=== PATIENT | female | born 1935 | race Caucasian/White ===

== ENCOUNTER → 2016-07-01 | Outpatient (CLI) | payer OTHER ==
[~2016-07-01] MED LIST: ACET325T96 PO; ACT300 PO; ASPI81TA28 PO; BTP80 PO; CARV3.122 PO; CARV6.252 PO; CLC100 PO; CRD200 PO; CRG3125 PO; DLCS PR; Enteral Nutrition Formula PO; FRRS300 PO; FRS/40 PO; HYDR-5688 PO; KFZAV1 IV; LCTX PO; LEVO112T4 PO; LSX80 PO; MAGNTAB4 PO; META1TAB22 PO; MRLP17X PO; MULT60CA PO; OXYC-57 PO; PRAV20TA PO; PRVC20 PO; SLWMEC PO; SOTA80TA55 PO; SYN100 PO; TRAM-10 PO; TYL325X PO; URSO300C4 PO
--- NOTE | 2016-07-02 10:56 | MAMMOGRAPHY REPORT ---
BILATERAL DIGITAL SCREENING MAMMOGRAM WITH CAD: 07/01/2016 CLINICAL HISTORY: Routine screening. Patient has no complaints. TECHNIQUE: Bilateral CC and MLO views were obtained. Current study was also evaluated with a Comput er Aided Detection (CAD) system. COMPARISON: Comparison is made to exams dated: 06/28/2015 mammogram, 01/27/2014 mammogram, 01/10/2012 m ammogram, 01/12/2013 mammogram, 01/08/2011 mammogram, and 01/05/2010 mammogram - [facility]. BREAST COMPOSITION: The tissue of both breasts is heterogeneously dense, which may obscure small ma sses. FINDINGS: There is an asymmetry in the superior posterior right breast on the MLO view. Although t his could represent normal overlapping tissue, additional spot compression tomosynthesis views and p ossibly ultrasound are recommended. There is an increasingly prominent 10 mm mass in the upper oute r anterior left breast, for which additional targeted ultrasound and possible additional mammographi c views is recommended. There are benign coarse calcifications and moderate vascular calcifications in the breasts. No other suspicious mass, architectural distortion or cluster of microcalcifications is seen. IMPRESSION: ACR BI-RADS CATEGORY 0: INCOMPLETE EVALUATION: NEED ADDITIONAL IMAGING EVALUATION The increasingly prominent 10 mm mass in the anterior left breast, and right breast asymmetry need a dditional imaging evaluation. The patient will be called to schedule an appointment. Approximately 10% of breast cancers are not detected with mammography. A negative mammographic repor t should not delay biopsy if a clinically suggestive mass is present. Macie Valencia M.D. ay/:07/01/2016 17:12:11 Driver Wheelchair: Dae HEIN(R)(M), [facility] letter sent: [facility] Imaging 0 BI-RADS Code: ACR BI-RADS Category 0: Incomplete Evaluation: Need Additional Imaging Evaluation
== END | disposition home or self-care (01) ==
LOC: C.MAMM 13:59
PROVIDERS: ATTEND Psychiatry & Neurology Geriatric Psychiatry
DX: Z12.31 Encounter for screening mammogram for malignant neoplasm of breast (principal); N63 Unspecified lump in breast; N64.89 Other specified disorders of breast

== ENCOUNTER 2016-07-04 18:19 | Observation (INO) | payer OTHER ==
[~2016-07-04] VITALS: Ht 167.6 cm; Wt 67.1 kg
[~2016-07-04 18:19] MED LIST changes: -ACET325T96 PO; -BTP80 PO; -CARV3.122 PO; -CARV6.252 PO; -FRS/40 PO; -LEVO112T4 PO; -MAGNTAB4 PO; -META1TAB22 PO; -MULT60CA PO; -OXYC-57 PO; -PRAV20TA PO; -SLWMEC PO; -SOTA80TA55 PO; -TRAM-10 PO
[2016-07-04] MEDS ORDERED: DILTIAZEM BOLUS / DRIP IV STA (18:42)
[2016-07-04 18:52] LABS: BASO % 0.3 %; BASO ABS # 0.03 K/uL (0-0.2); COMPLETE YES; EOS % 1.5 %; HEMATOCRIT 32.3 % (37-47); IG% 0.2 %; LYMPH % 12.8 %; LYMPH ABS # 1.16 K/uL (1.2-3.4); MEAN CELL VOLUME 94.4 fL (80-100); MEAN CORPUSCULAR HEMOGLOBIN 32.5 pg (25-34); MEAN CORPUSCULAR HGB CONC 34.4 g/dl (32-36); MEAN PLATELET VOLUME 9.6 fL (7.4-10.4); MONO % 9.1 %; NEUT % 76.1 %; PLATELET COUNT 370 K/uL (130-400); RED BLOOD COUNT 3.42 M/uL (4.2-5.4); WHITE BLOOD COUNT 9.04 K/uL (4.8-10.8)
[2016-07-04] MEDS ORDERED: DILTIAZEM HCL INJ 125 MG in DEXTROSE 5% 100ML IV PRN (19:00)
[2016-07-04 19:08] LABS: BUN/CREATININE RATIO 22.5 (10-20); CALCIUM 9.6 mg/dl (8.5-10.1); CREATININE 1.5 mg/dl (0.60-1.20); INR 1.1 (0.9-1.1); MAGNESIUM 2.2 mg/dl (1.8-2.4); PARTIAL THROMBOPLASTIN RATIO 1.9; POTASSIUM 3.9 mmol/L (3.5-5.1); PROTHROMBIN TIME (PATIENT) 11.7 SECONDS (9.0-12.0)
--- NOTE | 2016-07-04 19:31 | DIAGNOSTIC IMAGING REPORT ---
CHEST ONE VIEW PORTABLE HISTORY: Atypical chest pain. COMPARISON: Chest 02/13/2015. FINDINGS: No focal lung consolidations to suggest pneumonia. No evidence for pulmonary edema. No pleural effusions. No pneumothorax. The heart is top normal in size. A few linear densities the left lung base favor subsegmental atelectasis. IMPRESSION: No acute process. Electronically signed by: Rosendo Don M.D. 07/04/2016 7:30 PM Dictated Date/Time: 07/04/2016 7:29 PM
[2016-07-04] MEDS ORDERED: FRS/40 PO (20:06)
[2016-07-04] MEDS ORDERED: LEVO112T4 PO (20:06)
[2016-07-04] MEDS ORDERED: MULT60CA PO (20:06)
[2016-07-04] MEDS ORDERED: CARV6.252 PO (20:06)
[2016-07-04] MEDS ORDERED: MAGNTAB4 PO (20:06)
[2016-07-04] MEDS ORDERED: URSODIOL 300 MG CAP PO SCH (21:00)
[2016-07-04] MEDS ORDERED: SODIUM CHLORIDE 0.9% 1000ML 1,000 ML IV SCH (21:01)
[2016-07-04] MEDS ORDERED: IV FLUIDS COMPLETED PRN (21:15)
[2016-07-04] MEDS ORDERED: ONDANSETRON INJ 2 MG/ML 2 ML VIAL IV PRN (21:15)
[2016-07-04] MEDS ORDERED: LORAZEPAM 2 MG/ML 1 ML VIAL IV PRN (21:15)
[2016-07-04] MEDS ORDERED: NITROGLYCERIN 0.4 MG SL PER TAB CHARGE SL PRN (21:15)
[2016-07-04] MEDS ORDERED: HYDROmorphone INJ 0.5 MG/0.5 ML SYR IV PRN (21:15)
[2016-07-04] MEDS ORDERED: TRAMADOL HCL 50 MG TAB PO PRN (21:15)
[2016-07-04 21:32] VITALS: BP 156/82; PULSE 85; TEMP 36.5; O2SAT 99; Ht 167.6 cm; Wt 67.1 kg
[2016-07-04] MEDS ORDERED: HEPARIN SOD 5000 UNIT/0.5 ML CARP SQ SCH (22:00)
[2016-07-04] MEDS ORDERED: HEPARIN IV LOW DOSE NO BOLUS SCH (22:02)
[2016-07-04] MEDS ORDERED: HEPARIN 25,000 UNIT/500ML D5W 500 ML IV PRN (22:30)
[2016-07-04] MEDS ORDERED: POTASSIUM CHLORIDE 10 MEQ TABCR PO ONE (22:30)
[2016-07-04] MEDS: CARVEDILOL 6.25 MG TAB PO SCH (22:35)
[2016-07-04] MEDS: ACETAMINOPHEN 325 MG TAB PO PRN (22:38)
--- NOTE | 2016-07-04 23:07 | HISTORY & PHYSICAL EXAMINATION ---
DATE OF ADMISSION: 07/04/2016 PRIMARY CARE DOCTOR: Dr. Lucas. Hx obtained from px and records. CHIEF COMPLAINT: bilateral shoudler, back pain, shortness of breath on exertion. HISTORY OF PRESENT ILLNESS: Medical history significant for CAD status post stenting, HTN, hx PAF, past tobacco abuse, chronic renal insufficiency (baseline creatinine 1.5), HTN, hx NHL sp Rituxan, autoimmune hepatitis as per records, history of MRSA. chronic anemia (baseline hemoglobin of 11) Recent confinement last 02/2015 for sepsis secondary to MSSA bacteremia. Possible psoas abscess that was too small to drain, This morning the patient woke up with shortness of breath on exertion. No fluid retention. No actual chest pain. Bilateral shoulder/back pain going to both arms, spontaneous resolution. No previous episodes in the past. In the Emergency Room, the patient was initially noted to be in rapid Afib, 120. Spontaneous conversion to NSR CR currently 80s MEDICAL HISTORY: As above. SURGERIES: Lymph node biopsy, vaginal sling procedure, tonsillectomy, adenoidectomy, cholecystectomy, urologic procedures. HOME MEDICATIONS: Include Actigall, ursodiol, aspirin, Coreg, Lasix, levothyroxine, multivitamins, Slow-Mag. ALLERGIES: TO DIPHENHYDRAMINE, METOPROLOL, GARLIC. FAMILY HISTORY: Heart disease, pancreatic cancer, breast cancer, skin cancer. PERSONAL AND SOCIAL HISTORY: Past tobacco abuse. No chronic ETOH intake. 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 REVIEW OF SYSTEMS: As per HPI, all other ROS negative. PHYSICAL EXAMINATION: VITAL SIGNS: Blood pressure was noted to be 109/60, pulse 80, RR 26, temp 36.6, sats 98 on room air. GENERAL: Noted to be slightly anxious, mild hearing impairment. No respiratory distress. SKIN: Pallor. HEENT: Pale palpebral conjunctivae. Dry mucosa. NECK: No JVD. Supple. CHEST: Clear to auscultation. HEART: Regular rate and rhythm. ABDOMEN: Some distention, nontender. EXTREMITIES: No edema, no tenderness. Bilateral post shoulder tenderness, (chronic as per px) NEUROLOGIC: No gross focality except for hearing impairment. LABORATORY DATA: Hemoglobin was noted to be 11.1, white cells 9, platelets 317. Sodium was noted to be 137, potassium 3.9, chloride 102, CO2 of 22, creatinine 1.5. Troponin 0.10. D-dimer abnormal. Chest x-ray, no acute process. EKG rate 115, atrial fibrillation, T-wave inversion in inferolateral leads ASSESSMENT: 1. Recurrent atrial fibrillation, shortness of breath, bilat shoulder discomfort px currently asymptomatic spontaneous conversion to NSR possible precipitants : pulmonary embolism, ACS (?anginal equivalent) 2. hx Coronary artery disease sp stenting. 3. Hypertension, stable. 4. Chronic renal insufficiency, creatinine at baseline. 5. History of methicillin-resistant Staphylococcus aureus. 6. Chronic anemia secondary to chronic kidney disease. Hg at baseline 7. Past tobacco abuse. 8, hx autoimmune hepatitis as per record, stable 9. NHL sp chemotx PLAN: OBS PCU. Continue home beta keira for rate control. Cardiology consult RE recurrent Afib (px known to Dr. Miranda) 2D echo. V/Q scan. RE sob Low-dose IV heparin for now for thromboembolic prevention. Full code. MTDD
[2016-07-04 23:11] LABS: ALKALINE PHOSPHATASE 63 U/L (45-117); ALT/SGPT 10 U/L (12-78); AST/SGOT 8 U/L (15-37); THYROID STIMULATING HORMONE 0.245 uIu/ml (0.300-4.500)
[2016-07-04 23:53] VITALS: BP 101/44; PULSE 78; TEMP 36.6; O2SAT 97
--- NOTE | 2016-07-05 00:53 | EMERGENCY ROOM VISIT NOTE ---
History Report prepared by Alexandra: Germaine Brush Under the Supervision of: Dr. Brandan Bowles M.D. First contact with patient: 18:35 Chief Complaint: SHORTNESS OF BREATH Stated Complaint: WEEKNESS, SOB, ACHY Nursing Triage Summary: Pt presents with c/o sob with exertion, b/l arm and shoulder ache that began this morning. Denies cp. OH x 5 yrs ago. History of Present Illness The patient is a 80 year old female who presents to the Emergency Room with complaints of constant shortness of breath since this morning. Her shortness of breath is worse with exertion and she was having trouble just walking across the room. She reports some aching across her shoulders and down into her arms bilaterally. She denies any pain across her chest. She denies any feelings of heaviness or tightness in her chest. She does not feel like her heart is going faster than normal or skipping any beats. The patient rates her current pain as a 7/10 in severity. Sitting still helps to alleviate her symptoms. She had bronchitis in April, but denies any other recent illness. She denies pain or swelling in her legs. The patient takes aspirin but denies any other blood thinners. She had atrial fibrillation in 2014. Source of History: patient Onset: this morning Position: other (respiratory) Symptom Intensity: 7/10 Quality: other (shortness of breath) Timing: constant Modifying Factors (Worsening): exertion Modifying Factors (Relieving): rest Associated Symptoms: No chest pain Review of Systems See HPI for pertinent positives & negatives. A total of 10 systems reviewed and were otherwise negative. Past Medical & Surgical Medical Problems: (1) Autoimmune hepatitis (2) Cholelithiasis (3) Dyslipidemia (4) GI bleed (5) HTN (hypertension) (6) Hypothyroidism (7) Lymphoma (8) OH (myocardial infarction) (9) Osteoarthritis (10) Osteoporosis (11) SOB (shortness of breath) Surgical Problems: (1) S/P cholecystectomy Family History FH: cancer FH: heart disease Social History Smoking Status: Former Smoker Drug Use: none Marital Status: Housing Status: lives with family Occupation Status: retired Current/Historical Medications Scheduled Aspirin (Aspirin Ec), 81 MG PO DAILY Carvedilol (Coreg), 6.25 MG PO BID Furosemide (Lasix), 40 MG PO DAILY Levothyroxine Sodium (Levothyroxine Sodium), 1 TAB PO DAILYBB Magnesium Chloride (Slow-Mag Tab), 64 MG PO DAILY Multiple Vitamins W/ Minerals (Preservision Areds 2), 1 CAP PO DAILY Ursodiol (Actigall), 600 MG PO QAM Ursodiol (Ursodiol), 300 MG PO QPM Scheduled PRN Acetaminophen (Tylenol), 650 MG PO Q4H PRN for Pain or Fever Allergies Coded Allergies: Diphenhydramine (Verified Allergy, Intermediate, rash, 07/04/16) Metoprolol (Verified Allergy, Intermediate, RASH, 07/04/16) Aspirin (Verified Allergy, Mild, unknown, 07/04/16) Garlic (Verified Allergy, Unknown, unknown, 07/04/16) Pseudoephedrine (Verified Allergy, Unknown, rash, 07/04/16) Physical Exam Vital Signs Date Time Temp Pulse Resp B/P Pulse Ox O2 Delivery O2 Flow Rate FiO2 07/04/16 20:29 79 17 95 07/04/16 20:24 84 22 96 07/04/16 20:19 79 16 95 07/04/16 20:14 80 17 95 07/04/16 20:09 81 13 96 07/04/16 20:04 81 14 96 07/04/16 20:01 115/60 07/04/16 19:59 80 17 95 07/04/16 19:54 79 18 96 07/04/16 19:49 79 19 96 07/04/16 19:44 82 14 97 07/04/16 19:39 82 16 95 07/04/16 19:34 84 15 98 07/04/16 19:31 105/58 07/04/16 19:29 80 17 97 07/04/16 19:24 92 19 98 07/04/16 19:23 97 Room Air 07/04/16 19:19 79 16 96 07/04/16 19:14 78 19 97 07/04/16 19:09 79 16 97 07/04/16 19:04 81 17 97 07/04/16 19:01 120/61 07/04/16 18:59 79 16 98 07/04/16 18:54 77 12 99 07/04/16 18:49 98 25 99 07/04/16 18:48 91 07/04/16 18:44 90 14 99 07/04/16 18:37 99 Room Air 07/04/16 18:37 125/80 07/04/16 18:37 120 18 125/80 98 Room Air 07/04/16 18:24 36.6 112 18 98 Room Air Physical Exam Constitutional: Vital signs reviewed. Eyes: Pupils are equal round reactive to light. Conjunctiva are noninjected. ENT: Pharynx is clear without erythema or exudate. Mucous membranes are moist. Neck supple without meningeal signs. Respiratory: Clear to auscultation bilaterally. Breath sounds are equal bilaterally. Cardiovascular: Tachycardic rate at 115-140 and irregularly irregular rhythm. No rubs or gallops. GI: Soft, nondistended and nontender. Bowel sounds are present. Musculoskeletal: No peripheral edema. No lower extremity tenderness. Integumentary: No cyanosis. Neurological: The patient is awake and alert. No focal deficits. Psychiatric: Normal affect. Medical Decision & Procedures ER Provider Diagnostic Interpretation: A repeat ECG reveals a NSR at 78, deep T-wave inversions in V4-V6, no ectopy. Radiology results as stated below per my review and the radiologist's interpretation: CHEST ONE VIEW PORTABLE HISTORY: Atypical chest pain. COMPARISON: Chest 02/13/2015. FINDINGS: No focal lung consolidations to suggest pneumonia. No evidence for pulmonary edema. No pleural effusions. No pneumothorax. The heart is top normal in size. A few linear densities the left lung base favor subsegmental atelectasis. IMPRESSION: No acute process. Electronically signed by: Rosendo Don M.D. 07/04/2016 7:30 PM Dictated Date/Time: 07/04/2016 7:29 PM Laboratory Results 07/04/16 18:35 Red Blood Count 3.42, Mean Corpuscular Volume 94.4, Mean Corpuscular Hemoglobin 32.5, Mean Corpuscular Hemoglobin Concent 34.4, Mean Platelet Volume 9.6, Neutrophils (%) (Auto) 76.1, Lymphocytes (%) (Auto) 12.8, Monocytes (%) (Auto) 9.1, Eosinophils (%) (Auto) 1.5, Basophils (%) (Auto) 0.3, Neutrophils # (Auto) 6.87, Lymphocytes # (Auto) 1.16, Monocytes # (Auto) 0.82, Eosinophils # (Auto) 0.14, Basophils # (Auto) 0.03 07/04/16 18:35 Test 07/04/16 18:35 07/04/16 18:37 07/04/16 18:47 White Blood Count 9.04 K/uL (4.8-10.8) Red Blood Count 3.42 M/uL (4.2-5.4) Hemoglobin 11.1 g/dL (12.0-16.0) Hematocrit 32.3 % (37-47) Mean Corpuscular Volume 94.4 fL (80-100) Mean Corpuscular Hemoglobin 32.5 pg (25-34) Mean Corpuscular Hemoglobin Concent 34.4 g/dl (32-36) Platelet Count 370 K/uL (130-400) Mean Platelet Volume 9.6 fL (7.4-10.4) Neutrophils (%) (Auto) 76.1 % Lymphocytes (%) (Auto) 12.8 % Monocytes (%) (Auto) 9.1 % Eosinophils (%) (Auto) 1.5 % Basophils (%) (Auto) 0.3 % Neutrophils # (Auto) 6.87 K/uL (1.4-6.5) Lymphocytes # (Auto) 1.16 K/uL (1.2-3.4) Monocytes # (Auto) 0.82 K/uL (0.11-0.59) Eosinophils # (Auto) 0.14 K/uL (0-0.5) Basophils # (Auto) 0.03 K/uL (0-0.2) RDW Standard Deviation 44.9 fL (36.4-46.3) RDW Coefficient of Variation 13.0 % (11.5-14.5) Immature Granulocyte % (Auto) 0.2 % Immature Granulocyte # (Auto) 0.02 K/uL (0.00-0.02) Prothrombin Time 11.7 SECONDS (9.0-12.0) Prothromb Time International Ratio 1.1 (0.9-1.1) Activated Partial Thromboplast Time 50.5 SECONDS (21.0-31.0) Partial Thromboplastin Ratio 1.9 D-Dimer 870 ug/L FEU (0-500) Anion Gap 13.0 mmol/L (3-11) Est Creatinine Clear Calc Drug Dose 28.5 ml/min Estimated GFR () 38.0 Estimated GFR (Non- 32.8 BUN/Creatinine Ratio 22.5 (10-20) Calcium Level 9.6 mg/dl (8.5-10.1) Magnesium Level 2.2 mg/dl (1.8-2.4) Total Triiodothyronine 0.67 ng/ml (0.60-1.81) Bedside Troponin I 0.010 ng/ml (0-0.045) Laboratory results as reviewed by me. ECG Indication: SOB/dyspnea Rate (beats per minute): 115 Rhythm: atrial fibrillation (with RVR) Findings: T-wave inversion (V4-V6), other (no widening of QRS) Comparison ECG Date: February 08, 2015 Change: T-wave inversions are not present and a-fib is not present; although, she did have a-fib on February 07, 2015. ED Course 1834: The patient was evaluated in room B7. A complete history and physical exam was performed. 1933: I reassessed the patient at this time. She is feeling better and resting comfortably. She is not currently experiencing any symptoms. I discussed the results and treatment plan with the patient. I answered all pertaining questions that she had. She expressed understanding and verbalized agreement. 1936: I spoke with Dr. Tabor. We discussed the patient's results and treatment plan. [facility] Medical Decision This is a 80-year-old female who presents with dyspnea on exertion. Differential diagnosis includes acute coronary syndrome, anemia, metabolic derangement, pneumonia, dysrhythmia. I did perform a limited focused review of portions of the patient's old chart on the electronic medical record. The patient has had no recent pertinent visits to this hospital. She does have a prior history of paroxysmal A. fib and was noted to have shoulder pain as a possible anginal equivalent. I did evaluate the patient as noted above. IV access was established. The patient was placed on a continuous awake overnight monitor. I did order and personally review the patient's 12-lead EKG and chest x-ray as described above. The patient has atrial fibrillation with RVR. I did order a Cardizem drip but the patient converted to normal sinus rhythm. The drip was canceled. A repeat twelve-lead EKG was obtained as described above. She does have deep T-wave inversions as noted. I did order and review the patient's blood work as noted in the electronic medical record. Troponin is negative. I did reassess the patient. She is not having any symptoms at this time. I did recommend hospitalization for further evaluation. I did discuss the case with the hospitalist and case operator. Consults Time Called: 1935 Consulting Physician: Dr. Tabor Returned Call: [address] Tabor. We discussed the patient's results and treatment plan. The patient will be evaluated by the [facility] for further management. Impression Primary Impression: Dyspnea on exertion Additional Impressions: Paroxysmal atrial fibrillation Shoulder pain, bilateral Atrial fibrillation with RVR Scribe Attestation The scribe's documentation has been prepared under my direct and personally reviewed by me in its entirety. I confirm that the note above accurately reflects all work, treatment, procedures, and medical decision making performed by me. Departure Information Dispostion Being Evaluated By Hospitalist Referrals Kelsi Lucas DO (PCP) Patient Instructions My [facility] Problem Qualifiers Additional Impressions: Shoulder pain, bilateral Chronicity: acute Qualified Codes: M25.511 - Pain in right shoulder; M25.512 - Pain in left shoulder
[2016-07-05 03:38] VITALS: BP_SYST 113; BP_SYST 129; BP_DIAS 65; BP_DIAS 72; PULSE 73; PULSE 79; TEMP 36.7; TEMP 36.8; O2SAT 94; O2SAT 99
[2016-07-05] MEDS ORDERED: LEVOTHYROXINE 100 MCG TAB PO SCH (06:00)
[2016-07-05] MEDS ORDERED: LEVOTHYROXINE 112 MCG TAB PO SCH (06:00)
[2016-07-05] MEDS: ACETAMINOPHEN 325 MG TAB PO PRN (06:08)
[2016-07-05 06:22] LABS: BASO % 0.6 %; BASO ABS # 0.04 K/uL (0-0.2); EOS % 4.5 %; IG% 0.2 %; LYMPH % 25.3 %; LYMPH ABS # 1.64 K/uL (1.2-3.4); MEAN CELL VOLUME 92.2 fL (80-100); MEAN CORPUSCULAR HEMOGLOBIN 31.6 pg (25-34); MEAN CORPUSCULAR HGB CONC 34.2 g/dl (32-36); MEAN PLATELET VOLUME 9.3 fL (7.4-10.4); NEUT % 55.4 %; PLATELET COUNT 303 K/uL (130-400); RED BLOOD COUNT 2.82 M/uL (4.2-5.4); WHITE BLOOD COUNT 6.48 K/uL (4.8-10.8)
[2016-07-05 06:42] LABS: PARTIAL THROMBOPLASTIN RATIO 3.2
[2016-07-05 06:50] LABS: BUN/CREATININE RATIO 24.9 (10-20); CALCIUM 8.5 mg/dl (8.5-10.1); CREATININE 1.5 mg/dl (0.60-1.20)
--- NOTE | 2016-07-05 07:04 | DIAGNOSTIC IMAGING REPORT ---
ULTRASOUND BILATERAL LOWER EXTREMITY VENOUS CLINICAL HISTORY: Dyspnea. Clinical concern for deep venous thrombosis. COMPARISON STUDY: Bilateral lower extremity venous ultrasound dated 05/31/2013. TECHNIQUE: Real-time, grayscale, and color Doppler sonography of the deep veins of the right and left lower extremity was performed from the inguinal crease to the calf. Compression and augmentation were utilized. FINDINGS: There is no sonographic evidence of deep venous thrombosis identified in the right or left lower extremity. The common femoral, superficial femoral, and popliteal veins are patent and normally compressible bilaterally. The greater saphenous vein and the profunda femoris vein at the junction with the common femoral vein are clear in both legs. The visualized calf veins are patent bilaterally. There are bilateral popliteal cysts. This measures 6.5 x 1.9 x 3.2 cm on the right and 3.5 x 0.9 x 2.0 cm on the left. IMPRESSION: 1. There is no sonographic evidence of deep venous thrombosis identified in the right or left lower extremity. 2. Bilateral popliteal cysts. Electronically signed by: Salty Moise M.D. 07/05/2016 7:03 AM Dictated Date/Time: 07/05/2016 7:02 AM
[2016-07-05 07:21] VITALS: BP 129/69; PULSE 70; TEMP 36.7; O2SAT 98
[2016-07-05 07:22] LABS: COMPLETE YES
--- NOTE | 2016-07-05 08:20 | Progress Note ---
Internal Med Progress Note Date of Service: Jul 05, 2016. Provider Documentation: SUBJECTIVE: Patient is seen and examined at bedside. Currently denies any chest pain, SOB, dizziness, palpitations. States shoulder pain has resolved. Offers no other complaints. OBJECTIVE: Vital Signs-as noted below Physical Exam: General Appearance:Moderately built and nourished, no apparent distress Head: normocephalic, Atraumatic Eyes: normal inspection, EOMI, PERRLA Neck: supple, no JVD, Trachea midline Respiratory/Chest: Normal breath sounds, CTA, No accessory muscle use Cardiovascular: S1, S2, No murmur Abdomen/GI:Soft, Non tender, Bowel sounds present Extremities/Musculoskelatal:normal inspection, Trace b/l edema Neurologic/Psych:AAOX3, grossly no focal neurological deficits Skin: normal color, warm Lab data as noted below. ASSESSMENT & PLAN: Paroxysmal afib with RVR: Presented with SOB and bilateral shoulder and back pain Converted to sinus spontaneously while in ED Not a candidate for shelter anticoagulation Continue BB: increased carvedilol to 12.5 mg BID IV heparin discontinued ECHO: As below Troponin X 2: Negative Appreciate Cardiology input Needs outpatient 1-2 week Zio monitor but to await for repeat imaging for an abnormal mammogram first Elevated D-dimer: Venous doppler: Negative for DVT V/Q scan:Low probability for pulmonary embolus. CXR: No acute process H/O CAD S/p Stents Continue aspirin, statins, BB H/O Non-Hodgkin Lymphoma: Pelvic Followed by Dr. 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 * Ejection Fraction = 60-65%. * The right ventricular systolic function is normal. * The left atrium is moderately dilated. * Aortic valve sclerosis moderate, without significant aortic valvular stenosis. * There is moderate mitral regurgitation. V/Q Scan: Low probability for pulmonary embolus. Vital Signs: Date Time Temp Pulse Resp B/P Pulse Ox O2 Delivery O2 Flow Rate FiO2 07/05/16 11:28 36.7 89 16 142/85 96 Room Air 07/05/16 08:00 Room Air 07/05/16 07:21 36.7 70 18 129/69 98 Room Air 07/05/16 04:10 Room Air 07/05/16 03:38 36.7 73 18 129/65 99 Room Air 07/05/16 00:10 Room Air 07/04/16 23:53 36.6 78 18 101/44 97 Room Air 07/04/16 21:32 36.5 85 20 156/82 99 Room Air 07/04/16 21:19 36.6 81 20 109/60 97 07/04/16 20:34 81 20 97 07/04/16 20:31 109/60 07/04/16 20:29 79 17 95 07/04/16 20:24 84 22 96 07/04/16 20:19 79 16 95 07/04/16 20:14 80 17 95 07/04/16 20:09 81 13 96 07/04/16 20:04 81 14 96 07/04/16 20:01 115/60 07/04/16 19:59 80 17 95 07/04/16 19:54 79 18 96 07/04/16 19:49 79 19 96 07/04/16 19:44 82 14 97 07/04/16 19:39 82 16 95 07/04/16 19:34 84 15 98 07/04/16 19:31 105/58 07/04/16 19:29 80 17 97 07/04/16 19:24 92 19 98 07/04/16 19:23 97 Room Air 07/04/16 19:19 79 16 96 07/04/16 19:14 78 19 97 07/04/16 19:09 79 16 97 07/04/16 19:04 81 17 97 07/04/16 19:01 120/61 07/04/16 18:59 79 16 98 07/04/16 18:54 77 12 99 07/04/16 18:49 98 25 99 07/04/16 18:48 91 07/04/16 18:44 90 14 99 07/04/16 18:37 99 Room Air 07/04/16 18:37 125/80 07/04/16 18:37 120 18 125/80 98 Room Air 07/04/16 18:24 36.6 112 18 98 Room Air Lab Results: Results Past 24 Hours Test 07/04/16 18:35 07/04/16 18:37 07/04/16 18:47 07/04/16 22:05 Range/Units White Blood Count 9.04 4.8-10.8 K/uL Red Blood Count 3.42 4.2-5.4 M/uL Hemoglobin 11.1 12.0-16.0 g/dL Hematocrit 32.3 37-47 % Mean Corpuscular Volume 94.4 80-100 fL Mean Corpuscular Hemoglobin 32.5 25-34 pg Mean Corpuscular Hemoglobin Concent 34.4 32-36 g/dl Platelet Count 370 130-400 K/uL Mean Platelet Volume 9.6 7.4-10.4 fL Neutrophils (%) (Auto) 76.1 % Lymphocytes (%) (Auto) 12.8 % Monocytes (%) (Auto) 9.1 % Eosinophils (%) (Auto) 1.5 % Basophils (%) (Auto) 0.3 % Neutrophils # (Auto) 6.87 1.4-6.5 K/uL Lymphocytes # (Auto) 1.16 1.2-3.4 K/uL Monocytes # (Auto) 0.82 0.11-0.59 K/uL Eosinophils # (Auto) 0.14 0-0.5 K/uL Basophils # (Auto) 0.03 0-0.2 K/uL RDW Standard Deviation 44.9 36.4-46.3 fL RDW Coefficient of Variation 13.0 11.5-14.5 % Immature Granulocyte % (Auto) 0.2 % Immature Granulocyte # (Auto) 0.02 0.00-0.02 K/uL Prothrombin Time 11.7 9.0-12.0 SECONDS Prothromb Time International Ratio 1.1 0.9-1.1 Activated Partial Thromboplast Time 50.5 21.0-31.0 SECONDS Partial Thromboplastin Ratio 1.9 D-Dimer 870 0-500 ug/L FEU Sodium Level 137 136-145 mmol/L Potassium Level 3.9 3.5-5.1 mmol/L Chloride Level 102 98-107 mmol/L Carbon Dioxide Level 22 21-32 mmol/L Anion Gap 13.0 3-11 mmol/L Blood Urea Nitrogen 34 7-18 mg/dl Creatinine 1.50 0.60-1.20 mg/dl Est Creatinine Clear Calc Drug Dose 28.5 ml/min Estimated GFR () 38.0 Estimated GFR (Non- 32.8 BUN/Creatinine Ratio 22.5 10-20 Random Glucose 97 70-99 mg/dl Calcium Level 9.6 8.5-10.1 mg/dl Magnesium Level 2.2 1.8-2.4 mg/dl Total Triiodothyronine 0.67 0.60-1.81 ng/ml Bedside Troponin I 0.010 0-0.045 ng/ml Total Bilirubin 0.4 0.2-1 mg/dl Direct Bilirubin < 0.1 0-0.2 mg/dl Aspartate Amino Transf (AST/SGOT) 8 15-37 U/L Alanine Aminotransferase (ALT/SGPT) 10 12-78 U/L Alkaline Phosphatase 63 45-117 U/L Troponin I 0.028 0-0.045 ng/ml Total Protein 7.2 6.4-8.2 gm/dl Albumin 3.1 3.4-5.0 gm/dl Lipase 155 73-393 U/L Thyroid Stimulating Hormone (TSH) 0.245 0.300-4.500 uIu/ml Free Thyroxine 1.58 0.80-1.60 ng/dl Test 07/05/16 05:55 07/05/16 13:11 Range/Units White Blood Count 6.48 4.8-10.8 K/uL Red Blood Count 2.82 4.2-5.4 M/uL Hemoglobin 8.9 12.0-16.0 g/dL Hematocrit 26.0 37-47 % Mean Corpuscular Volume 92.2 80-100 fL Mean Corpuscular Hemoglobin 31.6 25-34 pg Mean Corpuscular Hemoglobin Concent 34.2 32-36 g/dl Platelet Count 303 130-400 K/uL Mean Platelet Volume 9.3 7.4-10.4 fL Neutrophils (%) (Auto) 55.4 % Lymphocytes (%) (Auto) 25.3 % Monocytes (%) (Auto) 14.0 % Eosinophils (%) (Auto) 4.5 % Basophils (%) (Auto) 0.6 % Neutrophils # (Auto) 3.59 1.4-6.5 K/uL Lymphocytes # (Auto) 1.64 1.2-3.4 K/uL Monocytes # (Auto) 0.91 0.11-0.59 K/uL Eosinophils # (Auto) 0.29 0-0.5 K/uL Basophils # (Auto) 0.04 0-0.2 K/uL RDW Standard Deviation 44.3 36.4-46.3 fL RDW Coefficient of Variation 12.9 11.5-14.5 % Immature Granulocyte % (Auto) 0.2 % Immature Granulocyte # (Auto) 0.01 0.00-0.02 K/uL Red Blood Cell Morphology Unremarkable Activated Partial Thromboplast Time 82.5 44.1 21.0-31.0 SECONDS Partial Thromboplastin Ratio 3.2 1.7 Sodium Level 140 136-145 mmol/L Potassium Level 4.0 3.5-5.1 mmol/L Chloride Level 106 98-107 mmol/L Carbon Dioxide Level 26 21-32 mmol/L Anion Gap 8.0 3-11 mmol/L Blood Urea Nitrogen 37 7-18 mg/dl Creatinine 1.50 0.60-1.20 mg/dl Est Creatinine Clear Calc Drug Dose 28.5 ml/min Estimated GFR () 38.0 Estimated GFR (Non- 32.8 BUN/Creatinine Ratio 24.9 10-20 Random Glucose 88 70-99 mg/dl Calcium Level 8.5 8.5-10.1 mg/dl Troponin I 0.020 0-0.045 ng/ml Microbiology Results 07/05/16 MRSA DNA Surveillance Screen - Final, Complete Specimen Negative for MRSA by DNA Probe
[2016-07-05] MEDS ORDERED: PRAV20TA PO (08:31)
[2016-07-05] MEDS ORDERED: ASPIRIN 81 MG ECTAB PO SCH (09:00)
[2016-07-05] MEDS: URSODIOL 300 MG CAP PO SCH ×2 (09:37→11:43)
[2016-07-05] MEDS: CEROVITE ADV FORMULA TAB PO SCH ×2 (09:38→11:43)
[2016-07-05] MEDS: CARVEDILOL 6.25 MG TAB PO SCH (09:38)
[2016-07-05] MEDS ORDERED: CARVEDILOL 6.25 MG TAB PO ONE (10:19)
[2016-07-05 11:28] VITALS: BP 142/85; PULSE 89; TEMP 36.7; O2SAT 96
--- NOTE | 2016-07-05 11:46 | Cardiology Consultation ---
Cardiology Consultation Date of Service Jul 05, 2016. (Delicia Thurman PA-C) Cardiology Consultation SUBJECTIVE: Elidia Baig is a 80 year old year female with history of coronary artery disease s/p inferior wall DC in 2011 receiving a BMS to the RCA for which she follows with Dr. Miranda. She carries a history of Paroxysmal atrial fibrillation in the setting of acute illness/sepsis in 01/2015. At that time, she was placed on short term amiodarone with successful conversion to NSR. She was discharged on low dose amiodarone and this was discontinued at f/u approx 1 month later. Given history of autoimmune hepatitis and hypothyroidism, amiodarone was considered not a good skilled nursing medication to manage afib. She has a history of allergy to metoprolol therapy, causing a diffuse rash. She was deemed not a good director long term care anticoagulation candidate at that time due to chronic anemia, and requiring multiple transfusions during that admission. she also developed significant anemia with IV heparin. Yesterday she awoke with complaints of dyspnea with minimal exertion, such as walking across the room. She noted b/l arm/shoulder and neck pain (chronic issue ). No chest pain. Due to SOB she came to ER for evaluation. She denied recent weight gain, LE edema, orthopnea. She denied symptoms of dizziness and palpitations at the time. In ER she was found to have recurrent atrial fibrillation with RVR. This was first known episode since 2014 during acute illness. She was started on IV Cardizem and she quickly converted to NSR. She was also started on IV heparin. Cardiac enzymes unremarkable. EKG with T wave abnormality, chronic. D-Dimer elevated with negative venous duplex. VQ scan pending. Symptoms greatly improved with conversion to NSR. She was admitted for further observation/ treatment. At time of consult, patient feeling well. She denies symptoms of exertional dyspnea, chest pain or palpitations. No orthopnea, PND or edema. No recent illnesses. No dizziness, syncope or near syncope. She mentions she has been anxious regarding a possible abnormal mammogram. She has f/u imaging appointment this week to discuss findings. Extensive ROS: A Complete Review of 10 Systems is as stated above or negative. 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 Retired. and lives with . Review of patient's allergies indicates Benadryl [Diphenhydramine Hcl] Neuro complications (Please comment -Pt reports having spasms - severe to B/ L LEs Levofloxacin - Tendon pains Metoprolol -Rash Pseudoephedrine - Makes patient's legs feel "jumpy". Current Outpatient Prescriptions Reported Home Medications Medications Dose Route/Sig Max Daily Dose Days Date Category Dose Instructions Pravachol (Pravastatin Sodium) 20 Mg Tab 20 Mg PO DAILY 07/05/16 Reported Slow-Mag Tab (Magnesium Chloride) 64 Mg Tabcr 64 Mg PO DAILY 07/04/16 Reported Preservision Areds 2 (Multiple Vitamins W/ Minerals) 1 Cap Cap 1 Cap PO DAILY 07/04/16 Reported Levothyroxine Sodium 112 Mcg Tab 1 Tab PO DAILYBB 07/04/16 Reported Lasix (Furosemide) 40 Mg Tab 40 Mg PO DAILY 07/04/16 Reported Coreg (Carvedilol) 6.25 Mg Tab 6.25 Mg PO BID 07/04/16 Reported Tylenol (Acetaminophen) 325 Mg Tab 650 Mg PO Q4H PRN 02/16/15 Rx Ursodiol 300 Mg Cap 300 Mg PO QPM 01/20/15 Reported Aspirin Ec (Aspirin) 81 Mg Tab 81 Mg PO DAILY 05/18/13 Reported Actigall (Ursodiol) 300 Mg Cap 600 Mg PO QAM 07/11/11 Reported 2 capsule dose OBJECTIVE/PHYSICAL EXAMINATION: Last 8 Hrs Date Time Temp Pulse Resp B/P Pulse Ox O2 Delivery O2 Flow Rate FiO2 07/05/16 07:21 36.7 70 18 129/69 98 Room Air 07/05/16 04:10 Room Air 07/05/16 03:38 36.7 73 18 129/65 99 Room Air General: no acute distress and stated age Eyes: conjunctiva are pink and non-injected, sclera clear Neck: normal jugular venous pulse, no hepatojugular reflux Chest: normal shape and normal respiratory effort Lungs: clear to auscultation and percussion Cardiac Exam: - regular heart sounds, no murmurs, rubs, or gallops Abdomen: abdomen soft, non-tender, no abnormal masses and no hepatosplenomegaly Musculoskeletal: no gait disturbance, no weakness Extremities: no edema and no cyanosis Neuro: grossly normal exam Psych: appropriate affect and insight. Data: EKG on admission 07/04/16: Atrial fibrillation with rapid ventricular response ST & T wave abnormality, consider lateral ischemia Abnormal ECG When compared with ECG of 08-FEB-2015 06:41, Atrial fibrillation has replaced Sinus rhythm Vent. rate has increased BY 42 BPM T wave inversion less evident in Anterior leads Inverted T waves have replaced nonspecific T wave abnormality in Lateral leads Repeat EKG AM on 07/05/16: Normal sinus rhythm Left ventricular hypertrophy with repolarization abnormality Abnormal ECG When compared with ECG of 04-JUL-2016 19:16, (unconfirmed) No significant change was found Telemetry reviewed - NSR with rates 80, no recurrent atrial fibrillation. Rare PVC, PAC. Chest xray: No acute process Venous duplex: negative for b/l DVT VQ scan - pending Prior Echo in 2014 reviewed: A complete two-dimensional transthoracic echocardiogram was performed (2D, M- mode, Doppler and color flow Doppler). Ejection Fraction = 65-70%. There is moderate concentric left ventricular hypertrophy. There is a small posterior and inferior wall motion abnormality with hypokinesis of the segments. There is severe mitral annular calcification. There is mild to moderate mitral regurgitation. There is mild tricuspid regurgitation. Estimated systolic PAP is 51mmHg. Diastolic dysfunction, Grade II (pseudonormalization pattern). Last 24 Hours Test 07/04/16 18:35 07/04/16 18:37 07/04/16 18:47 07/04/16 22:05 White Blood Count 9.04 K/uL Red Blood Count 3.42 M/uL Hemoglobin 11.1 g/dL Hematocrit 32.3 % Mean Corpuscular Volume 94.4 fL Mean Corpuscular Hemoglobin 32.5 pg Mean Corpuscular Hemoglobin Concent 34.4 g/dl Platelet Count 370 K/uL Mean Platelet Volume 9.6 fL Neutrophils (%) (Auto) 76.1 % Lymphocytes (%) (Auto) 12.8 % Monocytes (%) (Auto) 9.1 % Eosinophils (%) (Auto) 1.5 % Basophils (%) (Auto) 0.3 % Neutrophils # (Auto) 6.87 K/uL Lymphocytes # (Auto) 1.16 K/uL Monocytes # (Auto) 0.82 K/uL Eosinophils # (Auto) 0.14 K/uL Basophils # (Auto) 0.03 K/uL RDW Standard Deviation 44.9 fL RDW Coefficient of Variation 13.0 % Immature Granulocyte % (Auto) 0.2 % Immature Granulocyte # (Auto) 0.02 K/uL Prothrombin Time 11.7 SECONDS Prothromb Time International Ratio 1.1 Activated Partial Thromboplast Time 50.5 SECONDS Partial Thromboplastin Ratio 1.9 D-Dimer 870 ug/L FEU Sodium Level 137 mmol/L Potassium Level 3.9 mmol/L Chloride Level 102 mmol/L Carbon Dioxide Level 22 mmol/L Anion Gap 13.0 mmol/L Blood Urea Nitrogen 34 mg/dl Creatinine 1.50 mg/dl Est Creatinine Clear Calc Drug Dose 28.5 ml/min Estimated GFR () 38.0 Estimated GFR (Non- 32.8 BUN/Creatinine Ratio 22.5 Random Glucose 97 mg/dl Calcium Level 9.6 mg/dl Magnesium Level 2.2 mg/dl Total Triiodothyronine 0.67 ng/ml Bedside Troponin I 0.010 ng/ml Total Bilirubin 0.4 mg/dl Direct Bilirubin < 0.1 mg/dl Aspartate Amino Transf (AST/SGOT) 8 U/L Alanine Aminotransferase (ALT/SGPT) 10 U/L Alkaline Phosphatase 63 U/L Troponin I 0.028 ng/ml Total Protein 7.2 gm/dl Albumin 3.1 gm/dl Lipase 155 U/L Thyroid Stimulating Hormone (TSH) 0.245 uIu/ml Free Thyroxine 1.58 ng/dl Test 07/05/16 05:55 White Blood Count 6.48 K/uL Red Blood Count 2.82 M/uL Hemoglobin 8.9 g/dL Hematocrit 26.0 % Mean Corpuscular Volume 92.2 fL Mean Corpuscular Hemoglobin 31.6 pg Mean Corpuscular Hemoglobin Concent 34.2 g/dl Platelet Count 303 K/uL Mean Platelet Volume 9.3 fL Neutrophils (%) (Auto) 55.4 % Lymphocytes (%) (Auto) 25.3 % Monocytes (%) (Auto) 14.0 % Eosinophils (%) (Auto) 4.5 % Basophils (%) (Auto) 0.6 % Neutrophils # (Auto) 3.59 K/uL Lymphocytes # (Auto) 1.64 K/uL Monocytes # (Auto) 0.91 K/uL Eosinophils # (Auto) 0.29 K/uL Basophils # (Auto) 0.04 K/uL RDW Standard Deviation 44.3 fL RDW Coefficient of Variation 12.9 % Immature Granulocyte % (Auto) 0.2 % Immature Granulocyte # (Auto) 0.01 K/uL Red Blood Cell Morphology Unremarkable Activated Partial Thromboplast Time 82.5 SECONDS Partial Thromboplastin Ratio 3.2 Sodium Level 140 mmol/L Potassium Level 4.0 mmol/L Chloride Level 106 mmol/L Carbon Dioxide Level 26 mmol/L Anion Gap 8.0 mmol/L Blood Urea Nitrogen 37 mg/dl Creatinine 1.50 mg/dl Est Creatinine Clear Calc Drug Dose 28.5 ml/min Estimated GFR () 38.0 Estimated GFR (Non- 32.8 BUN/Creatinine Ratio 24.9 Random Glucose 88 mg/dl Calcium Level 8.5 mg/dl Troponin I 0.020 ng/ml ASSESSMENT and PLAN: 80 year old female 1. Paroxysmal atrial fibrillation -successfully converted to NSR on IV Cardizem. -Has been on IV heparin overnight with drop in hbg to 8.9. Per review of records, she has possibly heparin induced anemia previous admission. Will stop heparin. -Continue ASA. Not an ideal candidate for skilled nursing anticoagulation given chronic anemia and previously requiring blood transfusions. CHADS2 score of 2 ( hypertension, age). -If she has recurrent afib noted, may need to consider anticoagulation therapy at that time. - She has allergy to metoprolol. Will increase carvedilol to 12.5 mg BID for now. -Recommend outpatient 1-2 week Zio monitor. However, will need to wait until after upcoming appoint as she had abnormal mammogram and anticipaties additional imaiging next week. 2. CAD s/p acute inferior wall ST segment elevation myocardial infarction , treated with bare metal stent to the RCA -preserved LV function per echo in 2014 with small posterior/inferior wall hypokinesis -ASA, beta keira, statin -Negative cardiac enzymes -abnormal EKG with T wave inversions, chronic/unchanged. 3. Hypertension - controlled 4. CKD, previously requiring dialysis after apeisode of sepsis, ARF secondary to ATN. -follows with nephrology -at baseline Case discussed with Dr. Enriquez. Await echo and VQ scan results. If unremarkable, likely to be discharged this afternoon on increase dose of carvedilol. Await repeat imaging studies for abnormal mammogram and schedule patient for 1- 2 week Zio monitor. (Delicia Thurman PA-C) CARDIOLOGY ATTENDING ADDENDUM: The patient was seen and personally examined. Agree with Delicia Thurman PA-C's findings and plans as documented above. Choice of treatment are limited and would recommend conservative approach. Agree with discharge and outpatient follow-up. (Canelo Enriquez, DO)
--- NOTE | 2016-07-05 11:47 | DIAGNOSTIC IMAGING REPORT ---
NUCLEAR MEDICINE VENTILATION/PERFUSION SCAN CLINICAL HISTORY: Shortness of breath. COMPARISON: Chest radiograph July 04, 2016. TECHNIQUE: For the ventilation portion of this exam, 31 mCi of DTPA was inhaled at 10:45 AM on July 05, 2016. Immediately following inhalation, imaging of the chest was carried out in the anterior, posterior, left lateral, right lateral, LPO, RPO, BRAZILIAN and BRITO projections. For the perfusion portion of exam, 5.6 mCi of low particle technetium 99m MAA was injected IV at 11:10 AM on July 05, 2016. Immediately following injection, imaging of the chest was carried out in the same projections. FINDINGS: No mismatched defects are identified. Expected radiotracer deposition is noted. This study is considered low probability for pulmonary embolus. IMPRESSION: Low probability for pulmonary embolus. Electronically signed by: Arthur Buchanan M.D. 07/05/2016 11:46 AM Dictated Date/Time: 07/05/2016 11:44 AM
--- NOTE | 2016-07-05 13:10 | ECHOCARDIOGRAM REPORT ---
*NOTICE TO RECEIVING DEMOCRAT AGENCY This information is strictly Confidential and protected under [place] law. [place] law prohibits you from making any further disclosure of this information unless further disclosure is expressly permitted by the written consent of the person to whom it pertains or is authorized by law. A general authorization for the release of medical or other information is not sufficient for this purpose. Hospital accepts no responsibility if the information is made available to any other person, INCLUDING THE PATIENT. Interpretation Summary * Name: BETZAIDA CUI Study Date: 07/05/2016 06:46 AM BP: 129/65 mmHg * Patient Location: [facility] ([place]) HR: 75 * : 1935 (M/d/yyyy) Gender: Female Height: 66 in * Age: 80 yrs Ethnicity: [place] Weight: 151 lb * Ordering Physician: Uche Tabor * Referring Physician: Self, Referred * Performed By: José Miguel Jewell RCS * * Reason For Study: SOB * BSA: 1.8 m2 * -- Conclusions -- * There is moderate concentric left ventricular hypertrophy. * Ejection Fraction = 60-65%. * The right ventricular systolic function is normal. * The left atrium is moderately dilated. * Aortic valve sclerosis moderate, without significant aortic valvular stenosis. * There is moderate mitral regurgitation. Procedure Details * A complete two-dimensional transthoracic echocardiogram was performed (2D, M-mode, Doppler and color flow Doppler). Left Ventricle * The left ventricle is normal in size. * There is moderate concentric left ventricular hypertrophy. * Ejection Fraction = 60-65%. Right Ventricle * The right ventricle is normal size. * The right ventricular systolic function is normal. Atria * The left atrium is moderately dilated. * Right atrial size is normal. Mitral Valve * The mitral valve leaflets appear thickened, but open well. * There is moderate mitral annular calcification. * There is moderate mitral regurgitation. Tricuspid Valve * The tricuspid valve is not well visualized, but is grossly normal. Aortic Valve * Aortic valve sclerosis moderate, without significant aortic valvular stenosis. * There is no significant aortic regurgitation. Pulmonic Valve * The pulmonic valve is not well visualized. * There is no significant pulmonary regurgitation. Great Vessels * The aortic root and proximal ascending aorta are normal sized. Pericardium/Pleural * There is no pericardial effusion. MMode 2D Measurements and Calculations IVSd 1.0 cm IVSs 1.2 cm LVIDd 5.2 cm LVIDs 3.5 cm LVPWd 0.98 cm LVPWs 1.4 cm IVS/LVPW 1.0 FS 32.2 % EDV(Teich) 130.0 ml ESV(Teich) 51.9 ml EF(Teich) 60.1 % EDV(cubed) 141.3 ml ESV(cubed) 44.0 ml EF(cubed) 68.9 % % IVS thick 20.6 % % LVPW thick 37.4 % LV mass(C)d 194.1 grams LV mass(C)dI 109.4 grams/m\S\2 LV mass(C)s 153.0 grams LV mass(C)sI 86.2 grams/m\S\2 CO(Teich) 5.3 l/min CI(Teich) 3.0 l/min/m\S\2 SV(Teich) 78.1 ml SI(Teich) 44.0 ml/m\S\2 CO(cubed) 6.6 l/min CI(cubed) 3.7 l/min/m\S\2 SV(cubed) 97.4 ml SI(cubed) 54.9 ml/m\S\2 Ao root diam 3.2 cm Ao root area 8.0 cm\S\2 ACS 1.2 cm LA dimension 4.2 cm LA/Ao 1.3 LVAd ap4 23.6 cm\S\2 LVLd ap4 7.1 cm EDV(MOD-sp4) 65.0 ml LVAs ap4 13.4 cm\S\2 LVLs ap4 6.3 cm ESV(MOD-sp4) 24.0 ml EF(MOD-sp4) 63.1 % LVAd ap2 20.0 cm\S\2 LVLd ap2 7.1 cm EDV(MOD-sp2) 48.0 ml LVAs ap2 11.0 cm\S\2 LVLs ap2 6.2 cm ESV(MOD-sp2) 17.0 ml EF(MOD-sp2) 64.6 % CO(MOD-sp4) 2.8 l/min CI(MOD-sp4) 1.6 l/min/m\S\2 SV(MOD-sp4) 41.0 ml SI(MOD-sp4) 23.1 ml/m\S\2 CO(MOD-sp2) 2.1 l/min CI(MOD-sp2) 1.2 l/min/m\S\2 SV(MOD-sp2) 31.0 ml SI(MOD-sp2) 17.5 ml/m\S\2 Doppler Measurements and Calculations MV E max virginia 159.7 cm/sec MV A max virginia 102.2 cm/sec MV E/A 1.6 MV V2 max 193.9 cm/sec MV max PG 15.0 mmHg MV V2 mean 112.8 cm/sec MV mean PG 5.9 mmHg MV V2 VTI 53.9 cm MV P1/2t max virginia 186.2 cm/sec MV P1/2t 107.6 msec MVA(P1/2t) 2.0 cm\S\2 MV dec slope 506.9 cm/sec\S\2 MV dec time 0.30 sec Ao V2 max 133.4 cm/sec Ao max PG 7.1 mmHg Ao max PG (full) 2.0 mmHg LV V1 max PG 5.1 mmHg LV V1 max 113.1 cm/sec PA V2 max 102.9 cm/sec PA max PG 4.2 mmHg TR max virginia 279.1 cm/sec
[2016-07-05 13:37] LABS: PARTIAL THROMBOPLASTIN RATIO 1.7
[2016-07-05] MEDS ORDERED: CARV6.252 PO (14:20)
--- NOTE | 2016-07-05 14:27 | Discharge Summary ---
Discharge Summary Date of Service Jul 05, 2016. Discharge Summary Admission Date: Jul 04, 2016 at 20:30 Discharge Date: Jul 05, 2016 Discharge Disposition: Home Principal Diagnosis: Paroxysmal afib with RVR Procedures: CXR: No acute process. Venous Doppler: 1. There is no sonographic evidence of deep venous thrombosis identified in the right or left lower extremity. 2. Bilateral popliteal cysts. V/Q scan: Low probability for pulmonary embolus. Consultations: Cardiology Pending Studies/Follow-Up: Follow up with on 07/09/16 at 12:20pm Follow up with on 07/26/16 at 2:00pm Get outpatient Zio monitor done as outpatient per recommendations from your mixer and scaler Get repeat Thyroid function test as outpatient and follow up with your primary care physician Medication Reconciliation Changed Medications: Carvedilol (Coreg) 6.25 Mg Tab 12.5 MG PO BID for 30 Days, #120 TAB (Changed from: 6.25 MG) Continued Medications: Acetaminophen (Tylenol) 325 Mg Tab 650 MG PO Q4H PRN for Pain or Fever, #30 TAB Aspirin (Aspirin Ec) 81 Mg Tab 81 MG PO DAILY Furosemide (Lasix) 40 Mg Tab 40 MG PO DAILY, TAB Levothyroxine Sodium (Levothyroxine Sodium) 112 Mcg Tab 1 TAB PO DAILYBB Magnesium Chloride (Slow-Mag Tab) 64 Mg Tabcr 64 MG PO DAILY Multiple Vitamins W/ Minerals (Preservision Areds 2) 1 Cap Cap 1 CAP PO DAILY Pravastatin (Pravachol ) 20 Mg Tab 20 MG PO DAILY, TAB Ursodiol (Actigall) 300 Mg Cap 600 MG PO QAM 2 capsule dose Ursodiol (Ursodiol) 300 Mg Cap 300 MG PO QPM Admission Information HPI (per Admitting provider): CHIEF COMPLAINT: bilateral shoudler, back pain, shortness of breath on exertion. HISTORY OF PRESENT ILLNESS: Medical history significant for CAD status post stenting, HTN, hx PAF, past tobacco abuse, chronic renal insufficiency (baseline creatinine 1.5), HTN, hx NHL sp Rituxan, autoimmune hepatitis as per records, history of MRSA. chronic anemia (baseline hemoglobin of 11) Recent confinement last 02/2015 for sepsis secondary to MSSA bacteremia. Possible psoas abscess that was too small to drain, This morning the patient woke up with shortness of breath on exertion. No fluid retention. No actual chest pain. Bilateral shoulder/back pain going to both arms, spontaneous resolution. No previous episodes in the past. In the Emergency Room, the patient was initially noted to be in rapid Afib, 120. Spontaneous conversion to NSR CR currently 80s Physical Exam (per Admitting): PHYSICAL EXAMINATION: VITAL SIGNS: Blood pressure was noted to be 109/60, pulse 80, RR 26, temp 36.6, sats 98 on room air. GENERAL: Noted to be slightly anxious, mild hearing impairment. No respiratory distress. SKIN: Pallor. HEENT: Pale palpebral conjunctivae. Dry mucosa. NECK: No JVD. Supple. CHEST: Clear to auscultation. HEART: Regular rate and rhythm. ABDOMEN: Some distention, nontender. EXTREMITIES: No edema, no tenderness. Bilateral post shoulder tenderness, (chronic as per px) NEUROLOGIC: No gross focality except for hearing impairment. Hospital Course Paroxysmal afib with RVR: Presented with SOB and bilateral shoulder and back pain Converted to sinus spontaneously while in ED Not a candidate for residential anticoagulation Continue BB: increased carvedilol to 12.5 mg BID IV heparin discontinued ECHO: As below Troponin X 2: Negative Appreciate Cardiology input Needs outpatient 1-2 week Zio monitor but to await for repeat imaging for an abnormal mammogram first Elevated D-dimer: Venous doppler: Negative for DVT V/Q scan:Low probability for pulmonary embolus. CXR: No acute process H/O CAD S/p Stents Continue aspirin, statins, BB H/O Non-Hodgkin Lymphoma: Pelvic Followed by Dr. 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 * Ejection Fraction = 60-65%. * The right ventricular systolic function is normal. * The left atrium is moderately dilated. * Aortic valve sclerosis moderate, without significant aortic valvular stenosis. * There is moderate mitral regurgitation. V/Q Scan: Low probability for pulmonary embolus. Total time spent on discharge = This includes examination of the patient, discharge planning, medication reconciliation, and communication with other providers. Discharge Instructions Discharge Instructions Date of Service Jul 05, 2016. Admission Reason for Admission: SOB Discharge Discharge Diagnosis / Problem: Paroxysmal afib with RVR Discharge Goals Goal(s): Decrease discomfort, Improve function Activity Recommendations Activity Limitations: resume your previous activity Exercise/Sports Limitations: as tolerated . Instructions / Follow-Up Instructions / Follow-Up Follow up with on 07/09/16 at 12:20pm Follow up with on 07/26/16 at 2:00pm Get outpatient Zio monitor done as outpatient per recommendations from your mixer and scaler Get repeat Thyroid function test as outpatient and follow up with your primary care physician Current Hospital Diet Patient's current hospital diet: AHA Diet (Heart Healthy), Low Lactose Diet Discharge Diet Recommended Diet: AHA Diet (Heart Healthy), Low Lactose Diet Pending Studies Studies pending at discharge: no Medical Emergencies . Who to Call and When: Medical Emergencies: If at any time you feel your situation is an emergency, please call 911 immediately. . Non-Emergent Contact Non-Emergency issues call your: Primary Care Provider, Mechanical Developer Prover Call Non-Emergent contact if: you have a fever, your pain is not controlled, your pain is worsening, your pain is unusual for you, you have any medication questions . . "Provider Documentation" section prepared by Omega Winn. VTE Core Measure Inpt VTE Proph given/why not?: Other Anticoagulation (IV Heparin)
[2016-07-05 15:17] VITALS: BP 142/85; PULSE 89; TEMP 36.7; O2SAT 96
[2016-07-05] MEDS ORDERED: PRAVASTATIN SOD 20 MG TAB PO SCH (21:00)
[2016-07-05] MEDS ORDERED: CARVEDILOL 12.5 MG TAB PO SCH (21:00)
[2016-07-12] MEDS ORDERED: BTP80 PO (10:31)
[2016-07-12] MEDS ORDERED: CRG3125 PO (10:31)
[2016-08-26] MEDS ORDERED: META1TAB22 PO (08:50)
[2016-08-26] MEDS ORDERED: TRAM-10 PO (08:50)
[2016-09-11] MEDS ORDERED: SOTA80TA55 PO (11:50)
== END 2016-07-05 16:01 | disposition home or self-care (01) ==
LOC: ENRESERVTM → ENRESERVDT → C.EDB 18:20 → UNDOADMOB 20:30 → C.2E 20:30 → EDBEDREQ 20:35
PROVIDERS: ADMIT Internal Medicine; ATTEND Internal Medicine
DX: I48.91 Unspecified atrial fibrillation (principal); I25.10 Atherosclerotic heart disease of native coronary artery without angina pectoris; I10 Essential (primary) hypertension; Z87.891 Personal history of nicotine dependence; K75.4 Autoimmune hepatitis; Z86.14 Personal history of Methicillin resistant Staphylococcus aureus infection; Z82.49 Family history of ischemic heart disease and other diseases of the circulatory system; Z80.8 Family history of malignant neoplasm of other organs or systems; Z80.3 Family history of malignant neoplasm of breast; R06.02 Shortness of breath

== ENCOUNTER 2016-07-09 12:31 | Inpatient (IN) | payer OTHER ==
[~2016-07-09] VITALS: Ht 167.6 cm; Wt 69.6 kg
[~2016-07-09 12:31] MED LIST changes: +CARV6.252 PO; -CLC100 PO; -CRD200 PO; -CRG3125 PO; -DLCS PR; -Enteral Nutrition Formula PO; -FRRS300 PO; +FRS/40 PO; -HYDR-5688 PO; -KFZAV1 IV; -LCTX PO; +LEVO112T4 PO; -LSX80 PO; +MAGNTAB4 PO; -MRLP17X PO; +MULT60CA PO; +PRAV20TA PO; -PRVC20 PO; -SYN100 PO
[2016-07-09] MEDS ORDERED: SODIUM CHLORIDE 0.9% 500ML 500 ML IV STA (13:09)
[2016-07-09 13:16] LABS: BASO % 0.5 %; BASO ABS # 0.04 K/uL (0-0.2); COMPLETE YES; EOS % 1.6 %; HEMATOCRIT 30.4 % (37-47); IG% 0.1 %; LYMPH % 10.3 %; LYMPH ABS # 0.79 K/uL (1.2-3.4); MEAN CELL VOLUME 94.1 fL (80-100); MEAN CORPUSCULAR HEMOGLOBIN 31.9 pg (25-34); MEAN CORPUSCULAR HGB CONC 33.9 g/dl (32-36); MEAN PLATELET VOLUME 8.9 fL (7.4-10.4); MONO % 4.3 %; NEUT % 83.2 %; PLATELET COUNT 403 K/uL (130-400); RED BLOOD COUNT 3.23 M/uL (4.2-5.4); WHITE BLOOD COUNT 7.64 K/uL (4.8-10.8)
--- NOTE | 2016-07-09 13:16 | EMERGENCY ROOM VISIT NOTE ---
History Report prepared by Alexandra: Jimenez Wu Under the Supervision of: Dr. Demian Sadler D.O. First contact with patient: 12:56 Chief Complaint: WEAKNESS Stated Complaint: UNBALANCED,SHOULDER PAIN, WEAKNESS Nursing Triage Summary: Triage Note: pt ambultory to triage. pt reports shortness of breath with exertion, generalized pain and generalized weakness. pt reports she was seen in ed last week for same symptoms "i was told it was a-fib." History of Present Illness The patient is a 80 year old female with a history of atrial fibrillation who presents to the Emergency Room with complaints of episodes of shortness of breath on exertion that started 4 days ago. She states that her first episode was 4 days ago, and she came to the ED. Her symptoms also included pain in her shoulder and down her arms. The patient's symptoms were relieved upon leaving here. This morning, she woke up with similar symptoms. The patient denies any swelling in her legs or recent illness. She has had her Coreg upped recently, but has not had any other recent changes in medications or dosages. She has been eating and drinking fine. The patient is not on any blood thinners. She did take her Coreg and Aspirin this morning. She has a history of a heart catheterization and stent placement [address] Miranda is her [employer] group leader. Source of History: patient Onset: 4 days ago Position: other (global - shortness of breath) Timing: other (episodes) Modifying Factors (Worsening): exertion Note: Associated symptoms: Shoulder pain and arm pain. Denies leg swelling. Review of Systems See HPI for pertinent positives & negatives. A total of 10 systems reviewed and were otherwise negative. Past Medical & Surgical Medical Problems: (1) Autoimmune hepatitis (2) Cholelithiasis (3) Dyslipidemia (4) GI bleed (5) HTN (hypertension) (6) Hypothyroidism (7) Lymphoma (8) [place] (myocardial infarction) (9) Osteoarthritis (10) Osteoporosis (11) SOB (shortness of breath) Surgical Problems: (1) S/P cholecystectomy Family History FH: cancer FH: heart disease Social History Smoking Status: Never Smoker Drug Use: none Marital Status: Housing Status: lives with family Occupation Status: retired Current/Historical Medications Scheduled Aspirin (Aspirin Ec), 81 MG PO DAILY Carvedilol (Coreg), 12.5 MG PO BID Furosemide (Lasix), 40 MG PO DAILY Levothyroxine Sodium (Levothyroxine Sodium), 1 TAB PO DAILYBB Magnesium Chloride (Slow-Mag Tab), 64 MG PO DAILY Multiple Vitamins W/ Minerals (Preservision Areds 2), 1 CAP PO DAILY Pravastatin (Pravachol ), 20 MG PO DAILY Ursodiol (Actigall), 600 MG PO QAM Ursodiol (Ursodiol), 300 MG PO QPM Scheduled PRN Acetaminophen (Tylenol), 650 MG PO Q4H PRN for Pain or Fever Allergies Coded Allergies: Diphenhydramine (Verified Allergy, Intermediate, rash, 07/09/16) Metoprolol (Verified Allergy, Intermediate, RASH, 07/09/16) Aspirin (Verified Allergy, Mild, unknown, 07/09/16) Garlic (Verified Allergy, Unknown, unknown, 07/09/16) Pseudoephedrine (Verified Allergy, Unknown, rash, 07/09/16) Physical Exam Vital Signs Date Time Temp Pulse Resp B/P Pulse Ox O2 Delivery O2 Flow Rate FiO2 07/09/16 14:35 101 18 121/78 98 Room Air 07/09/16 14:00 103 20 144/90 97 Room Air 07/09/16 13:15 103 22 110/69 99 Room Air 07/09/16 12:53 104 07/09/16 12:36 36.9 93 18 137/82 97 Room Air Physical Exam GENERAL: Patient is awake, alert, and in no acute distress. Patient is resting comfortably and showing no signs of anxiety EYES: The conjunctivae are clear. The pupils are round and reactive. EARS, NOSE, MOUTH AND THROAT: The nose is without any evidence of any deformity. Mucous membranes are moist tongue is midline NECK: The neck is nontender and supple. RESPIRATORY: Normal respiratory effort is noted there is no evidence of wheezing rhonchi or rales CARDIOVASCULAR: Heart sounds are tachycardic and irregular. Systolic murmur noted to auscultation. GASTROINTESTINAL: The abdomen is soft. Bowel sounds are present in all quadrants. Abdomen is nontender MUSCULOSKELETAL/EXTREMITIES: There is no evidence of gross deformity full range of motion is noted in the hips and shoulders SKIN: There is no obvious evidence of any rash. There are no petechiae, pallor or cyanosis noted. NEUROLOGIC: Patient is awake alert and oriented x3. Medical Decision & Procedures ER Provider Diagnostic Interpretation: X-ray results as stated below per interpretation by me and the radiologist. CHEST ONE VIEW PORTABLE CLINICAL HISTORY: Respiratory distress. Shoulder pain. COMPARISON STUDY: 07/04/2016 FINDINGS: The heart is at the upper limits of normal in size. There is no failure. There is no focal pulmonary consolidation. There are no pleural effusions.[ IMPRESSION: No active disease in the chest. Electronically signed by: Javier Parker M.D. 07/09/2016 2:01 PM Dictated Date/Time: 07/09/2016 2:00 PM Laboratory Results Test 07/09/16 13:05 07/09/16 14:35 Immature Granulocyte % (Auto) 0.1 % White Blood Count 7.64 K/uL (4.8-10.8) Red Blood Count 3.23 M/uL (4.2-5.4) Hemoglobin 10.3 g/dL (12.0-16.0) Hematocrit 30.4 % (37-47) Mean Corpuscular Volume 94.1 fL (80-100) Mean Corpuscular Hemoglobin 31.9 pg (25-34) Mean Corpuscular Hemoglobin Concent 33.9 g/dl (32-36) Platelet Count 403 K/uL (130-400) Mean Platelet Volume 8.9 fL (7.4-10.4) Neutrophils (%) (Auto) 83.2 % Lymphocytes (%) (Auto) 10.3 % Monocytes (%) (Auto) 4.3 % Eosinophils (%) (Auto) 1.6 % Basophils (%) (Auto) 0.5 % Neutrophils # (Auto) 6.35 K/uL (1.4-6.5) Lymphocytes # (Auto) 0.79 K/uL (1.2-3.4) Monocytes # (Auto) 0.33 K/uL (0.11-0.59) Eosinophils # (Auto) 0.12 K/uL (0-0.5) Basophils # (Auto) 0.04 K/uL (0-0.2) Immature Granulocyte # (Auto) 0.01 K/uL (0.00-0.02) Prothrombin Time 11.5 SECONDS (9.0-12.0) Prothromb Time International Ratio 1.1 (0.9-1.1) Activated Partial Thromboplast Time 44.3 SECONDS (21.0-31.0) Partial Thromboplastin Ratio 1.7 Magnesium Level 2.1 mg/dl (1.8-2.4) Total Bilirubin 0.3 mg/dl (0.2-1) Aspartate Amino Transf (AST/SGOT) 9 U/L (15-37) Alanine Aminotransferase (ALT/SGPT) 13 U/L (12-78) Alkaline Phosphatase 61 U/L (45-117) Troponin I < 0.015 ng/ml (0-0.045) Total Protein 7.5 gm/dl (6.4-8.2) Albumin 3.3 gm/dl (3.4-5.0) Globulin 4.2 gm/dl (2.5-4.0) Albumin/Globulin Ratio 0.8 (0.9-2) Thyroid Stimulating Hormone (TSH) 0.487 uIu/ml (0.300-4.500) Free Thyroxine 1.58 ng/dl (0.80-1.60) Urine Color YELLOW Urine Appearance CLEAR (CLEAR) Urine pH 5.5 (4.5-7.5) Urine Specific [place] 1.018 (1.000-1.030) Urine Protein NEG (NEG) Urine Glucose (UA) NEG (NEG) Urine Ketones NEG (NEG) Urine Occult Blood NEG (NEG) Urine Nitrite NEG (NEG) Urine Bilirubin NEG (NEG) Urine Urobilinogen NEG (NEG) Urine Leukocyte Esterase NEG (NEG) Laboratory results per my review. Medications Administered Medications (Trade) Dose Ordered Sig/Shena Route Start Time Stop Time Status Last Admin Dose Admin Sodium Chloride (Nss 500ml) 500 ml @ 999 mls/hr Q31M STAT IV 07/09/16 13:09 07/09/16 13:39 DC 07/09/16 13:19 999 MLS/HR ECG Indication: SOB/dyspnea Rate (beats per minute): 99 Rhythm: atrial fibrillation (with rapid ventricular response) Findings: ST depression (Lateral), T-wave inversion (inferior and lateral) Comparison ECG Date: Afib has replaced normal sinus rhythm compared to July 05 of this year, otherwise no significant changes noted ED Course 1305: The patient was evaluated in room B11A. A complete history and physical examination were performed. 1309: Ordered NSS 500 ml @ 999 mls/hr IV. 1550: I discussed the patient with Dr. Ruebn Garcia cardiology - he feels that with the patient's history of coronary artery disease, inpatient monitoring and consideration for medication changes for atrial fibrillation. 1610: Upon reevaluation, the patient is resting comfortably. I discussed results and treatment plan with her. She verbalizes agreement and understanding. The patient will be evaluated for further management and care. 1613: I discussed the patient with Dr. Marck Garcia med surg rn - she will evaluate the patient for further treatment. Medical Decision Differential diagnosis: Etiologies such as cardiac ischemia, aortic dissection, pulmonary embolism, pneumonia, pneumothorax, musculoskeletal, infections, pericarditis, myocarditis , esophageal rupture, gastrointestinal, as well as others were entertained. Nursing notes reviewed. Patient's previous electronic medical records reviewed. The patient is a 80-year-old female who presented to emergency department for an evaluation of dyspnea on exertion as well as anterior pain across her shoulders. She also has been noticing palpitations. She has a history of paroxysmal atrial fibrillation and has been well-controlled on medications. She is not a good candidate for anticoagulation because of previous medical problems. She was recently seen and advised to stay in the hospital for medication changes and for further medical management of her atrial fibrillation but at that time she did not wish to stay in the hospital. I discussed patient's laboratory radiographic studies with her. She was treated with IV fluids in the emergency department. I discussed her case with her primary [employer] group leader. He is very concerned about the patient's frequency of atrial fibrillation as well as her inability to take anticoagulation. For this reason he requested that we discussed patient's case with the on-call hospitalist group for further inpatient management and possible medication changes to maximize the patient's medical treatment for paroxysmal atrial fibrillation. Her rate did not require address while in the emergency department. I discussed her case with the on-call [facility] hospitalist group. They have agreed to evaluate the patient in emergency department for further management and disposition. Consults Time Called: 1540 Consulting Physician: Dr. Ruben Garcia Cardiology Returned Call: 1550 I discussed the patient with Dr. Ruben Garcia cardiology - he feels that with the patient's history of coronary artery disease, inpatient monitoring and consideration for medication changes for atrial fibrillation. Additional Consults: Time Called: 1610 Consulted Physician: Dr. Marck Garcia med surg rn Returned Call: 1613 Additional Comments: I discussed the patient with Dr. Marck Garcia med surg rn - she will evaluate the patient for further treatment. Impression Primary Impression: Atrial fibrillation Additional Impressions: Dyspnea on exertion Anterior chest wall pain Scribe Attestation The scribe's documentation has been prepared under my direction and personally reviewed by me in its entirety. I confirm that the note above accurately reflects all work, treatment, procedures, and medical decision making performed by me. Departure Information Dispostion Being Evaluated By Hospitalist Referrals Kelsi Lucas DO (PCP) Patient Instructions My [facility] Problem Qualifiers Primary Impression: Atrial fibrillation Atrial fibrillation type: paroxysmal Qualified Codes: I48.0 - Paroxysmal atrial fibrillation
[2016-07-09 13:29] LABS: INR 1.1 (0.9-1.1); PARTIAL THROMBOPLASTIN RATIO 1.7; PROTHROMBIN TIME (PATIENT) 11.5 SECONDS (9.0-12.0)
[2016-07-09 13:34] LABS: ALT/SGPT 13 U/L (12-78); AST/SGOT 9 U/L (15-37); BLOOD UREA NITROGEN 34 mg/dl (7-18); CALCIUM 8.7 mg/dl (8.5-10.1); CARBON DIOXIDE 25 mmol/L (21-32); CHLORIDE 104 mmol/L (98-107); GLUCOSE 111 mg/dl (70-99); MAGNESIUM 2.1 mg/dl (1.8-2.4); POTASSIUM 3.9 mmol/L (3.5-5.1); SODIUM 138 mmol/L (136-145)
[2016-07-09 13:45] LABS: ALB/GLOB RATIO 0.8 (0.9-2); ALKALINE PHOSPHATASE 61 U/L (45-117); THYROID STIMULATING HORMONE 0.487 uIu/ml (0.300-4.500)
--- NOTE | 2016-07-09 14:02 | DIAGNOSTIC IMAGING REPORT ---
CHEST ONE VIEW PORTABLE CLINICAL HISTORY: Respiratory distress. Shoulder pain. COMPARISON STUDY: 07/04/2016 FINDINGS: The heart is at the upper limits of normal in size. There is no failure. There is no focal pulmonary consolidation. There are no pleural effusions.[ IMPRESSION: No active disease in the chest. Electronically signed by: Javier Parker M.D. 07/09/2016 2:01 PM Dictated Date/Time: 07/09/2016 2:00 PM
[2016-07-09 15:25] LABS: URINE APPEARANCE CLEAR (CLEAR); URINE BILIRUBIN NEG (NEG); URINE COLOR YELLOW; URINE NITRITE NEG (NEG); URINE PH 5.5 (4.5-7.5); URINE SPECIFIC GRAVITY 1.018 (1.000-1.030); UROBILINOGEN NEG (NEG)
[2016-07-09 15:33] LABS: MANUAL MICROSCOPIC REQUIRED? NO; REVIEW REQ? NO
--- NOTE | 2016-07-09 15:57 | Cardiology Consultation ---
Cardiology Consultation Date of Service Jul 09, 2016. Cardiology Consultation Spoke to DR Sanderson pt presented to ED with recurrent AF, mild RVR. Recent admitted from 07/04 to 07/05. Recommended that if pt symptomatic could admit for sotalol loading , given her kidney function would DC coreg and start sotalol at dose of 40 mg BID. Juvencio Miranda, DO
--- NOTE | 2016-07-09 16:43 | History and Physical ---
History & Physical Date & Time of Service: Jul 09, 2016 at 16:43 Chief Complaint: Unbalanced,Shoulder Pain, Weakness Primary Care Physician: Kelsi Lucas DO History of Present Illness HISTORY OF PRESENT ILLNESS: Patient is a 80 year old Female with PMH of CAD s/p stent, HTN, CKD, Hx of PAF, hx NHL sp Rituxan, autoimmune hepatitis as per records, history of MRSA. chronic anemia (baseline hemoglobin of 11) Recent confinement last 07/05/16 for Atrial fibrillation with RVR. Coreg was increased to 12.5 mg PO BID from 6.5 mg PO BID. Was taken off amiodarone 1 month ago after being on it since 2014 (not thought to be a good fdc medication with multiple comorbidities). She did well post discharge till today AM when she noted that she was SOB/Pain in B/L Shoulder/neck and radiating to left arm. Symptoms similar to last admission. No associated chest pain, cough, palpitations, dizziness, syncope, localized weakness, numbness/tingling. Per her symptoms are only present on activity, none at rest. Only complaint she has now is neck pain with no headaches. In ED, she was noted to be in A fib with RVR with HR IN 100s. Trop x 1 set normal. EKG- atrial fibrillation. Case was discussed by ED physician with production bow maker, Dr Miranda who recommended admission for better control of Atrial fibrillation with RVR, given limited options for rx and possibility of need of anti arrhythmic agent. Past Medical/Surgical History Medical Problems: (1) Autoimmune hepatitis Status: Chronic (2) Cholelithiasis Status: Resolved (3) Dyslipidemia Status: Chronic (4) GI bleed Status: Resolved (5) HTN (hypertension) Status: Chronic (6) Hypothyroidism Status: Chronic (7) Lymphoma Status: Chronic (8) OK (myocardial infarction) Status: Resolved (9) Osteoarthritis Status: Chronic (10) Osteoporosis Status: Chronic Surgical Problems: (1) S/P cholecystectomy Status: Resolved Family History FH: cancer FH: heart disease Social History Smoking Status: Never Smoker Drug Use: none Marital Status: Occupational Status: retired Immunizations History of Influenza Vaccine: Yes Influenza Vaccine Date: Feb 20, 2013 History of Tetanus Vaccine?: ? History of Pneumococcal: Yes History of Hepatitis B Vaccine: No Multi-Drug Resistant Organisms History of MDRO: Yes Type of MDRO: MRSA Allergies Coded Allergies: Diphenhydramine (Verified Allergy, Intermediate, rash, 07/09/16) Metoprolol (Verified Allergy, Intermediate, RASH, 07/09/16) Aspirin (Verified Allergy, Mild, unknown, 07/09/16) Garlic (Verified Allergy, Unknown, unknown, 07/09/16) Pseudoephedrine (Verified Allergy, Unknown, rash, 07/09/16) Home Medications Scheduled Aspirin (Aspirin Ec), 81 MG PO DAILY Carvedilol (Coreg), 12.5 MG PO BID Furosemide (Lasix), 40 MG PO DAILY Levothyroxine Sodium (Levothyroxine Sodium), 1 TAB PO DAILYBB Magnesium Chloride (Slow-Mag Tab), 64 MG PO DAILY Multiple Vitamins W/ Minerals (Preservision Areds 2), 1 CAP PO DAILY Pravastatin (Pravachol ), 20 MG PO DAILY Ursodiol (Actigall), 600 MG PO QAM Ursodiol (Ursodiol), 300 MG PO QPM Scheduled PRN Acetaminophen (Tylenol), 650 MG PO Q4H PRN for Pain or Fever Review of Systems Constitutional: No chills, No fever Eyes: No worsening of vision ENT: No hearing loss, No nasal symptoms Respiratory: + dyspnea on exertion, No cough, No hemoptysis, No sputum, No wheezing Cardiovascular: No chest pain, No edema, No palpitations Abdomen: No diarrhea, No nausea, No pain, No vomiting Musculoskeletal: No joint pain Genitourinary - Female: No dysuria, No urinary frequency Neurologic: No paralysis, No weakness Psychiatric: No depression symptoms Endocrine: No fatigue Hematologic / Lymphatic: No abnormal bleeding/bruising Integumentary: No rash Physical Exam Vital Signs Date Time Temp Pulse Resp B/P Pulse Ox O2 Delivery O2 Flow Rate FiO2 07/09/16 14:35 101 18 121/78 98 Room Air 07/09/16 14:00 103 20 144/90 97 Room Air 07/09/16 13:15 103 22 110/69 99 Room Air 07/09/16 12:53 104 07/09/16 12:36 36.9 93 18 137/82 97 Room Air General Appearance: no apparent distress Head: normocephalic, atraumatic Eyes: PERRL ENT: hearing grossly normal Neck: supple, no JVD Respiratory/Chest: chest non-tender, lungs clear, normal breath sounds, no respiratory distress, no accessory muscle use Cardiovascular: + irregularly irregular, + pertinent finding (Murmur + Diastolic) Abdomen/GI: non tender, soft, no organomegaly Back: no CVA tenderness Extremities/Musculoskelatal: no calf tenderness, no pedal edema Neurologic/Psych: well logging captain II-XII nml as tested, no motor/sensory deficits, alert, oriented x 3 Diagnostics Laboratory Results Results Past 24 Hours Test 07/09/16 13:05 07/09/16 14:35 Range/Units White Blood Count 7.64 4.8-10.8 K/uL Red Blood Count 3.23 4.2-5.4 M/uL Hemoglobin 10.3 12.0-16.0 g/dL Hematocrit 30.4 37-47 % Mean Corpuscular Volume 94.1 80-100 fL Mean Corpuscular Hemoglobin 31.9 25-34 pg Mean Corpuscular Hemoglobin Concent 33.9 32-36 g/dl Platelet Count 403 130-400 K/uL Mean Platelet Volume 8.9 7.4-10.4 fL Neutrophils (%) (Auto) 83.2 % Lymphocytes (%) (Auto) 10.3 % Monocytes (%) (Auto) 4.3 % Eosinophils (%) (Auto) 1.6 % Basophils (%) (Auto) 0.5 % Neutrophils # (Auto) 6.35 1.4-6.5 K/uL Lymphocytes # (Auto) 0.79 1.2-3.4 K/uL Monocytes # (Auto) 0.33 0.11-0.59 K/uL Eosinophils # (Auto) 0.12 0-0.5 K/uL Basophils # (Auto) 0.04 0-0.2 K/uL RDW Standard Deviation 43.8 36.4-46.3 fL RDW Coefficient of Variation 12.7 11.5-14.5 % Immature Granulocyte % (Auto) 0.1 % Immature Granulocyte # (Auto) 0.01 0.00-0.02 K/uL Prothrombin Time 11.5 9.0-12.0 SECONDS Prothromb Time International Ratio 1.1 0.9-1.1 Activated Partial Thromboplast Time 44.3 21.0-31.0 SECONDS Partial Thromboplastin Ratio 1.7 Sodium Level 138 136-145 mmol/L Potassium Level 3.9 3.5-5.1 mmol/L Chloride Level 104 98-107 mmol/L Carbon Dioxide Level 25 21-32 mmol/L Anion Gap 9.0 3-11 mmol/L Blood Urea Nitrogen 34 7-18 mg/dl Creatinine 1.40 0.60-1.20 mg/dl Est Creatinine Clear Calc Drug Dose 30.5 ml/min Estimated GFR () 41.3 Estimated GFR (Non- 35.6 BUN/Creatinine Ratio 24.0 10-20 Random Glucose 111 70-99 mg/dl Calcium Level 8.7 8.5-10.1 mg/dl Magnesium Level 2.1 1.8-2.4 mg/dl Total Bilirubin 0.3 0.2-1 mg/dl Aspartate Amino Transf (AST/SGOT) 9 15-37 U/L Alanine Aminotransferase (ALT/SGPT) 13 12-78 U/L Alkaline Phosphatase 61 45-117 U/L Troponin I < 0.015 0-0.045 ng/ml Total Protein 7.5 6.4-8.2 gm/dl Albumin 3.3 3.4-5.0 gm/dl Globulin 4.2 2.5-4.0 gm/dl Albumin/Globulin Ratio 0.8 0.9-2 Thyroid Stimulating Hormone (TSH) 0.487 0.300-4.500 uIu/ml Free Thyroxine 1.58 0.80-1.60 ng/dl Urine Color YELLOW Urine Appearance CLEAR CLEAR Urine pH 5.5 4.5-7.5 Urine Specific [place] 1.018 1.000-1.030 Urine Protein NEG NEG Urine Glucose (UA) NEG NEG Urine Ketones NEG NEG Urine Occult Blood NEG NEG Urine Nitrite NEG NEG Urine Bilirubin NEG NEG Urine Urobilinogen NEG NEG Urine Leukocyte Esterase NEG NEG Diagnostic Radiology EKG reviewed- Atrial fibrillation with Rate of 99 CXR- No active disease of chest Impression Assessment and Plan ATRIAL FIBRILLATION WITH RVR Recent admission for same on 07/05/16 - Coreg was increased from 6.5 mg PO BID to 12.5 mg PO BID. Off amiodarone till 1 month ago as not thought to be a good fdc med for A fib with multiple co morbidities. -Comes back with similar symptoms as on last admission- SOB on exertion/B/L shoulder pain radiating to arm -Rate controlled now -On Coreg 12.5 mg PO BID (Allergic to Metoprolol) --> Change to Sotalol 40 mg PO BID per cardiology -Anticoagulation: CHADS- 2 (HTN, Age). Hx of Chronic anemia and required multiple transfusions in past, so not on any anticoagulation. May need to consider. Last admission, her Hb did drop while on IV Heparin so it was discontinued later. -Work up- Trop x 1 negative, CXR- no acute issues -Cardiology consulted - Needs outpatient 1-2 week Zio monitor but to await for repeat imaging for an abnormal mammogram first H/O CAD S/P STENTS : -Continue aspirin, statins, BB -Trop x 1 negative H/O NON HODGKINS LYMPHOMA : Pelvic -Followed by Dr. Perez; completed therapy with Rituxan HYPOTHYROIDISM -Work up - TSH: 0.245; T4, T3:wnl -Likely subclinical hyperthyroidism -Continue Levothyroxine -Needs repeat thyroid function test as outpatient CKD IV: -Cr levels at baseline -Monitor renal function -Avoid Nephrotoxic agents CHRONIC ANEMIA: Secondary to CKD Has required multiple transfusions in past -Hb is at baseline -Monitor HTN: -stable -Continue home meds H/O AUTOIMMUNE HEPATITIS: -Stable DVT Px: SQ Heparin CODE STATUS: Full code DISPOSITION: Follow up with Follow up with on 07/26/16 at 2:00pm Needs outpatient 1-2 week Zio monitor as outpatient Needs repeat Thyroid function test as outpatient Level of Care Telemetry Resuscitation Status FULL RESUSCITATION VTE Prophylaxis VTE Risk Assessment Done? Y/N: Yes Risk Level: High Given or contraindicated: Unfractionated heparin SQ, T.E.D. Stockings, SCD's
[2016-07-09] MEDS ORDERED: ACETAMINOPHEN 325 MG TAB PO PRN (16:45)
[2016-07-09] MEDS ORDERED: MAGNESIUM HYDROXIDE SUSP 30 ML UDC PO PRN (16:45)
[2016-07-09] MEDS ORDERED: NITROGLYCERIN 0.4 MG SL PER TAB CHARGE SL PRN (16:45)
[2016-07-09] MEDS ORDERED: ONDANSETRON INJ 2 MG/ML 2 ML VIAL IV PRN (16:45)
[2016-07-09 20:11] VITALS: BP 136/77; PULSE 103; TEMP 36.4; O2SAT 98
[2016-07-09] MEDS: ACETAMINOPHEN 325 MG TAB PO PRN (20:38)
[2016-07-09] MEDS: URSODIOL 300 MG CAP PO SCH (20:39)
[2016-07-09] MEDS: SOTALOL HCL 80 MG TAB PO SCH (20:39)
[2016-07-09] MEDS: HEPARIN SOD 5000 UNIT/0.5 ML CARP SQ SCH (20:43)
[2016-07-09 21:00] VITALS: PULSE 64; Ht 167.6 cm; Wt 69.6 kg
[2016-07-09] MEDS ORDERED: CARVEDILOL 12.5 MG TAB PO SCH (21:00)
[2016-07-10] VITALS (10 sets, daily range): BP systolic 112–169; BP diastolic 57–92; PULSE 64–80; TEMP 36.4–37; O2SAT 95–99
[2016-07-10] MEDS: LEVOTHYROXINE 112 MCG TAB PO SCH (05:32)
[2016-07-10] MEDS: ACETAMINOPHEN 325 MG TAB PO PRN ×2 (05:33→23:24)
[2016-07-10 06:09] LABS: MEAN CELL VOLUME 92.5 fL (80-100); MEAN CORPUSCULAR HEMOGLOBIN 31.7 pg (25-34); MEAN CORPUSCULAR HGB CONC 34.2 g/dl (32-36); MEAN PLATELET VOLUME 8.9 fL (7.4-10.4); PLATELET COUNT 378 K/uL (130-400); RED BLOOD COUNT 2.81 M/uL (4.2-5.4); WHITE BLOOD COUNT 4.51 K/uL (4.8-10.8)
[2016-07-10 06:34] LABS: BUN/CREATININE RATIO 25.5 (10-20); CALCIUM 8.7 mg/dl (8.5-10.1); CREATININE 1.3 mg/dl (0.60-1.20); POTASSIUM 3.6 mmol/L (3.5-5.1)
[2016-07-10] MEDS: URSODIOL 300 MG CAP PO SCH ×2 (08:43→20:35)
[2016-07-10] MEDS: SOTALOL HCL 80 MG TAB PO SCH ×2 (08:44→20:35)
[2016-07-10] MEDS: FUROSEMIDE 40 MG TAB PO SCH (08:45)
[2016-07-10] MEDS: ASPIRIN 81 MG ECTAB PO SCH (08:45)
[2016-07-10] MEDS: PRAVASTATIN SOD 20 MG TAB PO SCH (08:45)
[2016-07-10] MEDS: CEROVITE ADV FORMULA TAB PO SCH (08:45)
[2016-07-10] MEDS: HEPARIN SOD 5000 UNIT/0.5 ML CARP SQ SCH ×2 (08:46→20:39)
[2016-07-10] MEDS: MAGNESIUM CHLORIDE 64MG DELAYED REL TAB PO SCH (08:46)
[2016-07-10] MEDS ORDERED: CARVEDILOL 3.125 MG TAB PO ONE (10:00)
--- NOTE | 2016-07-10 10:13 | Progress Note ---
Internal Med Progress Note Date of Service: Jul 10, 2016. Provider Documentation: SUBJECTIVE: Patient is feeling better Denies any palpitations, dizziness, chest pain, SOB, diaphoresis, nausea, vomiting, abdominal pain OBJECTIVE: Vital Signs-as noted below Exam: General-AAOX3, no distress Neck-Supple, No JVD Lungs-AEBE, No wheezing, rhonchi, crackles Heart-Regular rate, rhythm Extremities-No edema Lab data as noted below. ASSESSMENT & PLAN: ATRIAL FIBRILLATION WITH RVR - Converted to NSR yesterday Recent admission for same on 07/05/16 - Coreg was increased from 6.5 mg PO BID to 12.5 mg PO BID. Off amiodarone till 1 month ago as not thought to be a good cv tech med for A fib with multiple co morbidities. Came back with similar symptoms as on last admission- SOB on exertion/B/L shoulder pain radiating to arm -On Coreg 12.5 mg PO BID (Allergic to Metoprolol) --> Changed to Sotalol 40 mg PO BID per cardiology. To add coreg per d/w Dr Miranda today -Anticoagulation: CHADS- 2 (HTN, Age). Hx of Chronic anemia and required multiple transfusions in past, so not on any anticoagulation. May need to consider. Last admission, her Hb did drop while on IV Heparin so it was discontinued later. -Work up- Trop x 1 negative, CXR- no acute issues -Cardiology consulted- d/w Dr Miranda - Needs outpatient 1-2 week Zio monitor but to await for repeat imaging for an abnormal mammogram first H/O CAD S/P STENTS : -Continue aspirin, statins, BB -Trop x 1 negative H/O NON HODGKINS LYMPHOMA : Pelvic -Followed by Dr. Perez; completed therapy with Rituxan HYPOTHYROIDISM -Work up - TSH: 0.245; T4, T3:wnl -Likely subclinical hyperthyroidism -Continue Levothyroxine -Needs repeat thyroid function test as outpatient CKD IV: -Cr levels at baseline -Monitor renal function -Avoid Nephrotoxic agents CHRONIC ANEMIA: Secondary to CKD Has required multiple transfusions in past -Hb is at baseline -Monitor HTN: -stable -Continue home meds H/O AUTOIMMUNE HEPATITIS: -Stable DVT Px: SQ Heparin CODE STATUS: Full code DISPOSITION: Follow up with Follow up with on 07/26/16 at 2:00pm Needs outpatient 1-2 week Zio monitor as outpatient Needs repeat Thyroid function test as outpatient Vital Signs: Date Time Temp Pulse Resp B/P Pulse Ox O2 Delivery O2 Flow Rate FiO2 07/10/16 04:00 95 Room Air 07/10/16 03:55 36.6 72 18 143/63 95 Room Air 07/10/16 00:00 95 Room Air 07/10/16 00:00 36.5 80 14 112/57 96 Room Air 07/09/16 21:00 64 Room Air 07/09/16 20:11 36.4 103 14 136/77 98 Room Air 07/09/16 17:30 99 07/09/16 17:09 102 21 105/92 95 Room Air 07/09/16 14:35 101 18 121/78 98 Room Air 07/09/16 14:00 103 20 144/90 97 Room Air 07/09/16 13:15 103 22 110/69 99 Room Air 07/09/16 12:53 104 07/09/16 12:36 36.9 93 18 137/82 97 Room Air Lab Results: Results Past 24 Hours Test 07/09/16 13:05 07/09/16 14:35 07/10/16 05:44 Range/Units White Blood Count 7.64 4.51 4.8-10.8 K/uL Red Blood Count 3.23 2.81 4.2-5.4 M/uL Hemoglobin 10.3 8.9 12.0-16.0 g/dL Hematocrit 30.4 26.0 37-47 % Mean Corpuscular Volume 94.1 92.5 80-100 fL Mean Corpuscular Hemoglobin 31.9 31.7 25-34 pg Mean Corpuscular Hemoglobin Concent 33.9 34.2 32-36 g/dl Platelet Count 403 378 130-400 K/uL Mean Platelet Volume 8.9 8.9 7.4-10.4 fL Neutrophils (%) (Auto) 83.2 % Lymphocytes (%) (Auto) 10.3 % Monocytes (%) (Auto) 4.3 % Eosinophils (%) (Auto) 1.6 % Basophils (%) (Auto) 0.5 % Neutrophils # (Auto) 6.35 1.4-6.5 K/uL Lymphocytes # (Auto) 0.79 1.2-3.4 K/uL Monocytes # (Auto) 0.33 0.11-0.59 K/uL Eosinophils # (Auto) 0.12 0-0.5 K/uL Basophils # (Auto) 0.04 0-0.2 K/uL RDW Standard Deviation 43.8 42.9 36.4-46.3 fL RDW Coefficient of Variation 12.7 12.6 11.5-14.5 % Immature Granulocyte % (Auto) 0.1 % Immature Granulocyte # (Auto) 0.01 0.00-0.02 K/uL Prothrombin Time 11.5 9.0-12.0 SECONDS Prothromb Time International Ratio 1.1 0.9-1.1 Activated Partial Thromboplast Time 44.3 21.0-31.0 SECONDS Partial Thromboplastin Ratio 1.7 Sodium Level 138 139 136-145 mmol/L Potassium Level 3.9 3.6 3.5-5.1 mmol/L Chloride Level 104 106 98-107 mmol/L Carbon Dioxide Level 25 26 21-32 mmol/L Anion Gap 9.0 7.0 3-11 mmol/L Blood Urea Nitrogen 34 33 7-18 mg/dl Creatinine 1.40 1.30 0.60-1.20 mg/dl Est Creatinine Clear Calc Drug Dose 30.5 32.8 ml/min Estimated GFR () 41.3 45.2 Estimated GFR (Non- 35.6 39.0 BUN/Creatinine Ratio 24.0 25.5 10-20 Random Glucose 111 84 70-99 mg/dl Calcium Level 8.7 8.7 8.5-10.1 mg/dl Magnesium Level 2.1 1.8-2.4 mg/dl Total Bilirubin 0.3 0.2-1 mg/dl Aspartate Amino Transf (AST/SGOT) 9 15-37 U/L Alanine Aminotransferase (ALT/SGPT) 13 12-78 U/L Alkaline Phosphatase 61 45-117 U/L Troponin I < 0.015 0-0.045 ng/ml Total Protein 7.5 6.4-8.2 gm/dl Albumin 3.3 3.4-5.0 gm/dl Globulin 4.2 2.5-4.0 gm/dl Albumin/Globulin Ratio 0.8 0.9-2 Thyroid Stimulating Hormone (TSH) 0.487 0.300-4.500 uIu/ml Free Thyroxine 1.58 0.80-1.60 ng/dl Urine Color YELLOW Urine Appearance CLEAR CLEAR Urine pH 5.5 4.5-7.5 Urine Specific [place] 1.018 1.000-1.030 Urine Protein NEG NEG Urine Glucose (UA) NEG NEG Urine Ketones NEG NEG Urine Occult Blood NEG NEG Urine Nitrite NEG NEG Urine Bilirubin NEG NEG Urine Urobilinogen NEG NEG Urine Leukocyte Esterase NEG NEG
--- NOTE | 2016-07-10 10:29 | Cardiology Consultation ---
Cardiology Consultation Date of Consultation: Jul 10, 2016 History of Present Illness Elidia Baig is a 80 year old female seen in cardiology consult per the request of Dr Lacie Acharya for the evaluation of atrial fibrillation. Patient recently admitted from 07/04 to 07/05/16 for AF. She spontaneously converted to SR and was discharged with increased dose of Coreg from 6.25 mg BID to 12.5 mg BID. She return to ED yesterday, 07/09 with exertional SOB and pain in shoulders with exertion such as walking. EKG confirmed recurrence of AF with mildly elevated V rates from 100-110 bpm. Admitting Troponin was negative. She converted from AF at 100 bpm to SR at 62 on 07/09 at 20:56. Coreg was placed on hold and sotalol 40 MG bid was added (dose adjusted for GFR of 28-30 ml/min/m2). She feels well at present. She is comfortable and is in the ICU as a telemetry overflow. History PMH: Autoimmune hepatitis NHL with pelvic masses s/p chemo treatment MRSA Prolonged hospital stat 01/2015 with MSSA bacteremia at that time, complicated by LADAN (needed intermittent dialysis), PAF, anemia on heparin requiring transfusion of 5 units PRBCs CKD with prior ATN requiring dialysis, now off therapy and monitored Chronic anemia PAF CAD, inferior wall STEMI 2011 treated with BMS at that time with normalization of LVEF and wall motion on follow up echo studies Surgical History cholecystectomy Lymph node biopsies Vaginal sling cardiac cath in 2011 - BMS to the RCA Liver biopsy Multiple urologic procedures Family History: Non contributory Social History: Remote tobacco abuse. Retired. and lives with . Review Of Systems See above for pertinent positives & negatives. A total of 10 systems reviewed and were otherwise negative. Allergies Coded Allergies: Diphenhydramine (Verified Allergy, Intermediate, rash, 07/09/16) Metoprolol (Verified Allergy, Intermediate, RASH, 07/09/16) Aspirin (Verified Allergy, Mild, unknown, 07/09/16) Garlic (Verified Allergy, Unknown, unknown, 07/09/16) Pseudoephedrine (Verified Allergy, Unknown, rash, 07/09/16) Medications Reported Home Medications Medications Dose Route/Sig Max Daily Dose Days Date Category Dose Instructions Coreg (Carvedilol) 6.25 Mg Tab 12.5 Mg PO BID 30 07/05/16 Rx Pravachol (Pravastatin Sodium) 20 Mg Tab 20 Mg PO DAILY 07/05/16 Reported Slow-Mag Tab (Magnesium Chloride) 64 Mg Tabcr 64 Mg PO DAILY 07/04/16 Reported Preservision Areds 2 (Multiple Vitamins W/ Minerals) 1 Cap Cap 1 Cap PO DAILY 07/04/16 Reported Levothyroxine Sodium 112 Mcg Tab 1 Tab PO DAILYBB 07/04/16 Reported Lasix (Furosemide) 40 Mg Tab 40 Mg PO DAILY 07/04/16 Reported Tylenol (Acetaminophen) 325 Mg Tab 650 Mg PO Q4H PRN 02/16/15 Rx Ursodiol 300 Mg Cap 300 Mg PO QPM 01/20/15 Reported Aspirin Ec (Aspirin) 81 Mg Tab 81 Mg PO DAILY 05/18/13 Reported Actigall (Ursodiol) 300 Mg Cap 600 Mg PO QAM 07/11/11 Reported 2 capsule dose Physical Exam Vital Signs (Last 8hrs): Last 8 Hrs Date Time Temp Pulse Resp B/P Pulse Ox O2 Delivery O2 Flow Rate FiO2 07/10/16 04:00 95 Room Air 07/10/16 03:55 36.6 72 18 143/63 95 Room Air General Appearance: Alert and Oriented x3. NAD. Head: Normocephalic Atraumatic. Eyes: PERRLA, EOMI, conjunctiva and sclera clear Neck: Supple. No carotid bruits noted. No JVD. No HJD. Respiratory: Breath sounds clear to auscultation bilaterally. No w/r/r. Cardiovascular: Reg rate and rhythm. S1 and S2 noted. No murmurs, rubs, gallops. PMI non displace. Abdomen: Normal bowel sounds, soft nontender. no abdominal bruits. Extremities: No edema, no clubbing or cyanosis. distal pulses 2/4 bilaterally. Neuro: No focal deficits. Psychiatric: Normal affect. Data Last Resulted 07/10/16 05:44 Last Resulted 07/10/16 05:44 Past 24 Hours Test 07/09/16 13:05 Range/Units Prothromb Time International Ratio 1.1 0.9-1.1 Prothrombin Time 11.5 9.0-12.0 SECONDS Troponin I < 0.015 0-0.045 ng/ml EKG: EKG this am SB at 62 with QTC 482 ms. T wave inversions in inferior and lateral leads unchanged compared to 07/04/16 and 07/05/16. In comparison to EKG tracings from 01/2015, intermittently , similar deep T wave inversions were present during that admission, but later in hospital stay , these normalized. Telemetry reviewed: as above Assessment & Plan Impression: 1. Recurrent symptomatic AF , last week had first documented episode since AF that occurred in setting of sepsis in January 2015. 2. Abnormal EKG, T wave inversions noted last week and again now, similar intermittent changes in the past 3. H/o CAD, inferior STEMI, BMS RCA 2011 4. Recent echo 07/05/16, normal LVEF, no WMAs, moderate concentric LVH, moderate MR Recommendations: In 2014 she was treated with a short course of amiodarone. Amiodarone not ideal given h/o autoimmune hepatitis. She has had a rash with metoprolol in the past. Tolerates carvedilol. Not a candidate for flecainide or propafenone due to CAD, LVH. Not a candidate for Tikosyn given renal function. Rhythm control strategy still desired given risk of bleeding, poor anticoagulation candidate. 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 Add back coreg for further HR and BP control. Keep on telemetry for 72 hours, daily am EKGs. Continue ASA for stroke prevention. Continue SQ heparin for DVT prophylaxis.
[2016-07-10] MEDS: CARVEDILOL 3.125 MG TAB PO SCH (20:35)
[2016-07-11] VITALS (13 sets, daily range): BP systolic 97–158; BP diastolic 58–89; PULSE 62–95; TEMP 36.2–36.8; O2SAT 97–99
[2016-07-11] MEDS ORDERED: CARVEDILOL 3.125 MG TAB PO ONE (03:08)
[2016-07-11] MEDS: LEVOTHYROXINE 112 MCG TAB PO SCH (05:28)
[2016-07-11 06:59] LABS: HEMATOCRIT 29.4 % (37-47); MEAN CELL VOLUME 91.6 fL (80-100); MEAN CORPUSCULAR HEMOGLOBIN 31.5 pg (25-34); MEAN CORPUSCULAR HGB CONC 34.4 g/dl (32-36); PLATELET COUNT 381 K/uL (130-400); RED BLOOD COUNT 3.21 M/uL (4.2-5.4); WHITE BLOOD COUNT 4.81 K/uL (4.8-10.8)
[2016-07-11 07:28] LABS: BUN/CREATININE RATIO 24.4 (10-20); CALCIUM 8.8 mg/dl (8.5-10.1); CREATININE 1.4 mg/dl (0.60-1.20); POTASSIUM 3.6 mmol/L (3.5-5.1)
[2016-07-11] MEDS: FUROSEMIDE 40 MG TAB PO SCH (09:00)
[2016-07-11] MEDS: SOTALOL HCL 80 MG TAB PO SCH ×3 (09:00→20:36)
[2016-07-11] MEDS: CARVEDILOL 3.125 MG TAB PO SCH ×2 (09:00→20:36)
[2016-07-11] MEDS: ASPIRIN 81 MG ECTAB PO SCH (09:06)
[2016-07-11] MEDS: MAGNESIUM CHLORIDE 64MG DELAYED REL TAB PO SCH (09:06)
[2016-07-11] MEDS: URSODIOL 300 MG CAP PO SCH ×2 (09:06→20:35)
[2016-07-11] MEDS: PRAVASTATIN SOD 20 MG TAB PO SCH (09:06)
[2016-07-11] MEDS: CEROVITE ADV FORMULA TAB PO SCH (09:06)
[2016-07-11] MEDS: HEPARIN SOD 5000 UNIT/0.5 ML CARP SQ SCH ×2 (09:07→21:01)
--- NOTE | 2016-07-11 10:23 | Cardiology Follow-Up ---
Subjective General Date of Service: Jul 11, 2016. Chief Complaint: follow up AF Pt evaluation today including: conversation w/ patient, physical exam History of Present Illness The patient is a 80 year old female seen in follow up. Patient c/o generalized weakness this am. BP low this am , SBP ~90 mm hg. Allergies Coded Allergies: Diphenhydramine (Verified Allergy, Intermediate, rash, 07/09/16) Metoprolol (Verified Allergy, Intermediate, RASH, 07/09/16) Aspirin (Verified Allergy, Mild, unknown, 07/09/16) Garlic (Verified Allergy, Unknown, unknown, 07/09/16) Pseudoephedrine (Verified Allergy, Unknown, rash, 07/09/16) Social History Smoking Status: Never Smoker Hx Tobacco Use In Past Year?: No Hx Alcohol Use - Type And Amou: Yes (1 drink weekly) Hx Substance Use - Type And Am: No Problem List Medical Problems: (1) Anterior chest wall pain Status: Acute (2) Atrial fibrillation Status: Acute (3) Atrial fibrillation with RVR Status: Acute (4) Dyspnea on exertion Status: Acute (5) Dyspnea on exertion Status: Acute (6) Paroxysmal atrial fibrillation Status: Acute (7) Shoulder pain, bilateral Status: Acute Physical Exam Vital Signs Last Vital Signs Documentation Date Time Temp Pulse Resp B/P Pulse Ox O2 Delivery O2 Flow Rate FiO2 07/11/16 09:05 97/58 07/11/16 08:03 97 Room Air 07/11/16 07:58 36.6 95 16 Physical Exam Constitutional: Level of Distress: mild distress Neck: supple Lungs: Auscultation: no wheezing, no rales/crackles, no rhonchi Cardiovascular: Heart Auscultation: no murmurs, irregular rate rhythm Extremities: no edema Neurologic: Gait & Station: pertinent finding (no focal neuro deficits ) Assessment and Plan Assessment and Plan Impression: 1. Recurrent symptomatic AF , last week had first documented episode since AF that occurred in setting of sepsis in January 2015. Was back in SR am of 07/10 , reverted to AF 07/11 , 2:35 am and remains in AF with controlled ventricular rate 2. Abnormal EKG, T wave inversions noted last week and again now, similar intermittent changes in the past 3. H/o CAD, inferior STEMI, BMS RCA 2011 4. Recent echo 07/05/16, normal LVEF, no WMAs, moderate concentric LVH, moderate MR Recommendations: Administer dose of sotalol 40 mg this am. Coreg held for low BP. Hold furosemide. Pt with CHADSVASC score of at leas 4 for female, age over 75, h/o CAD. Has anemia, with history of anemia required transfusion in 01/2105. Recommend cautious coumadin for stroke prevention. Continue SQ heparin until INR at 1.5-2. Repeat CBC, BMP, EKG, INR in am. Remain on telemetry. Laboratory Results Last 24 Hours Test 07/11/16 06:29 White Blood Count 4.81 K/uL Red Blood Count 3.21 M/uL Hemoglobin 10.1 g/dL Hematocrit 29.4 % Mean Corpuscular Volume 91.6 fL Mean Corpuscular Hemoglobin 31.5 pg Mean Corpuscular Hemoglobin Concent 34.4 g/dl RDW Standard Deviation 42.6 fL RDW Coefficient of Variation 12.6 % Platelet Count 381 K/uL Mean Platelet Volume 9.0 fL Sodium Level 139 mmol/L Potassium Level 3.6 mmol/L Chloride Level 106 mmol/L Carbon Dioxide Level 25 mmol/L Anion Gap 8.0 mmol/L Blood Urea Nitrogen 34 mg/dl Creatinine 1.40 mg/dl Est Creatinine Clear Calc Drug Dose 30.5 ml/min Estimated GFR () 41.3 Estimated GFR (Non- 35.6 BUN/Creatinine Ratio 24.4 Random Glucose 87 mg/dl Calcium Level 8.8 mg/dl
[2016-07-11] MEDS ORDERED: WARFARIN SOD 5 MG TAB PO ONE (11:00)
--- NOTE | 2016-07-11 12:44 | Progress Note ---
Internal Med Progress Note Date of Service: Jul 11, 2016. Provider Documentation: SUBJECTIVE: Patient did go into Atrial fibrillation with RVR overnight. Received an extra dose of coreg C/o Feeling lousy as couldnt sleep well at night. Denies any palpitations, dizziness, chest pain, SOB, diaphoresis, nausea, vomiting, abdominal pain Tele- A fib, rate controlled. OBJECTIVE: Vital Signs-as noted below Exam: General-AAOX3, no distress Neck-Supple, No JVD Lungs-AEBE, No wheezing, rhonchi, crackles Heart-Regular rate, rhythm Extremities-No edema Lab data as noted below. ASSESSMENT & PLAN: ATRIAL FIBRILLATION WITH RVR , Rate controlled now Recent admission for same on 07/05/16 - Coreg was increased from 6.5 mg PO BID to 12.5 mg PO BID. 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 Came back with similar symptoms as on last admission- SOB on exertion/B/L shoulder pain radiating to arm -On Coreg 3.125 mg PO BID (Allergic to Metoprolol); Sotalol 40 mg PO BID per cardiology. Received an extra dose of coreg overnight due to A fib with RVR. Was held due to low BP, but doses given per cardiology -Anticoagulation: YEMI VASC- 4. Hx of Chronic anemia and required multiple transfusions in past, so not on any anticoagulation. But started on coumadin this admission -Work up- Trop -negative, CXR- no acute issues; Recent Echo 07/05 as below -Cardiology consulted- d/w Dr Miranda - Needs outpatient 1-2 week Zio monitor but to await for repeat imaging for an abnormal mammogram first ABNORMAL EKG T wave inversions noted intermittently -Recent echo 07/05/16, normal LVEF, no WMAs, moderate concentric LVH, moderate MR H/O CAD S/P STENTS : -Continue aspirin, statins, BB -Trop - negative H/O NON HODGKINS LYMPHOMA : Pelvic -Followed by Dr. Perez; completed therapy with Rituxan HYPOTHYROIDISM -Work up - TSH: 0.245; T4, T3:wnl -Likely subclinical hyperthyroidism -Continue Levothyroxine -Needs repeat thyroid function test as outpatient CKD IV: -Cr levels at baseline -Monitor renal function -Avoid Nephrotoxic agents CHRONIC ANEMIA: Secondary to CKD Has required multiple transfusions in past -Hb is at baseline -Monitor HTN: -stable -Continue home meds H/O AUTOIMMUNE HEPATITIS: -Stable DVT Px: SQ Heparin CODE STATUS: Full code DISPOSITION: Continue with tele monitoring at least for 72 hours post sotalol initiation Follow up with Follow up with on 07/26/16 at 2:00pm Needs outpatient 1-2 week Zio monitor as outpatient Needs repeat Thyroid function test as outpatient Vital Signs: Date Time Temp Pulse Resp B/P Pulse Ox O2 Delivery O2 Flow Rate FiO2 07/11/16 09:05 97/58 07/11/16 08:03 97 Room Air 07/11/16 08:00 98 Room Air 07/11/16 07:58 36.6 95 16 123/77 97 Room Air 07/11/16 04:00 98 Room Air 07/11/16 03:45 36.8 82 17 142/79 97 Room Air 07/11/16 03:03 36.6 92 18 158/89 98 Room Air 07/10/16 23:59 98 Room Air 07/10/16 23:11 36.9 76 18 151/80 98 Room Air 07/10/16 20:00 Room Air 07/10/16 19:47 36.4 79 20 169/92 99 Room Air 07/10/16 17:20 37.0 66 18 99 07/10/16 16:00 95 Room Air Lab Results: Results Past 24 Hours Test 07/11/16 06:29 Range/Units White Blood Count 4.81 4.8-10.8 K/uL Red Blood Count 3.21 4.2-5.4 M/uL Hemoglobin 10.1 12.0-16.0 g/dL Hematocrit 29.4 37-47 % Mean Corpuscular Volume 91.6 80-100 fL Mean Corpuscular Hemoglobin 31.5 25-34 pg Mean Corpuscular Hemoglobin Concent 34.4 32-36 g/dl RDW Standard Deviation 42.6 36.4-46.3 fL RDW Coefficient of Variation 12.6 11.5-14.5 % Platelet Count 381 130-400 K/uL Mean Platelet Volume 9.0 7.4-10.4 fL Sodium Level 139 136-145 mmol/L Potassium Level 3.6 3.5-5.1 mmol/L Chloride Level 106 98-107 mmol/L Carbon Dioxide Level 25 21-32 mmol/L Anion Gap 8.0 3-11 mmol/L Blood Urea Nitrogen 34 7-18 mg/dl Creatinine 1.40 0.60-1.20 mg/dl Est Creatinine Clear Calc Drug Dose 30.5 ml/min Estimated GFR () 41.3 Estimated GFR (Non- 35.6 BUN/Creatinine Ratio 24.4 10-20 Random Glucose 87 70-99 mg/dl Calcium Level 8.8 8.5-10.1 mg/dl
[2016-07-11] MEDS: ACETAMINOPHEN 325 MG TAB PO PRN ×2 (15:36→21:59)
[2016-07-12 02:23] VITALS: BP 145/77
[2016-07-12 03:20] VITALS: BP 145/75; PULSE 72; TEMP 36.7; O2SAT 96
[2016-07-12] MEDS: LEVOTHYROXINE 112 MCG TAB PO SCH (06:25)
[2016-07-12] MEDS: ACETAMINOPHEN 325 MG TAB PO PRN (06:26)
[2016-07-12 06:56] LABS: BASO % 0.6 %; BASO ABS # 0.03 K/uL (0-0.2); COMPLETE YES; EOS % 5.8 %; HEMATOCRIT 29.1 % (37-47); IG% 0.2 %; LYMPH % 30.6 %; LYMPH ABS # 1.42 K/uL (1.2-3.4); MEAN CELL VOLUME 92.7 fL (80-100); MEAN CORPUSCULAR HEMOGLOBIN 31.2 pg (25-34); MEAN CORPUSCULAR HGB CONC 33.7 g/dl (32-36); MEAN PLATELET VOLUME 8.8 fL (7.4-10.4); MONO % 9.1 %; NEUT % 53.7 %; PLATELET COUNT 397 K/uL (130-400); RED BLOOD COUNT 3.14 M/uL (4.2-5.4); WHITE BLOOD COUNT 4.64 K/uL (4.8-10.8)
[2016-07-12 07:06] LABS: INR 1.1 (0.9-1.1); PROTHROMBIN TIME (PATIENT) 11.7 SECONDS (9.0-12.0)
[2016-07-12 07:26] LABS: BUN/CREATININE RATIO 20.9 (10-20); CALCIUM 8.7 mg/dl (8.5-10.1); CREATININE 1.5 mg/dl (0.60-1.20); POTASSIUM 3.8 mmol/L (3.5-5.1)
[2016-07-12 07:33] VITALS: BP 126/64; PULSE 74; TEMP 36.8; O2SAT 97
[2016-07-12] MEDS: URSODIOL 300 MG CAP PO SCH (08:26)
[2016-07-12] MEDS: ASPIRIN 81 MG ECTAB PO SCH (08:27)
[2016-07-12] MEDS: CARVEDILOL 3.125 MG TAB PO SCH (08:27)
[2016-07-12] MEDS: SOTALOL HCL 80 MG TAB PO SCH (08:27)
[2016-07-12] MEDS: PRAVASTATIN SOD 20 MG TAB PO SCH (08:28)
[2016-07-12] MEDS: CEROVITE ADV FORMULA TAB PO SCH (08:28)
[2016-07-12] MEDS: MAGNESIUM CHLORIDE 64MG DELAYED REL TAB PO SCH (08:28)
[2016-07-12] MEDS: HEPARIN SOD 5000 UNIT/0.5 ML CARP SQ SCH (08:32)
--- NOTE | 2016-07-12 09:56 | Cardiology Follow-Up ---
Subjective General Date of Service: Jul 12, 2016. Chief Complaint: follow up AF Pt evaluation today including: conversation w/ patient, physical exam History of Present Illness The patient is a 80 year old female seen in follow up . Pt feeling better this am. More energy. Had reverted to SR late am yesterday. Had a few episodes of AF on telemetry overnight and is back in SR. EKG this reveals SR with stable QTC and inferior and lateral T wave inversions , unchanged compared to earlier this month. Denies symptoms suggestive of angina. Allergies Coded Allergies: Diphenhydramine (Verified Allergy, Intermediate, rash, 07/09/16) Metoprolol (Verified Allergy, Intermediate, RASH, 07/09/16) Aspirin (Verified Allergy, Mild, unknown, 07/09/16) Garlic (Verified Allergy, Unknown, unknown, 07/09/16) Pseudoephedrine (Verified Allergy, Unknown, rash, 07/09/16) Social History Smoking Status: Never Smoker Hx Tobacco Use In Past Year?: No Hx Alcohol Use - Type And Amou: Yes (1 drink weekly) Hx Substance Use - Type And Am: No Problem List Medical Problems: (1) Anterior chest wall pain Status: Acute (2) Atrial fibrillation Status: Acute (3) Atrial fibrillation with RVR Status: Acute (4) Dyspnea on exertion Status: Acute (5) Dyspnea on exertion Status: Acute (6) Paroxysmal atrial fibrillation Status: Acute (7) Shoulder pain, bilateral Status: Acute Physical Exam Vital Signs Last Vital Signs Documentation Date Time Temp Pulse Resp B/P Pulse Ox O2 Delivery O2 Flow Rate FiO2 07/12/16 07:33 36.8 74 16 126/64 97 07/12/16 04:00 Room Air Physical Exam Constitutional: Level of Distress: mild distress Neck: supple Lungs: Auscultation: no wheezing, no rales/crackles, no rhonchi Cardiovascular: Heart Auscultation: RRR, no murmurs Extremities: no edema Neurologic: Gait & Station: pertinent finding (no focal neuro deficits ) Assessment and Plan Assessment and Plan Impression: 1. Recurrent PAF 2. Abnormal EKG, T wave inversions noted last week and again now, similar intermittent changes in the past 3. H/o CAD, inferior STEMI, BMS RCA 2011 4. Recent echo 07/05/16, normal LVEF, no WMAs, moderate concentric LVH, moderate MR Recommendations: Pt with CHADSVASC score of at leas 4 for female, age over 75, h/o CAD. Has anemia, with history of anemia required transfusion in 01/2105. Hgb down to 9.8 mg/dl today, in patient with little reserve and although she is at high risk for stroke , also very high bleeding risk. DC coumadin, and continue ASA 81 mg. Pt has received first 6 doses of sotalol. Still in and out of AF, but I am not sure if the AF is actually the case of her symptoms. Plan for DC today on sotalol 40 mg BID, coreg 3.125 mg BID. If pt feels AF at home can take extra 3.125 mg of coreg.. Plan for out pt 7 day Zio to assess AF burden on sotalol as outpt and to assess to see if symptoms correlate with AF. Keep outpt follow up with me as planned on 07/26. I will place Zio order in [facility] record. Resume furosemide. Laboratory Results Last 24 Hours Test 07/12/16 06:36 White Blood Count 4.64 K/uL Red Blood Count 3.14 M/uL Hemoglobin 9.8 g/dL Hematocrit 29.1 % Mean Corpuscular Volume 92.7 fL Mean Corpuscular Hemoglobin 31.2 pg Mean Corpuscular Hemoglobin Concent 33.7 g/dl Platelet Count 397 K/uL Mean Platelet Volume 8.8 fL Neutrophils (%) (Auto) 53.7 % Lymphocytes (%) (Auto) 30.6 % Monocytes (%) (Auto) 9.1 % Eosinophils (%) (Auto) 5.8 % Basophils (%) (Auto) 0.6 % Neutrophils # (Auto) 2.49 K/uL Lymphocytes # (Auto) 1.42 K/uL Monocytes # (Auto) 0.42 K/uL Eosinophils # (Auto) 0.27 K/uL Basophils # (Auto) 0.03 K/uL RDW Standard Deviation 43.4 fL RDW Coefficient of Variation 12.7 % Immature Granulocyte % (Auto) 0.2 % Immature Granulocyte # (Auto) 0.01 K/uL Prothrombin Time 11.7 SECONDS Prothromb Time International Ratio 1.1 Sodium Level 138 mmol/L Potassium Level 3.8 mmol/L Chloride Level 106 mmol/L Carbon Dioxide Level 25 mmol/L Anion Gap 7.0 mmol/L Blood Urea Nitrogen 31 mg/dl Creatinine 1.50 mg/dl Est Creatinine Clear Calc Drug Dose 28.5 ml/min Estimated GFR () 38.0 Estimated GFR (Non- 32.8 BUN/Creatinine Ratio 20.9 Random Glucose 85 mg/dl Calcium Level 8.7 mg/dl
--- NOTE | 2016-07-12 10:30 | Progress Note ---
Internal Med Progress Note Date of Service: Jul 12, 2016. Provider Documentation: SUBJECTIVE: Patient has been in and out of Atrial fibrillation, but overall doing better. Denies any palpitations, dizziness, chest pain, SOB, diaphoresis, nausea, vomiting, abdominal pain Tele- In and out of atrial fibrillation, rate controlled OBJECTIVE: Vital Signs-as noted below Exam: General-AAOX3, no distress Neck-Supple, No JVD Lungs-AEBE, No wheezing, rhonchi, crackles Heart-Regular rate, rhythm Extremities-No edema Lab data as noted below. ASSESSMENT & PLAN: ATRIAL FIBRILLATION WITH RVR , Rate controlled now, in and out of Atrial fibrillation Recent admission for same on 07/05/16 - Coreg was increased from 6.5 mg PO BID to 12.5 mg PO BID. 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 Came back with similar symptoms as on last admission- SOB on exertion/B/L shoulder pain radiating to arm -On Coreg 3.125 mg PO BID-decreased from 6.25 bid (Allergic to Metoprolol); Sotalol 40 mg PO BID-newly started per cardiology. -Anticoagulation: YEMI VASC- 4. Hx of Chronic anemia and required multiple transfusions in past, so not on any anticoagulation. High risk of stroke, but also at high risk for bleeding. So per d/w cardiology for now will discontinue coumadin on discharge. ASA 81 mg daily -Work up- Trop -negative, CXR- no acute issues; Recent Echo 07/05 as below -Cardiology consulted- d/w Dr Miranda -Needs outpatient 1 week Zio monitor and to keep appt with Dr Miranda on 07/26. Cleared for discharge per Dr Miranda ABNORMAL EKG T wave inversions noted intermittently in the past and on this admission -Recent echo 07/05/16, normal LVEF, no WMAs, moderate concentric LVH, moderate MR -Cardiology on board. H/O CAD S/P STENTS : -Continue aspirin, statins, BB -Trop - negative H/O NON HODGKINS LYMPHOMA : Pelvic -Followed by Dr. Perez; completed therapy with Rituxan HYPOTHYROIDISM -Work up - TSH: 0.245; T4, T3:wnl -Likely subclinical hyperthyroidism -Continue Levothyroxine -Needs repeat thyroid function test as outpatient CKD IV: -Cr levels at baseline -Monitor renal function -Avoid Nephrotoxic agents CHRONIC ANEMIA: Secondary to CKD Has required multiple transfusions in past -Hb is at baseline. Not to be discharged on coumadin -Monitor HTN: -stable -Continue home meds H/O AUTOIMMUNE HEPATITIS: -Stable DVT Px: SQ Heparin CODE STATUS: Full code DISPOSITION: Cleared for discharge to home. Discussed discharge plan with Dr Miranda Follow up with Follow up with on 07/26/16 at 2:00pm Needs outpatient 1 week Zio monitor as outpatient Needs repeat Thyroid function test as outpatient Vital Signs: Date Time Temp Pulse Resp B/P Pulse Ox O2 Delivery O2 Flow Rate FiO2 07/12/16 08:00 Room Air 07/12/16 07:33 36.8 74 16 126/64 97 07/12/16 04:00 Room Air 07/12/16 03:20 36.7 72 18 145/75 96 Room Air 07/12/16 02:23 145/77 07/12/16 00:00 Room Air 07/11/16 23:05 36.8 62 16 113/65 98 Room Air 07/11/16 20:00 Room Air 07/11/16 19:14 36.7 63 16 137/76 97 07/11/16 16:00 98 Room Air 07/11/16 15:36 36.7 64 12 121/66 99 Room Air 07/11/16 12:57 36.2 67 18 115/69 98 Room Air 07/11/16 12:56 Room Air 07/11/16 12:00 98 Room Air Lab Results: Results Past 24 Hours Test 07/12/16 06:36 Range/Units White Blood Count 4.64 4.8-10.8 K/uL Red Blood Count 3.14 4.2-5.4 M/uL Hemoglobin 9.8 12.0-16.0 g/dL Hematocrit 29.1 37-47 % Mean Corpuscular Volume 92.7 80-100 fL Mean Corpuscular Hemoglobin 31.2 25-34 pg Mean Corpuscular Hemoglobin Concent 33.7 32-36 g/dl Platelet Count 397 130-400 K/uL Mean Platelet Volume 8.8 7.4-10.4 fL Neutrophils (%) (Auto) 53.7 % Lymphocytes (%) (Auto) 30.6 % Monocytes (%) (Auto) 9.1 % Eosinophils (%) (Auto) 5.8 % Basophils (%) (Auto) 0.6 % Neutrophils # (Auto) 2.49 1.4-6.5 K/uL Lymphocytes # (Auto) 1.42 1.2-3.4 K/uL Monocytes # (Auto) 0.42 0.11-0.59 K/uL Eosinophils # (Auto) 0.27 0-0.5 K/uL Basophils # (Auto) 0.03 0-0.2 K/uL RDW Standard Deviation 43.4 36.4-46.3 fL RDW Coefficient of Variation 12.7 11.5-14.5 % Immature Granulocyte % (Auto) 0.2 % Immature Granulocyte # (Auto) 0.01 0.00-0.02 K/uL Prothrombin Time 11.7 9.0-12.0 SECONDS Prothromb Time International Ratio 1.1 0.9-1.1 Sodium Level 138 136-145 mmol/L Potassium Level 3.8 3.5-5.1 mmol/L Chloride Level 106 98-107 mmol/L Carbon Dioxide Level 25 21-32 mmol/L Anion Gap 7.0 3-11 mmol/L Blood Urea Nitrogen 31 7-18 mg/dl Creatinine 1.50 0.60-1.20 mg/dl Est Creatinine Clear Calc Drug Dose 28.5 ml/min Estimated GFR () 38.0 Estimated GFR (Non- 32.8 BUN/Creatinine Ratio 20.9 10-20 Random Glucose 85 70-99 mg/dl Calcium Level 8.7 8.5-10.1 mg/dl
[2016-07-12] MEDS ORDERED: CRG3125 PO (10:31)
[2016-07-12] MEDS ORDERED: BTP80 PO (10:31)
--- NOTE | 2016-07-12 10:33 | Discharge Instructions ---
Discharge Instructions Date of Service Jul 12, 2016. Admission Reason for Admission: Atrial Fibrillation Discharge Discharge Diagnosis / Problem: 1. Atrial fibrillation with RVR Discharge Goals Goal(s): Improve disease control, Prevent Disease Progression Activity Recommendations Activity Limitations: resume your previous activity (as tolerated prior to admission) . Instructions / Follow-Up Instructions / Follow-Up MEDICATION CHANGES: 1. New medication: Sotalol 40 mg PO BID 2. Decreased Coreg to 3.125 mg PO BID from 6.25 mg PO BID . If you feel palpitations, HR >110, can take an extra dose of 3.125 mg of Coreg per your intern 3. Lasix to be taken from tomorrow- 40 mg daily as prior to home dose FOLLOW UP: 1. With Dr Mohan on 07/16/16 at 1:[address] Miranda on 07/26/16 at 2:00 PM MONITOR: 1. You will need a Zio Monitor which will be arranged by cardiology Current Hospital Diet Patient's current hospital diet: AHA Diet (Heart Healthy), Low Sodium Diet (2gm Na) Discharge Diet Recommended Diet: AHA Diet (Heart Healthy), Low Sodium Diet (2gm Na) Pending Studies Studies pending at discharge: no Medical Emergencies . Who to Call and When: Medical Emergencies: If at any time you feel your situation is an emergency, please call 911 immediately. . Non-Emergent Contact Non-Emergency issues call your: Primary Care Provider . . "Provider Documentation" section prepared by Isadora Acharya. VTE Core Measure Inpt VTE Proph given/why not?: Unfractionated heparin SQ, T.E.D. Stockings, SCD 's
--- NOTE | 2016-07-12 10:37 | Discharge Summary ---
Discharge Summary Date of Service Jul 12, 2016. Discharge Summary Admission Date: Jul 09, 2016 at 16:42 Discharge Date: Jul 12, 2016 Discharge Disposition: Home Principal Diagnosis: 1. Atrial fibrillation with RVR Secondary Diagnoses/Problems: 1. CKD-IV 2. Chronic anemia 3. Hypothyroidism 4. Hx of Autoimmune hepatitis Procedures: Tele monitoring Serial EKG Serial Troponin CXR Consultations: Cardiology, Dr Miranda Pending Studies/Follow-Up: Instructions / Follow-Up MEDICATION CHANGES: 1. New medication: Sotalol 40 mg PO BID 2. Decreased Coreg to 3.125 mg PO BID from 6.25 mg PO BID . If you feel palpitations, HR >110, can take an extra dose of 3.125 mg of Coreg per your manager location 3. Lasix to be taken from tomorrow- 40 mg daily as prior to home dose FOLLOW UP: 1. With Dr Mohan on 07/16/16 at 1:[address] Miranda on 07/26/16 at 2:00 PM MONITOR: 1. You will need a Zio Monitor which will be arranged by cardiology 2,. TSH to be repeated in 3-4 weeks Medication Reconciliation New Medications: Carvedilol (Carvedilol) 3.125 Mg Tab 3.125 MG PO BID for 30 Days, #60 TAB Sotalol HCl (Sotalol HCl) 80 Mg Tab 40 MG PO BID for 30 Days, #60 TAB Continued Medications: Acetaminophen (Tylenol) 325 Mg Tab 650 MG PO Q4H PRN for Pain or Fever, #30 TAB Aspirin (Aspirin Ec) 81 Mg Tab 81 MG PO DAILY Furosemide (Lasix) 40 Mg Tab 40 MG PO DAILY, TAB Levothyroxine Sodium (Levothyroxine Sodium) 112 Mcg Tab 1 TAB PO DAILYBB Magnesium Chloride (Slow-Mag Tab) 64 Mg Tabcr 64 MG PO DAILY Multiple Vitamins W/ Minerals (Preservision Areds 2) 1 Cap Cap 1 CAP PO DAILY Pravastatin (Pravachol ) 20 Mg Tab 20 MG PO DAILY, TAB Ursodiol (Actigall) 300 Mg Cap 600 MG PO QAM 2 capsule dose Ursodiol (Ursodiol) 300 Mg Cap 300 MG PO QPM Discontinued Medications: Carvedilol (Coreg) 6.25 Mg Tab 12.5 MG PO BID for 30 Days, #120 TAB Admission Information HPI (per Admitting provider): HISTORY OF PRESENT ILLNESS: Patient is a 80 year old Female with PMH of CAD s/p stent, HTN, CKD, Hx of PAF, hx NHL sp Rituxan, autoimmune hepatitis as per records, history of MRSA. chronic anemia (baseline hemoglobin of 11) Recent confinement last 07/05/16 for Atrial fibrillation with RVR. Coreg was increased to 12.5 mg PO BID from 6.5 mg PO BID. Was taken off amiodarone 1 month ago after being on it since 2014 (not thought to be a good [facility]cc medication with multiple comorbidities). She did well post discharge till today AM when she noted that she was SOB/Pain in B/L Shoulder/neck and radiating to left arm. Symptoms similar to last admission. No associated chest pain, cough, palpitations, dizziness, syncope, localized weakness, numbness/tingling. Per her symptoms are only present on activity, none at rest. Only complaint she has now is neck pain with no headaches. In ED, she was noted to be in A fib with RVR with HR IN 100s. Trop x 1 set normal. EKG- atrial fibrillation. Case was discussed by ED physician with manager location, Dr Miranda who recommended admission for better control of Atrial fibrillation with RVR, given limited options for rx and possibility of need of anti arrhythmic agent. 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 Off amiodarone till 1 month ago as not thought to be a good mcc med for A fib with multiple co morbidities. Came back with similar symptoms as on last admission- SOB on exertion/B/L shoulder pain radiating to arm -On Coreg 3.125 mg PO BID-decreased from 6.25 bid (Allergic to Metoprolol); Sotalol 40 mg PO BID-newly started per cardiology. -Anticoagulation: YEMI VASC- 4. Hx of Chronic anemia and required multiple transfusions in past, so not on any anticoagulation. High risk of stroke, but also at high risk for bleeding. So per d/w cardiology for now will discontinue coumadin on discharge. ASA 81 mg daily -Work up- Trop -negative, CXR- no acute issues; Recent Echo 07/05 as below -Cardiology consulted- d/w Dr Miranda -Needs outpatient 1 week Zio monitor and to keep appt with Dr Miranda on 07/26. Cleared for discharge per Dr Miranda ABNORMAL EKG T wave inversions noted intermittently in the past and on this admission -Recent echo 07/05/16, normal LVEF, no WMAs, moderate concentric LVH, moderate MR -Cardiology on board. H/O CAD S/P STENTS : -Continue aspirin, statins, BB -Trop - negative H/O NON HODGKINS LYMPHOMA : Pelvic -Followed by Dr. Perez; completed therapy with Rituxan HYPOTHYROIDISM -Work up - TSH: 0.245; T4, T3:wnl -Continue Levothyroxine 112 MCG daily -Needs repeat thyroid function test as outpatient CKD IV: -Cr levels at baseline -Monitor renal function -Avoid Nephrotoxic agents CHRONIC ANEMIA: Secondary to CKD Has required multiple transfusions in past -Hb is at baseline. Not to be discharged on coumadin -Monitor HTN: -stable -Continue home meds H/O AUTOIMMUNE HEPATITIS: -Stable DVT Px: SQ Heparin CODE STATUS: Full code DISPOSITION: Cleared for discharge to home. Discussed discharge plan with Dr Miranda Follow up with Follow up with on 07/26/16 at 2:00pm Needs outpatient 1 week Zio monitor as outpatient Needs repeat Thyroid function test as outpatient Total time spent on discharge = 35 MINUTES This includes examination of the patient, discharge planning, medication reconciliation, and communication with other providers. Discharge Instructions Activity Recommendations Activity Limitations: resume your previous activity (as tolerated prior to admission) . Instructions / Follow-Up Instructions / Follow-Up MEDICATION CHANGES: 1. New medication: Sotalol 40 mg PO BID 2. Decreased Coreg to 3.125 mg PO BID from 6.25 mg PO BID . If you feel palpitations, HR >110, can take an extra dose of 3.125 mg of Coreg per your manager location 3. Lasix to be taken from tomorrow- 40 mg daily as prior to home dose FOLLOW UP: 1. With Dr Mohan on 07/16/16 at 1:[address] Miranda on 07/26/16 at 2:00 PM MONITOR: 1. You will need a Zio Monitor which will be arranged by cardiology Current Hospital Diet Patient's current hospital diet: AHA Diet (Heart Healthy), Low Sodium Diet (2gm Na) Discharge Diet Recommended Diet: AHA Diet (Heart Healthy), Low Sodium Diet (2gm Na) Pending Studies Studies pending at discharge: no Medical Emergencies . Who to Call and When: Medical Emergencies: If at any time you feel your situation is an emergency, please call 911 immediately. . Non-Emergent Contact Non-Emergency issues call your: Primary Care Provider . . "Provider Documentation" section prepared by Isadora Acharya. VTE Core Measure Inpt VTE Proph given/why not?: Unfractionated heparin SQ, T.E.D. Stockings, SCD 's
[2016-07-12 10:42] VITALS: BP 126/64; PULSE 74; TEMP 36.8; O2SAT 97
[2016-07-12] MEDS ORDERED: WARFARIN SOD 5 MG TAB PO SCH (16:00)
[2016-08-26] MEDS ORDERED: META1TAB22 PO (08:50)
[2016-08-26] MEDS ORDERED: TRAM-10 PO (08:50)
[2016-09-11] MEDS ORDERED: SOTA80TA55 PO (11:50)
== END 2016-07-12 13:19 | disposition home or self-care (01) | DRG 309 ==
LOC: ENRESERVTM → CANRESERV → ENRESERVDT → C.EDB 12:33 → C.MSICU 16:42 → C.2T 07-10 18:09
PROVIDERS: ADMIT Internal Medicine; ATTEND Internal Medicine
DX: I48.0 Paroxysmal atrial fibrillation (principal); N18.4 Chronic kidney disease, stage 4 (severe); R94.31 Abnormal electrocardiogram [ECG] [EKG]; D63.1 Anemia in chronic kidney disease; I12.9 Hypertensive chronic kidney disease with stage 1 through stage 4 chronic kidney disease, or unspecified chronic kidney disease; I34.0 Nonrheumatic mitral (valve) insufficiency; E78.5 Hyperlipidemia, unspecified; E03.9 Hypothyroidism, unspecified; K75.4 Autoimmune hepatitis; I25.10 Atherosclerotic heart disease of native coronary artery without angina pectoris; Z95.5 Presence of coronary angioplasty implant and graft; Z86.14 Personal history of Methicillin resistant Staphylococcus aureus infection; Z85.72 Personal history of non-Hodgkin lymphomas; Z87.891 Personal history of nicotine dependence; Z79.82 Long term (current) use of aspirin; Z79.899 Other long term (current) drug therapy; Z88.8 Allergy status to other drugs, medicaments and biological substances

== ENCOUNTER → 2016-07-24 | Outpatient (CLI) | payer OTHER ==
[~2016-07-24] MED LIST changes: +ACET325T96 PO; +BTP80 PO; +CARV3.122 PO; -CARV6.252 PO; +CRG3125 PO; +META1TAB22 PO; +OXYC-57 PO; +SLWMEC PO; +SOTA80TA20 PO; +TRAM-10 PO
--- NOTE | 2016-07-24 14:43 | MAMMOGRAPHY REPORT ---
UNILATERAL RIGHT DIGITAL DIAGNOSTIC MAMMOGRAM TOMOSYNTHESIS AND TARGETED BILATERAL ULTRASOUND: 017 CLINICAL HISTORY: 80-year-old woman called back from screening mammography for a possible enlarging left breast mass in the anterior upper outer aspect of the breast. Also right superior asymmetry. TECHNIQUE: A spot compression MLO 2-D digital and tomosynthesis image of the superior right breast w as obtained. COMPARISON: Comparison is made to exams dated: 07/01/2016 mammogram, 06/28/2015 mammogram, 01/27/2014 m ammogram, 01/12/2013 mammogram, 01/10/2012 mammogram, and 01/08/2011 mammogram - [facility]. BREAST COMPOSITION: The tissue of the right breast is heterogeneously dense, which may obscure smal l masses. FINDINGS: With the additional spot compression view including tomosynthesis images, there is efface ment of the asymmetry in the superior posterior breast. This effacing asymmetry has the appearance of normal glandular tissue on the corresponding tomosynthesis images. No focal area of architectura l distortion or obvious mass is seen in the superior right breast on the spot compression view. The re are mild vascular calcifications. Targeted ultrasound was performed in the superior right breast and also in the upper outer anterior left breast. In the left 1:00 periareolar breast, there is an angular hypoechoic solid mass with in ternal echogenicity consistent with a coarse calcification, which is also seen mammographically. Th is mass measures approximately 7.6 x 8.4 x 13.5 mm and correlates with the mammographic finding. Th is is indeterminate, given the possible interval increase in size mammographically and definitive ch aracterization with tissue sampling is recommended. Targeted ultrasound was also performed in the superior right breast. Normal fibroglandular tissue is seen without a discrete solid or cystic mass. IMPRESSION: ACR BI-RADS CATEGORY 4B: INTERMEDIATE SUSPICION FOR MALIGNANCY, TARGETED ULTRASOUND ACR BI-RADS CATEGORY 4B: INTERMEDIATE SUSPICION FOR MALIGNANCY 1. Ultrasound guided core needle biopsy is recommended for an indeterminate solid mass in the 1:00 left breast measuring 13.5 mm. 2. An asymmetry in the superior posterior right breast on the full-field MLO view effaces with marcus tional spot compression view including tomosynthesis images. No suspicious sonographic correlate wa s seen. This most likely represented normal overlapping tissue and no further close follow-up is ne eded at this time. These results and recommendations were discussed with the patient at the time of the exam. She tent atively scheduled the left breast biopsy prior to leaving our department. Approximately 10% of breast cancers are not detected with mammography. A negative mammographic repor t should not delay biopsy if a clinically suggestive mass is present. Macie Valencia M.D. ay/:07/24/2016 14:25:22 Stone Cutter: Dae Parsons RT(R)(Judie), [facility] letter sent: Abnormal / BI-RADS Code: ACR BI-RADS Category 4B: Intermediate Suspicion For Malignancy Ultrasound BI-RADS: AC R BI-RADS Category 4B: Intermediate Suspicion For Malignancy
== END | disposition home or self-care (01) ==
LOC: C.MAMM 12:34
PROVIDERS: ATTEND Physician Assistant
DX: N63 Unspecified lump in breast (principal); N64.89 Other specified disorders of breast

== ENCOUNTER → 2016-07-31 | Outpatient (CLI) | payer OTHER ==
--- NOTE | 2016-07-31 14:46 | Discharge Instructions ---
Discharge Instructions Procedure Procedure Date: Jul 31, 2016. Reason for visit: Left Mass. Discharge Discharge Date: Jul 31, 2016. Discharge Diagnosis: post left breast ultrasound guided core biopsy Instructions Activity Recommendations: Additional Limitations (see below) Return to School/Work: no limitations Recommended Home Diet: No Limitations Provider Instructions: ACTIVITY RECOMMENDATIONS: * No lifting, pushing, pulling or exercising the affected side for three days. RETURN TO SCHOOL/WORK: * You may return to work/school after the procedure, but do not perform any strenuous activities for 24 to 48 hours. MEDICATIONS: * Tylenol (two 325 mg) every four to six hours if needed for mild pain (if not allergic to Tylenol). DIET: * Resume previous diet. SPECIAL CARE INSTRUCTIONS: * Keep biopsy site dry for 24 hours. May shower after 24 hours, but do not soak (bathe) incision. * May remove Tegaderm (plastic patch) tomorrow AFTER showering. * Leave the steri-strips on for one week. Allow the steri-strips to fall off by themselves. If not off after one week, you may remove them. You may place a Bandaid crosswise over the strips, if desired. * Apply ice 10 minutes on and 10 minutes off as needed. * Wear a bra at bedtime to sleep more comfortably for 2-3 days. * Your referring physician should have the results after approximately 5 to 7 business days. * Call for unusual bleeding, fever, drainage, etc or if you have any questions call [phone] during normal business hours or after hours call Dr Valencia, . FOLLOW UP VISIT: Follow-up with Referring Physician as scheduled. Allergies Coded Allergies: Diphenhydramine (Verified Allergy, Intermediate, rash, 07/09/16) Metoprolol (Verified Allergy, Intermediate, RASH, 07/09/16) Aspirin (Verified Allergy, Mild, unknown, 07/09/16) Garlic (Verified Allergy, Unknown, unknown, 07/09/16) Pseudoephedrine (Verified Allergy, Unknown, rash, 07/09/16) Skyler Ren Recommendations: Call your doctor if: * Temperature above 101 degrees * Pain not relieved by pain medicine ordered * There is increased drainage or redness from any incision * You have any unanswered questions or concerns. Your Doctors Instructions noted above were prepared by provider Macie Valencia. Patient Signature Section: Patient Instructions Signature Page Elidia Wolfwandareina Patient (or Guardian) Signature/Date: I have read and understand the instructions given to me by my caregivers. Caregiver/RN/Doctor Signature/Date: The above-named patient and/or guardian has received patient instructions on this date. + Original Patient Signature Page (only) stays with chart. Please make copy for patient.
--- NOTE | 2016-07-31 16:06 | MAMMOGRAPHY REPORT ---
UNILATERAL LEFT DIGITAL DIAGNOSTIC MAMMOGRAM TOMOSYNTHESIS: 07/31/2016 CLINICAL HISTORY: Status post ultrasound guided core needle biopsy of an indeterminate solid mass wi th associated coarse calcification in the 1:00 periareolar left breast. Please refer to the report from left breast ultrasound guided core biopsy performed at the same time for full detail. IMPRESSION: POST PROCEDURE IMAGING FOR MARKER PLACEMENT Please refer to the report from left breast ultrasound guided core biopsy performed at the same time for full detail. Approximately 10% of breast cancers are not detected with mammography. A negative mammographic repor t should not delay biopsy if a clinically suggestive mass is present. Macie Valencia M.D. ay/:07/31/2016 14:50:01 Foreign Agent: Nella HEIN(R)(M), [facility] BI-RADS Code: Post Procedure Imaging For Marker Placement
--- NOTE | 2016-07-31 16:06 | MAMMOGRAPHY REPORT ---
THIS REPORT HAS BEEN AMENDED. ULTRASOUND GUIDED BIOPSY LEFT BREAST: 07/31/2016 CLINICAL HISTORY: Indeterminate solid mass with associated coarse calcification in the 1:00 left rafael ast. Patient presents for ultrasound-guided core biopsy. COMPARISON: Comparison is made to exams dated: 07/24/2016 mammogram, 07/24/2016 ultrasound, 07/01/2016 m ammogram, 06/28/2015 mammogram, 01/27/2014 mammogram, and 01/12/2013 mammogram - [facility]. PATIENT CONSENT: The procedure, risks and benefits were discussed with the patient and informed writ ten consent was obtained. Specific risks to this procedure include: bleeding, infection, puncture of adjacent structure, nontarget biopsy, sampling error, metal allergy and medication reaction. PROCEDURE DESCRIPTION: A time out was performed and the left breast was agreed as the site of biopsy . The skin was prepped and draped in the usual sterile fashion. The solid mass with internal coarse calcification in the 1:00 left breast was chosen as the target for biopsy. Subcutaneous and intrapar enchymal 1% buffered lidocaine was administered as local anesthesia. A skin incision was made. Thro ugh the incision, 3 samples were taken with a 14 gauge Achieve biopsy device. A metallic marker was placed at the biopsy site. Hemostasis was achieved after manual compression. The patient tolerated t he procedure well and there was no immediate complication. The samples were sent to pathology in an appropriately labeled container. Post procedure left CC and ML tomosynthesis images were obtained. A new ribbon-shaped metallic biop sy marker is seen within the mass in the 1:00 anterior left breast. No significant postbiopsy hemat adalgisa is seen. IMPRESSION: ULTRASOUND GUIDED BIOPSY Status post ultrasound guided core biopsy of an indeterminate solid mass in the 1:00 anterior left b reast, with biopsy marker placed at the site. The patient will receive notification of the biopsy results from her referring physician. Macie Valencia M.D. ay/:07/31/2016 14:52:53 Attending Technologist: Nella WAITE)(Judie), [facility] A R Collections Rep: Dr. Macie Valencia, [facility] AMENDMENT: 08/06/2016 Macie Valencia M.D. Pathology results from the ultrasound-guided core needle biopsy of an indeterminate solid mass with associated coarse calcification in the 1 to 2:00 anterior left breast yielded infiltrating ductal ca rcinoma, grade 2 of 3. No perineural or lymphovascular space invasion identified. Estrogen recepto r positive. Progesterone receptor negative. HER-2/melissa negative. The pathology results are concord ant with the imaging appearance. Given the dense breasts and newly diagnosed left breast cancer, wo uld recommend a bilateral breast MRI prior to definitive treatment. These new recommendations were discussed with Yassine Kennedy, at 4 PM on 08/06/2016.
== END | disposition home or self-care (01) ==
LOC: C.MAMM 13:30
PROVIDERS: ATTEND Physician Assistant
DX: N63 Unspecified lump in breast (principal); C50.912 Malignant neoplasm of unspecified site of left female breast

== ENCOUNTER 2016-09-03 07:53 | Day surgery (SDC) | payer OTHER ==
[2016-08-26 08:50] VITALS: Ht 167.6 cm; Wt 66.8 kg
--- NOTE | 2016-08-26 09:40 | PAT Medication Instructions ---
Service Date August 26, 2016. Current Home Medication List Acetaminophen (Tylenol), 650 MG PO Q4H PRN for Pain or Fever Aspirin (Aspirin Ec), 81 MG PO QAM Carvedilol (Carvedilol), 3.125 MG PO BID Furosemide (Lasix), 40 MG PO QAM Levothyroxine Sodium (Levothyroxine Sodium), 1 TAB PO DAILYBB Magnesium Chloride (Slow-Mag Tab), 64 MG PO QAM Metaxalone (Skelaxin), 800 MG PO Multiple Vitamins W/ Minerals (Preservision Areds 2), 1 CAP PO BID Pravastatin (Pravachol ), 20 MG PO HS Sotalol HCl (Sotalol HCl), 40 MG PO BID Tramadol (Ultram), 50 MG PO HS PRN for Pain Ursodiol (Actigall), 600 MG PO QAM Ursodiol (Ursodiol), 300 MG PO QPM Medication Instructions For Your Scheduled Surgery - Check with surgeon/exercise physiologist certified for instructions: Aspirin (Aspirin Ec), 81 MG PO QAM - Hold the following medications the morning of surgery: Multiple Vitamins W/ Minerals (Preservision Areds 2), 1 CAP PO BID Metaxalone (Skelaxin), 800 MG PO QAM Magnesium Chloride (Slow-Mag Tab), 64 MG PO QAM Furosemide (Lasix), 40 MG PO QAM - Take the following medications the morning of surgery with a sip of water: Ursodiol (Actigall), 600 MG PO QAM Tramadol (Ultram), 50 MG PO HS PRN for Pain (okay to take up to 4 hours prior to surgery if needed) Sotalol HCl (Sotalol HCl), 40 MG PO BID Levothyroxine Sodium (Levothyroxine Sodium), 1 TAB PO DAILYBB Carvedilol (Carvedilol), 3.125 MG PO BID Acetaminophen (Tylenol), 650 MG PO Q4H PRN for Pain or Fever (if needed) - Take the following medications as scheduled the night before surgery: Ursodiol (Ursodiol), 300 MG PO QPM Tramadol (Ultram), 50 MG PO HS PRN for Pain (if needed) Sotalol HCl (Sotalol HCl), 40 MG PO BID Pravastatin (Pravachol ), 20 MG PO HS Multiple Vitamins W/ Minerals (Preservision Areds 2), 1 CAP PO BID Carvedilol (Carvedilol), 3.125 MG PO BID Acetaminophen (Tylenol), 650 MG PO Q4H PRN for Pain or Fever (if needed) If you have any questions please call us at [phone] (Lotus Hull PA-C) or [phone] or [phone]
[2016-08-26 10:08] LABS: BASO % 0.4 %; BASO ABS # 0.03 K/uL (0-0.2); COMPLETE YES; EOS % 2.2 %; HEMATOCRIT 31.6 % (37-47); IG% 0.1 %; LYMPH % 11.2 %; LYMPH ABS # 0.86 K/uL (1.2-3.4); MEAN CELL VOLUME 94.9 fL (80-100); MEAN CORPUSCULAR HEMOGLOBIN 31.8 pg (25-34); MEAN CORPUSCULAR HGB CONC 33.5 g/dl (32-36); MEAN PLATELET VOLUME 9.1 fL (7.4-10.4); MONO % 8.4 %; NEUT % 77.7 %; PLATELET COUNT 390 K/uL (130-400); RED BLOOD COUNT 3.33 M/uL (4.2-5.4); WHITE BLOOD COUNT 7.71 K/uL (4.8-10.8)
[2016-08-26 10:56] LABS: BUN/CREATININE RATIO 21.9 (10-20); CALCIUM 9.2 mg/dl (8.5-10.1); CREATININE 1.3 mg/dl (0.60-1.20); POTASSIUM 3.7 mmol/L (3.5-5.1)
[~2016-09-03] VITALS: Ht 167.6 cm; Wt 66.8 kg
[~2016-09-03 07:53] MED LIST changes: -ACET325T96 PO; -CARV3.122 PO; +LACTATED RINGER'S 1000ML 1,000 ML IV SCH; -OXYC-57 PO; -SLWMEC PO; -SOTA80TA20 PO
--- NOTE | 2016-09-03 09:50 | DIAGNOSTIC IMAGING REPORT ---
LYMPHOSCINTIGRAPHY CLINICAL HISTORY: Left breast cancer. PROCEDURE: Using standard sterile technique, 4 intradermal and one deep injection of 0.5 mCi of Lymphoseek was placed in the left breast. The patient tolerated the procedure well. There were no immediate complications. The patient was subsequently transported to the surgical suite. No imaging was obtained at the referring physician's request. IMPRESSION: Injection of 0.5 mCi of Lymphoseek in the left breast. Electronically signed by: Rosendo Don M.D. 09/03/2016 9:49 AM Dictated Date/Time: 09/03/2016 9:48 AM
[2016-09-03 09:57] VITALS: BP 135/61; PULSE 57; TEMP 36.4; O2SAT 97
--- NOTE | 2016-09-03 11:28 | History & Physical Bridge Note ---
H&P Re-Evaluation Bridge Note: I have examined the patient, reviewed the History & Physical and in the interval since the performance of the History & Physical I have noted the following changes of clinical significance: No changes noted
[2016-09-03] MEDS ORDERED: FENTANYL CITRATE INJ 50 MCG/1 ML 2 ML VIAL ONE ×5 (11:44→14:43)
[2016-09-03] MEDS ORDERED: LIDOCAINE HCL 2% 2 ML VIAL (20MG/ML) ONE (11:44)
[2016-09-03] MEDS ORDERED: PROPOFOL IV EMULSION 10 MG/ML 20 ML VIAL IV ONE (11:44)
[2016-09-03] MEDS ORDERED: MIDAZOLAM HCL 1 MG/ML 2ML VIAL ONE (11:50)
[2016-09-03] MEDS ORDERED: ISOSULFAN BLUE 10 MG/ML VIAL 5 ML ONE (12:10)
[2016-09-03] MEDS ORDERED: EpHEDrine SULFATE 50MG/5ML SYR ONE (12:40)
[2016-09-03] MEDS ORDERED: ONDANSETRON INJ 2 MG/ML 2 ML VIAL ONE (12:58)
--- NOTE | 2016-09-03 13:16 | MAMMOGRAPHY REPORT ---
UNILATERAL LEFT DIGITAL DIAGNOSTIC MAMMOGRAM TOMOSYNTHESIS: 09/03/2016 CLINICAL HISTORY: Imaging status post ultrasound-guided needle localization in the 1:00 left breast. Please refer to the report from left breast ultrasound-guided needle localization performed the same time for full detail. IMPRESSION: Please refer to the report from left breast ultrasound-guided needle localization performed the same time for full detail. Approximately 10% of breast cancers are not detected with mammography. A negative mammographic repor t should not delay biopsy if a clinically suggestive mass is present. Macie Valencia M.D. ay/:09/03/2016 08:26:31 Phlebotomy Lab Assistant: Nella HEIN(R)(M), [facility] BI-RADS Code: n/a
[2016-09-03] MEDS ORDERED: SODIUM CHLORIDE 0.9% 1000ML 1,000 ML IV SCH (14:12)
--- NOTE | 2016-09-03 14:12 | [facility] Post Operative Brief Note ---
Immediate Operative Summary Operative Date September 03, 2016. Pre-Operative Diagnosis Carcinoma of the left breast Post-Operative Diagnosis Same Procedure(s) Performed Needle localized partial mastectomy left breast, left axillary sentinel lymph node biopsy Surgeon Lul Dawn MD Specialist Employee Labor Relations Surgeon(s) Angela Gordon MD Estimated Blood Loss 10 cc Findings See dictation Specimens 3 left axillary sentinel lymph nodes and left breast tissue Drains None Anesthesia General Complication(s) None Disposition Recovery Room / PACU
[2016-09-03] MEDS ORDERED: OXYCODONE/ACETAMINOPHEN 5-325 TAB PO PRN (14:15)
[2016-09-03] MEDS ORDERED: MoRPHine SULFATE 4 MG/ML 1 ML CARP\\VIAL IV PRN (14:15)
[2016-09-03] MEDS ORDERED: ONDANSETRON INJ 2 MG/ML 2 ML VIAL IV PRN ×2 (14:15→14:45)
--- NOTE | 2016-09-03 14:16 | Discharge Instructions ---
Discharge Instructions Date of Service September 03, 2016. Admission Reason for Admission: Left Breast Cancer W/Hosp Loc & Lymph Inj Discharge Discharge Diagnosis / Problem: Same Discharge Goals Goal(s): Decrease discomfort Activity Recommendations Activity Limitations: per Instructions/Follow-up section Lifting Limitations: no more than 10 pounds (with left arm for 2 weeks) Shower/Bathe: tomorrow (Shower only) . Instructions / Follow-Up Instructions / Follow-Up MEDICATIONS: Resume previous medications unless instructed otherwise by your surgeon. * Percocet 5/325 mg one tablet every 4 hours as needed for pain. * Ibuprofen 600 mgm every 6 hours as needed for pain. SPECIAL CARE INSTRUCTIONS: * Wear bra day and night until seen in office. * May shower in 24 hours. Let water run over steri strips and pat dry. * Leave steri strips on for one week. * Call the surgeon's office with any questions or concerns - (ex. temperature higher than 101 degrees F, excessive bleeding or pain). FOLLOW UP VISIT: If not already scheduled, please call the office for a follow-up appointment for next week at . Current Hospital Diet Patient's current hospital diet: Discharge Diet Recommended Diet: Regular Diet Procedures Procedures Performed: Needle localized partial mastectomy left breast, left axillary sentinel lymph node biopsy Pending Studies Studies pending at discharge: yes List of pending studies: Pathology Medical Emergencies . Who to Call and When: Medical Emergencies: If at any time you feel your situation is an emergency, please call 911 immediately. . Non-Emergent Contact Non-Emergency issues call your: Primary Care Provider, Surgeon Call Non-Emergent contact if: your pain is worsening, wound has increased redness, wound has increased pain . "Provider Documentation" section prepared by Lul Dawn. . VTE Core Measure Inpt VTE Proph given/why not?: Treatment not indicated
[2016-09-03] MEDS ORDERED: LABETALOL HCL IV 5 MG/ML 20ML IV PRN (14:45)
[2016-09-03] MEDS ORDERED: ATROPINE SULFATE 0.1 MG/ML 5ML SYR IV PRN (14:45)
[2016-09-03] MEDS ORDERED: MEPERIDINE HCL 25 MG/ML CARP IV PRN (14:45)
[2016-09-03] MEDS ORDERED: FENTANYL CITRATE INJ 50 MCG/1 ML 2 ML VIAL IV PRN (14:45)
[2016-09-03] MEDS ORDERED: EpHEDrine SULFATE INJ 50 MG/ML AMP IV PRN (14:45)
[2016-09-03] MEDS ORDERED: HYDROmorphone INJ 1 MG/ML SYR IV PRN (14:45)
--- NOTE | 2016-09-03 15:09 | Anesthesiology Progress Note ---
Anesthesia Post Op Note Date & Time September 03, 2016 at 15:10 Vital Signs Pain Intensity: 5.0 Vital Signs Past 12 Hours Date Time Temp Pulse Resp B/P Pulse Ox O2 Delivery O2 Flow Rate FiO2 09/03/16 15:05 36.5 58 12 132/58 100 Nasal Cannula 3 09/03/16 14:55 57 12 133/60 100 Nasal Cannula 3 09/03/16 14:45 58 12 136/62 100 Mask 6 09/03/16 14:35 59 12 138/61 100 Mask 10 09/03/16 14:29 36.4 60 12 134/60 100 Mask 10 09/03/16 09:57 36.4 57 18 135/61 97 Room Air Notes Mental Status: alert / awake / arousable, participated in evaluation Pt Amnestic to Procedure: Yes Nausea / Vomiting: adequately controlled Pain: adequately controlled Airway Patency, RR, SpO2: stable & adequate BP & HR: stable & adequate Hydration State: stable & adequate Anesthetic Complications: no major complications apparent
[2016-09-03 15:10] VITALS: BP 151/65; PULSE 57; TEMP 36.6; O2SAT 100
[2016-09-03 15:40] VITALS: BP 142/65; PULSE 57; TEMP 36.6; O2SAT 100
--- NOTE | 2016-09-03 15:46 | OPERATIVE REPORT ---
DATE OF OPERATION: 09/03/2016 PREOPERATIVE DIAGNOSIS: Carcinoma of the left breast. POSTOPERATIVE DIAGNOSIS: Same. PROCEDURE: Needle localized partial mastectomy, left breast and left axillary sentinel lymph node biopsy. SURGEON: Dr. Dawn. HARD HAT DIVER: Angela Gordon PA-C. FINDINGS: The needle localization was performed. The clip from the biopsy was at the notch in the needle where the hook on the wire protruded. A tissue mammogram was performed and the clip and mass were within the specimen. There were 3 sentinel lymph nodes identified. [place] lymph node #1 had an en vivo count of 40 with an ex vivo count of 105. [place] lymph node #2 had an en vivo count of 19 with an ex vivo count of 60, and sentinel lymph node #3 had an en vivo count of 50 and ex vivo count of 183. After removal of 3 sentinel lymph nodes baseline counts in the axilla were no higher than 8. OPERATION AND FINDINGS: TECHNIQUE: The patient was given a general anesthetic after the localization had been performed and she was marked. The area was prepped and draped in the usual sterile fashion. The axilla was approached first. The Neoprobe was used to identify the site of the sentinel lymph node. Incision was then made at that site, carried down through the subcutaneous tissue to the axillary fascia, which was opened. The first lymph node was identified after dissecting some of the fat pad in the axilla. It was grasped and from the surrounding tissues using the LigaSure. The Neoprobe was reinserted into the axilla and the second and then subsequently the third sentinel lymph nodes were identified and removed in a similar fashion. Baseline counts at that point were 8. The deep subQ tissue was closed with interrupted 2-0 Vicryl, the superficial subcutaneous tissue was closed with running 3-0 Vicryl and skin was closed with 4-0 Monocryl in a running subcuticular fashion. Attention was then turned to the partial mastectomy. The needle course was marked on the skin and incision was then marked on the skin. Skin incision was made, carried down through the subcutaneous tissue. Superior and inferior flaps were then created as well and then those flaps were met medially and laterally. The superior side of the extent of the flap the dissection was carried posteriorly towards the chest wall. Similar dissection was then carried inferiorly and those dissections were connected medially and then laterally. I found the entrance site of the needle wire and it was cut. The tissue was then elevated and the posterior dissection was performed. The specimen was then marked with a black stitch anteriorly, a blue stitch laterally and a purple stitch inferiorly. The dissection area was inspected for bleeding. Meticulous hemostasis was obtained. The area was irrigated. There was no further bleeding. The deeper breast tissue was reapproximated with interrupted 2-0 Vicryl. The deep subcutaneous tissue was closed with running 2-0 Vicryl, the superficial subcutaneous tissue was closed with running 3-0 Vicryl and skin was closed with 4-0 Monocryl in a running subcuticular fashion. The skin was cleansed and dried after anesthetized with 0.5% Marcaine. Dressing was placed over Steri-Strips. Estimated blood loss was 10 mL. Sponge, needle and instrument counts were correct prior to closure. The patient tolerated the surgical procedure without complication and was transferred to recovery. I attest to the content of the Intraoperative Record and any orders documented therein. Any exceptio ns are noted below.
[2016-09-03 16:10] VITALS: BP 143/65; PULSE 62; TEMP 36.6; O2SAT 96
--- NOTE | 2016-09-03 16:18 | MAMMOGRAPHY REPORT ---
NEEDLE LOCALIZATION LEFT BREAST: 09/03/2016 CLINICAL HISTORY: 80-year-old woman with biopsy-proven cancer in the 1:00 periareolar left breast. She presents for preoperative needle and wire localization. COMPARISON: Comparison is made to exams dated: 07/31/2016 mammogram, 07/01/2016 mammogram, 07/24/2016 u ltrasound, 07/31/2016 ultrasound biopsy, 06/28/2015 mammogram, and 01/27/2014 mammogram - [facility]. PATIENT CONSENT: The risks of the procedure were explained to the patient and informed consent was o btained. The patient denied allergy to lidocaine. She also denied eating or drinking anything thi s morning that would preclude anesthesia. PROCEDURE DESCRIPTION: Postprocedure mammograms dated 07/31/2016 and prior ultrasound images from ril 5 and 07/31/2016 were reviewed. The lobulated mass with associated coarse calcification and int ernal ribbon-shaped metallic biopsy marker is the intended target for localization. A time out was performed in the left breast was agreed as the site for preoperative localization. Repeat targeted ultrasound was performed in the 1:00 periareolar left breast. The hypoechoic mass with internal bio psy marker and echogenic calcification is again identified. The skin of the left breast was cleanse d with Betadine. 1% buffered lidocaine was administered as local anesthesia. A 5cm Botello II need le and wire combination was inserted through the mass. Optimal positioning was confirmed on ultrasou nd, and the wire was locked in place, leaving both the needle and wire within the left breast. Postprocedure left CC and MLO 2-D digital and tomosynthesis images demonstrate needle and wire trave rsing the biopsy proven cancer and the ribbon-shaped metallic biopsy marker at the level of the side hole of the needle through which the wire exits. The patient tolerated the procedure well and there was no immediate consultation. She was transferr ed to the hospital in satisfactory condition. The specimen radiograph demonstrates a portion of the localizing needle and wire, the ribbon-shaped metallic biopsy marker and a mass with internal coarse calcification, compatible with successful pre operative localization and subsequent surgical excision. Final pathology is pending. IMPRESSION: NEEDLE LOCALIZATION Status post successful preoperative needle and wire localization for biopsy proven cancer in the 1:0 0 anterior left breast. The imaged specimen includes the intended abnormalities. The patient will receive notification of the results from her referring physician. Macie Valencia M.D. ay/:09/03/2016 14:11:38 Environmental Education Specialist: Nella WAITE)(Judie), [facility]
== END 2016-09-03 16:20 | disposition home or self-care (01) ==
LOC: C.ACU 07:53
PROVIDERS: ATTEND Surgery
DX: C50.912 Malignant neoplasm of unspecified site of left female breast (principal); I48.0 Paroxysmal atrial fibrillation; Z85.72 Personal history of non-Hodgkin lymphomas; Z80.3 Family history of malignant neoplasm of breast; E78.5 Hyperlipidemia, unspecified; E03.9 Hypothyroidism, unspecified; Z79.82 Long term (current) use of aspirin; Z79.899 Other long term (current) drug therapy; Z87.891 Personal history of nicotine dependence

== ENCOUNTER 2016-09-11 10:48 | Emergency (ER) | payer OTHER ==
[~2016-09-11] VITALS: Ht 167.6 cm; Wt 66.7 kg
[~2016-09-11 10:48] MED LIST changes: -LACTATED RINGER'S 1000ML 1,000 ML IV SCH
[2016-09-11 10:55] VITALS: TEMP 36.5; Ht 167.6 cm; Wt 66.7 kg
[2016-09-11] MEDS ORDERED: SODIUM CHLORIDE 0.9% 1000ML 1,000 ML IV SCH (11:16)
[2016-09-11 11:32] VITALS: O2SAT 97
[2016-09-11 11:41] LABS: BASO % 0.6 %; BASO ABS # 0.04 K/uL (0-0.2); COMPLETE YES; EOS % 1.4 %; HEMATOCRIT 29.1 % (37-47); IG% 0.1 %; LYMPH % 11.6 %; LYMPH ABS # 0.84 K/uL (1.2-3.4); MEAN CELL VOLUME 93.9 fL (80-100); MEAN CORPUSCULAR HEMOGLOBIN 32.6 pg (25-34); MEAN CORPUSCULAR HGB CONC 34.7 g/dl (32-36); MEAN PLATELET VOLUME 8.8 fL (7.4-10.4); MONO % 9.3 %; PLATELET COUNT 376 K/uL (130-400); WHITE BLOOD COUNT 7.23 K/uL (4.8-10.8)
[2016-09-11] MEDS ORDERED: CARV3.122 PO (11:46)
[2016-09-11] MEDS ORDERED: ACET325T96 PO ×2 (11:46)
[2016-09-11] MEDS ORDERED: SLWMEC PO (11:47)
[2016-09-11] MEDS ORDERED: SOTA80TA20 PO (11:50)
[2016-09-11 11:51] LABS: INR 1.1 (0.9-1.1); PARTIAL THROMBOPLASTIN RATIO 1.6; PROTHROMBIN TIME (PATIENT) 11.4 SECONDS (9.0-12.0)
[2016-09-11] MEDS ORDERED: OXYC-57 PO (11:51)
[2016-09-11 11:57] LABS: BLOOD UREA NITROGEN 24 mg/dl (7-18); BUN/CREATININE RATIO 18.5 (10-20); CALCIUM 8.6 mg/dl (8.5-10.1); CARBON DIOXIDE 27 mmol/L (21-32); CHLORIDE 105 mmol/L (98-107); GLUCOSE 117 mg/dl (70-99); POTASSIUM 3.5 mmol/L (3.5-5.1); SODIUM 139 mmol/L (136-145)
[2016-09-11 12:07] LABS: CKMB/CK RATIO 4.3 (0-3.0); THYROID STIMULATING HORMONE 0.369 uIu/ml (0.300-4.500)
--- NOTE | 2016-09-11 12:25 | DIAGNOSTIC IMAGING REPORT ---
HEAD CT NONCONTRAST CT DOSE: 537.48 mGy.cm HISTORY: Mental status change Stroke TECHNIQUE: Multiaxial CT images of the head were performed without the use of intravenous contrast. Comparison: 01/21/2015 Findings: The paranasal sinuses and mastoid air cells are clear. Mild age-related chronic small vessel change. There are several scattered areas of chronic encephalomalacia. No acute intracranial hemorrhage. No midline shift. Impression: Chronic and age-related change. No acute process. Electronically signed by: Lul Gutierrez M.D. 09/11/2016 12:24 PM Dictated Date/Time: 09/11/2016 12:23 PM
[2016-09-11 13:04] LABS: URINE APPEARANCE CLEAR (CLEAR); URINE BILIRUBIN NEG (NEG); URINE COLOR YELLOW; URINE NITRITE NEG (NEG); URINE PH 6.5 (4.5-7.5); URINE SPECIFIC GRAVITY 1.014 (1.000-1.030); UROBILINOGEN NEG (NEG); ZZUR CULT IF INDIC CLEAN CATCH NO
[2016-09-11 13:15] LABS: MANUAL MICROSCOPIC REQUIRED? NO; REVIEW REQ? NO
--- NOTE | 2016-09-11 13:54 | EMERGENCY ROOM VISIT NOTE ---
ED Visit Note First contact with patient: 11:04 This Patient was discussed with the physician Bit Grinder, Rome Espinal PA-C. The pertinent historical and physical exam findings were confirmed. I agree with the studies ordered and with the interpretations of these studies. I agree with the disposition and care plan.
--- NOTE | 2016-09-11 14:09 | EMERGENCY ROOM VISIT NOTE ---
History First contact with patient: 11:04 Chief Complaint: WEAKNESS Stated Complaint: OFF BALANCE, WEAKNESS Nursing Triage Summary: Pt woke up at approx 0530 this am and reports feeling dizzy. Pt states she caught herself on the wall and made her way to the bathroom. Pt reports the dizziness subsided after she got to the bathroom. Pt denies falling, is on baby aspirin daily. History of Present Illness The patient is a 80 year old female who presents to the Emergency Room via private vehicle accompanied by with complaints of "off-balance, weakness ". The patient states that this morning around 5:30 AM, when she jignesh out of bed she felt as though she was "sailing across the room". She notes that she continued to fall forward until she rates Against the Wall, and Was Able to Find Her Way to the Bathroom. She Notes That the Room Was Believed to Be Spinning and She Was Very Dizzy. She's Never Had This before. She Feels off Balance Currently. She Notes That Her Symptoms Are Starting to Subside. She States That When She Sits up or down or Bends over Quickly the Symptoms Are Worse. She Denies Any Speech Troubles, Weakness, History of Vertigo. She Has Taken Her Blood Pressure Medication and Aspirin Today. She Partial Meniscectomy Last Week Which Went Well. She Is to Follow-Up within the Week with Dr. Dawn. She Is to Follow-Up with [facility] Soon for Her Back Pain. She Denies Any Chest Pain, Shortness of Breath, Anticoagulant Use, Fevers, Chills. Review of Systems A complete 10-point Review of Systems was discussed with the patient, with pertinent positives and negatives listed in the History of Present Illness. All remaining Review of Systems questions can be considered negative unless otherwise specified. Past Medical/Surgical History Medical Problems: (1) Autoimmune hepatitis (2) Cholelithiasis (3) Dyslipidemia (4) GI bleed (5) HTN (hypertension) (6) Hypothyroidism (7) Lymphoma (8) [place] (myocardial infarction) (9) Osteoarthritis (10) Osteoporosis (11) SOB (shortness of breath) Surgical Problems: (1) S/P cholecystectomy Family History FH: cancer FH: heart disease Social History Smoking Status: Former Smoker Drug Use: none Marital Status: Housing Status: lives with family Occupation Status: retired Current/Historical Medications Scheduled Aspirin (Aspirin Ec), 81 MG PO QAM Carvedilol (Coreg), 3.125 MG PO BID Furosemide (Lasix), 40 MG PO QAM Levothyroxine Sodium (Levothyroxine Sodium), 112 MCG PO DAILYBB Magnesium Chloride (Slow-Mag Tab), 64 MG PO QAM Multiple Vitamins W/ Minerals (Preservision Areds 2), 1 CAP PO BID Pravastatin (Pravachol ), 20 MG PO HS Sotalol Hcl (Betapace), 40 MG PO BID Ursodiol (Actigall), 600 MG PO QAM Ursodiol (Ursodiol), 300 MG PO QPM Scheduled PRN Acetaminophen Tab (Tylenol), 325 MG PO Q4H PRN for Pain Oxycodone/Acetaminophen 5MG/325MG (Percocet 5MG/325MG), 1 TABLET PO Q4H PRN for Pain Tramadol (Ultram), 50 MG PO HS PRN for Pain Miscellaneous Medications Metaxalone (Skelaxin), 400 MG PO Allergies Coded Allergies: Diphenhydramine (Verified Allergy, Intermediate, rash, 09/11/16) Metoprolol (Verified Allergy, Intermediate, RASH, 09/11/16) Pseudoephedrine (Verified Allergy, Unknown, "MAKES ME JUMPY", 09/11/16) Aspirin (Verified Adverse Reaction, Unknown, GI UPSET, 09/11/16) TAKES COATED ASPIRIN TO HELP GI UPSET Garlic (Verified Adverse Reaction, Unknown, GASSY, 09/11/16) Levofloxacin (Unverified Adverse Reaction, Unknown, TENDON PAIN, 09/11/16) PER RECORDS Physical Exam Vital Signs Date Time Temp Pulse Resp B/P Pulse Ox O2 Delivery O2 Flow Rate FiO2 09/11/16 14:21 75 18 176/79 100 09/11/16 13:30 79 16 161/84 100 Room Air 09/11/16 13:15 72 09/11/16 12:39 65 18 100 Room Air 09/11/16 12:34 76 178/72 100 Room Air 73 173/92 76 184/86 09/11/16 11:34 66 09/11/16 11:32 97 Room Air 09/11/16 10:55 36.5 76 18 179/83 99 Room Air Physical Exam VITAL SIGNS - Vital signs and nursing notes were reviewed. Patient is afebrile , hypertensive at 179/83, nontoxic tachycardic and saturating well on room air 99%. GENERAL -80 -year-old female appearing her stated age who is in no acute distress. Communicates well with provider and answers questions appropriately. SKIN - Without rashes. Skin exam unremarkable. HEAD - NC/AT. EYES - PERRL with EOMI bilaterally. Sclera anicteric. Palpebral conjunctiva pink and moist with no injection noted. EARS - No deformities of external structures noted on gross examination bilaterally. No pain elicited with palpation of the tragus bilaterally. External auditory canals without discharge or otorrhea. Tympanic membranes pearly epstein without retraction or bulging. No fluid or purulent material visualized behind the TM. Handle of malleus, umbo, cone of light, pars tensa/ flaccid all easily visualized. NOSE - Midline and without cyanosis. No epistaxis or purulent drainage noted. Septum midline without deviation or septal hematoma noted. MOUTH/OROPHARYNX - Without perioral cyanosis. Buccal mucosa pink and moist and without leukoplakia. Tongue midline with equal elevation of palate bilaterally. Tongue protrudes midline. No tonsillar hypertrophy, erythema, or exudates noted. Fair dentition noted. NECK - Neck with FROM. Supple to palpation. No lymphadenopathy noted. No nuchal rigidity. No meningismus. LUNGS - Chest wall symmetric without accessory muscle use, intercostals retractions, or central cyanosis. Normal vesicular breath sounds CTA B/L. No wheezes, rales, or rhonchi appreciated. CARDIAC - RRR with S1/S2. No murmur, rubs, or gallops appreciated. ABDOMEN - Abdominal contour without pulsations or visible masses. BS normoactive all four quadrants. No tenderness, palpable masses, hepatosplenomegaly, or ascites noted. MUSCULOSKELETAL: There is tenderness to palpation overlying the insertion point of the right inferior paralumbar musculature. EXTREMITIES - No clubbing or peripheral cyanosis. No pretibial edema present. Neurovascularly intact in the extremity. +5/5 strength noted in UE/LE bilaterally. NEUROLOGIC - Cranial nerves II through XII grossly intact. Sensory intact to light touch throughout. Patellar reflexes +2/4. PSYCH - A&Ox3 and cooperates fully with examiner. Pt is very pleasant and interacts well with examiner. Medical Decision & Procedures ER Provider Diagnostic Interpretation: HEAD CT NONCONTRAST CT DOSE: 537.48 mGy.cm HISTORY: Mental status change Stroke TECHNIQUE: Multiaxial CT images of the head were performed without the use of intravenous contrast. Comparison: 01/21/2015 Findings: The paranasal sinuses and mastoid air cells are clear. Mild age-related chronic small vessel change. There are several scattered areas of chronic encephalomalacia. No acute intracranial hemorrhage. No midline shift. Impression: Chronic and age-related change. No acute process. Electronically signed by: Lul Gutierrez M.D. 09/11/2016 12:24 PM Dictated Date/Time: 09/11/2016 12:23 PM Laboratory Results 09/11/16 11:25 Red Blood Count 3.10, Mean Corpuscular Volume 93.9, Mean Corpuscular Hemoglobin 32.6, Mean Corpuscular Hemoglobin Concent 34.7, Mean Platelet Volume 8.8, Neutrophils (%) (Auto) 77.0, Lymphocytes (%) (Auto) 11.6, Monocytes (%) (Auto) 9.3, Eosinophils (%) (Auto) 1.4, Basophils (%) (Auto) 0.6, Neutrophils # (Auto) 5.57, Lymphocytes # (Auto) 0.84, Monocytes # (Auto) 0.67, Eosinophils # (Auto) 0.10, Basophils # (Auto) 0.04 09/11/16 11:25 Test 09/11/16 11:25 09/11/16 12:45 White Blood Count 7.23 K/uL (4.8-10.8) Red Blood Count 3.10 M/uL (4.2-5.4) Hemoglobin 10.1 g/dL (12.0-16.0) Hematocrit 29.1 % (37-47) Mean Corpuscular Volume 93.9 fL (80-100) Mean Corpuscular Hemoglobin 32.6 pg (25-34) Mean Corpuscular Hemoglobin Concent 34.7 g/dl (32-36) Platelet Count 376 K/uL (130-400) Mean Platelet Volume 8.8 fL (7.4-10.4) Neutrophils (%) (Auto) 77.0 % Lymphocytes (%) (Auto) 11.6 % Monocytes (%) (Auto) 9.3 % Eosinophils (%) (Auto) 1.4 % Basophils (%) (Auto) 0.6 % Neutrophils # (Auto) 5.57 K/uL (1.4-6.5) Lymphocytes # (Auto) 0.84 K/uL (1.2-3.4) Monocytes # (Auto) 0.67 K/uL (0.11-0.59) Eosinophils # (Auto) 0.10 K/uL (0-0.5) Basophils # (Auto) 0.04 K/uL (0-0.2) RDW Standard Deviation 44.8 fL (36.4-46.3) RDW Coefficient of Variation 13.1 % (11.5-14.5) Immature Granulocyte % (Auto) 0.1 % Immature Granulocyte # (Auto) 0.01 K/uL (0.00-0.02) Prothrombin Time 11.4 SECONDS (9.0-12.0) Prothromb Time International Ratio 1.1 (0.9-1.1) Activated Partial Thromboplast Time 41.0 SECONDS (21.0-31.0) Partial Thromboplastin Ratio 1.6 Anion Gap 7.0 mmol/L (3-11) Est Creatinine Clear Calc Drug Dose 32.8 ml/min Estimated GFR () 45.2 Estimated GFR (Non- 39.0 BUN/Creatinine Ratio 18.5 (10-20) Calcium Level 8.6 mg/dl (8.5-10.1) Total Creatine Kinase 28 U/L (26-192) Creatine Kinase MB 1.2 ng/ml (0.5-3.6) Creatine Kinase MB Ratio 4.3 (0-3.0) Troponin I < 0.015 ng/ml (0-0.045) Thyroid Stimulating Hormone (TSH) 0.369 uIu/ml (0.300-4.500) Urine Color YELLOW Urine Appearance CLEAR (CLEAR) Urine pH 6.5 (4.5-7.5) Urine Specific Hegins 1.014 (1.000-1.030) Urine Protein NEG (NEG) Urine Glucose (UA) NEG (NEG) Urine Ketones NEG (NEG) Urine Occult Blood NEG (NEG) Urine Nitrite NEG (NEG) Urine Bilirubin NEG (NEG) Urine Urobilinogen NEG (NEG) Urine Leukocyte Esterase NEG (NEG) Medications Administered Medications (Trade) Dose Ordered Sig/Shena Route Start Time Stop Time Status Last Admin Dose Admin Sodium Chloride (Nss 1000ml) 1,000 ml @ 50 mls/hr Q20H IV 09/11/16 11:16 09/11/16 14:38 DC 09/11/16 12:50 50 MLS/HR Medical Decision Patient was seen and evaluated as above. After obtaining a thorough history and physical examination was most likely the patient was experiencing an episode of vertigo, however CVA diagnosis was also entertained. The CVA workup was pursued. IV access was initiated and the above workup was performed. CBC reveals no leukocytosis, hemoglobin of 10.1. No significant change and this finding. Coagulation studies showed that the APTT is slightly elongated at 41. She does take a baby aspirin. PRP reveals elevated kidney function at 1.3, this is chronic. Glucose of 117. CK-MB ratio high at 4.3. Troponin negative. TSH within normal limits. Urine is unremarkable for acute process. Patient' s EKG does reveal sinus rhythm with PACs, rate of 65 bpm. When this was compared with EKG of 07/12/2016 I do not believe any significant change was found. This was also reviewed with my attending. Patient was hydrated with normal saline here. Her symptoms had nearly completely subsided. She does also have low back pain which is a chronically occurring for the past few months. She is to follow-up with a speech and language specialist already he has an appointment scheduled in the next few weeks. She is to follow-up with her general surgeon on this or Friday for follow-up regarding her mastectomy. She is also to follow up with her family doctor regarding these findings. I do not appreciate any emergent or surgical nature to her presentation today. Her vitals do not reveal orthostatic hypotension, and no evidence of significant abnormalities noted on CT scan. I again believe that she is likely experiencing vertigo. She was educated upon management of this finding. She is a follow-up with her family doctor regarding today's visit she was educated upon management today's findings, was educated upon worrisome symptoms which to return, had questions prior to discharge and was discharged home in good condition. Patient seemed very happy with plan of care. In the evaluation and treatment of this patient, the following differential diagnoses were considered: Concussion, Contrecoup Injury, Brain Tumor, Depression, Encephalitis, Hypothyroidism, Meningitis, CVA, TIA, Migraine, Cluster Headache, Intracranial Abnormality, Intracranial Hemorrhage, Subdural Hematoma, Subarachnoid Hemorrhage, Hydrocephalus. Impression Primary Impression: Vertigo Additional Impressions: Anemia Back pain Departure Information Dispostion Home / Self-Care Condition GOOD Referrals Kelsi Lucas DO (PCP) Forms HOME CARE DOCUMENTATION FORM, IMPORTANT VISIT INFORMATION Patient Instructions My Skyler [employer] Additional Instructions You've been seen in the emergency department for your dizziness, and back pain. Please take it easy over the next few days, please do not participate in strenuous activity until he follow up with her family doctor. It is recommended you use Flonase, which is [id number] in both nostrils to help with sinus congestion. Please follow-up with your family doctor regarding today's visit, if your symptoms persist perhaps an MRI would be reasonable. Please call your family doctor later today to schedule follow-up. Please keep your appointment with [facility] for your back pain September 19. Please keep your appointment with Dr. Dawn, in follow-up for your mastectomy. Please eat a healthy and well balanced diet, drink plenty of water. Please return to emergency department with any new/concerning symptoms. Problem Qualifiers
[2016-09-11 14:21] VITALS: BP 176/79; PULSE 75; O2SAT 100
== END 2016-09-11 14:23 | disposition home or self-care (01) ==
LOC: C.EDB 10:51 → C.EDC 14:23
DX: R42 Dizziness and giddiness (principal); D64.9 Anemia, unspecified; M54.9 Dorsalgia, unspecified; R53.1 Weakness; I10 Essential (primary) hypertension; E78.5 Hyperlipidemia, unspecified; M81.0 Age-related osteoporosis without current pathological fracture; M19.90 Unspecified osteoarthritis, unspecified site; Z79.82 Long term (current) use of aspirin; Z79.899 Other long term (current) drug therapy; I25.2 Old myocardial infarction; Z85.72 Personal history of non-Hodgkin lymphomas; Z87.19 Personal history of other diseases of the digestive system; Z87.891 Personal history of nicotine dependence; Z82.49 Family history of ischemic heart disease and other diseases of the circulatory system

== ENCOUNTER → 2017-05-05 | Outpatient (CLI) | payer OTHER ==
[~2017-05-05] MED LIST changes: +ACET325T96 PO; -BTP80 PO; +CARV3.122 PO; -CRG3125 PO; -MAGNTAB4 PO; +OXYC-57 PO; +SLWMEC PO; +SOTA80TA20 PO; -TYL325X PO
--- NOTE | 2017-05-05 14:48 | MAMMOGRAPHY REPORT ---
UNILATERAL LEFT DIGITAL DIAGNOSTIC MAMMOGRAM TOMOSYNTHESIS WITH CAD: 05/05/2017 CLINICAL HISTORY: 81-year-old woman presents for left breast follow-up after surgery. She initially underwent ultrasound-guided core biopsy of a mass in the 1:00 left breast in July 2016 which yielded infiltrating ductal carcinoma. 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 TECHNIQUE: Left breast tomosynthesis in addition to standard 2D mammography was performed. Spot magn ification views were also performed over the surgical site. Current study was also evaluated with a Computer Aided Detection (CAD) system. COMPARISON: Comparison is made to exams dated: 09/03/2016 mammogram, 09/03/2016 specimen, 09/03/2016 lo calization, 07/31/2016 ultrasound biopsy, 07/31/2016 mammogram, and 07/24/2016 mammogram - [facility]. BREAST COMPOSITION: There are scattered areas of fibroglandular density in the left breast. FINDINGS: There are moderate vascular calcifications in the left breast. Expected architectural dist ortion in the 1:00 left breast at the site of prior surgery. No new suspicious mass, architectural d istortion or cluster of suspicious microcalcifications is seen. IMPRESSION: ACR BI-RADS CATEGORY 2: BENIGN There are expected postsurgical changes in the left breast, without mammographic evidence of malignan cy. Given the benign final pathology diagnosis, recommend return to routine screening mammography sc mignon valdes in July 2017. These results and recommendations were discussed with the patient at the time of the exam. Approximately 10% of breast cancers are not detected with mammography. A negative mammographic report should not delay biopsy if a clinically suggestive mass is present. Macie Valencia M.D. ay/:05/05/2017 11:10:59 Base Manager: Chantelle WAITE)(Judie), [facility] letter sent: Normal 1/2 BI-RADS Code: ACR BI-RADS Category 2: Benign
== END | disposition home or self-care (01) ==
LOC: C.MAMM 10:27
PROVIDERS: ATTEND Surgery
DX: R92.8 Other abnormal and inconclusive findings on diagnostic imaging of breast (principal)

== ENCOUNTER 2017-08-19 17:47 | Inpatient (IN) | payer OTHER ==
[~2017-08-19] VITALS: Ht 167.6 cm; Wt 65.1 kg
[~2017-08-19 17:47] MED LIST changes: +ACET-1693 PO; -ACET325T96 PO; -LEVO112T4 PO; -MULT60CA PO
[2017-08-19] MEDS ORDERED: OXYCODONE/ACETAMINOPHEN 5-325 TAB PO STA (18:17)
--- NOTE | 2017-08-19 18:29 | EMERGENCY ROOM VISIT NOTE ---
History Report prepared by Alexandra: Ihsan Flanagan Under the Supervision of: Malathi ElliottO. First contact with patient: 18:08 Chief Complaint: FALL Stated Complaint: FELL ON RUMP History of Present Illness The patient is an 81 year old female who presents to the Emergency Room with complaints of persistent back pain secondary to a mechanical fall that occurred at 1600 today. She states that she was out cleaning in her garden and maneuvering a wagon, when her shoe caught in the rough concrete and she fell on her back and hit her head against the screen door. She notes that she also fell onto her right arm. She denies any LOC. She notes right arm pain, right hip pain , and right buttock pain. She notes the pain is worsened with movement. She report the lying flat relieves the pain. She denies any fevers, chest pain, neck pain, shortness of breath, abdominal pain, or cough. She states that she has been feeling fine prior to the fall. Source of History: patient Onset: 1600 today Position: back Timing: other (persistent) Modifying Factors (Worsening): movement Modifying Factors (Relieving): other (lying flat) Associated Symptoms: No LOC, No fevers, No cough, No neck pain, No chest pain, No SOB, No abdominal pain Note: Notes right buttock pain, right arm pain, right hip pain, and head injury. Review of Systems See HPI for pertinent positives & negatives. A total of 10 systems reviewed and were otherwise negative. Past Medical & Surgical Medical Problems: (1) Autoimmune hepatitis (2) Cholelithiasis (3) Dyslipidemia (4) GI bleed (5) HTN (hypertension) (6) Hypothyroidism (7) Lymphoma (8) [place] (myocardial infarction) (9) Osteoarthritis (10) Osteoporosis (11) SOB (shortness of breath) Surgical Problems: (1) S/P cholecystectomy Family History FH: cancer FH: heart disease Social History Smoking Status: Former Smoker Smokeless Tobacco Use: No Alcohol Use: none Drug Use: none Marital Status: Housing Status: lives with family Occupation Status: retired Current/Historical Medications Scheduled Albuterol Hfa (Ventolin Hfa), 2 PUFFS INH QID Aspirin (Aspirin Ec), 81 MG PO QAM Carvedilol (Coreg), 3.125 MG PO BID Furosemide (Lasix), 40 MG PO MWF Levothyroxine Sodium (Levothyroxine Sodium), 112 MCG PO DAILYBB Magnesium Chloride (Slow-Mag Tab), 64 MG PO Q2D Multiple Vitamins W/ Minerals (Preservision Areds 2), 1 CAP PO DAILY Multiple Vitamins W/ Minerals (Preservision Areds), 1 CAP PO DAILY Pravastatin (Pravachol ), 20 MG PO HS Sotalol Hcl (Betapace), 40 MG PO BID Ursodiol (Actigall), 300 MG PO TID Scheduled PRN Acetaminophen Tab (Tylenol), 650 MG PO PRN UD PRN for Pain Allergies Coded Allergies: Diphenhydramine (Verified Allergy, Intermediate, rash, 08/19/17) Metoprolol (Verified Allergy, Intermediate, RASH, 08/19/17) Pseudoephedrine (Verified Allergy, Unknown, "MAKES ME JUMPY", 08/19/17) Aspirin (Verified Adverse Reaction, Unknown, GI UPSET, 08/19/17) TAKES COATED ASPIRIN TO HELP GI UPSET Garlic (Verified Adverse Reaction, Unknown, GASSY, 08/19/17) Levofloxacin (Unverified Adverse Reaction, Unknown, TENDON PAIN, 08/19/17) PER RECORDS Physical Exam Vital Signs Date Time Temp Pulse Resp B/P (MAP) Pulse Ox O2 Delivery O2 Flow Rate FiO2 08/19/17 20:38 66 18 152/71 96 Room Air 08/19/17 19:09 114/58 08/19/17 19:00 75 18 74/43 97 Room Air 08/19/17 18:10 70 08/19/17 17:52 36.3 77 16 72/43 95 Room Air Physical Exam CONSTITUTIONAL/VITAL SIGNS: Reviewed / noted above. GENERAL: Non-toxic in appearance. INTEGUMENTARY: Warm, dry, and [place]. HEAD: Normocephalic. EYES: without scleral icterus or trauma. ENT/OROPHARYNX: clear and moist. LYMPHADENOPATHY/NECK: Is supple without lymphadenopathy or meningismus. RESPIRATORY: Lungs clear and equal. CARDIOVASCULAR: Regular rate and rhythm. GI/ABDOMEN: Soft and nontender. No organomegaly or pulsatile mass. No rebound or guarding. Normal bowel sounds. EXTREMITIES: Warm and well perfused. Small bruise noted to right elbow. BACK: No CVA tenderness. Tenderness to palpation of the lower thoracic and upper lumbar spine region. NEUROLOGICAL: Intact without focal deficits. PSYCHIATRIC: normal affect. MUSCULOSKELETAL: Normally developed with good muscle tone. Moderate size hematoma to right gluteal region. Medical Decision & Procedures ER Provider Diagnostic Interpretation: Radiology results as stated below per my review and radiologist interpretation: CHEST ONE VIEW PORTABLE HISTORY: 81 years-old Female fall acute atypical chest pain status post fall COMPARISON: Chest radiograph 07/09/2016 TECHNIQUE: Supine AP view of the chest FINDINGS: Cardiac silhouette is mildly enlarged. Atherosclerosis of the aorta. There is no pneumothorax, pleural effusion, focal airspace consolidation or overt pulmonary edema. Healed remote fracture of the posterior lateral right seventh rib again noted. Surgical clips of the right upper quadrant of the abdomen suggest prior cholecystectomy. Degenerative changes are seen within the shoulders and spine. IMPRESSION: No acute process. The above report was generated using voice recognition software. It may contain grammatical, syntax or spelling errors. Electronically signed by: Tom Bah M.D. 08/19/2017 7:19 PM Dictated Date/Time: 08/19/2017 7:18 PM HEAD WITHOUT CONTRAST (CT) CLINICAL HISTORY: 81 years-old Female with fall. Acute head injury status post fall TECHNIQUE: Multiple axial CT images of the head were obtained without contrast. A dose lowering technique was utilized adhering to the principles of ALARA. CT DOSE: 614.27 mGy.cm COMPARISON: Head CT 09/11/2016. FINDINGS: No acute intracranial hemorrhage, midline shift, intracranial mass, hydrocephalus, territorial ischemia or abnormal extra-axial collection. There is mild atrophy with ex vacuo ventriculomegaly. Mild degree of ill-defined low-attenuation within the periventricular white matter suggests chronic microvascular ischemic changes. The calvarium is intact. The paranasal sinuses, mastoid air cells, and middle ear cavities are clear. IMPRESSION: No acute intracranial abnormality or calvarial fracture identified. The above report was generated using voice recognition software. It may contain grammatical, syntax or spelling errors. Electronically signed by: Tom Bah M.D. 08/19/2017 6:52 PM Dictated Date/Time: 08/19/2017 6:49 PM THORACIC SPINE WITHOUT, LUMBAR SPINE WITHOUT HISTORY: 81 years-old Female fall lower t spine pain acute mid and low back pain status post fall COMPARISON: CT abdomen and pelvis 03/02/2015 TECHNIQUE: Multiple axial CT images of the thoracic and lumbar spine were obtained without the use of IV contrast. Coronal and sagittal images were obtained from the axial data set and were submitted for review. A dose lowering technique was used consistent with the principals of RAMIREZ. FINDINGS: CT THORACIC SPINE: No acute fracture or subluxation of the thoracic spine identified. The posterior elements appear intact. There is severe intervertebral disc space narrowing with circumferential disc osteophyte complex formation at T1-T2 and T7-T8. Mild central canal and bilateral foraminal narrowing at T1-T2 with mild central canal narrowing at T7-T8. The bones appear at least mildly demineralized. Mild to moderate multilevel facet arthrosis. Acute fracture of the L1 vertebral body is better seen on CT lumbar spine images. Ribs appear intact. Mild dextroscoliosis of the thoracic spine. Mild paraspinal musculature atrophy. Moderate atherosclerosis of the aorta. Clips within the aysha hepatis suggest prior cholecystectomy. Small sliding-type hilar hernia. Coronary arterial calcifications are noted in addition to mitral annular calcifications. No pneumothorax. Biapical pleural-parenchymal scarring of the lungs with mild dependent subsegmental bibasilar atelectasis. Groundglass opacities of the left lung base also suggests atelectasis or scarring. CT LUMBAR SPINE: 24 degrees levoscoliosis of the lumbar spine measured from L2-L4. Bones appear moderately demineralized. There is an acute compression deformity of the L1 vertebral body without significant loss of anterior endplate vertebral body height. There is 20% loss of superior endplate height with central depression. No significant retropulsion. Additionally, there is a 40% anterior endplate compression deformity of the L2 vertebral body with approximately 4 mm retrolisthesis involving the superior aspect of the posterior endplate. This finding is new from comparison study dated 03/02/2015 and appears somewhat corticated. Linear lucency involves superior endplate. This finding in addition to facet arthrosis and ligament of flavum thickening causes moderate central canal narrowing at L1-L2. Additionally there is mild left-sided foraminal narrowing at this level. The remaining vertebral body heights are well-maintained without additional acute fracture or subluxation identified. Severe intervertebral disc space narrowing with moderate endplate spurring and vacuum disc phenomena is noted throughout with at least moderate multilevel facet arthrosis, worse on the left. Chondrocalcinosis of the disc spaces. No evidence of sacral insufficiency fracture. Bilateral iliac bones also appear intact. Colonic diverticulosis. No acute process of the imaged abdomen. Prior cholecystectomy. IMPRESSION: 1. Acute compression deformity of the L1 vertebral body with 20% loss of vertebral body height involving the central aspect of the superior endplate. No retropulsion or central canal narrowing at this level. 2. 40% anterior endplate compression deformity of the L2 vertebral body with 4 mm retropulsion involving the superior aspect of the posterior endplate results in moderate central canal narrowing. This may reflect an acute on chronic compression deformity, however is new from 2014. Correlate with point tenderness. 3. No acute fracture or subluxation of the thoracic spine. 4. Lumbar levoscoliosis with multilevel degenerative changes as above. The above report was generated using voice recognition software. It may contain grammatical, syntax or spelling errors. Electronically signed by: Tom Bah M.D. 08/19/2017 7:08 PM Dictated Date/Time: 08/19/2017 6:53 PM THORACIC SPINE WITHOUT, LUMBAR SPINE WITHOUT HISTORY: 81 years-old Female fall lower t spine pain acute mid and low back pain status post fall COMPARISON: CT abdomen and pelvis 03/02/2015 TECHNIQUE: Multiple axial CT images of the thoracic and lumbar spine were obtained without the use of IV contrast. Coronal and sagittal images were obtained from the axial data set and were submitted for review. A dose lowering technique was used consistent with the principals of RAMIREZ. FINDINGS: CT THORACIC SPINE: No acute fracture or subluxation of the thoracic spine identified. The posterior elements appear intact. There is severe intervertebral disc space narrowing with circumferential disc osteophyte complex formation at T1-T2 and T7-T8. Mild central canal and bilateral foraminal narrowing at T1-T2 with mild central canal narrowing at T7-T8. The bones appear at least mildly demineralized. Mild to moderate multilevel facet arthrosis. Acute fracture of the L1 vertebral body is better seen on CT lumbar spine images. Ribs appear intact. Mild dextroscoliosis of the thoracic spine. Mild paraspinal musculature atrophy. Moderate atherosclerosis of the aorta. Clips within the aysha hepatis suggest prior cholecystectomy. Small sliding-type hilar hernia. Coronary arterial calcifications are noted in addition to mitral annular calcifications. No pneumothorax. Biapical pleural-parenchymal scarring of the lungs with mild dependent subsegmental bibasilar atelectasis. Groundglass opacities of the left lung base also suggests atelectasis or scarring. CT LUMBAR SPINE: 24 degrees levoscoliosis of the lumbar spine measured from L2-L4. Bones appear moderately demineralized. There is an acute compression deformity of the L1 vertebral body without significant loss of anterior endplate vertebral body height. There is 20% loss of superior endplate height with central depression. No significant retropulsion. Additionally, there is a 40% anterior endplate compression deformity of the L2 vertebral body with approximately 4 mm retrolisthesis involving the superior aspect of the posterior endplate. This finding is new from comparison study dated 03/02/2015 and appears somewhat corticated. Linear lucency involves superior endplate. This finding in addition to facet arthrosis and ligament of flavum thickening causes moderate central canal narrowing at L1-L2. Additionally there is mild left-sided foraminal narrowing at this level. The remaining vertebral body heights are well-maintained without additional acute fracture or subluxation identified. Severe intervertebral disc space narrowing with moderate endplate spurring and vacuum disc phenomena is noted throughout with at least moderate multilevel facet arthrosis, worse on the left. Chondrocalcinosis of the disc spaces. No evidence of sacral insufficiency fracture. Bilateral iliac bones also appear intact. Colonic diverticulosis. No acute process of the imaged abdomen. Prior cholecystectomy. IMPRESSION: 1. Acute compression deformity of the L1 vertebral body with 20% loss of vertebral body height involving the central aspect of the superior endplate. No retropulsion or central canal narrowing at this level. 2. 40% anterior endplate compression deformity of the L2 vertebral body with 4 mm retropulsion involving the superior aspect of the posterior endplate results in moderate central canal narrowing. This may reflect an acute on chronic compression deformity, however is new from 2015. Correlate with point tenderness. 3. No acute fracture or subluxation of the thoracic spine. 4. Lumbar levoscoliosis with multilevel degenerative changes as above. The above report was generated using voice recognition software. It may contain grammatical, syntax or spelling errors. Electronically signed by: Tom Bah M.D. 08/19/2017 7:08 PM Dictated Date/Time: 08/19/2017 6:53 PM R PELVIS/UNILATERAL HIP 2-3VIEWS HISTORY: 81 years-old Female rt hip pain after fall acute right hip pain status post fall COMPARISON: CT abdomen and pelvis 03/02/2015 TECHNIQUE: AP view of the pelvis with 2 views of the right hip FINDINGS: The bones appear mildly demineralized. No pelvic ring fracture is identified. The sacrum appears intact. Moderate degenerative changes about the bilateral femoral acetabular joints with chondrocalcinosis. Levoscoliosis of the lumbar spine is partially imaged with multilevel lumbar spine degenerative changes. The imaged right femur appears intact without acute fracture or dislocation. There is mild soft tissue swelling lateral to the right greater trochanter. Peripheral vascular disease. Calcifications of the right hemipelvis suggests calcified fibroids. IMPRESSION: 1. Mild soft tissue swelling about the right hip without acute fracture or dislocation. 2. Moderate degenerative changes about the bilateral femoral acetabular joints. 3. Calcified uterine leiomyomas redemonstrated. The above report was generated using voice recognition software. It may contain grammatical, syntax or spelling errors. Electronically signed by: Tom Bah M.D. 08/19/2017 7:22 PM Dictated Date/Time: 08/19/2017 7:[address] AND PEL[address] CT WITH IV CONTRAST CT DOSE: 649.31 mGy.cm HISTORY: Acute upper abdominal pain status post fall fall , upper abd pain TECHNIQUE: Multiaxial CT images of the abdomen and pelvis were performed following the use of intravenous contrast. A dose lowering technique was utilized adhering to the principles of ALARA. COMPARISON STUDY: CT abdomen and pelvis 03/02/2015, CT lumbar spine of same day. FINDINGS: Mild dependent subsegmental bibasilar atelectasis/scarring. Mild bibasilar bronchial wall thickening is also noted with areas of mucous plugging. There is no pneumatosis or pneumoperitoneum identified. Imaged inferior cardiac chambers are moderately enlarged. Coronary arterial calcifications are noted in addition to calcifications of the mitral annulus. Prior cholecystectomy with moderate intrahepatic and extrahepatic delayed ductal dilation, likely physiologic from postcholecystectomy state. No focal hepatic mass lesions are identified. Patent portal vein. 5 mm low attenuating lesion of the anterosuperior spleen is too small to characterize however suggests benign etiology such as a cyst. Pancreas and adrenal glands are unremarkable. 5 mm low attenuating lesion of the superior pole left kidney suggests renal cyst. No renal calculi or obstructive uropathy. There is mild circumferential wall thickening of the bladder with mild perivesicular inflammatory stranding. Multiple calcifications involving the uterine fundus and right aspect of the uterus suggests calcified fibroids. The uterus is mildly enlarged for a postmenopausal patient. Large unilocular cystic lesion of the left adnexum appears unchanged from comparison, 8.1 x 4.7 cm. Extensive mixed plaquing of the aorta without aneurysm. No bulky adenopathy identified. Mildly prominent nonenlarged periaortic lymph nodes are likely physiologic. [id number] sliding-type hiatal hernia. No bowel obstruction or focal bowel wall thickening identified. Colonic diverticulosis without CT evidence of acute diverticulitis. Wall thickening of the colon without inflammatory stranding suggests muscularis hypertrophy from chronic diverticular disease. There is a large partially imaged intramuscular hematoma involving the inferior gluteal musculature on the right, 7.3 x 4.8 cm on image 446 series 3. There is a 1.9 x 1.0 cm hyperattenuating focus within the region of the deep gluteus maximum musculature compatible with area of active extravasation, nicely seen on image 410 of series 3. One of the gluteal branches from the internal iliac artery is seen feeding the area of active extravasation. The bones appear mildly demineralized. No acute sacral, pelvic or proximal femoral fracture identified. Moderate degenerative changes about the bilateral hips. Levoscoliosis of the lumbar spine. Compression deformities of the L1 and L2 vertebral bodies again noted. IMPRESSION: 1. Partially imaged large intramuscular hematoma of the right inferior gluteal musculature measures up to 7.3 cm. There is a focal area of active extravasation from one of the gluteal arteries along the superior aspect of the hematoma. 2. Compression deformities of the L1 and L2 vertebral bodies are better characterized on CT lumbar spine of same day. No acute pelvic or hip fracture identified. 3. No evidence of acute solid organ injury or pneumoperitoneum. 4. Moderate wall thickening of the bladder with perivesicular inflammatory stranding is suspicious for cystitis. Correlate with urinalysis. 5. Unchanged unilocular cystic lesion of the left adnexum, 8.1 cm appears stable dating back to 2014. 6. Additional findings as above. Electronically signed by: Tom Bah M.D. 08/19/2017 8:52 PM Dictated Date/Time: 08/19/2017 8:39 PM Laboratory Results 08/19/17 18:10 08/19/17 18:10 Test 08/19/17 18:10 08/19/17 21:13 Red Blood Count 2.98 M/uL (4.2-5.4) Mean Corpuscular Volume 93.3 fL (80-100) Mean Corpuscular Hemoglobin 31.2 pg (25-34) Mean Corpuscular Hemoglobin Concent 33.5 g/dl (32-36) RDW Standard Deviation 46.8 fL (36.4-46.3) RDW Coefficient of Variation 13.7 % (11.5-14.5) Mean Platelet Volume 8.9 fL (7.4-10.4) Anion Gap 3.0 mmol/L (3-11) Est Creatinine Clear Calc Drug Dose 31.6 ml/min Estimated GFR () 43.6 Estimated GFR (Non- 37.7 BUN/Creatinine Ratio 23.1 (10-20) Calcium Level 8.6 mg/dl (8.5-10.1) Magnesium Level 1.8 mg/dl (1.8-2.4) Total Bilirubin 0.3 mg/dl (0.2-1) Direct Bilirubin 0.1 mg/dl (0-0.2) Aspartate Amino Transf (AST/SGOT) 22 U/L (15-37) Alanine Aminotransferase (ALT/SGPT) 17 U/L (12-78) Alkaline Phosphatase 75 U/L (45-117) Total Protein 7.2 gm/dl (6.4-8.2) Albumin 3.3 gm/dl (3.4-5.0) Thyroid Stimulating Hormone (TSH) 4.520 uIu/ml (0.300-4.500) Laboratory results as stated above per my review. Medications Administered Medications (Trade) Dose Ordered Sig/Shena Route Start Time Stop Time Status Last Admin Dose Admin Oxycodone/ Acetaminophen (Percocet 5-325mg Tab) 1 tab NOW STAT PO 08/19/17 18:17 08/19/17 18:20 DC 08/19/17 18:29 1 TAB Sodium Chloride 1,000 ml @ 999 mls/hr Q1H1M STAT IV 08/19/17 19:23 08/19/17 20:23 DC 08/19/17 19:27 999 MLS/HR Morphine Sulfate (MoRPHine SULFATE INJ) 4 mg NOW STAT IV 08/19/17 19:57 08/19/17 19:58 DC 08/19/17 20:12 4 MG ECG Per My Interpretation Indication: other (trauma) Rate (beats per minute): 73 Rhythm: sinus rhythm Findings: PVC, ST depression (Lateral), T-wave inversion (Lateral) Change: no significant change (when compared to 09/11/2016) ED Course 1809: Previous medical records were reviewed. The patient was evaluated in room B11B. A complete history and physical examination was performed. 1816: Ordered Percocet 1 tab PO 1922: Ordered Sodium Chloride 1,000 ml @ 999 mls/hr IV 1952: I reassessed the patient at this time. She is complaining of pain in upper abdomen. She agreed to have a CT scan. 1956: Ordered Morphine Sulfate 4 mg IV 2017: I spoke with Dr. Tabor, [facility] hospitalist. We discussed the patient' s case. [facility] 2024: I reassessed the patient at this time. I discussed the results and treatment plan with the patient. I answered all pertaining questions that she had. She expressed understanding and verbalized agreement. The patient will be further evaluated. Medical Decision Differentials include: Close head injury, intracranial bleed, facial trauma, cervical spine trauma, chest and thoracic trauma, abdominal and intra-abdominal trauma, spine neurologic trauma, and extremity trauma. This is a 81-year-old female who presents to the ED with a chief complaint of a fall. The patient reports that she tripped on concrete and fell onto her right side. She states that she hit the right side of her head on a screen door and mainly landed on her right buttock area. She reports some discomfort in the right buttock area where there is also noted to be a moderate sized hematoma and tenderness. She does not have any pain with axial loading of the right leg. The patient also has a very mild bruise to the right elbow. She has full range of motion of that extremity without discomfort. There is no obvious bony deformities to suggest an acute fracture. The patient also complains of some mid back discomfort mainly with sitting. She also has some tenderness to palpation of the lower thoracic and upper lumbar region on exam. There is no obvious visible trauma to that region. She has no obvious visible trauma to her head. Neck is without tenderness. The rest of her exam does not reveal any obvious trauma. The patient's initial blood pressure on presentation was low. I checked this when I got into the room to see her and it was 112/62. She denies any recent illness or other symptoms prior to the trip and fall to suggest other concurrent illness or issue. A 12-lead EKG reveals a sinus rhythm at a rate of 73 with an occasional PVC. There are some ST depressions and T-wave inversions laterally that appear to be old compared to a previous EKG. a CT scan of the abdomen pelvis did not show any intra-abdominal pathology but there was a large intramuscular hematoma the right inferior gluteal muscle noted with some active extravasation of small artery in the upper portion. The patient is not on anticoagulation. She does take aspirin daily. She will be seen by the hospitalist for further inpatient evaluation and care. Head Trauma GCS Score: 15 Medication Reconcilliation Current Medication List: was personally reviewed by me Blood Pressure Screening Patient's blood pressure: Normal blood pressure Consults Time Called: 1954 Consulting Physician: Radha Donnelly, hospitalist Returned Call: 2017 I spoke with Radha Donnelly hospitalist. We discussed the patient's case. The patient will be evaluated by the [facility] Group for further management. Impression Primary Impression: Fall Additional Impressions: Hematoma Compression fracture Scribe Attestation The scribe's documentation has been prepared under my direction and personally reviewed by me in its entirety. I confirm that the note above accurately reflects all work, treatment, procedures, and medical decision making performed by me. Departure Information Dispostion Being Evaluated By Hospitalist Referrals Kelsi Lucas DO (PCP) Patient Instructions My [facility] Problem Qualifiers
[2017-08-19 18:33] LABS: HEMATOCRIT 27.8 % (37-47); HEMOGLOBIN 9.3 g/dL (12.0-16.0); MEAN CELL VOLUME 93.3 fL (80-100); MEAN CORPUSCULAR HEMOGLOBIN 31.2 pg (25-34); MEAN CORPUSCULAR HGB CONC 33.5 g/dl (32-36); MEAN PLATELET VOLUME 8.9 fL (7.4-10.4); PLATELET COUNT 329 K/uL (130-400); RED CELL DISTRIBUTION WIDTH CV 13.7 % (11.5-14.5); RED CELL DISTRIBUTION WIDTH SD 46.8 fL (36.4-46.3); WHITE BLOOD COUNT 14.34 K/uL (4.8-10.8)
[2017-08-19 18:50] LABS: CALCIUM 8.6 mg/dl (8.5-10.1); CREATININE 1.33 mg/dl (0.60-1.20); POTASSIUM 4.5 mmol/L (3.5-5.1)
--- NOTE | 2017-08-19 18:54 | DIAGNOSTIC IMAGING REPORT ---
HEAD WITHOUT CONTRAST (CT) CLINICAL HISTORY: 81 years-old Female with fall. Acute head injury status post fall TECHNIQUE: Multiple axial CT images of the head were obtained without contrast. A dose lowering technique was utilized adhering to the principles of ALARA. CT DOSE: 614.27 mGy.cm COMPARISON: Head CT 09/11/2016. FINDINGS: No acute intracranial hemorrhage, midline shift, intracranial mass, hydrocephalus, territorial ischemia or abnormal extra-axial collection. There is mild atrophy with ex vacuo ventriculomegaly. Mild degree of ill-defined low-attenuation within the periventricular white matter suggests chronic microvascular ischemic changes. The calvarium is intact. The paranasal sinuses, mastoid air cells, and middle ear cavities are clear. IMPRESSION: No acute intracranial abnormality or calvarial fracture identified. The above report was generated using voice recognition software. It may contain grammatical, syntax or spelling errors. Electronically signed by: Tom Bah M.D. 08/19/2017 6:52 PM Dictated Date/Time: 08/19/2017 6:49 PM
--- NOTE | 2017-08-19 19:09 | DIAGNOSTIC IMAGING REPORT ---
THORACIC SPINE WITHOUT, LUMBAR SPINE WITHOUT HISTORY: 81 years-old Female fall lower t spine pain acute mid and low back pain status post fall COMPARISON: CT abdomen and pelvis 03/02/2015 TECHNIQUE: Multiple axial CT images of the thoracic and lumbar spine were obtained without the use of IV contrast. Coronal and sagittal images were obtained from the axial data set and were submitted for review. A dose lowering technique was used consistent with the principals of RAMIREZ. FINDINGS: CT THORACIC SPINE: No acute fracture or subluxation of the thoracic spine identified. The posterior elements appear intact. There is severe intervertebral disc space narrowing with circumferential disc osteophyte complex formation at T1-T2 and T7-T8. Mild central canal and bilateral foraminal narrowing at T1-T2 with mild central canal narrowing at T7-T8. The bones appear at least mildly demineralized. Mild to moderate multilevel facet arthrosis. Acute fracture of the L1 vertebral body is better seen on CT lumbar spine images. Ribs appear intact. Mild dextroscoliosis of the thoracic spine. Mild paraspinal musculature atrophy. Moderate atherosclerosis of the aorta. Clips within the aysha hepatis suggest prior cholecystectomy. Small sliding-type hilar hernia. Coronary arterial calcifications are noted in addition to mitral annular calcifications. No pneumothorax. Biapical pleural-parenchymal scarring of the lungs with mild dependent subsegmental bibasilar atelectasis. Groundglass opacities of the left lung base also suggests atelectasis or scarring. CT LUMBAR SPINE: 24 degrees levoscoliosis of the lumbar spine measured from L2-L4. Bones appear moderately demineralized. There is an acute compression deformity of the L1 vertebral body without significant loss of anterior endplate vertebral body height. There is 20% loss of superior endplate height with central depression. No significant retropulsion. Additionally, there is a 40% anterior endplate compression deformity of the L2 vertebral body with approximately 4 mm retrolisthesis involving the superior aspect of the posterior endplate. This finding is new from comparison study dated 03/02/2015 and appears somewhat corticated. Linear lucency involves superior endplate. This finding in addition to facet arthrosis and ligament of flavum thickening causes moderate central canal narrowing at L1-L2. Additionally there is mild left-sided foraminal narrowing at this level. The remaining vertebral body heights are well-maintained without additional acute fracture or subluxation identified. Severe intervertebral disc space narrowing with moderate endplate spurring and vacuum disc phenomena is noted throughout with at least moderate multilevel facet arthrosis, worse on the left. Chondrocalcinosis of the disc spaces. No evidence of sacral insufficiency fracture. Bilateral iliac bones also appear intact. Colonic diverticulosis. No acute process of the imaged abdomen. Prior cholecystectomy. IMPRESSION: 1. Acute compression deformity of the L1 vertebral body with 20% loss of vertebral body height involving the central aspect of the superior endplate. No retropulsion or central canal narrowing at this level. 2. 40% anterior endplate compression deformity of the L2 vertebral body with 4 mm retropulsion involving the superior aspect of the posterior endplate results in moderate central canal narrowing. This may reflect an acute on chronic compression deformity, however is new from 2015. Correlate with point tenderness. 3. No acute fracture or subluxation of the thoracic spine. 4. Lumbar levoscoliosis with multilevel degenerative changes as above. The above report was generated using voice recognition software. It may contain grammatical, syntax or spelling errors. Electronically signed by: Tom Bah M.D. 08/19/2017 7:08 PM Dictated Date/Time: 08/19/2017 6:53 PM
--- NOTE | 2017-08-19 19:21 | DIAGNOSTIC IMAGING REPORT ---
CHEST ONE VIEW PORTABLE HISTORY: 81 years-old Female fall acute atypical chest pain status post fall COMPARISON: Chest radiograph 07/09/2016 TECHNIQUE: Supine AP view of the chest FINDINGS: Cardiac silhouette is mildly enlarged. Atherosclerosis of the aorta. There is no pneumothorax, pleural effusion, focal airspace consolidation or overt pulmonary edema. Healed remote fracture of the posterior lateral right seventh rib again noted. Surgical clips of the right upper quadrant of the abdomen suggest prior cholecystectomy. Degenerative changes are seen within the shoulders and spine. IMPRESSION: No acute process. The above report was generated using voice recognition software. It may contain grammatical, syntax or spelling errors. Electronically signed by: Tom Bah M.D. 08/19/2017 7:19 PM Dictated Date/Time: 08/19/2017 7:18 PM
[2017-08-19] MEDS ORDERED: SODIUM CHLORIDE 0.9% 1000ML 1,000 ML IV STA (19:23)
--- NOTE | 2017-08-19 19:23 | DIAGNOSTIC IMAGING REPORT ---
R PELVIS/UNILATERAL HIP 2-3VIEWS HISTORY: 81 years-old Female rt hip pain after fall acute right hip pain status post fall COMPARISON: CT abdomen and pelvis 03/02/2015 TECHNIQUE: AP view of the pelvis with 2 views of the right hip FINDINGS: The bones appear mildly demineralized. No pelvic ring fracture is identified. The sacrum appears intact. Moderate degenerative changes about the bilateral femoral acetabular joints with chondrocalcinosis. Levoscoliosis of the lumbar spine is partially imaged with multilevel lumbar spine degenerative changes. The imaged right femur appears intact without acute fracture or dislocation. There is mild soft tissue swelling lateral to the right greater trochanter. Peripheral vascular disease. Calcifications of the right hemipelvis suggests calcified fibroids. IMPRESSION: 1. Mild soft tissue swelling about the right hip without acute fracture or dislocation. 2. Moderate degenerative changes about the bilateral femoral acetabular joints. 3. Calcified uterine leiomyomas redemonstrated. The above report was generated using voice recognition software. It may contain grammatical, syntax or spelling errors. Electronically signed by: Tom Bah M.D. 08/19/2017 7:22 PM Dictated Date/Time: 08/19/2017 7:20 PM
[2017-08-19] MEDS ORDERED: MoRPHine SULFATE 4 MG/ML 1 ML CARP\\VIAL IV STA (19:57)
[2017-08-19] MEDS ORDERED: LEVO112T4 PO (20:06)
[2017-08-19] MEDS ORDERED: MULT60CA PO (20:06)
[2017-08-19] MEDS ORDERED: OPTIRAY 320 IV PRN (20:15)
[2017-08-19] MEDS ORDERED: FURO80TA63 PO (20:35)
[2017-08-19] MEDS ORDERED: MULTCAP33 PO (20:35)
[2017-08-19] MEDS ORDERED: VNTHFA/IN INH (20:36)
--- NOTE | 2017-08-19 20:53 | DIAGNOSTIC IMAGING REPORT ---
ABDOMEN AND PELVIS CT WITH IV CONTRAST CT DOSE: 649.31 mGy.cm HISTORY: Acute upper abdominal pain status post fall fall , upper abd pain TECHNIQUE: Multiaxial CT images of the abdomen and pelvis were performed following the use of intravenous contrast. A dose lowering technique was utilized adhering to the principles of ALARA. COMPARISON STUDY: CT abdomen and pelvis 03/02/2015, CT lumbar spine of same day. FINDINGS: Mild dependent subsegmental bibasilar atelectasis/scarring. Mild bibasilar bronchial wall thickening is also noted with areas of mucous plugging. There is no pneumatosis or pneumoperitoneum identified. Imaged inferior cardiac chambers are moderately enlarged. Coronary arterial calcifications are noted in addition to calcifications of the mitral annulus. Prior cholecystectomy with moderate intrahepatic and extrahepatic delayed ductal dilation, likely physiologic from postcholecystectomy state. No focal hepatic mass lesions are identified. Patent portal vein. 5 mm low attenuating lesion of the anterosuperior spleen is too small to characterize however suggests benign etiology such as a cyst. Pancreas and adrenal glands are unremarkable. 5 mm low attenuating lesion of the superior pole left kidney suggests renal cyst. No renal calculi or obstructive uropathy. There is mild circumferential wall thickening of the bladder with mild perivesicular inflammatory stranding. Multiple calcifications involving the uterine fundus and right aspect of the uterus suggests calcified fibroids. The uterus is mildly enlarged for a postmenopausal patient. Large unilocular cystic lesion of the left adnexum appears unchanged from comparison, 8.1 x 4.7 cm. Extensive mixed plaquing of the aorta without aneurysm. No bulky adenopathy identified. Mildly prominent nonenlarged periaortic lymph nodes are likely physiologic. [id number] sliding-type hiatal hernia. No bowel obstruction or focal bowel wall thickening identified. Colonic diverticulosis without CT evidence of acute diverticulitis. Wall thickening of the colon without inflammatory stranding suggests muscularis hypertrophy from chronic diverticular disease. There is a large partially imaged intramuscular hematoma involving the inferior gluteal musculature on the right, 7.3 x 4.8 cm on image 446 series 3. There is a 1.9 x 1.0 cm hyperattenuating focus within the region of the deep gluteus maximum musculature compatible with area of active extravasation, nicely seen on image 410 of series 3. One of the gluteal branches from the internal iliac artery is seen feeding the area of active extravasation. The bones appear mildly demineralized. No acute sacral, pelvic or proximal femoral fracture identified. Moderate degenerative changes about the bilateral hips. Levoscoliosis of the lumbar spine. Compression deformities of the L1 and L2 vertebral bodies again noted. IMPRESSION: 1. Partially imaged large intramuscular hematoma of the right inferior gluteal musculature measures up to 7.3 cm. There is a focal area of active extravasation from one of the gluteal arteries along the superior aspect of the hematoma. 2. Compression deformities of the L1 and L2 vertebral bodies are better characterized on CT lumbar spine of same day. No acute pelvic or hip fracture identified. 3. No evidence of acute solid organ injury or pneumoperitoneum. 4. Moderate wall thickening of the bladder with perivesicular inflammatory stranding is suspicious for cystitis. Correlate with urinalysis. 5. Unchanged unilocular cystic lesion of the left adnexum, 8.1 cm appears stable dating back to 2014. 6. Additional findings as above. Electronically signed by: Tom Bah M.D. 08/19/2017 8:52 PM Dictated Date/Time: 08/19/2017 8:39 PM
[2017-08-19 21:23] LABS: ALBUMIN 3.3 gm/dl (3.4-5.0); TOTAL PROTEIN 7.2 gm/dl (6.4-8.2)
[2017-08-19 21:31] LABS: BASO % 0.1 %; BASO ABS # 0.02 K/uL (0-0.2); EOS % 1.2 %; EOS ABS # 0.17 K/uL (0-0.5); IG# 0.07 K/uL (0.00-0.02); LYMPH % 5.8 %; LYMPH ABS # 0.86 K/uL (1.2-3.4); MONO % 2.2 %; MONO ABS # 0.32 K/uL (0.11-0.59); NEUT % 90.2 %; NEUT ABS # 13.34 K/uL (1.4-6.5)
[2017-08-19] MEDS ORDERED: MAGNESIUM SULFATE 1GM / D5W 100 ML IV STA (21:49)
[2017-08-19] MEDS ORDERED: PROCHLORPERAZINE INJ 5 MG in SYRINGE 4 ML IV PRN (22:00)
[2017-08-19] MEDS ORDERED: HYDROmorphone INJ 0.5 MG/0.5 ML SYR IV PRN (22:00)
[2017-08-19] MEDS ORDERED: SOTALOL HCL 80 MG TAB PO ONE (22:28)
[2017-08-19] MEDS ORDERED: LIDODERM (LIDOCAINE) PATCH 5% TD STA (22:29)
[2017-08-19 22:40] VITALS: BP 126/66; PULSE 64; TEMP 36.5; BMI 23.5
[2017-08-19] MEDS: ACETAMINOPHEN 325 MG TAB PO PRN (23:17)
[2017-08-19] MEDS: TRAMADOL HCL 50 MG TAB PO PRN (23:17)
[2017-08-19 23:55] VITALS: Ht 167.6 cm; Wt 65.1 kg
[2017-08-20] VITALS (11 sets, daily range): BP systolic 107–150; BP diastolic 57–82; PULSE 66–82; TEMP 36.6–37.3; O2SAT 94–98
[2017-08-20 00:37] LABS: HEMATOCRIT 22.5 % (37-47); HEMOGLOBIN 7.6 g/dL (12.0-16.0)
--- NOTE | 2017-08-20 00:39 | HISTORY & PHYSICAL EXAMINATION ---
DATE OF ADMISSION: 08/19/2017 PRIMARY CARE PHYSICIAN: Dr. Lucas. CHIEF COMPLAINT: Back pain and fall. HISTORY OF PRESENT ILLNESS: History obtained from patient, , and records. History from patient somewhat limited secondary to hearing impairment. Medical history is significant for CAD status post stenting, hypertension, PAFib off anticoagulation because of bleeding risk, past tobacco abuse, chronic anemia (baseline hemoglobin 9-10), chronic renal insufficiency (baseline creatinine 1.3 -1.5), NHL status post chemotherapy, history of MRSA, hx ESBL E. coli UTI. Recent confinement under surgery service last August 2016 for left breast mastectomy. Pathology later showed adenomyoepithelioma. Patient today fell on her bottom at home after a mechanical fall/ Patient noted achy left buttock pain, right arm pain from falling. No chest pain no SOB . There was some lightheadedness. No syncope. SBP 70s at the Emergency Room at one point. MEDICAL HISTORY: As above. A 2D echo from June 2016 showed LVH, moderate MR, LA dilatation. SURGERIES: Mastectomy, lymph node biopsy, dental surgery, urologic procedures. cholecystectomy. Cataract surgery, tonsillectomy, and bladder defect surgery. HOME MEDICATIONS: Include aspirin, Ventolin, Tylenol, Coreg, Lasix, levothyroxine, Slow-Mag, PreserVision, Pravachol, Betapace, Actigall. ALLERGIES: DIPHENHYDRAMINE, GARLIC, METOPROLOL, PSEUDOEPHEDRINE. FAMILY HISTORY: Heart disease, pancreatic cancer, breast cancer, skin cancer. PERSONAL AND SOCIAL HISTORY: No chronic intake of alcoholic beverages. 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 REVIEW OF SYSTEMS: As per HPI. All 10 systems reviewed, all other ROS negative. PHYSICAL EXAMINATION: VITAL SIGNS: Blood pressure was noted to be 70/50 later 114/68, pulse rate 77, RR 16, T 37 O2 sats 98 on room air. GENERAL: Noted to be slightly uncomfortable. No respiratory distress. hard of hearing. SKIN: Pallor, warm. HEENT: Pale palpebral conjunctivae. No ptosis. Dry mucosa. NECK: Short, supple. CHEST: Decreased BS. No tenderness HEART: Regular rate and rhythm, systolic murmur. ABDOMEN: Some distention, nontender. EXTREMITIES: Ecchymosis, RUE. Tender right gluteal area. NEUROLOGIC: Coherent. mild hearing impairment. No other gross focality. Gait and stance not assessed. LABORATORY DATA: Hemoglobin 9.3, hematocrit 37.8, white cell count 14.34, platelets 329. Sodium noted to be 138, potassium 4.5, chloride 104, CO2 of 26, BUN 30, creatinine 1.3, glucose 125. IMAGING DATA: CT abdomen and pelvis showed a partially imaged large intramuscular hematoma right inferior gluteal musculature measuring 7.3 cm with focal area of active extravasation from one of the gluteal arteries along superior aspect of hematoma. Compression deformities, L1-L2 vertebral bodies. Some bladder wall thickening. CT head, no acute pathology. ASSESSMENT: 1. Right gluteal hematoma, compression fracture of spine secondary to mechanical fall Hemoglobin at baseline, patient known to have chronic anemia secondary to CKD currently hemodynamically stable. 2. Hypertension. Patient initially hypotensive in the ER. BP currently stable although on the lower side.. 3. AF, patient normal sinus rhythm off anticoagulation 2 to hx GI bleed as per patient 4. CAD sp stenting 5. CRI, creatinine at baseline 6. NHL sp chemotherapy 7. History of autoimmune hepatitis as per records 8. Past tobacco abuse PLAN: GMF analgesia. Serial HH. Transfuse PRBC if hemoglobin less than 8 (hx CAD) Appropriate to hold home aspirin for now w R gluteal hematoma until hemoglobin stable. Orthopedics consult, right gluteal hematoma. Hold home Coreg for now given borderline blood pressure. (Resume in a.m. if blood pressure is stable.) PT, OT eval. Fall precautions. DVT prophylaxis, SCDs. RE gluteal hematoma Full code as per , Mr. Russel Baig. He requests updates from providers thru [phone]. Case discussed with Dr. Somers ([facility] [place] specialist monument letterer.) He recommends follow-up ultrasound of right gluteal region in morning. [facility]
[2017-08-20 00:48] LABS: INR 1.1 (0.9-1.1); PTT PATIENT 32.8 SECONDS (21.0-31.0)
[2017-08-20 05:04] LABS: BASO % 0.1 %; BASO ABS # 0.01 K/uL (0-0.2); HEMATOCRIT 21.3 % (37-47); HEMOGLOBIN 7.2 g/dL (12.0-16.0); IG# 0.03 K/uL (0.00-0.02); LYMPH % 6.7 %; MEAN CELL VOLUME 92.6 fL (80-100); MEAN CORPUSCULAR HEMOGLOBIN 31.3 pg (25-34); MEAN CORPUSCULAR HGB CONC 33.8 g/dl (32-36); MEAN PLATELET VOLUME 8.6 fL (7.4-10.4); MONO % 7.1 %; MONO ABS # 0.74 K/uL (0.11-0.59); NEUT % 85.8 %; NEUT ABS # 8.96 K/uL (1.4-6.5); PLATELET COUNT 230 K/uL (130-400); RED CELL DISTRIBUTION WIDTH CV 13.8 % (11.5-14.5); RED CELL DISTRIBUTION WIDTH SD 46.9 fL (36.4-46.3); WHITE BLOOD COUNT 10.44 K/uL (4.8-10.8)
[2017-08-20 05:29] LABS: CALCIUM 8.1 mg/dl (8.5-10.1); CREATININE 1.25 mg/dl (0.60-1.20); POTASSIUM 4.5 mmol/L (3.5-5.1)
[2017-08-20] MEDS: LEVOTHYROXINE 112 MCG TAB PO SCH (06:07)
--- NOTE | 2017-08-20 06:49 | DIAGNOSTIC IMAGING REPORT ---
R EXTREMITY NONVASCULAR LIMITED CLINICAL HISTORY: R gluteal hematoma ffup study as dr aldana (R gluteal area only) hematoma TECHNIQUE: Ultrasound COMPARISON STUDY: CT 08/19/2017 FINDINGS: Intramuscular hematoma measuring 7 x 3 x 8 cm. There is a minimal amount of active vascular flow within the superior aspects of this hematoma. This is similar to the CT finding. IMPRESSION: Generally stable intramuscular hematoma compared to the patient's prior CT exam. The above report was generated using voice recognition software. It may contain grammatical, syntax or spelling errors. Electronically signed by: Llu Gutierrez M.D. 08/20/2017 6:47 AM Dictated Date/Time: 08/20/2017 6:45 AM
[2017-08-20] MEDS: URSODIOL 300 MG CAP PO SCH ×3 (08:38→21:10)
[2017-08-20] MEDS: CEROVITE ADV FORMULA TAB PO SCH (08:38)
[2017-08-20] MEDS: SOTALOL HCL 80 MG TAB PO SCH ×2 (08:39→21:12)
[2017-08-20] MEDS: LIDODERM (LIDOCAINE) PATCH 5% TD SCH (08:39)
--- NOTE | 2017-08-20 09:40 | Clinical Documentation Query ---
QUERY 1 OF [address] GRAY, In your clinical opinion is this patient being managed for: ( + ) Osteoporotic related lumbar spine fractures with ground level fall ( ) Not Agree ( ) Other explanation of clinical findings (Please Explain. If no explanation given, this would be considered a no response.) ( ) Unable to determine ( ) Need to Discuss (Please call CDS via extension or qliq. If no interaction occurs this is considered a no response.) The medical record reflects the following clinical findings, treatment, and risk factors. Clinical Indicators: 81 yo female presenting with L1 an L2 fractures. PMH includes osteoporosis. Pt sustained a ground level fall. Treatment: multivitamin, orthopedics consult, PT/OT evals, lidoderm patch, prn analgesics Risk Factors: age, hx breast cancer QUERY 2 OF 3 In your clinical opinion is this patient being managed for: ( + ) Acute blood loss anemia ( ) Not Agree ( ) Other explanation of clinical findings (Please Explain. If no explanation given, this would be considered a no response.) ( ) Unable to determine ( ) Need to Discuss (Please call CDS via extension or qliq. If no interaction occurs this is considered a no response.) The medical record reflects the following clinical findings, treatment, and risk factors. Clinical Indicators: Baseline Hgb 9.3/Hct 27.8 (pt has chronic anemia) which has down-trended to 7.2/21.3. Treatment: IV fluids, transfuse 1 U PRBC, serial H/H Risk Factors: fall with R gluteal hematoma QUERY 3 OF 3 In your clinical opinion is this patient being managed for: ( + ) Chronic kidney disease, stage 3 ( ) Not Agree ( ) Other explanation of clinical findings (Please Explain. If no explanation given, this would be considered a no response.) ( ) Unable to determine ( ) Need to Discuss (Please call CDS via extension or qliq. If no interaction occurs this is considered a no response.) The medical record reflects the following clinical findings, treatment, and risk factors. Clinical Indicators: H/P indicates chronic renal insufficiency. Review of historical GFR's reveals range of 32.8-40.6 Treatment: monitor PRP's, treat comorbid conditions Risk Factors: age, CAD, HTN, A fib Please clarify and document your clinical opinion in the progress notes and discharge summary. Terms such as "probable", "suspected", "likely", "questionable", "possible", or "still to be ruled out" are acceptable. IF IN AGREEMENT, YOU MUST DOCUMENT ABOVE DIAGNOSTIC STATEMENT IN DAILY PROGRESS NOTES AND DISCHARGE SUMMARY. This document is not part of the patient's record. Thank You, Rosibel Fallon RN [phone]
--- NOTE | 2017-08-20 10:12 | Progress Note ---
Internal Med Progress Note Date of Service: August 20, 2017. Provider Documentation: SUBJECTIVE: The patient was seen and examined in medical floor She was admitted with a mechanical fall with the history of CAD status post stent placed, hypertension, chronic kidney disease and A. fib off anticoagulation. She complains of back pain and right gluteal pain on every movement Denies to have any other symptoms OBJECTIVE: Vital Signs-as noted below Exam: General-no apparent distress at rest Eyes-normal ENT-normal Neck-supple Lungs-clear to auscultate bilaterally with decreased breath sounds Heart-irregular, no murmur appreciated Abdomen-benign, soft, nontender, bowel sounds present Extremities-negative for any edema Local examination of the right gluteal area-tender 1 palpation with minimal swelling of the right gluteal area Note tender spot located along the spine Neuro-alert, awake and oriented 3 Generally weak but no focal neuro deficit Lab data as noted below. CT of The Abd and Pelvis:: IMPRESSION: 1. Partially imaged large intramuscular hematoma of the right inferior gluteal musculature measures up to 7.3 cm. There is a focal area of active extravasation from one of the gluteal arteries along the superior aspect of the hematoma. 2. Compression deformities of the L1 and L2 vertebral bodies are better characterized on CT lumbar spine of same day. No acute pelvic or hip fracture identified. 3. No evidence of acute solid organ injury or pneumoperitoneum. 4. Moderate wall thickening of the bladder with perivesicular inflammatory stranding is suspicious for cystitis. Correlate with urinalysis. 5. Unchanged unilocular cystic lesion of the left adnexum, 8.1 cm appears stable dating back to 2014. CT of the Lumbar spine::IMPRESSION: 1. Acute compression deformity of the L1 vertebral body with 20% loss of vertebral body height involving the central aspect of the superior endplate. No retropulsion or central canal narrowing at this level. 2. 40% anterior endplate compression deformity of the L2 vertebral body with 4 mm retropulsion involving the superior aspect of the posterior endplate results in moderate central canal narrowing. This may reflect an acute on chronic compression deformity, however is new from 2014. Correlate with point tenderness. 3. No acute fracture or subluxation of the thoracic spine. 4. Lumbar levoscoliosis with multilevel degenerative changes as above. CT of the Head-Negative US right Gluteal Region::IMPRESSION: Generally stable intramuscular hematoma compared to the patient's prior CT exam. ASSESSMENT & PLAN: Acute Blood Loss Anemia Secondary to Right gluteal hematoma, Orthopedics consult requested Chronic anemia, hemoglobin at baseline Appropriate to hold aspirin for now given right gluteal hematoma. Blood Transfusion and monitor H/H Repeat US -did not show any increase in Hematoma Repeat CBC tomorrow Osteoporotic Fracture following Ground level fall Compression fracture of L1 and L2 secondary to mechanical fall, currently hemodynamically stable. Orthopedic evaluation PT/OT therapy as per Ortho Hypertension. Blood pressure initially in the lower side in the ER. 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 Vital Signs: Date Time Temp Pulse Resp B/P (MAP) Pulse Ox O2 Delivery O2 Flow Rate FiO2 08/20/17 08:02 36.6 76 18 110/66 (81) 97 Room Air 08/20/17 07:55 Room Air 08/19/17 23:55 Room Air 08/19/17 23:55 Room Air 08/19/17 22:40 36.5 64 18 126/66 08/19/17 20:38 66 18 152/71 96 Room Air 08/19/17 19:09 114/58 08/19/17 19:00 75 18 74/43 97 Room Air 08/19/17 18:10 70 08/19/17 17:52 36.3 77 16 72/43 95 Room Air Lab Results: Results Past 24 Hours Test 08/19/17 18:10 08/19/17 21:13 08/20/17 00:00 08/20/17 00:16 Range/Units White Blood Count 14.34 4.8-10.8 K/uL Red Blood Count 2.98 4.2-5.4 M/uL Hemoglobin 9.3 7.6 12.0-16.0 g/dL Hematocrit 27.8 22.5 37-47 % Mean Corpuscular Volume 93.3 80-100 fL Mean Corpuscular Hemoglobin 31.2 25-34 pg Mean Corpuscular Hemoglobin Concent 33.5 32-36 g/dl Platelet Count 329 130-400 K/uL Mean Platelet Volume 8.9 7.4-10.4 fL Neutrophils (%) (Auto) 90.2 % Lymphocytes (%) (Auto) 5.8 % Monocytes (%) (Auto) 2.2 % Eosinophils (%) (Auto) 1.2 % Basophils (%) (Auto) 0.1 % Neutrophils # (Auto) 13.34 1.4-6.5 K/uL Lymphocytes # (Auto) 0.86 1.2-3.4 K/uL Monocytes # (Auto) 0.32 0.11-0.59 K/uL Eosinophils # (Auto) 0.17 0-0.5 K/uL Basophils # (Auto) 0.02 0-0.2 K/uL RDW Standard Deviation 46.8 36.4-46.3 fL RDW Coefficient of Variation 13.7 11.5-14.5 % Immature Granulocyte % (Auto) 0.5 % Immature Granulocyte # (Auto) 0.07 0.00-0.02 K/uL Nucleated RBC Absolute Count (auto) 0.00 0-0 K/uL Nucleated Red Blood Cells % 0.0 % Sodium Level 133 136-145 mmol/L Potassium Level 4.5 3.5-5.1 mmol/L Chloride Level 104 98-107 mmol/L Carbon Dioxide Level 26 21-32 mmol/L Anion Gap 3.0 3-11 mmol/L Blood Urea Nitrogen 31 7-18 mg/dl Creatinine 1.33 0.60-1.20 mg/dl Est Creatinine Clear Calc Drug Dose 31.6 ml/min Estimated GFR () 43.6 Estimated GFR (Non- 37.7 BUN/Creatinine Ratio 23.1 10-20 Random Glucose 125 70-99 mg/dl Calcium Level 8.6 8.5-10.1 mg/dl Magnesium Level 1.8 1.8-2.4 mg/dl Total Bilirubin 0.3 0.2-1 mg/dl Direct Bilirubin 0.1 0-0.2 mg/dl Aspartate Amino Transf (AST/SGOT) 22 15-37 U/L Alanine Aminotransferase (ALT/SGPT) 17 12-78 U/L Alkaline Phosphatase 75 45-117 U/L Total Creatine Kinase 47 26-192 U/L Total Protein 7.2 6.4-8.2 gm/dl Albumin 3.3 3.4-5.0 gm/dl Procalcitonin 0.10 0-0.5 ng/ml Thyroid Stimulating Hormone (TSH) 4.520 0.300-4.500 uIu/ml Free Thyroxine 1.40 0.80-1.60 ng/dl Total Triiodothyronine 0.69 0.60-1.81 ng/ml Lactic Acid Level 1.5 0.4-2.0 mmol/L Urine Color YELLOW Urine Appearance CLEAR CLEAR Urine pH 5.5 4.5-7.5 Urine Specific [place] > 1.045 1.000-1.030 Urine Protein NEG NEG Urine Glucose (UA) NEG NEG Urine Ketones NEG NEG Urine Occult Blood NEG NEG Urine Nitrite NEG NEG Urine Bilirubin NEG NEG Urine Urobilinogen NEG NEG Urine Leukocyte Esterase NEG NEG Prothrombin Time 11.3 9.0-12.0 SECONDS Prothromb Time International Ratio 1.1 0.9-1.1 Activated Partial Thromboplast Time 32.8 21.0-31.0 SECONDS Partial Thromboplastin Ratio 1.3 Test 08/20/17 04:55 Range/Units White Blood Count 10.44 4.8-10.8 K/uL Red Blood Count 2.30 4.2-5.4 M/uL Hemoglobin 7.2 12.0-16.0 g/dL Hematocrit 21.3 37-47 % Mean Corpuscular Volume 92.6 80-100 fL Mean Corpuscular Hemoglobin 31.3 25-34 pg Mean Corpuscular Hemoglobin Concent 33.8 32-36 g/dl Platelet Count 230 130-400 K/uL Mean Platelet Volume 8.6 7.4-10.4 fL Neutrophils (%) (Auto) 85.8 % Lymphocytes (%) (Auto) 6.7 % Monocytes (%) (Auto) 7.1 % Eosinophils (%) (Auto) 0.0 % Basophils (%) (Auto) 0.1 % Neutrophils # (Auto) 8.96 1.4-6.5 K/uL Lymphocytes # (Auto) 0.70 1.2-3.4 K/uL Monocytes # (Auto) 0.74 0.11-0.59 K/uL Eosinophils # (Auto) 0.00 0-0.5 K/uL Basophils # (Auto) 0.01 0-0.2 K/uL RDW Standard Deviation 46.9 36.4-46.3 fL RDW Coefficient of Variation 13.8 11.5-14.5 % Immature Granulocyte % (Auto) 0.3 % Immature Granulocyte # (Auto) 0.03 0.00-0.02 K/uL Red Blood Cell Morphology Unremarkable Sodium Level 135 136-145 mmol/L Potassium Level 4.5 3.5-5.1 mmol/L Chloride Level 106 98-107 mmol/L Carbon Dioxide Level 24 21-32 mmol/L Anion Gap 5.0 3-11 mmol/L Blood Urea Nitrogen 31 7-18 mg/dl Creatinine 1.25 0.60-1.20 mg/dl Est Creatinine Clear Calc Drug Dose 33.6 ml/min Estimated GFR () 47.0 Estimated GFR (Non- 40.6 BUN/Creatinine Ratio 24.7 10-20 Random Glucose 122 70-99 mg/dl Calcium Level 8.1 8.5-10.1 mg/dl Microbiology Results 08/19/17 Blood Culture, Received Pending
[2017-08-20] MEDS: ACETAMINOPHEN 325 MG TAB PO PRN ×3 (12:24→23:50)
[2017-08-20 15:13] LABS: HEMATOCRIT 22.7 % (37-47); HEMOGLOBIN 7.6 g/dL (12.0-16.0)
[2017-08-20] MEDS: PRAVASTATIN SOD 20 MG TAB PO SCH (21:10)
[2017-08-21] VITALS (18 sets, daily range): BP systolic 101–149; BP diastolic 51–74; PULSE 65–82; TEMP 36.2–38.2; O2SAT 93–99
[2017-08-21] MEDS: LEVOTHYROXINE 112 MCG TAB PO SCH (06:02)
[2017-08-21] MEDS: ACETAMINOPHEN 325 MG TAB PO PRN ×3 (06:06→20:55)
[2017-08-21 07:40] LABS: HEMATOCRIT 20.3 % (37-47); MEAN CORPUSCULAR HEMOGLOBIN 31.4 pg (25-34); MEAN CORPUSCULAR HGB CONC 34.5 g/dl (32-36); MEAN PLATELET VOLUME 8.8 fL (7.4-10.4); PLATELET COUNT 208 K/uL (130-400); RED CELL DISTRIBUTION WIDTH CV 14.6 % (11.5-14.5); RED CELL DISTRIBUTION WIDTH SD 48.6 fL (36.4-46.3); WHITE BLOOD COUNT 6.19 K/uL (4.8-10.8)
[2017-08-21 07:47] LABS: BASO % 0.5 %; BASO ABS # 0.03 K/uL (0-0.2); EOS % 2.6 %; EOS ABS # 0.16 K/uL (0-0.5); IG# 0.02 K/uL (0.00-0.02); LYMPH % 14.2 %; LYMPH ABS # 0.88 K/uL (1.2-3.4); MONO % 11.8 %; MONO ABS # 0.73 K/uL (0.11-0.59); NEUT % 70.6 %; NEUT ABS # 4.37 K/uL (1.4-6.5)
[2017-08-21] MEDS: URSODIOL 300 MG CAP PO SCH ×3 (08:54→20:56)
[2017-08-21] MEDS: CEROVITE ADV FORMULA TAB PO SCH (08:54)
[2017-08-21] MEDS: LIDODERM (LIDOCAINE) PATCH 5% TD SCH (08:54)
--- NOTE | 2017-08-21 09:21 | ORTHOPEDIC CONSULTATION ---
DATE OF ADMISSION: 08/20/2017 HISTORY OF PRESENT ILLNESS: The patient presents as a very pleasant 81-year-old white female who was admitted on 08/19/2017, sustained a fall at home, landing on her right buttock, presents with an ecchymotic hematoma of the right buttock. She is noted to be neurovascularly and neurologically intact. She has pain and tenderness to palpation of the palpable hematoma in the region of the right buttock. She has a Lidoderm patch positioned just proximal to this in the region of the sacroiliac joint. She denies any episode of true hip or groin pain. No anterior hip pain. She has no significant pain on motion of her hip or hip flexion, extension, and rotation. Her distal neurovascular status is intact. She relates having been on 81 mg of aspirin which has been discontinued upon her admission to the hospital. She denies any other particular bleeding, dyscrasias or other bleeding problems. Her x-rays revealed that there is evidence of fracture noted. She does have a scan consistent with an 8 x 4 cm hematoma in the right buttock; does not appear to be causing any neurovascular problems. At this point, we discussed conservative management with ice and pain management; progressive ambulation as tolerated. We will follow with her as needed. At this point, I do not think a surgical intervention is necessary. Will follow with you should situation change and make appropriate decisions at that time. ASSESSMENT: Hematoma, right posterior buttock, posttraumatic. PLAN: For conservative management.
[2017-08-21] MEDS: SOTALOL HCL 80 MG TAB PO SCH ×2 (10:05→20:56)
--- NOTE | 2017-08-21 18:38 | Progress Note ---
Internal Med Progress Note Date of Service: August 21, 2017. Provider Documentation: SUBJECTIVE: The patient was seen and examined in medical floor She was admitted with a mechanical fall with the history of CAD status post stent placed, hypertension, chronic kidney disease and A. fib off anticoagulation. She complains of back pain and right gluteal pain on every movement Denies to have any other symptoms Wants to eat solid food Minimal pain on movement Hb is down again today OBJECTIVE: Vital Signs-as noted below Exam: General-no apparent distress at rest Eyes-normal ENT-normal Neck-supple Lungs-clear to auscultate bilaterally with decreased breath sounds Heart-irregular, no murmur appreciated Abdomen-benign, soft, nontender, bowel sounds present Extremities-negative for any edema Local examination of the right gluteal area-tender 1 palpation with minimal swelling of the right gluteal area Note tender spot located along the spine Neuro-alert, awake and oriented 3 Generally weak but no focal neuro deficit Lab data as noted below. CT of The Abd and Pelvis:: IMPRESSION: 1. Partially imaged large intramuscular hematoma of the right inferior gluteal musculature measures up to 7.3 cm. There is a focal area of active extravasation from one of the gluteal arteries along the superior aspect of the hematoma. 2. Compression deformities of the L1 and L2 vertebral bodies are better characterized on CT lumbar spine of same day. No acute pelvic or hip fracture identified. 3. No evidence of acute solid organ injury or pneumoperitoneum. 4. Moderate wall thickening of the bladder with perivesicular inflammatory stranding is suspicious for cystitis. Correlate with urinalysis. 5. Unchanged unilocular cystic lesion of the left adnexum, 8.1 cm appears stable dating back to 2014. CT of the Lumbar spine::IMPRESSION: 1. Acute compression deformity of the L1 vertebral body with 20% loss of vertebral body height involving the central aspect of the superior endplate. No retropulsion or central canal narrowing at this level. 2. 40% anterior endplate compression deformity of the L2 vertebral body with 4 mm retropulsion involving the superior aspect of the posterior endplate results in moderate central canal narrowing. This may reflect an acute on chronic compression deformity, however is new from 2014. Correlate with point tenderness. 3. No acute fracture or subluxation of the thoracic spine. 4. Lumbar levoscoliosis with multilevel degenerative changes as above. CT of the Head-Negative US right Gluteal Region::IMPRESSION: Generally stable intramuscular hematoma compared to the patient's prior CT exam. ASSESSMENT & PLAN: Acute Blood Loss Anemia Secondary to Right gluteal hematoma, Orthopedics consult requested Chronic anemia, hemoglobin at baseline Appropriate to hold aspirin for now given right gluteal hematoma. Blood Transfusion and monitor H/H Repeat US -did not show any increase in Hematoma Repeat CBC tomorrow-Hb ois down will give 2 units of Blood transfusion Osteoporotic Fracture following Ground level fall Compression fracture of L1 and L2 secondary to mechanical fall, currently hemodynamically stable. Orthopedic evaluation PT/OT therapy as per Ortho-appreciate input Hypertension. Blood pressure initially in the lower side in the ER. 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 Vital Signs: Date Time Temp Pulse Resp B/P (MAP) Pulse Ox O2 Delivery O2 Flow Rate FiO2 08/21/17 16:51 37.1 74 18 135/71 96 08/21/17 15:48 36.9 72 16 101/51 97 08/21/17 15:10 Room Air 08/21/17 14:45 36.7 73 18 138/60 08/21/17 14:15 36.5 73 18 117/65 (82) 96 Room Air 08/21/17 13:45 36.2 82 18 135/71 (92) 96 Room Air 08/21/17 13:34 37.0 08/21/17 13:30 38.2 79 18 146/71 (96) 95 Room Air 08/21/17 13:10 37.8 75 20 122/59 08/21/17 12:25 37.0 73 17 149/74 (99) 96 Room Air 08/21/17 11:25 36.5 75 14 135/67 (89) 98 Room Air 08/21/17 10:55 36.6 73 14 138/69 (92) 96 Room Air 08/21/17 10:25 36.4 71 16 148/73 (98) 99 Room Air 08/21/17 10:10 36.7 67 14 113/61 (78) 97 Room Air 08/21/17 09:50 36.5 74 16 139/65 98 08/21/17 08:59 97 Room Air 08/21/17 08:25 36.2 76 12 125/72 (89) 97 Room Air 08/21/17 07:40 Room Air 08/20/17 23:40 Room Air 08/20/17 23:06 36.6 82 18 145/82 (103) 94 Room Air Lab Results: Results Past 24 Hours Test 08/21/17 06:59 Range/Units White Blood Count 6.19 4.8-10.8 K/uL Red Blood Count 2.23 4.2-5.4 M/uL Hemoglobin 7.0 12.0-16.0 g/dL Hematocrit 20.3 37-47 % Mean Corpuscular Volume 91.0 80-100 fL Mean Corpuscular Hemoglobin 31.4 25-34 pg Mean Corpuscular Hemoglobin Concent 34.5 32-36 g/dl Platelet Count 208 130-400 K/uL Mean Platelet Volume 8.8 7.4-10.4 fL Neutrophils (%) (Auto) 70.6 % Lymphocytes (%) (Auto) 14.2 % Monocytes (%) (Auto) 11.8 % Eosinophils (%) (Auto) 2.6 % Basophils (%) (Auto) 0.5 % Neutrophils # (Auto) 4.37 1.4-6.5 K/uL Lymphocytes # (Auto) 0.88 1.2-3.4 K/uL Monocytes # (Auto) 0.73 0.11-0.59 K/uL Eosinophils # (Auto) 0.16 0-0.5 K/uL Basophils # (Auto) 0.03 0-0.2 K/uL RDW Standard Deviation 48.6 36.4-46.3 fL RDW Coefficient of Variation 14.6 11.5-14.5 % Immature Granulocyte % (Auto) 0.3 % Immature Granulocyte # (Auto) 0.02 0.00-0.02 K/uL Red Blood Cell Morphology Unremarkable
[2017-08-21] MEDS: PRAVASTATIN SOD 20 MG TAB PO SCH (20:56)
[2017-08-22] MEDS: LEVOTHYROXINE 112 MCG TAB PO SCH (05:45)
[2017-08-22] MEDS: ACETAMINOPHEN 325 MG TAB PO PRN ×3 (05:45→21:35)
[2017-08-22 07:01] LABS: BASO % 0.3 %; BASO ABS # 0.02 K/uL (0-0.2); EOS % 3.6 %; EOS ABS # 0.21 K/uL (0-0.5); HEMATOCRIT 29.2 % (37-47); IG# 0.01 K/uL (0.00-0.02); LYMPH % 14.9 %; LYMPH ABS # 0.87 K/uL (1.2-3.4); MEAN CORPUSCULAR HEMOGLOBIN 31.2 pg (25-34); MEAN CORPUSCULAR HGB CONC 34.2 g/dl (32-36); MEAN PLATELET VOLUME 9.2 fL (7.4-10.4); MONO ABS # 0.76 K/uL (0.11-0.59); NEUT ABS # 3.98 K/uL (1.4-6.5); PLATELET COUNT 234 K/uL (130-400); RED CELL DISTRIBUTION WIDTH CV 14.5 % (11.5-14.5); RED CELL DISTRIBUTION WIDTH SD 48.2 fL (36.4-46.3); WHITE BLOOD COUNT 5.85 K/uL (4.8-10.8)
[2017-08-22 07:06] VITALS: BP 158/71; PULSE 66; TEMP 36.7; O2SAT 98
[2017-08-22 07:17] LABS: CALCIUM 8.2 mg/dl (8.5-10.1); CREATININE 1.3 mg/dl (0.60-1.20)
[2017-08-22] MEDS: SOTALOL HCL 80 MG TAB PO SCH ×2 (08:33→21:36)
[2017-08-22] MEDS: URSODIOL 300 MG CAP PO SCH ×3 (08:33→21:36)
[2017-08-22] MEDS: CEROVITE ADV FORMULA TAB PO SCH (08:33)
[2017-08-22] MEDS: LIDODERM (LIDOCAINE) PATCH 5% TD SCH (08:34)
--- NOTE | 2017-08-22 14:04 | Orthopedic Progress Note ---
Orthopedic Progress Note Date of Service August 22, 2017. Subjective Additional Notes: Pt up and ambulating in the room. No overt complaints. States she is feeling a little stiff today but otherwise is feeling well. R buttock pain has not increased/worsened. Objective calves soft nontender, N/V intact, A&O x3 Right buttock area with ecchymosis. Areas feel soft. No overt pain on light palpation. Thigh soft. Date Time Temp Pulse Resp B/P (MAP) Pulse Ox O2 Delivery O2 Flow Rate FiO2 08/22/17 08:00 Room Air 08/22/17 07:06 36.7 66 16 158/71 (100) 98 Room Air 08/21/17 23:46 Room Air 08/21/17 22:52 37.3 65 16 127/62 (83) 93 Room Air 08/21/17 16:51 37.1 74 18 135/71 96 08/21/17 15:48 36.9 72 16 101/51 97 08/21/17 15:10 Room Air 08/21/17 14:45 36.7 73 18 138/60 08/21/17 14:15 36.5 73 18 117/65 (82) 96 Room Air Laboratory Results 24 Hours: Test 08/22/17 05:50 White Blood Count 5.85 K/uL Red Blood Count 3.21 M/uL Hemoglobin 10.0 g/dL Hematocrit 29.2 % Mean Corpuscular Volume 91.0 fL Mean Corpuscular Hemoglobin 31.2 pg Mean Corpuscular Hemoglobin Concent 34.2 g/dl Platelet Count 234 K/uL Mean Platelet Volume 9.2 fL Neutrophils (%) (Auto) 68.0 % Lymphocytes (%) (Auto) 14.9 % Monocytes (%) (Auto) 13.0 % Eosinophils (%) (Auto) 3.6 % Basophils (%) (Auto) 0.3 % Neutrophils # (Auto) 3.98 K/uL Lymphocytes # (Auto) 0.87 K/uL Monocytes # (Auto) 0.76 K/uL Eosinophils # (Auto) 0.21 K/uL Basophils # (Auto) 0.02 K/uL Assessment & Plan Assessment: Right Buttock Hematoma Plan: Continue current tx plan Follow up with [facility] if needed in 2 weeks Ortho will sign off at this time. Please call with any questions.
--- NOTE | 2017-08-22 14:58 | Progress Note ---
Internal Med Progress Note Date of Service: August 22, 2017. Provider Documentation: SUBJECTIVE: The patient was seen and examined in medical floor She was admitted with a mechanical fall with the history of CAD status post stent placed, hypertension, chronic kidney disease and A. fib off anticoagulation. She complains of back pain and right gluteal pain on every movement Denies to have any other symptoms 5/4 Has had diarrhea No Nausea and or vomiting OBJECTIVE: Vital Signs-as noted below Exam: General-no apparent distress at rest Eyes-normal ENT-normal Neck-supple Lungs-clear to auscultate bilaterally with decreased breath sounds Heart-irregular, no murmur appreciated Abdomen-benign, soft, nontender, bowel sounds present Extremities-negative for any edema Local examination of the right gluteal area-tender 1 palpation with minimal swelling of the right gluteal area Note tender spot located along the spine Neuro-alert, awake and oriented 3 Generally weak but no focal neuro deficit Lab data as noted below. CT of The Abd and Pelvis:: IMPRESSION: 1. Partially imaged large intramuscular hematoma of the right inferior gluteal musculature measures up to 7.3 cm. There is a focal area of active extravasation from one of the gluteal arteries along the superior aspect of the hematoma. 2. Compression deformities of the L1 and L2 vertebral bodies are better characterized on CT lumbar spine of same day. No acute pelvic or hip fracture identified. 3. No evidence of acute solid organ injury or pneumoperitoneum. 4. Moderate wall thickening of the bladder with perivesicular inflammatory stranding is suspicious for cystitis. Correlate with urinalysis. 5. Unchanged unilocular cystic lesion of the left adnexum, 8.1 cm appears stable dating back to 2014. CT of the Lumbar spine::IMPRESSION: 1. Acute compression deformity of the L1 vertebral body with 20% loss of vertebral body height involving the central aspect of the superior endplate. No retropulsion or central canal narrowing at this level. 2. 40% anterior endplate compression deformity of the L2 vertebral body with 4 mm retropulsion involving the superior aspect of the posterior endplate results in moderate central canal narrowing. This may reflect an acute on chronic compression deformity, however is new from 2014. Correlate with point tenderness. 3. No acute fracture or subluxation of the thoracic spine. 4. Lumbar levoscoliosis with multilevel degenerative changes as above. CT of the Head-Negative US right Gluteal Region::IMPRESSION: Generally stable intramuscular hematoma compared to the patient's prior CT exam. ASSESSMENT & PLAN: Acute Blood Loss Anemia Secondary to Right gluteal hematoma, Orthopedics consult requested Chronic anemia, hemoglobin at baseline Appropriate to hold aspirin for now given right gluteal hematoma. Blood Transfusion and monitor H/H Repeat US -did not show any increase in Hematoma Repeat CBC tomorrow-Hb ois down will give 2 units of Blood transfusion Hb went up to 10.0 Denies any symptoms except Diarrhea Will check C Diff Toxins Osteoporotic Fracture following Ground level fall Compression fracture of L1 and L2 secondary to mechanical fall, currently hemodynamically stable. Orthopedic evaluation PT/OT therapy as per Ortho-appreciate input OP appointment with Ortho in 2 weeks Hypertension. Blood pressure initially in the lower side in the ER. 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 Vital Signs: Date Time Temp Pulse Resp B/P (MAP) Pulse Ox O2 Delivery O2 Flow Rate FiO2 08/22/17 08:00 Room Air 08/22/17 07:06 36.7 66 16 158/71 (100) 98 Room Air 08/21/17 23:46 Room Air 08/21/17 22:52 37.3 65 16 127/62 (83) 93 Room Air 08/21/17 16:51 37.1 74 18 135/71 96 08/21/17 15:48 36.9 72 16 101/51 97 08/21/17 15:10 Room Air Lab Results: Results Past 24 Hours Test 08/22/17 05:50 Range/Units White Blood Count 5.85 4.8-10.8 K/uL Red Blood Count 3.21 4.2-5.4 M/uL Hemoglobin 10.0 12.0-16.0 g/dL Hematocrit 29.2 37-47 % Mean Corpuscular Volume 91.0 80-100 fL Mean Corpuscular Hemoglobin 31.2 25-34 pg Mean Corpuscular Hemoglobin Concent 34.2 32-36 g/dl Platelet Count 234 130-400 K/uL Mean Platelet Volume 9.2 7.4-10.4 fL Neutrophils (%) (Auto) 68.0 % Lymphocytes (%) (Auto) 14.9 % Monocytes (%) (Auto) 13.0 % Eosinophils (%) (Auto) 3.6 % Basophils (%) (Auto) 0.3 % Neutrophils # (Auto) 3.98 1.4-6.5 K/uL Lymphocytes # (Auto) 0.87 1.2-3.4 K/uL Monocytes # (Auto) 0.76 0.11-0.59 K/uL Eosinophils # (Auto) 0.21 0-0.5 K/uL Basophils # (Auto) 0.02 0-0.2 K/uL RDW Standard Deviation 48.2 36.4-46.3 fL RDW Coefficient of Variation 14.5 11.5-14.5 % Immature Granulocyte % (Auto) 0.2 % Immature Granulocyte # (Auto) 0.01 0.00-0.02 K/uL Sodium Level 138 136-145 mmol/L Potassium Level 4.0 3.5-5.1 mmol/L Chloride Level 109 98-107 mmol/L Carbon Dioxide Level 25 21-32 mmol/L Anion Gap 5.0 3-11 mmol/L Blood Urea Nitrogen 27 7-18 mg/dl Creatinine 1.30 0.60-1.20 mg/dl Est Creatinine Clear Calc Drug Dose 32.3 ml/min Estimated GFR () 44.9 Estimated GFR (Non- 38.7 BUN/Creatinine Ratio 21.0 10-20 Random Glucose 84 70-99 mg/dl Calcium Level 8.2 8.5-10.1 mg/dl Magnesium Level 2.2 1.8-2.4 mg/dl
[2017-08-22 15:22] VITALS: BP 122/68; PULSE 68; TEMP 36.6; O2SAT 98
[2017-08-22] MEDS: TRAMADOL HCL 50 MG TAB PO PRN (16:36)
[2017-08-22] MEDS: PRAVASTATIN SOD 20 MG TAB PO SCH (21:36)
[2017-08-22 21:38] VITALS: BP 164/82; PULSE 69
[2017-08-22 23:20] VITALS: BP 150/75; PULSE 62; TEMP 36.7; O2SAT 95
[2017-08-23] MEDS: LEVOTHYROXINE 112 MCG TAB PO SCH (05:31)
[2017-08-23] MEDS: ACETAMINOPHEN 325 MG TAB PO PRN ×3 (05:32→20:50)
[2017-08-23 07:08] LABS: BASO % 0.6 %; BASO ABS # 0.04 K/uL (0-0.2); EOS ABS # 0.32 K/uL (0-0.5); HEMATOCRIT 27.9 % (37-47); HEMOGLOBIN 9.4 g/dL (12.0-16.0); IG# 0.01 K/uL (0.00-0.02); LYMPH % 14.7 %; LYMPH ABS # 0.94 K/uL (1.2-3.4); MEAN CELL VOLUME 91.5 fL (80-100); MEAN CORPUSCULAR HEMOGLOBIN 30.8 pg (25-34); MEAN CORPUSCULAR HGB CONC 33.7 g/dl (32-36); MONO % 10.8 %; MONO ABS # 0.69 K/uL (0.11-0.59); NEUT % 68.7 %; NEUT ABS # 4.39 K/uL (1.4-6.5); PLATELET COUNT 254 K/uL (130-400); RED CELL DISTRIBUTION WIDTH CV 14.6 % (11.5-14.5); RED CELL DISTRIBUTION WIDTH SD 49.1 fL (36.4-46.3); WHITE BLOOD COUNT 6.39 K/uL (4.8-10.8)
[2017-08-23 07:36] VITALS: BP 173/71; PULSE 68; TEMP 36.8; O2SAT 98
[2017-08-23] MEDS: URSODIOL 300 MG CAP PO SCH ×3 (08:50→20:45)
[2017-08-23] MEDS: CEROVITE ADV FORMULA TAB PO SCH (08:50)
[2017-08-23] MEDS: LIDODERM (LIDOCAINE) PATCH 5% TD SCH (08:50)
[2017-08-23] MEDS: SOTALOL HCL 80 MG TAB PO SCH ×2 (08:51→20:45)
[2017-08-23 09:49] VITALS: BP 173/71; PULSE 68; TEMP 36.8; O2SAT 98
[2017-08-23] MEDS: TRAMADOL HCL 50 MG TAB PO PRN ×2 (11:19→18:13)
--- NOTE | 2017-08-23 11:57 | Progress Note ---
Internal Med Progress Note Date of Service: August 23, 2017. Provider Documentation: SUBJECTIVE: The patient was seen and examined in medical floor She was admitted with a mechanical fall with the history of CAD status post stent placed, hypertension, chronic kidney disease and A. fib off anticoagulation. She complains of back pain and right gluteal pain on every movement Denies to have any other symptoms 5/4 Has had diarrhea No Nausea and or vomiting 5/5 Remains free from pain No complaints Wants to go home OBJECTIVE: Vital Signs-as noted below Exam: General-no apparent distress at rest Eyes-normal ENT-normal Neck-supple Lungs-clear to auscultate bilaterally with decreased breath sounds Heart-irregular, no murmur appreciated Abdomen-benign, soft, nontender, bowel sounds present Extremities-negative for any edema Local examination of the right gluteal area-tender 1 palpation with minimal swelling of the right gluteal area Note tender spot located along the spine Neuro-alert, awake and oriented 3 Generally weak but no focal neuro deficit Lab data as noted below. CT of The Abd and Pelvis:: IMPRESSION: 1. Partially imaged large intramuscular hematoma of the right inferior gluteal musculature measures up to 7.3 cm. There is a focal area of active extravasation from one of the gluteal arteries along the superior aspect of the hematoma. 2. Compression deformities of the L1 and L2 vertebral bodies are better characterized on CT lumbar spine of same day. No acute pelvic or hip fracture identified. 3. No evidence of acute solid organ injury or pneumoperitoneum. 4. Moderate wall thickening of the bladder with perivesicular inflammatory stranding is suspicious for cystitis. Correlate with urinalysis. 5. Unchanged unilocular cystic lesion of the left adnexum, 8.1 cm appears stable dating back to 2014. CT of the Lumbar spine::IMPRESSION: 1. Acute compression deformity of the L1 vertebral body with 20% loss of vertebral body height involving the central aspect of the superior endplate. No retropulsion or central canal narrowing at this level. 2. 40% anterior endplate compression deformity of the L2 vertebral body with 4 mm retropulsion involving the superior aspect of the posterior endplate results in moderate central canal narrowing. This may reflect an acute on chronic compression deformity, however is new from 2014. Correlate with point tenderness. 3. No acute fracture or subluxation of the thoracic spine. 4. Lumbar levoscoliosis with multilevel degenerative changes as above. CT of the Head-Negative US right Gluteal Region::IMPRESSION: Generally stable intramuscular hematoma compared to the patient's prior CT exam. ASSESSMENT & PLAN: Acute Blood Loss Anemia Secondary to Right gluteal hematoma, Orthopedics consult requested Chronic anemia, hemoglobin at baseline Appropriate to hold aspirin for now given right gluteal hematoma. Blood Transfusion and monitor H/H Repeat US -did not show any increase in Hematoma Repeat CBC tomorrow-Hb ois down will give 2 units of Blood transfusion Hb went up to 10.0 and remains stable Denies any symptoms except Diarrhea Will check C Diff Toxins -pending and no more diarrhea Osteoporotic Fracture following Ground level fall Compression fracture of L1 and L2 secondary to mechanical fall, currently hemodynamically stable. Orthopedic evaluation PT/OT therapy as per Ortho-appreciate input OP appointment with Ortho in 2 weeks Hypertension. Blood pressure initially in the lower side in the ER. Hypertension, stable now Non-Hodgkin's, status post reduction Rituxan No acute symptoms Atrial Fibrillation Not on any anticoagulation due to risk of Bleeding Rate is controlled No acute symptoms CKD -stage 3 Monitor PRP-remains stable DVT prophylaxis, SCDs . new car salesperson; Mr. Russel Baig, and [phone]-discussed with Discharge today Vital Signs: Date Time Temp Pulse Resp B/P (MAP) Pulse Ox O2 Delivery O2 Flow Rate FiO2 08/23/17 09:49 36.8 68 16 98 Room Air 08/23/17 08:00 Room Air 08/23/17 07:36 36.8 68 16 173/71 (105) 98 Room Air 08/22/17 23:28 Room Air 08/22/17 23:20 36.7 62 16 150/75 (100) 95 Room Air 08/22/17 21:38 69 164/82 (109) 08/22/17 16:35 Room Air 08/22/17 15:22 36.6 68 18 122/68 (86) 98 Lab Results: Results Past 24 Hours Test 08/23/17 06:34 Range/Units White Blood Count 6.39 4.8-10.8 K/uL Red Blood Count 3.05 4.2-5.4 M/uL Hemoglobin 9.4 12.0-16.0 g/dL Hematocrit 27.9 37-47 % Mean Corpuscular Volume 91.5 80-100 fL Mean Corpuscular Hemoglobin 30.8 25-34 pg Mean Corpuscular Hemoglobin Concent 33.7 32-36 g/dl Platelet Count 254 130-400 K/uL Mean Platelet Volume 9.0 7.4-10.4 fL Neutrophils (%) (Auto) 68.7 % Lymphocytes (%) (Auto) 14.7 % Monocytes (%) (Auto) 10.8 % Eosinophils (%) (Auto) 5.0 % Basophils (%) (Auto) 0.6 % Neutrophils # (Auto) 4.39 1.4-6.5 K/uL Lymphocytes # (Auto) 0.94 1.2-3.4 K/uL Monocytes # (Auto) 0.69 0.11-0.59 K/uL Eosinophils # (Auto) 0.32 0-0.5 K/uL Basophils # (Auto) 0.04 0-0.2 K/uL RDW Standard Deviation 49.1 36.4-46.3 fL RDW Coefficient of Variation 14.6 11.5-14.5 % Immature Granulocyte % (Auto) 0.2 % Immature Granulocyte # (Auto) 0.01 0.00-0.02 K/uL Microbiology Results 08/23/17 C.difficile Toxin B Gene (PCR), Received Pending
[2017-08-23] MEDS ORDERED: ULT50X PO (12:03)
[2017-08-23] MEDS: RASPBERRY SYRUP 5 ML UDP PO SCH ×3 (13:07→23:24)
[2017-08-23] MEDS: VANCOMYCIN HCL 125 MG/2.5ML SOLN PO SCH ×3 (13:07→23:24)
[2017-08-23 15:15] VITALS: BP 160/82; PULSE 72; TEMP 36.7; O2SAT 96
[2017-08-23 20:45] VITALS: BP 150/84; PULSE 72
[2017-08-23] MEDS: PRAVASTATIN SOD 20 MG TAB PO SCH (20:45)
[2017-08-23 22:58] VITALS: BP 136/78; PULSE 82; TEMP 36.8; O2SAT 96
[2017-08-24] MEDS: LEVOTHYROXINE 112 MCG TAB PO SCH (05:33)
[2017-08-24] MEDS: RASPBERRY SYRUP 5 ML UDP PO SCH ×2 (05:35→12:02)
[2017-08-24] MEDS: VANCOMYCIN HCL 125 MG/2.5ML SOLN PO SCH ×2 (05:35→12:02)
[2017-08-24] MEDS: ACETAMINOPHEN 325 MG TAB PO PRN (05:36)
[2017-08-24 06:02] LABS: BASO % 0.8 %; BASO ABS # 0.05 K/uL (0-0.2); EOS % 6.4 %; EOS ABS # 0.39 K/uL (0-0.5); HEMATOCRIT 28.1 % (37-47); HEMOGLOBIN 9.4 g/dL (12.0-16.0); IG# 0.01 K/uL (0.00-0.02); LYMPH % 16.9 %; LYMPH ABS # 1.02 K/uL (1.2-3.4); MEAN CELL VOLUME 92.4 fL (80-100); MEAN CORPUSCULAR HEMOGLOBIN 30.9 pg (25-34); MEAN CORPUSCULAR HGB CONC 33.5 g/dl (32-36); MEAN PLATELET VOLUME 8.9 fL (7.4-10.4); MONO % 13.1 %; MONO ABS # 0.79 K/uL (0.11-0.59); NEUT % 62.6 %; NEUT ABS # 3.79 K/uL (1.4-6.5); PLATELET COUNT 285 K/uL (130-400); RED CELL DISTRIBUTION WIDTH CV 14.4 % (11.5-14.5); RED CELL DISTRIBUTION WIDTH SD 48.4 fL (36.4-46.3); WHITE BLOOD COUNT 6.05 K/uL (4.8-10.8)
[2017-08-24 07:09] VITALS: BP 162/67; PULSE 69; TEMP 36.8; O2SAT 96
[2017-08-24] MEDS: LIDODERM (LIDOCAINE) PATCH 5% TD SCH (09:14)
[2017-08-24] MEDS: CEROVITE ADV FORMULA TAB PO SCH (09:14)
[2017-08-24] MEDS: URSODIOL 300 MG CAP PO SCH (09:15)
[2017-08-24] MEDS: SOTALOL HCL 80 MG TAB PO SCH (09:15)
--- NOTE | 2017-08-24 11:14 | Progress Note ---
Internal Med Progress Note Date of Service: August 24, 2017. Provider Documentation: SUBJECTIVE: The patient was seen and examined in medical floor She was admitted with a mechanical fall with the history of CAD status post stent placed, hypertension, chronic kidney disease and A. fib off anticoagulation. She complains of back pain and right gluteal pain on every movement Denies to have any other symptoms 5/4 Has had diarrhea No Nausea and or vomiting 5/5 Remains free from pain No complaints Wants to go home 5/6 Diarrhea is better Denies any Abdominal pain ,no nausea and or vomiting Will go home today OBJECTIVE: Vital Signs-as noted below Exam: General-no apparent distress at rest Eyes-normal ENT-normal Neck-supple Lungs-clear to auscultate bilaterally with decreased breath sounds Heart-irregular, no murmur appreciated Abdomen-benign, soft, nontender, bowel sounds present Extremities-negative for any edema Local examination of the right gluteal area-tender 1 palpation with minimal swelling of the right gluteal area No tender spot located along the spine Neuro-alert, awake and oriented 3 Generally weak but no focal neuro deficit Lab data as noted below. CT of The Abd and Pelvis:: IMPRESSION: 1. Partially imaged large intramuscular hematoma of the right inferior gluteal musculature measures up to 7.3 cm. There is a focal area of active extravasation from one of the gluteal arteries along the superior aspect of the hematoma. 2. Compression deformities of the L1 and L2 vertebral bodies are better characterized on CT lumbar spine of same day. No acute pelvic or hip fracture identified. 3. No evidence of acute solid organ injury or pneumoperitoneum. 4. Moderate wall thickening of the bladder with perivesicular inflammatory stranding is suspicious for cystitis. Correlate with urinalysis. 5. Unchanged unilocular cystic lesion of the left adnexum, 8.1 cm appears stable dating back to 2014. CT of the Lumbar spine::IMPRESSION: 1. Acute compression deformity of the L1 vertebral body with 20% loss of vertebral body height involving the central aspect of the superior endplate. No retropulsion or central canal narrowing at this level. 2. 40% anterior endplate compression deformity of the L2 vertebral body with 4 mm retropulsion involving the superior aspect of the posterior endplate results in moderate central canal narrowing. This may reflect an acute on chronic compression deformity, however is new from 2014. Correlate with point tenderness. 3. No acute fracture or subluxation of the thoracic spine. 4. Lumbar levoscoliosis with multilevel degenerative changes as above. CT of the Head-Negative US right Gluteal Region::IMPRESSION: Generally stable intramuscular hematoma compared to the patient's prior CT exam. ASSESSMENT & PLAN: Acute Blood Loss Anemia Secondary to Right gluteal hematoma, Orthopedics consult requested Chronic anemia, hemoglobin at baseline Appropriate to hold aspirin for now given right gluteal hematoma. Blood Transfusion and monitor H/H Repeat US -did not show any increase in Hematoma Repeat CBC tomorrow-Hb ois down will give 2 units of Blood transfusion Hb went up to 10.0 and remains stable Denies any symptoms except Diarrhea Will check C Diff Toxins -positive and started on Oral Vancomycin Hb remains stable -08/24 Will discharge today C Diff Colitis Started on oral Vanco -will continue for 14 days Can be discharged Take precautions to avoid contamination Osteoporotic Fracture following Ground level fall Compression fracture of L1 and L2 secondary to mechanical fall, currently hemodynamically stable. Orthopedic evaluation PT/OT therapy as per Ortho-appreciate input OP appointment with Ortho in 2 weeks Ambulating well Hypertension. Blood pressure initially in the lower side in the ER. Hypertension, stable now Non-Hodgkin's, status post reduction Rituxan No acute symptoms Atrial Fibrillation Not on any anticoagulation due to risk of Bleeding Rate is controlled No acute symptoms CKD -stage 3 Monitor PRP-remains stable DVT prophylaxis, SCDs . automobile accessories salesperson; Mr. Russel Baig, and [phone]-discussed with Discharge today 08/24 Vital Signs: Date Time Temp Pulse Resp B/P (MAP) Pulse Ox O2 Delivery O2 Flow Rate FiO2 08/24/17 08:00 Room Air 08/24/17 07:09 36.8 69 16 162/67 (98) 96 Room Air 08/23/17 23:28 Room Air 08/23/17 22:58 36.8 82 18 136/78 (97) 96 Room Air 08/23/17 20:45 72 150/84 (106) 08/23/17 15:45 Room Air 08/23/17 15:15 36.7 72 16 160/82 (108) 96 Room Air Lab Results: Results Past 24 Hours Test 08/24/17 05:28 Range/Units White Blood Count 6.05 4.8-10.8 K/uL Red Blood Count 3.04 4.2-5.4 M/uL Hemoglobin 9.4 12.0-16.0 g/dL Hematocrit 28.1 37-47 % Mean Corpuscular Volume 92.4 80-100 fL Mean Corpuscular Hemoglobin 30.9 25-34 pg Mean Corpuscular Hemoglobin Concent 33.5 32-36 g/dl Platelet Count 285 130-400 K/uL Mean Platelet Volume 8.9 7.4-10.4 fL Neutrophils (%) (Auto) 62.6 % Lymphocytes (%) (Auto) 16.9 % Monocytes (%) (Auto) 13.1 % Eosinophils (%) (Auto) 6.4 % Basophils (%) (Auto) 0.8 % Neutrophils # (Auto) 3.79 1.4-6.5 K/uL Lymphocytes # (Auto) 1.02 1.2-3.4 K/uL Monocytes # (Auto) 0.79 0.11-0.59 K/uL Eosinophils # (Auto) 0.39 0-0.5 K/uL Basophils # (Auto) 0.05 0-0.2 K/uL RDW Standard Deviation 48.4 36.4-46.3 fL RDW Coefficient of Variation 14.4 11.5-14.5 % Immature Granulocyte % (Auto) 0.2 % Immature Granulocyte # (Auto) 0.01 0.00-0.02 K/uL
[2017-08-24] MEDS: TRAMADOL HCL 50 MG TAB PO PRN (12:03)
[2017-08-24] MEDS ORDERED: VANC1SUS PO (12:25)
--- NOTE | 2017-08-24 12:31 | Discharge Instructions ---
Discharge Instructions Date of Service August 24, 2017. Admission Reason for Admission: Hematoma Discharge Discharge Diagnosis / Problem: Fall,Left Gluteal Hematoma,C Diff Colitis, compression # Discharge Goals Goal(s): Prevent Disease Progression Activity Recommendations Activity Limitations: per Instructions/Follow-up section (Take precaution to Avoid fall) . Instructions / Follow-Up Instructions / Follow-Up DR Lucas on 08/26/17 at 1:45 PM.Please make an appointment with Dr Lei- [facility] in 2 weeks Current Hospital Diet Patient's current hospital diet: Regular Diet Discharge Diet Recommended Diet: Regular Diet Pending Studies Studies pending at discharge: no Medical Emergencies . Who to Call and When: Medical Emergencies: If at any time you feel your situation is an emergency, please call 911 immediately. . Non-Emergent Contact Non-Emergency issues call your: Primary Care Provider . Past History Medical & Surgical History: (1) Back pain (2) Hematoma (3) Lymphoma (4) Hypothyroidism (5) Osteoarthritis (6) HTN (hypertension) (7) Osteoporosis (8) S/P cholecystectomy . "Provider Documentation" section prepared by Ita Land. .
--- NOTE | 2017-08-24 16:25 | Discharge Summary ---
Discharge Summary Date of Service August 24, 2017. Discharge Summary Admission Date: August 19, 2017 at 21:39 Discharge Date: August 23, 2017 Discharge Disposition: Home Principal Diagnosis: Fall,Left Gluteal Hematoma,C Diff Colitis,compression # L1 and L2 <40% Secondary Diagnoses/Problems: Please see H&P and Hospital Progress note Consultations: Ortho Medication Reconciliation New Medications: Tramadol HCl (Tramadol HCl) 50 Mg Tab 25 MG PO Q6H PRN for Pain for 10 Days, #20 TAB Vancomycin HCl (Vancomycin HCl + Syrspend) 50 Mg/Ml Abi 125 MG PO Q6H for 12 Days, #48 CAP Continued Medications: Acetaminophen Tab (Tylenol) 325 Mg Tab 650 MG PO PRN UD PRN for Pain, TAB TAKE NO MORE THEN 2,000 MG PER 24 HOURS. Albuterol Hfa (Ventolin Hfa) 200 Puffs/09464 Mcg Aers 2 PUFFS INH QID, #1 INHALER Aspirin (Aspirin Ec) 81 Mg Tab 81 MG PO QAM Carvedilol (Coreg) 3.125 Mg Tab 3.125 MG PO BID, TAB Furosemide (Lasix) 80 Mg Tab 40 MG PO MWF, TAB Levothyroxine Sodium (Levothyroxine Sodium) 112 Mcg Tab 112 MCG PO DAILYBB Magnesium Chloride (Slow-Mag Tab) 64 Mg Tabcr 64 MG PO Q2D, TAB Multiple Vitamins W/ Minerals (Preservision Areds 2) 1 Cap Cap 1 CAP PO DAILY Multiple Vitamins W/ Minerals (Preservision Areds) 1 Cap Cap 1 CAP PO DAILY Pravastatin (Pravachol ) 20 Mg Tab 20 MG PO HS, TAB Sotalol Hcl (Betapace) 80 Mg Tab 40 MG PO BID, TAB Ursodiol (Actigall) 300 Mg Cap 300 MG PO TID Admission Information HPI (per Admitting provider): DATE OF ADMISSION: 08/19/2017 PRIMARY CARE PHYSICIAN: Dr. Lucas. CHIEF COMPLAINT: Back pain and fall. HISTORY OF PRESENT ILLNESS: History obtained from patient, , and records. History from patient somewhat limited secondary to hearing impairment. Medical history is significant for CAD status post stenting, hypertension, PAFib off anticoagulation because of bleeding risk, past tobacco abuse, chronic anemia (baseline hemoglobin 9-10), chronic renal insufficiency (baseline creatinine 1.3 -1.5), NHL status post chemotherapy, history of MRSA, hx ESBL E. coli UTI. Recent confinement under surgery service last August 2016 for left breast mastectomy. Pathology later showed adenomyoepithelioma. Patient today fell on her bottom at home after a mechanical fall/ Patient noted achy left buttock pain, right arm pain from falling. No chest pain no SOB . There was some lightheadedness. No syncope. SBP 70s at the Emergency Room at one point. MEDICAL HISTORY: As above. A 2D echo from June 2016 showed LVH, moderate MR, LA dilatation. SURGERIES: Mastectomy, lymph node biopsy, dental surgery, urologic procedures. cholecystectomy. Cataract surgery, tonsillectomy, and bladder defect surgery. HOME MEDICATIONS: Include aspirin, Ventolin, Tylenol, Coreg, Lasix, levothyroxine, Slow-Mag, PreserVision, Pravachol, Betapace, Actigall. ALLERGIES: DIPHENHYDRAMINE, GARLIC, METOPROLOL, PSEUDOEPHEDRINE. FAMILY HISTORY: Heart disease, pancreatic cancer, breast cancer, skin cancer. PERSONAL AND SOCIAL HISTORY: No chronic intake of alcoholic beverages. 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 REVIEW OF SYSTEMS: As per HPI. All 10 systems reviewed, all other ROS negative. PHYSICAL EXAMINATION: VITAL SIGNS: Blood pressure was noted to be 70/50 later 114/68, pulse rate 77, RR 16, T 37 O2 sats 98 on room air. GENERAL: Noted to be slightly uncomfortable. No respiratory distress. hard of hearing. SKIN: Pallor, warm. HEENT: Pale palpebral conjunctivae. No ptosis. Dry mucosa. NECK: Short, supple. CHEST: Decreased BS. No tenderness HEART: Regular rate and rhythm, systolic murmur. ABDOMEN: Some distention, nontender. EXTREMITIES: Ecchymosis, RUE. Tender right gluteal area. NEUROLOGIC: Coherent. mild hearing impairment. No other gross focality. Gait and stance not assessed. LABORATORY DATA: Hemoglobin 9.3, hematocrit 37.8, white cell count 14.34, platelets 329. Sodium noted to be 138, potassium 4.5, chloride 104, CO2 of 26, BUN 30, creatinine 1.3, glucose 125. IMAGING DATA: CT abdomen and pelvis showed a partially imaged large intramuscular hematoma right inferior gluteal musculature measuring 7.3 cm with focal area of active extravasation from one of the gluteal arteries along superior aspect of hematoma. Compression deformities, L1-L2 vertebral bodies. Some bladder wall thickening. CT head, no acute pathology. ASSESSMENT: 1. Right gluteal hematoma, compression fracture of spine secondary to mechanical fall Hemoglobin at baseline, patient known to have chronic anemia secondary to CKD currently hemodynamically stable. 2. Hypertension. Patient initially hypotensive in the ER. BP currently stable although on the lower side.. 3. AF, patient normal sinus rhythm off anticoagulation 2 to hx GI bleed as per patient 4. CAD sp stenting 5. CRI, creatinine at baseline 6. NHL sp chemotherapy 7. History of autoimmune hepatitis as per records 8. Past tobacco abuse PLAN: GMF analgesia. Serial HH. Transfuse PRBC if hemoglobin less than 8 (hx CAD) Appropriate to hold home aspirin for now w R gluteal hematoma until hemoglobin stable. Orthopedics consult, right gluteal hematoma. Hold home Coreg for now given borderline blood pressure. (Resume in a.m. if blood pressure is stable.) PT, OT eval. Fall precautions. DVT prophylaxis, SCDs. RE gluteal hematoma Full code as per , Mr. Russel Baig. He requests updates from providers thru [phone]. Case discussed with Dr. Somers ([facility] review specialist qm consultant.) He recommends follow-up ultrasound of right gluteal region in morning. Hospital Course Acute Blood Loss Anemia Secondary to Right gluteal hematoma, Orthopedics consult requested Chronic anemia, hemoglobin at baseline Appropriate to hold aspirin for now given right gluteal hematoma. Blood Transfusion and monitor H/H Repeat US -did not show any increase in Hematoma Repeat CBC tomorrow-Hb ois down will give 2 units of Blood transfusion Hb went up to 10.0 and remains stable Denies any symptoms except Diarrhea Will check C Diff Toxins -positive and started on Oral Vancomycin Hb remains stable -5/6 Will discharge today C Diff Colitis Started on oral Vanco -will continue for 14 days Can be discharged Take precautions to avoid contamination Osteoporotic Fracture following Ground level fall Compression fracture of L1 and L2 secondary to mechanical fall, currently hemodynamically stable. Orthopedic evaluation PT/OT therapy as per Ortho-appreciate input OP appointment with Ortho in 2 weeks Ambulating well Hypertension. Blood pressure initially in the lower side in the ER. Hypertension, stable now Non-Hodgkin's, status post reduction Rituxan No acute symptoms Atrial Fibrillation Not on any anticoagulation due to risk of Bleeding Rate is controlled No acute symptoms CKD -stage 3 Monitor PRP-remains stable DVT prophylaxis, SCDs . electronic news gathering camera person; Mr. Russel Baig, and [phone]-discussed with Discharge today 08/24 Total time spent on discharge = 35 minutes This includes examination of the patient, discharge planning, medication reconciliation, and communication with other providers. Discharge Instructions Date of Service August 24, 2017. Admission Reason for Admission: Hematoma Discharge Discharge Diagnosis / Problem: Fall,Left Gluteal Hematoma,C Diff Colitis, compression # Discharge Goals Goal(s): Prevent Disease Progression Activity Recommendations Activity Limitations: per Instructions/Follow-up section (Take precaution to Avoid fall) . Instructions / Follow-Up Instructions / Follow-Up DR Lucas on 08/26/17 at 1:45 PM.Please make an appointment with Dr Lei- [facility] in 2 weeks Current Hospital Diet Patient's current hospital diet: Regular Diet Discharge Diet Recommended Diet: Regular Diet Pending Studies Studies pending at discharge: no Medical Emergencies . Who to Call and When: Medical Emergencies: If at any time you feel your situation is an emergency, please call 911 immediately. . Non-Emergent Contact Non-Emergency issues call your: Primary Care Provider . Past History Medical & Surgical History: (1) Back pain (2) Hematoma (3) Lymphoma (4) Hypothyroidism (5) Osteoarthritis (6) HTN (hypertension) (7) Osteoporosis (8) S/P cholecystectomy . "Provider Documentation" section prepared by Ita Land. . <Electronically signed by Ita Land M.D.> Signed: 08/24/17 1231 Additional Copies To Kelsi Lucas,
== END 2017-08-24 13:17 | disposition home or self-care (01) | DRG 543 ==
LOC: C.EDB 17:48 → C.MSN 21:39 → UNDOADMIN 21:39 → EDBEDREQ 21:57 → ENRESERV 22:06
PROVIDERS: ADMIT Internal Medicine; ATTEND Internal Medicine
DX: M80.08XA Age-related osteoporosis with current pathological fracture, vertebra(e), initial encounter for fracture (principal); D62 Acute posthemorrhagic anemia; A04.72 Enterocolitis due to Clostridium difficile, not specified as recurrent; S30.0XXA Contusion of lower back and pelvis, initial encounter; S50.01XA Contusion of right elbow, initial encounter; I13.10 Hypertensive heart and chronic kidney disease without heart failure, with stage 1 through stage 4 chronic kidney disease, or unspecified chronic kidney disease; D63.1 Anemia in chronic kidney disease; I25.2 Old myocardial infarction; N18.3 Chronic kidney disease, stage 3 (moderate); E78.5 Hyperlipidemia, unspecified; E03.9 Hypothyroidism, unspecified; K75.4 Autoimmune hepatitis; I25.10 Atherosclerotic heart disease of native coronary artery without angina pectoris; I48.0 Paroxysmal atrial fibrillation; H91.90 Unspecified hearing loss, unspecified ear; Z79.899 Other long term (current) drug therapy; Z79.82 Long term (current) use of aspirin; Z90.49 Acquired absence of other specified parts of digestive tract; Z95.5 Presence of coronary angioplasty implant and graft; Z85.72 Personal history of non-Hodgkin lymphomas; Z92.21 Personal history of antineoplastic chemotherapy; Z86.14 Personal history of Methicillin resistant Staphylococcus aureus infection; Z87.891 Personal history of nicotine dependence; Z91.018 Allergy to other foods; Z88.8 Allergy status to other drugs, medicaments and biological substances; Z88.6 Allergy status to analgesic agent; Z88.1 Allergy status to other antibiotic agents; Z80.0 Family history of malignant neoplasm of digestive organs; Z80.3 Family history of malignant neoplasm of breast; Z80.8 Family history of malignant neoplasm of other organs or systems; W01.0XXA Fall on same level from slipping, tripping and stumbling without subsequent striking against object, initial encounter; Y93.H2 Activity, gardening and landscaping; Y92.007 Garden or yard of unspecified non-institutional (private) residence as the place of occurrence of the external cause; Y99.8 Other external cause status

== ENCOUNTER 2017-08-29 05:07 | Inpatient (IN) | payer OTHER ==
[~2017-08-29] VITALS: Ht 167.6 cm; Wt 67.8 kg
[~2017-08-29 05:07] MED LIST changes: -ACT300 PO; -FRS/40 PO; +FURO80TA63 PO; +LEVO112T4 PO; -META1TAB22 PO; +MULT60CA PO; +MULTCAP33 PO; -OXYC-57 PO; -TRAM-10 PO; +ULT50X PO; +VANC1SUS PO; +VNTHFA/IN INH
[2017-08-29] MEDS ORDERED: VANC1SUS PO (05:38)
[2017-08-29] MEDS ORDERED: TRAM-10 PO (05:38)
[2017-08-29] MEDS ORDERED: SODIUM CHLORIDE 0.9% 1000ML 1,000 ML IV STA (05:42)
[2017-08-29] MEDS ORDERED: FENTANYL CITRATE INJ 50 MCG/1 ML 2 ML VIAL IV STA ×2 (05:49→05:51)
[2017-08-29] MEDS ORDERED: FENTANYL CITRATE INJ 50 MCG/1 ML 2 ML VIAL ONE (05:51)
[2017-08-29 06:03] LABS: BASO % 0.5 %; BASO ABS # 0.03 K/uL (0-0.2); EOS % 2.6 %; EOS ABS # 0.16 K/uL (0-0.5); HEMATOCRIT 27.5 % (37-47); HEMOGLOBIN 9.4 g/dL (12.0-16.0); IG# 0.01 K/uL (0.00-0.02); LYMPH % 14.4 %; LYMPH ABS # 0.88 K/uL (1.2-3.4); MEAN CELL VOLUME 92.9 fL (80-100); MEAN CORPUSCULAR HEMOGLOBIN 31.8 pg (25-34); MEAN CORPUSCULAR HGB CONC 34.2 g/dl (32-36); MEAN PLATELET VOLUME 8.7 fL (7.4-10.4); MONO % 6.7 %; MONO ABS # 0.41 K/uL (0.11-0.59); NEUT % 75.6 %; NEUT ABS # 4.64 K/uL (1.4-6.5); PLATELET COUNT 455 K/uL (130-400); RED CELL DISTRIBUTION WIDTH CV 13.9 % (11.5-14.5); RED CELL DISTRIBUTION WIDTH SD 46.6 fL (36.4-46.3); WHITE BLOOD COUNT 6.13 K/uL (4.8-10.8)
[2017-08-29 06:10] LABS: ISTAT CREATININE 1.3 mg/dl (0.6-1.3); ISTAT IONIZED CALCIUM 1.21 mmol/l (1.12-1.32); ISTAT POTASSIUM 3.9 mEq/L (3.3-5.0)
[2017-08-29 06:14] LABS: CALCIUM 8.6 mg/dl (8.5-10.1); CREATININE 1.22 mg/dl (0.60-1.20); POTASSIUM 3.9 mmol/L (3.5-5.1)
[2017-08-29 06:17] LABS: TOTAL PROTEIN 6.8 gm/dl (6.4-8.2)
[2017-08-29] MEDS ORDERED: OPTIRAY 320 IV PRN (06:30)
[2017-08-29 06:38] LABS: PTT PATIENT 34.4 SECONDS (21.0-31.0)
--- NOTE | 2017-08-29 06:43 | EMERGENCY ROOM VISIT NOTE ---
History Report prepared by Alexandra: Shivani Forbes Under the Supervision of: Dr. Tila Esteban D.O. First contact with patient: 05:13 Chief Complaint: HIP PAIN Stated Complaint: HIP AND BACK PAIN History of Present Illness The patient is a 81 year old female who presents to the Emergency Room with complaints of worsening right buttock/right hip pain beginning about an hour and a half ago. The patient was in the hospital last week for a fall. She denies any relief with her tramadol. The patient reports she has been in a lot of pain since she was discharged, however her pain significantly worsened over the past hour and a half. Per , the patient's hematoma on her buttock looks slightly worse than when he lase saw it. She notes some right sided abdominal cramping. The patient was given two units of blood when she was in the hospital last week. The patient is on a baby aspirin. Source of History: patient Onset: an hour and a half ago Position: buttock (right) Quality: other (pain) Timing: worsening Modifying Factors (Relieving): other (none) Associated Symptoms: + abdominal pain Review of Systems See HPI for pertinent positives & negatives. A total of 10 systems reviewed and were otherwise negative. Past Medical & Surgical Medical Problems: (1) Autoimmune hepatitis (2) Cholelithiasis (3) Dyslipidemia (4) GI bleed (5) Hematoma (6) HTN (hypertension) (7) Hypothyroidism (8) Lymphoma (9) VA (myocardial infarction) (10) Osteoarthritis (11) Osteoporosis (12) SOB (shortness of breath) Surgical Problems: (1) S/P cholecystectomy Family History FH: cancer FH: heart disease Social History Smoking Status: Unknown if Ever Smoked Alcohol Use: none Drug Use: none Marital Status: Housing Status: lives with family Occupation Status: retired Current/Historical Medications Scheduled Albuterol Hfa (Ventolin Hfa), 2 PUFFS INH QID Aspirin (Aspirin Ec), 81 MG PO QAM Carvedilol (Coreg), 3.125 MG PO BID Furosemide (Lasix), 40 MG PO MWF Levothyroxine Sodium (Levothyroxine Sodium), 112 MCG PO DAILYBB Magnesium Chloride (Slow-Mag Tab), 64 MG PO Q2D Multiple Vitamins W/ Minerals (Preservision Areds 2), 1 CAP PO DAILY Multiple Vitamins W/ Minerals (Preservision Areds), 1 CAP PO DAILY Pravastatin (Pravachol ), 20 MG PO HS Sotalol Hcl (Betapace), 40 MG PO BID Ursodiol (Actigall), 300 MG PO TID Vancomycin HCl (Vancomycin HCl + Syrspend), 125 MG PO Q6H Scheduled PRN Acetaminophen Tab (Tylenol), 650 MG PO PRN UD PRN for Pain Tramadol (Ultram), 25 MG PO Q6H PRN for Pain Allergies Coded Allergies: Diphenhydramine (Verified Allergy, Intermediate, rash, 08/29/17) Metoprolol (Verified Allergy, Intermediate, RASH, 08/29/17) Pseudoephedrine (Verified Allergy, Intermediate, "MAKES ME JUMPY", 08/29/17 ) Aspirin (Verified Adverse Reaction, Intermediate, GI UPSET, 08/29/17) TAKES COATED ASPIRIN TO HELP GI UPSET Levofloxacin (Verified Adverse Reaction, Intermediate, TENDON PAIN, ) PER RECORDS Garlic (Verified Adverse Reaction, Mild, GASSY, 08/29/17) Physical Exam Vital Signs Date Time Temp Pulse Resp B/P (MAP) Pulse Ox O2 Delivery O2 Flow Rate FiO2 08/29/17 07:04 67 18 128/72 98 Room Air 08/29/17 06:40 66 16 127/61 100 Room Air 08/29/17 06:15 63 16 133/62 98 Room Air 08/29/17 06:04 65 121/58 08/29/17 05:52 14 120/56 95 Room Air 08/29/17 05:50 66 14 96/66 95 Room Air 08/29/17 05:20 74 08/29/17 05:14 36.4 73 18 101/50 97 Room Air Physical Exam General: Patient is extremely uncomfortably appearing. HEENT: Head - normocephalic and atraumatic Pupils are equal, round, and reactive to light. Extraocular eye muscles are intact, and sclera are anicteric. Nose - moist nasal mucosa without discharge. Mouth - moist buccal mucosa. Oropharynx is nonerythematous and there is no tonsillar exudate or edema noted. Neck: Supple; no JVD, nuchal rigidity, cervical lymphadenopathy. Heart: Regular rate and rhythm. There is a normal S1 and S2 with no murmurs, clicks, or gallops appreciated. Lungs: Clear to auscultation bilaterally with no wheezes, rales, or rhonchi. Abdomen: Right upper quadrant pain with palpation. Soft, completely nontender, nondistended, with good bowel sounds. There are no palpable pulsatile masses or hepatosplenomegaly. There is no guarding, rigidity, or rebound noted. Extremities: Right gluteal hematoma the size of a grapefruit very hard to touch and nonfluctuant, large surrounding hematoma in various stages of healing. No evidence of cyanosis, clubbing, or edema. There are easily palpable peripheral pulses. Skin: pale and diaphoretic with good turgor and no rashes. Medical Decision & Procedures ER Provider Diagnostic Interpretation: Radiology results as stated below per my review and the radiologist's interpretation: PELVIS W/IV CONT ONLY (CT) FINDINGS: Pipe Washer topogram: Degenerative changes of the lumbar spine. Bladder: Previously noted circumferential wall thickening has resolved. Pelvic organs: Calcified uterine fibroid. The uterus is expanded by heterogeneous hypodense material (series 3 image 97). This may be located in the endometrial cavity. Redemonstration of the simple appearing 7.5 cm left adnexal cysts, likely within left ovarian parenchyma. Right ovary is compressed by the uterus and adjacent subserosal exophytic partially calcified uterine fibroid. Bowel: Moderate stool burden throughout normal caliber colon. Diverticulosis of the sigmoid colon. Significant wall thickening of the proximal to mid sigmoid colon with numerous subcentimeter mesenteric lymph nodes and prominence of the vasa recta noted. No pericolonic fat infiltration. Normal appendix. Nonspecific wall thickening with intramural fat deposition in the terminal ileum. No bowel obstruction. Peritoneal cavity: Trace free fluid in the pelvis. Lymph nodes: Prominent subcentimeter lymph nodes in the mesentery of the sigmoid colon. No pathologically enlarged lymph nodes by CT size criteria. Vasculature: Atherosclerosis of the normal caliber abdominal aorta. IVC patent. The previously noted active extravasation in the region of the right gluteus muscle complex is again noted, with a slightly different configuration. A feeding vessel from a branch of the superior gluteal artery is noted. The focal site of irregularity measures 1.2 cm (series 3 image 159). Given the lack of a delayed phase, active extravasation versus pseudoaneurysm cannot be distinguished. Abdominal wall: Subcutaneous infiltration along the posterior lateral right thigh overlying the area of the intramuscular hematoma. Musculoskeletal: Redemonstration of the intramuscular hematoma within the right gluteus muscle complex. This is somewhat poorly defined though measuring approximately 8.6 x 7.4 cm (series 3 image 174), previously 7.4 x 4.8 cm. There is greater extension into the superficial subcutaneous tissue. Degenerative changes of the spine also noted. No acute osseous injury is evident. IMPRESSION: 1. Interval increase size of the intramuscular and subcutaneous hematoma in the right gluteus muscle complex. The hematoma now measures 8.6 x 7.4 cm with greater extension into the subcutaneous tissues. 2. Persistent associated site of hyperdensity, which is consistent with a pseudoaneurysm versus active extravasation. These entities would require a delayed phase to distinguish, however, given the fact that the appearance is fairly similar to what was observed over one week ago, a pseudoaneurysm in this region is highly favored. This arises from a branch of the right superior gluteal artery and measures 1.2 cm. 3. Prominent low-density expansion of the endometrial cavity raises concern for endometrial neoplasm. Gynecologic consultation for endometrial biopsy is recommended. This appearance is notably different than in 2015. 4. 7.5 cm simple appearing left ovarian cyst. This is unchanged since 2015, which favors benignity. 5. Resolution of bladder wall thickening. This may suggest resolving cystitis. The report will be called/faxed according to standard departmental protocol. Electronically signed by: Rehan Merritt M.D. Laboratory Results 08/29/17 05:45 Red Blood Count 2.96, Mean Corpuscular Volume 92.9, Mean Corpuscular Hemoglobin 31.8, Mean Corpuscular Hemoglobin Concent 34.2, Mean Platelet Volume 8.7, Neutrophils (%) (Auto) 75.6, Lymphocytes (%) (Auto) 14.4, Monocytes (%) (Auto) 6.7, Eosinophils (%) (Auto) 2.6, Basophils (%) (Auto) 0.5, Neutrophils # (Auto) 4.64, Lymphocytes # (Auto) 0.88, Monocytes # (Auto) 0.41, Eosinophils # (Auto) 0.16, Basophils # (Auto) 0.03 08/29/17 05:45 Test 08/29/17 05:45 08/29/17 05:49 5/11/18 06:13 White Blood Count 6.13 K/uL (4.8-10.8) Red Blood Count 2.96 M/uL (4.2-5.4) Hemoglobin 9.4 g/dL (12.0-16.0) Hematocrit 27.5 % (37-47) Mean Corpuscular Volume 92.9 fL (80-100) Mean Corpuscular Hemoglobin 31.8 pg (25-34) Mean Corpuscular Hemoglobin Concent 34.2 g/dl (32-36) Platelet Count 455 K/uL (130-400) Mean Platelet Volume 8.7 fL (7.4-10.4) Neutrophils (%) (Auto) 75.6 % Lymphocytes (%) (Auto) 14.4 % Monocytes (%) (Auto) 6.7 % Eosinophils (%) (Auto) 2.6 % Basophils (%) (Auto) 0.5 % Neutrophils # (Auto) 4.64 K/uL (1.4-6.5) Lymphocytes # (Auto) 0.88 K/uL (1.2-3.4) Monocytes # (Auto) 0.41 K/uL (0.11-0.59) Eosinophils # (Auto) 0.16 K/uL (0-0.5) Basophils # (Auto) 0.03 K/uL (0-0.2) RDW Standard Deviation 46.6 fL (36.4-46.3) RDW Coefficient of Variation 13.9 % (11.5-14.5) Immature Granulocyte % (Auto) 0.2 % Immature Granulocyte # (Auto) 0.01 K/uL (0.00-0.02) Est Creatinine Clear Calc Drug Dose 34.4 ml/min Estimated GFR () 48.5 Estimated GFR (Non- 41.8 BUN/Creatinine Ratio 23.9 (10-20) Calcium Level 8.6 mg/dl (8.5-10.1) Total Bilirubin 1.1 mg/dl (0.2-1) Direct Bilirubin 0.3 mg/dl (0-0.2) Aspartate Amino Transf (AST/SGOT) 15 U/L (15-37) Alanine Aminotransferase (ALT/SGPT) 12 U/L (12-78) Alkaline Phosphatase 77 U/L (45-117) Troponin I < 0.015 ng/ml (0-0.045) Total Protein 6.8 gm/dl (6.4-8.2) Albumin 3.0 gm/dl (3.4-5.0) Bedside Hemoglobin 8.8 g/dl (12.0-16.0) Bedside Hematocrit 26 % (37-47) Bedside Sodium 134 mEq/L (135-144) Bedside Potassium 3.9 mEq/L (3.3-5.0) Bedside Chloride 99 mEq/L (101-112) Bedside Total CO2 24 mEq/l (24-31) Anion Gap 16.0 mmol/L (16-25) Bedside Blood Urea Nitrogen 30 mg/dl (7-18) Bedside Creatinine 1.3 mg/dl (0.6-1.3) Bedside Glucose (other) 113 mg/dl (70-99) Bedside Ionized Calcium (Tiana) 1.21 mmol/l (1.12-1.32) Prothrombin Time 10.9 SECONDS (9.0-12.0) Prothromb Time International Ratio 1.0 (0.9-1.1) Activated Partial Thromboplast Time 34.4 SECONDS (21.0-31.0) Partial Thromboplastin Ratio 1.3 Laboratory results per my review. Medications Administered Medications (Trade) Dose Ordered Sig/Shena Route Start Time Stop Time Status Last Admin Dose Admin Sodium Chloride 1,000 ml @ 999 mls/hr Q1H1M STAT IV 08/29/17 05:42 08/29/17 06:42 DC 08/29/17 05:42 999 MLS/HR Fentanyl Citrate (Fentanyl Inj) 50 mcg NOW STAT IV 08/29/17 05:51 08/29/17 05:52 DC 08/29/17 05:54 50 MCG Procedure NSS IV, Fentanyl Inj IV. ECG Per My Interpretation Indication: other (hypotension) Rate (beats per minute): 75 Rhythm: normal sinus Findings: T-wave inversion (Lateral) Comparison ECG Date: 08/19/17 Change: T wave inversions are deeper when compared to previous. ED Course 0535: Past medical records reviewed. The patient was evaluated in room B2. A complete history and physical exam was performed. A second IV lock was initiated and labs were drawn as above. The patient was typed and screened. 0542: The patient became hypotensive with a systolic blood pressure in the 60s. Ordered Sodium Chloride 500 ml @ 999 mls/hr IV. 0549: Once the patient's blood pressure rebounded to 120, I ordered Fentanyl Inj 50 mcg IV. I-STAT labs were obtained. .0613: Discussed the patient's case with Dr. Carlin. The patient will be evaluated for further management. [address] scan of the pelvis to further evaluate the gluteal hematoma. I kept the patient's abreast of the situation. Medical Decision The patient is a 81 year old female who presents to the Emergency Room with complaints of worsening right buttock/right hip pain beginning about an hour and a half ago. Differential diagnosis includes expanding buttock gut hematoma, blood loss anemia, hypovolemia. Lab results show: no leukocytosis, hemoglobin 8.8, platelet count 455, BUN 29, creatinine 1.2, glucose 109, coags normal This is an 81-year-old female patient presents to the emergency department with sudden onset of right gluteal pain. The patient suffered a fall more than 10 days ago where she initially had a hematoma noted to the right gluteal muscle and surrounding area. This pain seemed to drastically worsened over the last 90 minutes. It seems that the hematoma has expanded. CT scan shows concern for a possible pseudoaneurysm and possible endometrial involvement. The patient will be evaluated by the [facility] Hospitalist for further care. The patient's blood pressure rebounded nicely with a 500 cc bolus of saline. Her hemoglobin was stable at 8.8. Medication Reconcilliation Current Medication List: was personally reviewed by me Blood Pressure Screening Patient's blood pressure: Low blood pressure Consults Time Called: [phone] Consulting Physician: Dr. Carlin Returned Call: [phone] Discussed the patient's case with Dr. Carlin. The patient will be evaluated for further management. Impression Primary Impression: Traumatic hematoma of buttock Additional Impression: Hypotension Scribe Attestation The scribe's documentation has been prepared under my direction and personally reviewed by me in its entirety. I confirm that the note above accurately reflects all work, treatment, procedures, and medical decision making performed by me. Departure Information Dispostion Being Evaluated By Hospitalist Referrals No Doctor, Assigned (PCP) Patient Instructions My [facility] Problem Qualifiers Primary Impression: Traumatic hematoma of buttock Encounter type: initial encounter Qualified Codes: S30.0XXA - Contusion of lower back and pelvis, initial encounter Additional Impression: Hypotension Hypotension type: unspecified hypotension type Qualified Codes: I95.9 - Hypotension, unspecified
--- NOTE | 2017-08-29 07:20 | DIAGNOSTIC IMAGING REPORT ---
ADDENDUM ADDITIONAL IMPRESSION: 6. Wall thickening of the proximal to mid sigmoid colon is unchanged from most recent prior. Given the presence of diverticulosis, this could represent chronic diverticular disease. However, given the presence of associated prominent mesenteric lymph nodes, consider gastroenterology consultation for sigmoidoscopy/colonoscopy to ensure there is no underlying neoplasm. The report will be called/faxed according to standard departmental protocol. Electronically signed by: Rehan Merritt M.D. 08/29/2017 8:02 AM Dictated Date/Time: 08/29/2017 8:00 AM ORIGINAL REPORT PELVIS W/IV CONT ONLY (CT) CLINICAL HISTORY: 81 years-old Female presenting with clinical concern for right gluteal hematoma, history of recent fall, persistent hip and back pain. TECHNIQUE: Multidetector CT of the pelvis was performed after the administration of intravenous contrast. IV contrast: 93 mL of Optiray 320. A dose lowering technique was used consistent with the principles of ALARA (as low as reasonably achievable). COMPARISON: 08/19/2017 and 03/02/2015. CT DOSE (mGy.cm): The estimated cumulative dose is 963.08 mGy.cm. FINDINGS: Patient Day Coordinator topogram: Degenerative changes of the lumbar spine. Bladder: Previously noted circumferential wall thickening has resolved. Pelvic organs: Calcified uterine fibroid. The uterus is expanded by heterogeneous hypodense material (series 3 image 97). This may be located in the endometrial cavity. Redemonstration of the simple appearing 7.5 cm left adnexal cysts, likely within left ovarian parenchyma. Right ovary is compressed by the uterus and adjacent subserosal exophytic partially calcified uterine fibroid. Bowel: Moderate stool burden throughout normal caliber colon. Diverticulosis of the sigmoid colon. Significant wall thickening of the proximal to mid sigmoid colon with numerous subcentimeter mesenteric lymph nodes and prominence of the vasa recta noted. No pericolonic fat infiltration. Normal appendix. Nonspecific wall thickening with intramural fat deposition in the terminal ileum. No bowel obstruction. Peritoneal cavity: Trace free fluid in the pelvis. Lymph nodes: Prominent subcentimeter lymph nodes in the mesentery of the sigmoid colon. No pathologically enlarged lymph nodes by CT size criteria. Vasculature: Atherosclerosis of the normal caliber abdominal aorta. IVC patent. The previously noted active extravasation in the region of the right gluteus muscle complex is again noted, with a slightly different configuration. A feeding vessel from a branch of the superior gluteal artery is noted. The focal site of irregularity measures 1.2 cm (series 3 image 159). Given the lack of a delayed phase, active extravasation versus pseudoaneurysm cannot be distinguished. Abdominal wall: Subcutaneous infiltration along the posterior lateral right thigh overlying the area of the intramuscular hematoma. Musculoskeletal: Redemonstration of the intramuscular hematoma within the right gluteus muscle complex. This is somewhat poorly defined though measuring approximately 8.6 x 7.4 cm (series 3 image 174), previously 7.4 x 4.8 cm. There is greater extension into the superficial subcutaneous tissue. Degenerative changes of the spine also noted. No acute osseous injury is evident. IMPRESSION: 1. Interval increase size of the intramuscular and subcutaneous hematoma in the right gluteus muscle complex. The hematoma now measures 8.6 x 7.4 cm with greater extension into the subcutaneous tissues. 2. Persistent associated site of hyperdensity, which is consistent with a pseudoaneurysm versus active extravasation. These entities would require a delayed phase to distinguish, however, given the fact that the appearance is fairly similar to what was observed over one week ago, a pseudoaneurysm in this region is highly favored. This arises from a branch of the right superior gluteal artery and measures 1.2 cm. 3. Prominent low-density expansion of the endometrial cavity raises concern for endometrial neoplasm. Gynecologic consultation for endometrial biopsy is recommended. This appearance is notably different than in 2015. 4. 7.5 cm simple appearing left ovarian cyst. This is unchanged since 2015, which favors benignity. 5. Resolution of bladder wall thickening. This may suggest resolving cystitis. The report will be called/faxed according to standard departmental protocol. Electronically signed by: Rehan Merritt M.D. 08/29/2017 7:18 AM Dictated Date/Time: 08/29/2017 7:00 AM
[2017-08-29] MEDS ORDERED: ONDANSETRON INJ 2 MG/ML 2 ML VIAL IV PRN (08:45)
[2017-08-29] MEDS ORDERED: NITROGLYCERIN 0.4 MG SL PER TAB CHARGE SL PRN (08:45)
[2017-08-29] MEDS ORDERED: TRAMADOL HCL 50 MG TAB PO PRN (08:45)
[2017-08-29] MEDS ORDERED: ALUMINUM/MAGNESIUM/SIMETH (MAALOX MAX) 30 ML UDC PO PRN (08:45)
[2017-08-29] MEDS ORDERED: OXYCODONE/ACETAMINOPHEN 5-325 TAB PO PRN (08:45)
[2017-08-29] MEDS ORDERED: ACETAMINOPHEN 325 MG TAB PO PRN (08:45)
[2017-08-29] MEDS ORDERED: POLYETHYLENE (MIRALAX) 17 GM PACK PO PRN (08:45)
[2017-08-29] MEDS ORDERED: FUROSEMIDE 80 MG TAB PO SCH (09:00)
[2017-08-29] MEDS ORDERED: SOTALOL HCL 80 MG TAB PO SCH (09:00)
[2017-08-29] MEDS ORDERED: CARVEDILOL 3.125 MG TAB PO SCH (09:00)
[2017-08-29 09:57] VITALS: BP 132/67; PULSE 77; TEMP 36.5; O2SAT 91; Ht 167.6 cm; Wt 67.8 kg
--- NOTE | 2017-08-29 10:21 | HISTORY & PHYSICAL EXAMINATION ---
DATE OF ADMISSION: 08/29/2017 CHIEF COMPLAINT: Right back pain. HISTORY OF PRESENT ILLNESS: This is an 81-year-old female with a past medical history significant for CAD, status post stent, hypertension, paroxysmal atrial fibrillation, off anticoagulation because of bleeding risks, past tobacco abuse, chronic anemia, baseline hemoglobin of 9-10, chronic kidney disease stage III, baseline creatinine 1.3-1.5, non-Hodgkin's lymphoma, status post chemotherapy, history of MRSA, history of ESBL E. coli UTI, recent history of fall and spine compression fractures and right gluteal hematoma and also was diagnosed with C. diff and was discharged on 08/24/2017, comes back with increasing worsening right gluteal pain. The patient states she was doing okay, but last night she suddenly felt severe pain in the right gluteal region that brought her to the hospital. The patient otherwise currently denies any other pain. No abdominal pain, no chest pain, no shortness of breath. Denies any headaches. No blurred visions. Very hard of hearing. No runny nose, no sore throat, no difficulty swallowing. Eating okay. No fevers, no chills. No nausea. Denies any diarrhea. Denies any blood in the stools or urine. Normal bladder movements. The patient states apparently she was walking without any help until last night when she had developed severe pain in her buttock region. Currently, resting comfortably and hemodynamically stable. ALLERGIES: TO DIPHENHYDRAMINE, GARLIC, METOPROLOL, PSEUDOEPHEDRINE. PAST MEDICAL HISTORY: As mentioned above. PAST SURGICAL HISTORY: Mastectomy, lymph node biopsy, dental surgery, urological procedure, cholecystectomy, cataract surgery, tonsillectomy, and bladder defect surgery. FAMILY HISTORY: Significant for heart disease, pancreatic cancer, breast cancer, and skin cancer. SOCIAL HISTORY: No alcohol use. History of past tobacco abuse. Currently lives at home with her . MEDICATIONS: The patient is on tramadol 25 mg p.o. every 6 hours p.r.n. for pain, vancomycin 125 mg p.o. every 6 hours, Tylenol 650 mg p.o. as needed, albuterol 2 puffs inhalation q.i.d., aspirin 81 mg p.o. daily, Coreg 3.125 mg p.o. b.i.d., Lasix 40 mg Friday, Friday, and Friday, levothyroxine 112 mcg p.o. daily, multivitamin 1 tablet p.o. daily, pravastatin 20 mg p.o. at bedtime, sotalol 40 mg p.o. b.i.d., Toprol-XL 100 mg p.o. b.i.d. REVIEW OF SYMPTOMS: As per HPI. Rest of review of symptoms negative. PHYSICAL EXAMINATION: GENERAL: The patient is of moderate build, not in distress. VITAL SIGNS: Temperature 36.4, pulse 67, respiratory rate 18, blood pressure 128/72, oxygen 98% on room air. HEENT: No pallor, no icterus. Pupils equal, round, and reactive to light. NECK: No JVD, no neck masses, no carotid bruits. CARDIOVASCULAR SYSTEM: S1, S2 heard, regular rate and rhythm. No murmur, no gallop. RESPIRATORY SYSTEM: Normal AP diameter. No accessory muscle use. No wheezing. No crackles. ABDOMEN: Soft, bowel sounds present. Nontender. No distention. CENTRAL NERVOUS SYSTEM: Cranial nerves II-XII grossly intact. Nonfocal. SKIN: Bruise is seen in the right gluteal region and also several keratoses seen on the trunk region. EXTREMITIES: Trace pedal edema, no erythema seen. LABORATORIES: WBC 6.1, hemoglobin 10.4, hematocrit 27.5, platelets 455. Sodium 134, potassium 3.9, chloride 103, bicarbonate 28, CO2 24, BUN 29, and creatinine 1.2, calcium 8.6, glucose 109. Total bilirubin 1.1, direct bilirubin 0.3, AST 15, ALT 12, alkaline phosphatase 77. Troponin I less than 0.015. PT 10.9, INR 1, APTT 34.4. EKG: Normal sinus rhythm with a rate of [address] changes seen. prolonged QT. IMAGING: CT of the pelvis shows interval increase in intramuscular subcutaneous hematoma in the right gluteal muscle complex, the hematoma measures 8.6 x 1.74 cm with greater extension into the subcutaneous tissues, possible pseudoaneurysm involving the right superior gluteal artery, prominent endometrial lesion expansion into the endometrial cavity, there is a concern for endometrial neoplasm, 7.5 cm simple left ovarian cyst, unchanged from 2015, possible chronic diverticular disease and prominent mesenteric lymph nodes. GI consult recommended to ensure no underlying neoplasm. ASSESSMENT AND PLAN: This is an 81-year-old female presents with severe right gluteal pain. 1. Right gluteal pain, recent fall, and hematoma. CAT scan shows hematoma is somewhat worsening. Hemoglobin is stable. Possible pseudoaneurysm of the right superior gluteal artery. We will admit to tele floor. We will follow serial H and H. Consult vascular surgery for further opinion. 2. Endometrial lesion and increasing endometrial cavity. We will consult CATCHER FILTER TIP for further recommendations. 3. 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 We will consult GI. 4. Possible cystitis. We will follow the urine cultures. 5. History of paroxysmal atrial fibrillation, on Coreg and Sotalol. Rate is under control. Not on anticoagulation because of fall risk. Will be holding aspirin for now because of the gluteal hematoma. 6. Chronic kidney disease stage III, baseline creatinine 1.3-1.5. Creatinine is 1.2. We will follow the labs. 7. Recent C. diff, on p.o. vancomycin. Currently no diarrhea. 8. Osteoporotic fracture following the mechanical fall, compression fracture of L1-L2, was seen by orthopedics on last admission. PT/OT when more stable. 9. Hypertension. Continue home medication. We will monitor the blood pressure. 10. Non-Hodgkin's lymphoma, status post Rituxan. Currently no symptoms. 11. Chronic anemia. Possible acute blood loss. Hemoglobin is stable at baseline. We will follow the serial H and H. 12. Deep vein thrombosis prophylaxis. SCDs for now secondary to hematoma. DISPOSITION: Admit to tele floor. PT and OT prior to discharge. Social Service to help with discharge planning. LEVEL 1 FULL CODE as per discussion with the patient. MTDD
[2017-08-29] MEDS: ALBUTEROL HFA 8 GM INHALER INH SCH ×3 (10:53→17:36)
[2017-08-29] MEDS: URSODIOL 300 MG CAP PO SCH ×2 (10:54→12:33)
[2017-08-29 11:31] LABS: HEMATOCRIT 24.2 % (37-47); HEMOGLOBIN 8.1 g/dL (12.0-16.0)
[2017-08-29 12:00] VITALS: BP 125/67; PULSE 82; TEMP 36.6; O2SAT 94
[2017-08-29] MEDS ORDERED: SODIUM CHLORIDE 0.9% 1000ML 1,000 ML IV SCH (12:00)
--- NOTE | 2017-08-29 12:09 | Discharge Instructions ---
Discharge Instructions Date of Service August 29, 2017. Admission Reason for Admission: Anemia,Traumatic Hematoma Of Buttock Discharge Discharge Diagnosis / Problem: RT gleuteal hematoma, pseudoaneurysm, anemia Discharge Goals Goal(s): Decrease discomfort, Improve function Activity Recommendations Activity Level: Assistance Required . Additional Information Patient informed of condition: Yes Advance Directives: Yes DNR: No Level of Care: Other (TRANSFERRING TO [facility]) Communicable Disease: No Prognosis: Other (TRANSFERRING TO TERTIARY CARE) Ng Catheter: No Instructions / Follow-Up Instructions / Follow-Up FOLLOWUP PER [facility] RECOMMENDATIONS Current Hospital Diet Patient's current hospital diet: Discharge Diet Recommended Diet: N/A (NPO FOR NOW) Pending Studies Studies pending at discharge: no Physician Orders On Transfer IV Therapy: IV NS@50ML/HR IV MORPHINE 2MG Q 3HRS PRN PAIN Vital Signs: EVERY 4HRS Additional Orders: PLEASE CHECK MEDICATION RECONCILIATION FOR ACCURATE MED LIST Medical Emergencies . Who to Call and When: Medical Emergencies: If at any time you feel your situation is an emergency, please call 911 immediately. . Non-Emergent Contact Non-Emergency issues call your: Primary Care Provider . . "Provider Documentation" section prepared by Aroldo Sood. . Core Measure Problem Core Measures: None
[2017-08-29] MEDS ORDERED: IV FLUIDS COMPLETED PRN (12:15)
[2017-08-29] MEDS: RASPBERRY SYRUP 5 ML UDP PO SCH ×2 (12:32→17:35)
[2017-08-29] MEDS: VANCOMYCIN HCL 125 MG/2.5ML SOLN PO SCH ×2 (12:32→17:35)
--- NOTE | 2017-08-29 12:36 | Discharge Summary ---
Discharge Summary Date of Service August 29, 2017. 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 coli UTI, Procedures: PELVIS CT: ADDITIONAL IMPRESSION: 6. Wall thickening of the proximal to mid sigmoid colon is unchanged from most recent prior. Given the presence of diverticulosis, this could represent chronic diverticular disease. However, given the presence of associated prominent mesenteric lymph nodes, consider gastroenterology consultation for sigmoidoscopy/colonoscopy to ensure there is no underlying neoplasm. The report will be called/faxed according to standard departmental protocol. Electronically signed by: Rehan Merritt M.D. 08/29/2017 8:02 AM Dictated Date/Time: 08/29/2017 8:00 AM ORIGINAL REPORT PELVIS W/IV CONT ONLY (CT) CLINICAL HISTORY: 81 years-old Female presenting with clinical concern for right gluteal hematoma, history of recent fall, persistent hip and back pain. TECHNIQUE: Multidetector CT of the pelvis was performed after the administration of intravenous contrast. IV contrast: 93 mL of Optiray 320. A dose lowering technique was used consistent with the principles of ALARA (as low as reasonably achievable). COMPARISON: 08/19/2017 and 03/02/2015. CT DOSE (mGy.cm): The estimated cumulative dose is 963.08 mGy.cm. FINDINGS: Warrant Server topogram: Degenerative changes of the lumbar spine. Bladder: Previously noted circumferential wall thickening has resolved. Pelvic organs: Calcified uterine fibroid. The uterus is expanded by heterogeneous hypodense material (series 3 image 97). This may be located in the endometrial cavity. Redemonstration of the simple appearing 7.5 cm left adnexal cysts, likely within left ovarian parenchyma. Right ovary is compressed by the uterus and adjacent subserosal exophytic partially calcified uterine fibroid. Bowel: Moderate stool burden throughout normal caliber colon. Diverticulosis of the sigmoid colon. Significant wall thickening of the proximal to mid sigmoid colon with numerous subcentimeter mesenteric lymph nodes and prominence of the vasa recta noted. No pericolonic fat infiltration. Normal appendix. Nonspecific wall thickening with intramural fat deposition in the terminal ileum. No bowel obstruction. Peritoneal cavity: Trace free fluid in the pelvis. Lymph nodes: Prominent subcentimeter lymph nodes in the mesentery of the sigmoid colon. No pathologically enlarged lymph nodes by CT size criteria. Vasculature: Atherosclerosis of the normal caliber abdominal aorta. IVC patent. The previously noted active extravasation in the region of the right gluteus muscle complex is again noted, with a slightly different configuration. A feeding vessel from a branch of the superior gluteal artery is noted. The focal site of irregularity measures 1.2 cm (series 3 image 159). Given the lack of a delayed phase, active extravasation versus pseudoaneurysm cannot be distinguished. Abdominal wall: Subcutaneous infiltration along the posterior lateral right thigh overlying the area of the intramuscular hematoma. Musculoskeletal: Redemonstration of the intramuscular hematoma within the right gluteus muscle complex. This is somewhat poorly defined though measuring approximately 8.6 x 7.4 cm (series 3 image 174), previously 7.4 x 4.8 cm. There is greater extension into the superficial subcutaneous tissue. Degenerative changes of the spine also noted. No acute osseous injury is evident. IMPRESSION: 1. Interval increase size of the intramuscular and subcutaneous hematoma in the right gluteus muscle complex. The hematoma now measures 8.6 x 7.4 cm with greater extension into the subcutaneous tissues. 2. Persistent associated site of hyperdensity, which is consistent with a pseudoaneurysm versus active extravasation. These entities would require a delayed phase to distinguish, however, given the fact that the appearance is fairly similar to what was observed over one week ago, a pseudoaneurysm in this region is highly favored. This arises from a branch of the right superior gluteal artery and measures 1.2 cm. 3. Prominent low-density expansion of the endometrial cavity raises concern for endometrial neoplasm. Gynecologic consultation for endometrial biopsy is recommended. This appearance is notably different than in 2015. 4. 7.5 cm simple appearing left ovarian cyst. This is unchanged since 2015, which favors benignity. 5. Resolution of bladder wall thickening. This may suggest resolving cystitis. The report will be called/faxed according to standard departmental protocol. Consultations: VASCULAR SURGERY Medication Reconciliation Continued Medications: Acetaminophen Tab (Tylenol) 325 Mg Tab 650 MG PO PRN UD PRN for Pain, TAB TAKE NO MORE THEN 2,000 MG PER 24 HOURS. Albuterol Hfa (Ventolin Hfa) 200 Puffs/12098 Mcg Aers 2 PUFFS INH QID, #1 INHALER Carvedilol (Coreg) 3.125 Mg Tab 3.125 MG PO BID, TAB Furosemide (Lasix) 80 Mg Tab 40 MG PO MWF, TAB Levothyroxine Sodium (Levothyroxine Sodium) 112 Mcg Tab 112 MCG PO DAILYBB Magnesium Chloride (Slow-Mag Tab) 64 Mg Tabcr 64 MG PO Q2D, TAB Multiple Vitamins W/ Minerals (Preservision Areds 2) 1 Cap Cap 1 CAP PO DAILY Multiple Vitamins W/ Minerals (Preservision Areds) 1 Cap Cap 1 CAP PO DAILY Pravastatin (Pravachol ) 20 Mg Tab 20 MG PO HS, TAB Sotalol Hcl (Betapace) 80 Mg Tab 40 MG PO BID, TAB Tramadol (Ultram) 50 Mg Tab 25 MG PO Q6H PRN for Pain, TAB Ursodiol (Actigall) 300 Mg Cap 300 MG PO TID Vancomycin HCl (Vancomycin HCl + Syrspend) 50 Mg/Ml Abi 125 MG PO Q6H STARTED 08/24/17 FOR 12 DAYS. Discontinued Medications: Aspirin (Aspirin Ec) 81 Mg Tab 81 MG PO QAM Admission Information HPI (per Admitting provider): : This is an 81-year-old female with a past medical history significant for CAD, status post stent, hypertension, paroxysmal atrial fibrillation, off anticoagulation because of bleeding risks, past tobacco abuse, chronic anemia, baseline hemoglobin of 9-10, chronic kidney disease stage III, baseline creatinine 1.3-1.5, non-Hodgkin's lymphoma, status post chemotherapy, history of MRSA, history of ESBL E. coli UTI, recent history of fall and spine compression fractures and right gluteal hematoma and also was diagnosed with C. diff and was discharged on 08/24/2017, comes back with increasing worsening right gluteal pain. The patient states she was doing okay, but last night she suddenly felt severe pain in the right gluteal region that brought her to the hospital. The patient otherwise currently denies any other pain. No abdominal pain, no chest pain, no shortness of breath. Denies any headaches. No blurred visions. Very hard of hearing. No runny nose, no sore throat, no difficulty swallowing. Eating okay. No fevers, no chills. No nausea. Denies any diarrhea. Denies any blood in the stools or urine. Normal bladder movements. The patient states apparently she was walking without any help until last night when she had developed severe pain in her buttock region. Currently, resting comfortably and hemodynamically stable. Physical Exam (per Admitting): GENERAL: The patient is of moderate build, not in distress. VITAL SIGNS: Temperature 36.4, pulse 67, respiratory rate 18, blood pressure 128/72, oxygen 98% on room air. HEENT: No pallor, no icterus. Pupils equal, round, and reactive to light. NECK: No JVD, no neck masses, no carotid bruits. CARDIOVASCULAR SYSTEM: S1, S2 heard, regular rate and rhythm. No murmur, no gallop. RESPIRATORY SYSTEM: Normal AP diameter. No accessory muscle use. No wheezing. No crackles. ABDOMEN: Soft, bowel sounds present. Nontender. No distention. CENTRAL NERVOUS SYSTEM: Cranial nerves II-XII grossly intact. Nonfocal. SKIN: Bruise is seen in the right gluteal region and also several keratoses seen on the trunk region. EXTREMITIES: Trace pedal edema, no erythema seen. Hospital Course 81F WAS ADMITTED FOR WORSENING RIGHT GLUTEAL HEMATOMA AND POSSIBLE PSEUDOANEURYSM OF RIGHT SUPERIOR GLUTEAL ARTERY.HB DROPPED FRO 9.4 TO 8.1. RECENTLY IN HOSPITAL FOR MECHANICAL FALL AND RIGHT GLUTEAL HEMATOMA. RECEIVED 2UNITS PRBC AT THAT TIME AND WAS TREATED CONSERVATIVELY AND DISCHARGED ON August.LAST ADMISSION WAS ALSO DIAGNOSED WITH C DIFF AND ON PO VANCOMYCIN( LAST DOSE ).CAME BACK TODAY WITH WORSENING PAIN.CT SCAN ALSO SHOWS DIVERTICULAR DISEASE WITH PROMINENT MESENTERIC NODES AND ALSO ENDOMETRIAL LESIONS. 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 SEEN BY VASCULAR SURGERY AND RECOMMENDS TRANSFER TO TERTIARY CARE FOR PSEUDOANEURYSM AND WORSENING HEMATOMA.PATIENT WAS ACCEPTED IN TRANSFER TO [facility] [place]. A/P ON ADMISSION TODAY MORNING This is an 81-year-old female presents with severe right gluteal pain. 1. Right gluteal pain, recent fall, and hematoma. CAT scan shows hematoma is somewhat worsening.7.4CM X 4.8 CM TO 8.6CM AND 7.4CM Hemoglobin is stable AT 9.4 BUT WILL REPEAT IT. Possible pseudoaneurysm of the right superior gluteal artery. We will admit to tele floor. We will follow serial H and H. Consult vascular surgery for further opinion. 2. Endometrial lesion and increasing endometrial cavity. We will consult TIMBER SPOTTER for further recommendations. 3. 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 We will consult GI. 4. Possible cystitis. We will follow the urine cultures. 5. History of paroxysmal atrial fibrillation, on Coreg and Sotalol. Rate is under control. Not on anticoagulation because of fall risk. Will be holding aspirin for now because of the gluteal hematoma. 6. Chronic kidney disease stage III, baseline creatinine 1.3-1.5. Creatinine is 1.2. We will follow the labs. 7. Recent C. diff, on p.o. vancomycin. Currently no diarrhea. 8. Osteoporotic fracture following the mechanical fall, compression fracture of L1-L2, was seen by orthopedics on last admission. PT/OT when more stable. 9. Hypertension. Continue home medication. We will monitor the blood pressure. 10. Non-Hodgkin's lymphoma, status post Rituxan. Currently no symptoms. 11. Chronic anemia. Possible acute blood loss. Hemoglobin is stable at baseline. We will follow the serial H and H. 12. Deep vein thrombosis prophylaxis. SCDs for now secondary to hematoma. DISPOSITION: Admit to tele floor. PT and OT prior to discharge. Social Service to help with discharge planning. LEVEL 1 FULL CODE as per discussion with the patient. Total time spent on discharge = 45MINUTES This includes examination of the patient, discharge planning, medication reconciliation, and communication with other providers. Discharge Instructions Discharge Instructions Date of Service August 29, 2017. Admission Reason for Admission: Anemia,Traumatic Hematoma Of Buttock Discharge Discharge Diagnosis / Problem: RT gleuteal hematoma, pseudoaneurysm, anemia Discharge Goals Goal(s): Decrease discomfort, Improve function Activity Recommendations Activity Level: Assistance Required . Additional Information Patient informed of condition: Yes Advance Directives: Yes DNR: No Level of Care: Other (TRANSFERRING TO [facility]) Communicable Disease: No Prognosis: Other (TRANSFERRING TO TERTIARY CARE) Ng Catheter: No Instructions / Follow-Up Instructions / Follow-Up FOLLOWUP PER [place] RECOMMENDATIONS Current Hospital Diet Patient's current hospital diet: Discharge Diet Recommended Diet: N/A (NPO FOR NOW) Pending Studies Studies pending at discharge: no Physician Orders On Transfer IV Therapy: IV NS@50ML/HR IV MORPHINE 2MG Q 3HRS PRN PAIN Vital Signs: EVERY 4HRS Additional Orders: PLEASE CHECK MEDICATION RECONCILIATION FOR ACCURATE MED LIST Medical Emergencies . Who to Call and When: Medical Emergencies: If at any time you feel your situation is an emergency, please call 911 immediately. . Non-Emergent Contact Non-Emergency issues call your: Primary Care Provider . . "Provider Documentation" section prepared by Aroldo Sood. . Core Measure Problem Core Measures: None
--- NOTE | 2017-08-29 13:48 | Progress Note ---
Progress Note Date of Service August 29, 2017. Progress Note GI was consulted regarding diverticular disease and mesenteric adenopathy. Records were reviewed and inpatient endoscopy was not indicated in light of comorbidities and not urgent indication for colonoscopy. We discussed this with Dr. Sood who told us that he plans to transfer the patient and he agreed to cancel this consult.
[2017-08-29 13:49] VITALS: BP 125/67; PULSE 82; TEMP 36.6; O2SAT 94
--- NOTE | 2017-08-29 14:43 | DIAGNOSTIC IMAGING REPORT ---
PELVIC COMPLETE NON OB CLINICAL HISTORY: abnormal endometriu on scan ENDOMETRIAL THICKENING COMPARISON STUDY: 01/20/2015 FINDINGS: The uterus measured 6.8 cm. The endometrial stripe measured thickening endometrium with a maximum thickness of 2 cm. This is abnormal for age.. The right ovary measured not identified. The left ovary measured not identified. Cystic lesion immediately to the left of the uterus measuring 8 x 5 x 6 cm. Possibility of an ovarian cystic process must be considered. There was no evidence of pathologic free pelvic fluid. IMPRESSION: 1. Cystic lesion immediately to the left of the uterus measuring 8 x 5 x 6 cm. 2. Possibility of an ovarian cystic neoplastic process must be considered. 3. Abnormal endometrial thickening at 2 cm. Diagnostic considerations include endometrial hyperplasia versus neoplasia. 4. Atrophic ovaries bilaterally The above report was generated using voice recognition software. It may contain grammatical, syntax or spelling errors. Electronically signed by: Lul Gutierrez M.D. 08/29/2017 2:42 PM Dictated Date/Time: 08/29/2017 2:38 PM
[2017-08-29 15:38] LABS: HEMATOCRIT 23.6 % (37-47); HEMOGLOBIN 8.1 g/dL (12.0-16.0)
[2017-08-29 15:39] VITALS: BP 120/60; PULSE 82; TEMP 36.6; O2SAT 94
--- NOTE | 2017-08-29 19:11 | Progress Note ---
Progress Note Date of Service August 29, 2017. Progress Note PROFESSOR OF PHYSICAL EDUCATION Consult was placed this morning for thickened endometrium Pelvic sono was ordered I went down to see pt and was told she was been transferred to [facility] [place]
[2017-08-29] MEDS ORDERED: PRAVASTATIN SOD 20 MG TAB PO SCH (21:00)
[2017-08-30] MEDS ORDERED: LEVOTHYROXINE 112 MCG TAB PO SCH (06:30)
[2017-08-30] MEDS ORDERED: MAGNESIUM CHLORIDE 64MG DELAYED REL TAB PO SCH (09:00)
== END 2017-08-29 19:00 | disposition short-term general hospital (02) | DRG 605 ==
LOC: EDBD 05:07 → C.EDB 05:09 → C.MED 08:46 → CANRESERV 08:56 → ENRESERV 08:56 → EDBEDREQSVC 09:13 → EDBEDREQ 09:13 → ENRESERV 09:22 → C.MED 10:50
PROVIDERS: ADMIT Internal Medicine; ATTEND Internal Medicine
DX: S30.0XXA Contusion of lower back and pelvis, initial encounter (principal); C85.90 Non-Hodgkin lymphoma, unspecified, unspecified site; M80.08XA Age-related osteoporosis with current pathological fracture, vertebra(e), initial encounter for fracture; D62 Acute posthemorrhagic anemia; R59.0 Localized enlarged lymph nodes; I48.0 Paroxysmal atrial fibrillation; I72.8 Aneurysm of other specified arteries; K75.4 Autoimmune hepatitis; E78.5 Hyperlipidemia, unspecified; I12.9 Hypertensive chronic kidney disease with stage 1 through stage 4 chronic kidney disease, or unspecified chronic kidney disease; E03.9 Hypothyroidism, unspecified; I25.2 Old myocardial infarction; M19.90 Unspecified osteoarthritis, unspecified site; M81.0 Age-related osteoporosis without current pathological fracture; Z79.82 Long term (current) use of aspirin; Z88.8 Allergy status to other drugs, medicaments and biological substances; Z88.1 Allergy status to other antibiotic agents; K57.90 Diverticulosis of intestine, part unspecified, without perforation or abscess without bleeding; I95.9 Hypotension, unspecified; I25.10 Atherosclerotic heart disease of native coronary artery without angina pectoris; Z95.5 Presence of coronary angioplasty implant and graft; N18.3 Chronic kidney disease, stage 3 (moderate); Z86.14 Personal history of Methicillin resistant Staphylococcus aureus infection; Z80.3 Family history of malignant neoplasm of breast; Z80.0 Family history of malignant neoplasm of digestive organs; N85.9 Noninflammatory disorder of uterus, unspecified; W19.XXXA Unspecified fall, initial encounter; Y92.89 Other specified places as the place of occurrence of the external cause

== ENCOUNTER 2019-07-05 19:58 | Inpatient (IN) ==
[2019-07-05] MEDS ORDERED: ONDANSETRON INJ 2 MG/ML 2 ML VIAL IV STA (20:03)
--- NOTE | 2019-07-05 20:10 | Emergency Department Note ---
History of Present Illness General Chief complaint: Leg Injury/Pain Stated complaint: LEG PAIN History of Present Illness Maximum Pain Intensity: 10 The patient is an 83-year-old female who presented to the emergency department for an evaluation of right knee pain. The patient states that she started having gradual onset of worsening right lower extremity pain. She states the symptoms began approximately 3 weeks ago. She was initially seen in our facility. She was treated at that time and was following up with orthopedics today. She saw Dr. Antonio today in his office and had an evaluation of his knee which included some degree of manipulation of the knee. The patient states that the pain became much worse over the last 2 hours. She took her prescription pain medication however it only partially resolved the pain and she is unable to ambulate at this time. The patient has not been seen recently by her primary care physician according to her. She arrived via ambulance because of severe pain with any movement of the right knee. She states the pain is severe with any movement and is mildly relieved with holding the leg still. She denies having any fevers or chills. The patient states that she was recently started on steroids for this knee pain. Home Medications Home Medications Medication Instructions Recorded Confirmed Type acetaminophen [Tylenol Arthritis 650 mg PO DIRECTED PRN 199911/02/18 07/05/19 History Pain] MG/24 HOURS carvedilol [Coreg] 3.125 mg PO BIDM 11/02/18 07/05/19 History ferrous sulfate [iron] 325 mg PO QAM 11/02/18 07/05/19 History levothyroxine 112 mcg PO QAM 11/02/18 07/05/19 History lidocaine [Lidocaine Pain Relief] 1 patch TOPICAL DAILY PRN 11/02/18 07/05/19 History omeprazole 20 mg PO HS 11/02/18 07/05/19 History pravastatin [Pravachol] 20 mg PO HS 11/02/18 07/05/19 History sotalol 40 mg PO QAM 11/02/18 07/05/19 History tramadol 50 mg PO Q6H PRN 11/02/18 07/05/19 History ursodiol [Actigall] 300 mg PO TID 11/02/18 07/05/19 History PreserVision AREDS-2 1 tab PO BID 11/18/18 07/05/19 History aspirin 81 mg PO QAM 11/18/18 07/05/19 History tramadol 50 mg PO Q6H PRN #14 tab 06/15/19 07/05/19 Rx methylprednisolone [Medrol (Christopher)] 4 mg PO DIRECTED #21 ea 06/28/19 07/05/19 Rx oxycodone 5 mg PO Q6H PRN #10 tab 06/28/19 07/05/19 Rx sennosides-docusate sodium 1 tabcap PO BID PRN #60 tab 06/28/19 07/05/19 Rx [Senokot-S] Allergies Allergy/AdvReac Type Severity Reaction Status Date / Time diphenhydramine Allergy Intermediate spasms to Verified 07/05/19 20:29 bilt legs metoprolol Allergy Intermediate RASH Verified 07/05/19 20:29 pseudoephedrine Allergy Intermediate "MAKES ME Verified 07/05/19 20:29 JUMPY" levofloxacin AdvReac Intermediate TENDON PAIN Verified 07/05/19 20:29 garlic AdvReac Mild GASSY Verified 07/05/19 20:29 Past Med/Surg History Medical History Anemia HX Atrial fibrillation PAROXYSMAL AND SYMPTOMATIC. ON ASA 81MG ONLY, AND HAS HAD BLEEDING ISSUES DESPITE NO OTHER ANTICOAGULATION Autoimmune hepatitis CAD (coronary artery disease) Chondrocalcinosis CKD (chronic kidney disease) stage 3, GFR 30-59 ml/min F/U DR CHRISTIE PRN Degenerative disc disease Diverticular disease GERD (gastroesophageal reflux disease) H/O transfusion of packed red blood cells 3 UNITS S/P MECHANICAL FALL AND R GLUTEAL HEMATOMA 08/2017. Hyperlipidemia Hypertension Hypothyroidism Marginal zone lymphoma DX IN 2013 NA D TX WITH RITUXAN. FOLLOWING WITH HEME/ONC, OBSERVATION ONLY CURRENTLY-F/U [facility] DR MONCADA? Myocardial Infarction STEMI 2011. BMS x 1 to RCA. 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 and A total of 10 systems reviewed and were otherwise negative Additional history was obtained from the prehospital personnel. Physical Exam Vital Signs Vital Signs - 24 hr 07/05/19 20:02 07/05/19 21:01 07/05/19 21:02 Temperature 36.7 C Temperature Source Oral Pulse Rate 76 103 H 101 H Pulse Rate from SpO2 Sensor Pulse Strength Normal Respiratory Rate 18 14 15 Respiratory Effort / Characteristics Non-Labored Spontaneous Respiratory Depth Normal Blood Pressure 185/95 H 154/82 H Blood Pressure Mean 125 112 Blood Pressure Position Lying Pulse Oximetry 97 Oxygen Delivery Method Room Air Sepsis Recent Fever Within 48 Hours No Sepsis Action Taken by Nursing No Action Required 07/05/19 22:14 07/05/19 22:15 07/05/19 22:30 Temperature Temperature Source Pulse Rate 88 105 H 102 H Pulse Rate from SpO2 Sensor Pulse Strength Respiratory Rate 18 20 14 Respiratory Effort / Characteristics Respiratory Depth Blood Pressure 147/71 H 157/86 H Blood Pressure Mean 107 96 Blood Pressure Position Pulse Oximetry Oxygen Delivery Method Sepsis Recent Fever Within 48 Hours Sepsis Action Taken by Nursing 07/05/19 22:36 Temperature Temperature Source Pulse Rate 101 H Pulse Rate from SpO2 Sensor 100 H Pulse Strength Respiratory Rate 19 Respiratory Effort / Characteristics Respiratory Depth Blood Pressure 157/86 H Blood Pressure Mean 96 Blood Pressure Position Pulse Oximetry 96 Oxygen Delivery Method Sepsis Recent Fever Within 48 Hours Sepsis Action Taken by Nursing GENERAL: The patient is awake and alert. She is very anxious appearing and appears to be uncomfortable. EYES: The conjunctivae are clear. The pupils are round and reactive. EARS, NOSE, MOUTH AND THROAT: The nose is without any evidence of any deformity. Mucous membranes are moist. Tongue is midline. NECK: The neck is nontender and supple. RESPIRATORY: Normal respiratory effort is noted there is no evidence of wheezing rhonchi or rales CARDIOVASCULAR: Regular rhythm was noted to auscultation. No definite murmurs noted. GASTROINTESTINAL: The abdomen is soft. Abdomen is nontender. MUSCULOSKELETAL/EXTREMITIES: There is significant swelling of the right lower extremity. There is a right knee effusion with warmth of the right knee. There is significant ecchymosis noted over the entire right lower extremity. SKIN: Pedal edema was noted bilaterally right greater than left. Pulses are symmetric in both feet. NEUROLOGIC: Patient is awake alert and oriented x3. Course Course 2240: I discussed this case with Dr. Mercedes with the [facility] hospitalist group. Administered Medications Fentanyl Citrate (Fentanyl Citrate) 50 mcg IV Q15M PRN PRN Reason: Pain Stop: 07/19/19 20:02 Last Admin: 07/05/19 21:21 Dose: 50 mcg Documented by: [id number] Admin: 07/05/19 20:11 Dose: 50 mcg Documented by: [id number] Ioversol (Optiray 320 125ml) 120 ml IV ONCE PRN PRN Reason: Interaction Checking Stop: 07/09/19 21:43 Last Admin: 07/05/19 21:45 Dose: 120 ml Documented by: [id number] Discontinued Medications Sodium Chloride (Nss) 500 mls @ 999 mls/hr IV .Q31M DESTINY Stop: 07/05/19 20:45 Last Infusion: 07/05/19 21:03 Dose: 0 mls/hr Documented by: [id number] Admin: 07/05/19 20:09 Dose: 999 mls/hr Documented by: [id number] Ondansetron HCl (Zofran) 4 mg IV NOW STA Stop: 07/05/19 20:04 Last Admin: 07/05/19 20:11 Dose: 4 mg Documented by: [id number] Medical Decision Making Differential Diagnosis Etiologies such as DVT, joint effusion, infection, trauma, muscular, ly mphedema, idiopathic, CHF, as well as others were entertained. Medical Records Attestation: I reviewed the patient's medical records. Home Medications Current Medication List: was personally reviewed by me Laboratory Data Attestation: I reviewed the patient's lab results. Result diagrams: 07/05/19 20:10 07/05/19 20:10 Lab Results 07/05/19 07/05/19 07/05/19 Range/Units 20:10 20:10 20:10 WBC 17.66 H (4.8-10.8) K/uL RBC 2.34 L (4.2-5.4) M/uL Hgb 7.5 L (12.0-16.0) g/dL Hct 23.0 L (37-47) % MCV 98.3 (80-100) fL MCH 32.1 (25-34) pg MCHC 32.6 (32-36) g/dL RDW Std Deviation 49.7 H (36.4-46.3) fL RDW Coeff of Jennifer 14.5 (11.5-14.5) % Plt Count 447 H (130-400) K/uL MPV 8.8 (7.4-10.4) fL Immature Gran % (Auto) 0.3 % Neut % (Auto) 87.9 % Lymph % (Auto) 3.7 % Ada % (Auto) 7.5 % Eos % (Auto) 0.5 % Baso % (Auto) 0.1 % Immature Gran # (Auto) 0.06 H (0.00-0.02) K/uL Neut # (Auto) 15.52 H (1.4-6.5) K/uL Lymph # (Auto) 0.65 L (1.2-3.4) K/uL Ada # (Auto) 1.32 H (0.11-0.59) K/uL Eos # (Auto) 0.09 (0-0.5) K/uL Baso # (Auto) 0.02 (0-0.2) K/uL Polychromasia 1+ ESR 31 H (0-21) mm/hr PT 11.3 (9.0-12.0) Seconds INR 1.1 (0.9-1.1) APTT 31.3 H (21.0-31.0) Seconds PTT Ratio 1.1 Sodium (136-145) mmol/L Potassium (3.5-5.1) mmol/L Chloride (98-107) mmol/L Carbon Dioxide (21-32) mmol/L Anion Gap (3-11) BUN (7-18) mg/dl Creatinine (0.6-1.2) mg/dl Est Cr Clr Drug Dosing ml/min Est GFR ( Amer) Est GFR (Non-Af Amer) BUN/Creatinine Ratio (10-20) Glucose (70-99) mg/dl Calcium (8.5-10.1) mg/dl Total Bilirubin (0.2-1) mg/dl AST (15-37) U/L ALT (12-78) U/L Alkaline Phosphatase (45-117) U/L C-Reactive Protein (0-0.29) mg/dl Total Protein (6.4-8.2) gm/dl Albumin (3.4-5.0) gm/dl Globulin (2.5-4.0) gm/dl Albumin/Globulin Ratio (0.9-2) Procalcitonin (0-0.5) ng/ml 07/05/19 07/05/19 Range/Units 20:10 20:10 WBC (4.8-10.8) K/uL RBC (4.2-5.4) M/uL Hgb (12.0-16.0) g/dL Hct (37-47) % MCV (80-100) fL MCH (25-34) pg MCHC (32-36) g/dL RDW Std Deviation (36.4-46.3) fL RDW Coeff of Jennifer (11.5-14.5) % Plt Count (130-400) K/uL MPV (7.4-10.4) fL Immature Gran % (Auto) % Neut % (Auto) % Lymph % (Auto) % Ada % (Auto) % Eos % (Auto) % Baso % (Auto) % Immature Gran # (Auto) (0.00-0.02) K/uL Neut # (Auto) (1.4-6.5) K/uL Lymph # (Auto) (1.2-3.4) K/uL Ada # (Auto) (0.11-0.59) K/uL Eos # (Auto) (0-0.5) K/uL Baso # (Auto) (0-0.2) K/uL Polychromasia ESR (0-21) mm/hr PT (9.0-12.0) Seconds INR (0.9-1.1) APTT (21.0-31.0) Seconds PTT Ratio Sodium 133 L (136-145) mmol/L Potassium 3.6 (3.5-5.1) mmol/L Chloride 103 (98-107) mmol/L Carbon Dioxide 24 (21-32) mmol/L Anion Gap 6.0 (3-11) BUN 27 H (7-18) mg/dl Creatinine 1.09 (0.6-1.2) mg/dl Est Cr Clr Drug Dosing 37.3 ml/min Est GFR ( Amer) 54.7 Est GFR (Non-Af Amer) 47.2 BUN/Creatinine Ratio 24.8 H (10-20) Glucose 142 H (70-99) mg/dl Calcium 8.5 (8.5-10.1) mg/dl Total Bilirubin 0.6 (0.2-1) mg/dl AST 7 L (15-37) U/L ALT 13 (12-78) U/L Alkaline Phosphatase 60 (45-117) U/L C-Reactive Protein 3.60 H (0-0.29) mg/dl Total Protein 6.8 (6.4-8.2) gm/dl Albumin 3.1 L (3.4-5.0) gm/dl Globulin 3.7 (2.5-4.0) gm/dl Albumin/Globulin Ratio 0.8 L (0.9-2) Procalcitonin 0.06 (0-0.5) ng/ml Imaging Data Radiologist's Impression: RIGHT FEMUR 2 VIEWS CLINICAL HISTORY: Right leg pain and swelling. FINDINGS: AP and crosstable lateral views of the right femur are correlated with pelvic radiograph dated 09/07/2017. The skeletal structures are osteopenic. There is no radiographic evidence of right femoral fracture. The visualized right hemipelvis appears intact. Moderate degenerative change and joint space narrowing is noted in the right hip. Degenerative sclerosis is seen in the right sacroiliac joint and the pubic symphysis. Advanced arthritic change and joint effusion is noted in the right knee. Calcified fibroids are noted in the pelvis. Coils project over the right femoral neck. There is atherosclerotic calcification of the right femoral artery. Soft tissue edema is noted in the distal thigh and around the knee. IMPRESSION: 1. No acute osseous abnormality is identified. 2. Soft tissue edema is present in the distal thigh and around the knee. 3. Osteopenia and degenerative change as above. Electronically signed by: Salty Moise M.D. 07/05/2019 8:38 PM Dictated: 07/05/192035 Transcribed: 07/05/192035 RIGHT KNEE 2 VIEWS CLINICAL HISTORY: Right knee swelling. FINDINGS: AP and crosstable lateral views of the right knee are compared to study dated 06/28/2019. The skeletal structures are osteopenic. No fracture is seen. There is advanced tricompartmental degenerative joint space narrowing. Sclerotic change is noted in the medial and lateral compartments. Osteochondral irregularity along the superior aspect of the patella is unchanged. There is a large joint effusion. Soft tissue edema is present around the knee. There is atherosclerotic calcification of the femoral and popliteal arteries. IMPRESSION: 1. Soft tissue swelling and large joint effusion with no acute fracture identified. There has been no significant change from 06/28/2019. 2. Advanced degenerative change as above. Electronically signed by: Salty Moise M.D. 07/05/2019 8:36 PM Dictated: 07/05/192033 Transcribed: 07/05/192033 ULTRASOUND RIGHT LOWER EXTREMITY VENOUS CLINICAL HISTORY: Right leg pain and swelling. COMPARISON STUDY: Bilateral lower extremity venous ultrasound dated 07/05/2016. TECHNIQUE: Real-time, grayscale, and color Doppler sonography of the deep veins of the right lower extremity was performed from the inguinal crease to the calf. Compression and augmentation were utilized. FINDINGS: There is no sonographic evidence of deep venous thrombosis identified in the right lower extremity. The common femoral, superficial femoral, and popliteal veins are patent and normally compressible. The greater saphenous vein and the profunda femoris vein at the junction with the common femoral vein are clear. The visualized calf veins are patent. A large complex popliteal cyst measures 6.6 x 1.8 x 3.4 cm comment with fluid tracking into the medial calf. There is a large complex joint effusion. IMPRESSION: 1. There is no sonographic evidence of deep venous thrombosis identified in the right lower extremity. 2. There is a large complex popliteal cyst. Fluid tracking into the upper calf suggests possible rupture and clinical correlation will be required. 3. Large knee joint effusion. ACT 112: Negative or not required by law. Electronically signed by: Salty Moise M.D. 07/05/2019 8:50 PM Dictated: 07/05/192047 Transcribed: 07/05/192047 CT ANGIOGRAM OF THE RIGHT FEMUR CLINICAL HISTORY: Right leg pain and swelling. COMPARISON STUDY: Radiographs of the right femur and venous ultrasound of the right lower extremity dated 07/05/2019. Pelvic CT dated 08/29/2017. TECHNIQUE: Following the IV administration of 120 cc of Optiray 320, CT angiogram of the right femur is performed from the pelvis to the knee. Images were reviewed in the axial, sagittal, and coronal planes. IV contrast was ad ministered without complication. A dose lowering technique was utilized adhering to the principles of ALARA. CT DOSE: 328.37 mGy.cm FINDINGS: The right external iliac artery, the right common femoral artery, and the right profunda femoris artery are patent. There is moderate to advanced atheroscl erotic plaque and irregularity seen throughout the right superficial femoral artery with foci of less than 50% luminal narrowing. The popliteal artery is patent. The skeletal structures are osteopenic. There is no evidence of femoral fracture. The hip and knee joints are grossly maintained. Advanced degenerative change is noted in the right knee. Chondrocalcinosis is noted in the medial and lateral compartments. Osteochondral irregularity is again seen involving the superior pole of the patella. There is a moderate to large complex knee joint effusion. There may be trace fat within the joint space. A thin curvilinear foreign body within the joint space likely represents an osteochondral fragment (best seen on image #87 of 109). There is a moderate to large popliteal cyst. There is generalized atrophy of the regional musculature. Soft tissue edema is present throughout the mid to distal thigh and around the knee. Postoperative change is noted at the origin of the right hamstrings tendon. No intramuscular hemorrhage is noted within the vastus medialis and vastus lateralis muscles. The partially visualized bladder is grossly unremarkable. There is no right pelvic sidewall or inguinal adenopathy. The uterus is heterogeneous and contains calcified fibroids. No free fluid is seen within the imaged pelvis. IMPRESSION: 1. The visualized arteries of the right lower extremity are patent as detailed above noting atherosclerotic irregularity. 2. There is lipohemarthrosis identified in the right knee. 3. An osteochondral fragment is present within the knee joint effusion, likely arising from the upper pole of the patella. This is likely acute to subacute. 4. Intramuscular hemorrhage is noted within the right vastus medialis and vastus lateralis. 5. The right femur is intact. 6. Moderate to large popliteal cyst. 7. The uterus is heterogeneous and contains calcified fibroids. This is similar in appearance to the 08/29/2017 CT scan. 8. Additional findings as above. ACT 112: Negative or not required by law. Dictated: 07/05/2019 9:52 PM Transcribed: 07/05/2019 10:24 PM Quynh [id number] Electronically signed by: Salty Moise M.D. 07/05/2019 10:31 PM Dictated: 07/05/192151 Transcribed: 07/05/192223 Blood Pressure Blood Pressure Disposition: further management by hospitalist MDM Narrative The patient is an 83-year-old female who presented to the emergency department for an evaluation of right knee pain. The patient did not have any trauma that she remembers. The patient was seen multiple times in our emergency department as well as by orthopedics. The patient had an arthrocentesis which was felt to be significant with a hemarthrosis and not a septic joint. She was seen in follow-up by orthopedics and did have a steroid injection into the knee. The patient continues to have worsening pain. She was seen by her outpatient o rthopedic physician today and she states after this evaluation she had very severe pain and is unable to ambulate. The patient does have very significant ecchymosis through the thigh into the right lower extremity. She also has a knee effusion. I discussed the patient's laboratory and radiographic studies with her and her family members. She was treated with IV pain medication in the emergency department. She was feeling much better but still has very severe pain and is unable to ambulate at this time. She appears to have an abnormality on her patella which could represent a subacute patellar injury. This could explain the hemarthrosis but the patient has significant soft tissue hematoma as well. She was noted to have a significant drop in her hemoglobin compared to her baseline. She currently does not take any blood thinners other than aspirin. I discussed this case with the on-call [facility] hospitalist group. They have agreed to evaluate the patient in the emergency department for further management disposition. The patient may require further evaluation as an inpatient by the orthopedic physician. Impression & Plan Hemarthrosis involving knee joint, Anemia, Acute pain of right lower extremity, Effusion of right knee, Patellar fracture, Hematoma of right thigh Discharge Plan Visit Data Chief Complaint: Leg Injury/Pain Stated Complaint: LEG PAIN ED Provider: Demian Sadler Discharge Problem: Hemarthrosis involving knee joint, Anemia, Acute pain of right lower extremity, Effusion of right knee, Patellar fracture, Hematoma of right thigh Patient Disposition: Being Evaluated by Hospitalist Condition: Good Forms Stand Alone Forms: [facility] Prescriptions Prescriptions: No Action PreserVision [id number] [phone] Capsule 1 tab PO BID RF: 0 aspirin 81 mg Tablet,Delayed Release (Dr/Ec) 81 mg PO QAM RF: 0 lidocaine [Lidocaine Pain Relief] 4 % Adhesive Patch,Medicated 1 patch TOPICAL DAILY PRN (Reason: Pain) RF: 0 sotalol 80 mg Tablet 40 mg PO QAM RF: 0 tramadol 50 mg Tablet 50 mg PO Q6H PRN (Reason: Pain) RF: 0 carvedilol [Coreg] 3.125 mg Tablet 3.125 mg PO BIDM RF: 0 acetaminophen [Tylenol Arthritis Pain] 650 mg Tablet Extended Release 650 mg PO DIRECTED MDD 2000 MG/24 HOURS PRN (Reason: Pain) RF: 0 ferrous sulfate [iron] 325 mg (65 mg iron) Tablet 325 mg PO QAM RF: 0 ursodiol [Actigall] 300 mg Capsule 300 mg PO TID RF: 0 omeprazole 20 mg Capsule,Delayed Release(Dr/Ec) 20 mg PO HS RF: 0 pravastatin [Pravachol] 20 mg Tablet 20 mg PO HS RF: 0 levothyroxine 112 mcg Tablet 112 mcg PO QAM RF: 0 tramadol 50 mg tablet 50 mg PO Q6H PRN (Reason: pain) Qty: 14 RF: 0 methylprednisolone [Medrol (Christopher)] 4 mg tablets,dose pack 4 mg PO DIRECTED Qty: 21 RF: 0 oxycodone 5 mg tablet 5 mg PO Q6H PRN (Reason: pain) Qty: 10 RF: 0 sennosides-docusate sodium [Senokot-S] 8.6-50 mg tablet 1 tabcap PO BID PRN (Reason: constipation) Qty: 60 RF: 2 Referrals Referrals: Kelsi Lucas, [Primary Care Provider] -
[2019-07-05] MEDS: fentaNYL citrate 100 MCG/2 ML VIAL IV PRN ×3 (20:11→23:44)
[2019-07-05] MEDS ORDERED: SODIUM CHLORIDE 0.9% 500 ML IV SCH (20:15)
[2019-07-05 20:25] LABS: Basophils # (auto) 0.02 K/uL (0-0.2); Basophils % (auto) 0.1 %; Eosinophils # (auto) 0.09 K/uL (0-0.5); Eosinophils % (auto) 0.5 %; Hemoglobin 7.5 g/dL (12.0-16.0); Immature Granulocytes # (auto) 0.06 K/uL (0.00-0.02); Immature Granulocytes % (auto) 0.3 %; Lymphocytes # (auto) 0.65 K/uL (1.2-3.4); Lymphocytes % (auto) 3.7 %; Mean Corpuscular Hemoglobin 32.1 pg (25-34); Mean Corpuscular Hgb Conc 32.6 g/dL (32-36); Mean Corpuscular Volume 98.3 fL (80-100); Mean Platelet Volume 8.8 fL (7.4-10.4); Monocytes # (auto) 1.32 K/uL (0.11-0.59); Monocytes % (auto) 7.5 %; Neutrophils # (auto) 15.52 K/uL (1.4-6.5); Neutrophils % (auto) 87.9 %; Platelet Count 447 K/uL (130-400); RDW Coefficient of Variation 14.5 % (11.5-14.5); RDW Standard Deviation 49.7 fL (36.4-46.3); Red Blood Count 2.34 M/uL (4.2-5.4); White Blood Count 17.66 K/uL (4.8-10.8)
[2019-07-05 20:36] LABS: INR 1.1 (0.9-1.1); Partial Thromboplastin Ratio 1.1; Partial Thromboplastin Time 31.3 Seconds (21.0-31.0); Prothrombin Time 11.3 Seconds (9.0-12.0)
--- NOTE | 2019-07-05 20:37 | XRay Report ---
RIGHT KNEE 2 VIEWS CLINICAL HISTORY: Right knee swelling. FINDINGS: AP and crosstable lateral views of the right knee are compared to study dated 06/28/2019. The skeletal structures are osteopenic. No fracture is seen. There is advanced tricompartmental degenera tive joint space narrowing. Sclerotic change is noted in the medial and lateral compartments. Osteoch ondral irregularity along the superior aspect of the patella is unchanged. There is a large joint eff usion. Soft tissue edema is present around the knee. There is atherosclerotic calcification of the fe moral and popliteal arteries. IMPRESSION: 1. Soft tissue swelling and large joint effusion with no acute fracture identified. There has been no significant change from 06/28/2019. 2. Advanced degenerative change as above. Electronically signed by: Salty Moise M.D. 07/05/2019 8:36 PM
--- NOTE | 2019-07-05 20:39 | XRay Report ---
RIGHT FEMUR 2 VIEWS CLINICAL HISTORY: Right leg pain and swelling. FINDINGS: AP and crosstable lateral views of the right femur are correlated with pelvic radiograph da lindsey 09/07/2017. The skeletal structures are osteopenic. There is no radiographic evidence of right fem oral fracture. The visualized right hemipelvis appears intact. Moderate degenerative change and joint space narrowing is noted in the right hip. Degenerative sclerosis is seen in the right sacroiliac melissa int and the pubic symphysis. Advanced arthritic change and joint effusion is noted in the right knee. Calcified fibroids are noted in the pelvis. Coils project over the right femoral neck. There is athe rosclerotic calcification of the right femoral artery. Soft tissue edema is noted in the distal thigh and around the knee. IMPRESSION: 1. No acute osseous abnormality is identified. 2. Soft tissue edema is present in the distal thigh and around the knee. 3. Osteopenia and degenerative change as above. Electronically signed by: Salty Moise M.D. 07/05/2019 8:38 PM
[2019-07-05 20:47] LABS: Albumin Level 3.1 gm/dl (3.4-5.0); BUN Creatinine Ratio 24.8 (10-20); C Reactive Protein 3.6 mg/dl (0-0.29); Calcium 8.5 mg/dl (8.5-10.1); Creatinine Clr Calc Pharmacy 37.3 ml/min; Est GFR (African American) 54.7; Est GFR (Non-African American) 47.2; Potassium 3.6 mmol/L (3.5-5.1)
[2019-07-05 20:50] LABS: Albumin Globulin Ratio 0.8 (0.9-2); Bilirubin,Total 0.6 mg/dl (0.2-1); Globulin 3.7 gm/dl (2.5-4.0); Total Protein 6.8 gm/dl (6.4-8.2)
--- NOTE | 2019-07-05 20:51 | Ultrasound Report ---
ULTRASOUND RIGHT LOWER EXTREMITY VENOUS CLINICAL HISTORY: Right leg pain and swelling. COMPARISON STUDY: Bilateral lower extremity venous ultrasound dated 07/05/2016. TECHNIQUE: Real-time, grayscale, and color Doppler sonography of the deep veins of the right lower ex tremity was performed from the inguinal crease to the calf. Compression and augmentation were utilize d. FINDINGS: There is no sonographic evidence of deep venous thrombosis identified in the right lower ex tremity. The common femoral, superficial femoral, and popliteal veins are patent and normally grady sible. The greater saphenous vein and the profunda femoris vein at the junction with the common femor al vein are clear. The visualized calf veins are patent. A large complex popliteal cyst measures 6.6 x 1.8 x 3.4 cm comment with fluid tracking into the medial calf. There is a large complex joint effus ion. IMPRESSION: 1. There is no sonographic evidence of deep venous thrombosis identified in the right lower extremity . 2. There is a large complex popliteal cyst. Fluid tracking into the upper calf suggests possible rupt ure and clinical correlation will be required. 3. Large knee joint effusion. ACT 112: Negative or not required by law. Electronically signed by: Salty Moise M.D. 07/05/2019 8:50 PM
[2019-07-05 20:57] LABS: Polychromasia 1+
[2019-07-05] MEDS ORDERED: OPTIRAY 320 125ml IV PRN (21:44)
--- NOTE | 2019-07-05 22:33 | CT Scan Report ---
CT ANGIOGRAM OF THE RIGHT FEMUR CLINICAL HISTORY: Right leg pain and swelling. COMPARISON STUDY: Radiographs of the right femur and venous ultrasound of the right lower extremity d ated 07/05/2019. Pelvic CT dated 08/29/2017. TECHNIQUE: Following the IV administration of 120 cc of Optiray 320, CT angiogram of the right femur is performed from the pelvis to the knee. Images were reviewed in the axial, sagittal, and coronal pl anes. IV contrast was administered without complication. A dose lowering technique was utilized adher ing to the principles of ALARA. CT DOSE: 328.37 mGy.cm FINDINGS: The right external iliac artery, the right common femoral artery, and the right profunda femoris beatriz ry are patent. There is moderate to advanced atherosclerotic plaque and irregularity seen throughout the right superficial femoral artery with foci of less than 50% luminal narrowing. The popliteal beatriz ry is patent. The skeletal structures are osteopenic. There is no evidence of femoral fracture. The hip and knee melissa ints are grossly maintained. Advanced degenerative change is noted in the right knee. Chondrocalcinos is is noted in the medial and lateral compartments. Osteochondral irregularity is again seen involvin g the superior pole of the patella. There is a moderate to large complex knee joint effusion. There m ay be trace fat within the joint space. A thin curvilinear foreign body within the joint space likely represents an osteochondral fragment (best seen on image #87 of 109). There is a moderate to large p opliteal cyst. There is generalized atrophy of the regional musculature. Soft tissue edema is present throughout the mid to distal thigh and around the knee. Postoperative change is noted at the origin of the right mueller mstrings tendon. No intramuscular hemorrhage is noted within the vastus medialis and vastus lateralis muscles. The partially visualized bladder is grossly unremarkable. There is no right pelvic sidewall or inguin al adenopathy. The uterus is heterogeneous and contains calcified fibroids. No free fluid is seen wit hin the imaged pelvis. IMPRESSION: 1. The visualized arteries of the right lower extremity are patent as detailed above noting atheroscl erotic irregularity. 2. There is lipohemarthrosis identified in the right knee. 3. An osteochondral fragment is present within the knee joint effusion, likely arising from the upper pole of the patella. This is likely acute to subacute. 4. Intramuscular hemorrhage is noted within the right vastus medialis and vastus lateralis. 5. The right femur is intact. 6. Moderate to large popliteal cyst. 7. The uterus is heterogeneous and contains calcified fibroids. This is similar in appearance to the 08/29/2017 CT scan. 8. Additional findings as above. ACT 112: Negative or not required by law. Dictated: 07/05/2019 9:52 PM Transcribed: 07/05/2019 10:24 PM Quynh [id number] Electronically signed by: Salty Moise M.D. 07/05/2019 10:31 PM
[2019-07-05] MEDS ORDERED: carvediloL 3.125 MG TAB PO ONE (22:45)
--- NOTE | 2019-07-05 23:18 | History & Physical Report ---
Date of Service July 05, 2019 Assessment & Plan (1) Hemarthrosis involving knee joint: Progressive swelling over the last few weeks hx steroid rx Acute on chronic anemia Hemoglobin drop from baseline separate to above Hypertensive urgency secondary to RLE discomfort hx CAD status post stenting PAFib, px NSR although tachycardic off anticoagulation because of bleeding propensity hx NHL status post chemotherapy, stable disease as of recent [place] [facility] [place] 2018 autoimmune hepatitis/primary biliary cirrhosis, stable on ursodiol Rx Pelvic mass on CT, possible malignancy, patient declined additional work-up as per outpatient [facility] oncology notes from last year past tobacco abuse Medical telemetry given hypertensive urgency Analgesia Facilitate home BP meds, may need dose increase Appropriate to hold home aspirin for now given RLE bleed, transfuse PRBC to maintain hemoglobin greater than 8 given CAD history Orthopedics consult RE follow-up eval for RLE swelling N.p.o. after midnight in anticipation of procedure DVT prophylaxis. SCDs RE RLE hematoma Full code Text document was generated using [employer] voice recognition software. It may contain grammatical or spelling errors. Kindly contact undersigned for clarification of any documentation item in question. History of Present Illness Primary Care Provider: Kelsi Lucas, DO History obtained from patient and records. 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 coli UTI. Recent confinement August 2017 for right gluteal hematoma secondary to mechanical fall, right superior gluteal aneurysm. Patient transferred to [facility] where she underwent IR embolization of pseudoaneurysm. 3 weeks ago patient noted sudden onset right knee, right lower leg swelling without recollection of trauma. No fever no chills. Patient seen at the ER and R knee joint aspirated yielding 3 cc bloody fluid. Patient discharged on prednisone course for right knee joint effusion. Subsequent outpatient follow-up visits with [facility] [place] [facility]ics. Right knee swelling coming and going as per patient after steroid course. Patient also complaining of achy right low back pain without constipation/diarrhea/dysuria symptoms Patient seen on follow-up visit today by chief specialist leed. Marked painful swelling noted of right knee, right leg after manipulation at the office as per patient account. Outpatient MRI recommended as per patient. Patient denies chest pain, S OB, fever, chills. Patient consulted ER for further evaluation. MEDICAL HISTORY: As above. SURGERIES: Mastectomy, lymph node biopsy, dental surgery, urologic procedures. cholecystectomy. Cataract surgery, tonsillectomy, and bladder defect surgery. FAMILY HISTORY: Heart disease, pancreatic cancer, breast cancer, skin cancer. PERSONAL AND SOCIAL HISTORY: No chronic intake of alcoholic beverages. 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 Allergies Allergy/AdvReac Type Severity Reaction Status Date / Time diphenhydramine Allergy Intermediate spasms to Verified 07/05/19 20:29 bilt legs metoprolol Allergy Intermediate RASH Verified 07/05/19 20:29 pseudoephedrine Allergy Intermediate "MAKES ME Verified 07/05/19 20:29 JUMPY" levofloxacin AdvReac Intermediate TENDON PAIN Verified 07/05/19 20:29 garlic AdvReac Mild GASSY Verified 07/05/19 20:29 Home Medications Home Medications Medication Instructions Recorded Confirmed Type acetaminophen [Tylenol Arthritis 650 mg PO DIRECTED PRN MDD 199911/02/18 07/05/19 History Pain] MG/24 HOURS carvedilol [Coreg] 3.125 mg PO BIDM 11/02/18 07/05/19 History ferrous sulfate [iron] 325 mg PO QAM 11/02/18 07/05/19 History levothyroxine 112 mcg PO QAM 11/02/18 07/05/19 History lidocaine [Lidocaine Pain Relief] 1 patch TOPICAL DAILY PRN 11/02/18 07/05/19 History omeprazole 20 mg PO HS 11/02/18 07/05/19 History pravastatin [Pravachol] 20 mg PO HS 11/02/18 07/05/19 History sotalol 40 mg PO QAM 11/02/18 07/05/19 History tramadol 50 mg PO Q6H PRN 11/02/18 07/05/19 History ursodiol [Actigall] 300 mg PO TID 11/02/18 07/05/19 History PreserVision AREDS-2 1 tab PO BID 11/18/18 07/05/19 History aspirin 81 mg PO QAM 11/18/18 07/05/19 History tramadol 50 mg PO Q6H PRN #14 tab 06/15/19 07/05/19 Rx methylprednisolone [Medrol (Christopher)] 4 mg PO DIRECTED #21 ea 06/28/19 07/05/19 Rx oxycodone 5 mg PO Q6H PRN #10 tab 06/28/19 07/05/19 Rx sennosides-docusate sodium 1 tabcap PO BID PRN #60 tab 06/28/19 07/05/19 Rx [Senokot-S] Past Med/Surg History Medical History Anemia HX Atrial fibrillation PAROXYSMAL AND SYMPTOMATIC. ON ASA 81MG ONLY, AND HAS HAD BLEEDING ISSUES DESPITE NO OTHER ANTICOAGULATION Autoimmune hepatitis CAD (coronary artery disease) Chondrocalcinosis CKD (chronic kidney disease) stage 3, GFR 30-59 ml/min F/U DR CHRISTIE PRN Degenerative disc disease Diverticular disease GERD (gastroesophageal reflux disease) H/O transfusion of packed red blood cells 3 UNITS S/P MECHANICAL FALL AND R GLUTEAL HEMATOMA 08/2017. Hyperlipidemia Hypertension Hypothyroidism Marginal zone lymphoma DX IN 2013 NA D TX WITH RITUXAN. FOLLOWING WITH [facility]EME/ONC, OBSERVATION ONLY CURRENTLY-F/U [facility] DR MONCADA? Myocardial Infarction STEMI 2011. BMS x 1 to RCA. 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: No Beliefs That Will Affect Care: None Current Living Situation: Spouse Feels Safe at Home: Yes Smoking Status: Former smoker Cigarettes Per Day: QUIT AT AGE 49 ; Second Hand Exposure: Yes (PARENTS SMOKED) ; Hx Alcohol Use: Yes Alcohol type: beer, wine and hard liquor Hx Substance Use: No Review of Systems Review of Systems: As per HPI, all 10 systems reviewed, all other ROS negative Physical Exam Physical Exam: GENERAL: Slightly uncomfortable, no respiratory distress, lying on the left lateral decubitus position SKIN: Pallor , warm HEENT: Pale palpebral conjunctivae, no ptosis, dry buccal mucosa NECK : Supple, no tenderness CHEST : Decreased breath sounds , no tenderness HEART : Tachycardic, systolic murmur ABDOMEN: Some distention, nontender EXTREMITIES : marked R knee/right lower leg swelling with tenderness, limited range of motion right knee, no other conspicuous deformities noted NEUROLOGIC : Coherent, no facial asymmetry, mild hearing impairment, no other gr oss focality Results & Data Vital Signs (Past 12 Hours) Vital Signs Temp Pulse Resp BP Pulse Ox 07/05/19 22:36 101 H 19 157/86 H 96 07/05/19 22:30 102 H 14 157/86 H 07/05/19 22:15 105 H 20 147/71 H 07/05/19 22:14 88 18 07/05/19 22:00 85 L 07/05/19 21:02 101 H 15 07/05/19 21:01 103 H 14 154/82 H 07/05/19 20:02 36.7 C 76 18 185/95 H 97 Laboratory Results Laboratory Results WBC 17.66 K/uL (4.8-10.8) H 07/05/19 20:10 RBC 2.34 M/uL (4.2-5.4) L 07/05/19 20:10 Hgb 7.5 g/dL (12.0-16.0) L 07/05/19 20:10 Hct 23.0 % (37-47) L 07/05/19 20:10 MCV 98.3 fL (80-100) 07/05/19 20:10 MCH 32.1 pg (25-34) 07/05/19 20:10 MCHC 32.6 g/dL (32-36) 07/05/19 20:10 RDW Std Deviation 49.7 fL (36.4-46.3) H 07/05/19 20:10 RDW Coeff of Jennifer 14.5 % (11.5-14.5) 07/05/19 20:10 Plt Count 447 K/uL (130-400) H 07/05/19 20:10 MPV 8.8 fL (7.4-10.4) 07/05/19 20:10 Immature Gran % (Auto) 0.3 % 07/05/19 20:10 Neut % (Auto) 87.9 % 07/05/19 20:10 Lymph % (Auto) 3.7 % 07/05/19 20:10 Shelby % (Auto) 7.5 % 07/05/19 20:10 Eos % (Auto) 0.5 % 07/05/19 20:10 Baso % (Auto) 0.1 % 07/05/19 20:10 Immature Gran # (Auto) 0.06 K/uL (0.00-0.02) H 07/05/19 20:10 Neut # (Auto) 15.52 K/uL (1.4-6.5) H 07/05/19 20:10 Lymph # (Auto) 0.65 K/uL (1.2-3.4) L 07/05/19 20:10 Shelby # (Auto) 1.32 K/uL (0.11-0.59) H 07/05/19 20:10 Eos # (Auto) 0.09 K/uL (0-0.5) 07/05/19 20:10 Baso # (Auto) 0.02 K/uL (0-0.2) 07/05/19 20:10 Polychromasia 1+ 07/05/19 20:10 ESR 31 mm/hr (0-21) H 07/05/19 20:10 PT 11.3 Seconds (9.0-12.0) 07/05/19 20:10 INR 1.1 (0.9-1.1) 07/05/19 20:10 APTT 31.3 Seconds (21.0-31.0) H 07/05/19 20:10 PTT Ratio 1.1 07/05/19 20:10 Sodium 133 mmol/L (136-145) L 07/05/19 20:10 Potassium 3.6 mmol/L (3.5-5.1) 07/05/19 20:10 Chloride 103 mmol/L (98-107) 07/05/19 20:10 Carbon Dioxide 24 mmol/L (21-32) 07/05/19 20:10 Anion Gap 6.0 (3-11) 07/05/19 20:10 BUN 27 mg/dl (7-18) H 07/05/19 20:10 Creatinine 1.09 mg/dl (0.6-1.2) 07/05/19 20:10 Est Cr Clr Drug Dosing 37.3 ml/min 07/05/19 20:10 Est GFR ( Amer) 54.7 07/05/19 20:10 Est GFR (Non-Af Amer) 47.2 07/05/19 20:10 BUN/Creatinine Ratio 24.8 (10-20) H 07/05/19 20:10 Glucose 142 mg/dl (70-99) H 07/05/19 20:10 Calcium 8.5 mg/dl (8.5-10.1) 07/05/19 20:10 Total Bilirubin 0.6 mg/dl (0.2-1) 07/05/19 20:10 AST 7 U/L (15-37) L 07/05/19 20:10 ALT 13 U/L (12-78) 07/05/19 20:10 Alkaline Phosphatase 60 U/L (45-117) 07/05/19 20:10 C-Reactive Protein 3.60 mg/dl (0-0.29) H 07/05/19 20:10 Total Protein 6.8 gm/dl (6.4-8.2) 07/05/19 20:10 Albumin 3.1 gm/dl (3.4-5.0) L 07/05/19 20:10 Globulin 3.7 gm/dl (2.5-4.0) 07/05/19 20:10 Albumin/Globulin Ratio 0.8 (0.9-2) L 07/05/19 20:10 Procalcitonin 0.06 ng/ml (0-0.5) 07/05/19 20:[address] right lower extremity: 1. The visualized arteries of the right lower extremity are patent as detailed above noting atherosclerotic irregularity. 2. There is lipohemarthrosis identified in the right knee. 3. An osteochondral fragment is present within the knee joint effusion, likely arising from the upper pole of the patella. This is likely acute to subacute. 4. Intramuscular hemorrhage is noted within the right vastus medialis and vastus lateralis. 5. The right femur is intact. 6. Moderate to large popliteal cyst. 7. The uterus is heterogeneous and contains calcified fibroids. This is similar in appearance to the 08/29/2017 CT scan. RLE venous Dopplers: 1. There is no sonographic evidence of deep venous thrombosis identified in the right lower extremity. 2. There is a large complex popliteal cyst. Fluid tracking into the upper calf suggests possible rupture and clinical correlation will be required. 3. Large knee joint effusion. CT abdomen pelvis initial read: No hydronephrosis or hydroureter. Limited evaluation of stones from retained contrast. Thin-walled cyst left pelvis arising from left ovary measuring 8.6 x 5.7 cm slightly increased from 2018. Diverticulosis without diverticulitis. No bowel wall thickening. Compression fracture L2. Compression fracture at L1 has worsened from 2018. Chest x-ray as per my interpretation congestion EKG as per my interpretation : Rate 105, sinus tachycardia, normal axis, LVH, T wave abnormalities inferolateral leads (1) Hemarthrosis involving knee joint Laterality: right Qualified Code(s): M25.061 - Hemarthrosis, right knee
[2019-07-05 23:59] LABS: Reticulocyte % 4.4 % (0.5-2.0); Reticulocytes # 0.1 10^6/uL (0.02-0.10)
[2019-07-06 00:26] LABS: Ferritin 377.6 ng/ml (8-388); Folate (Folic Acid) 16.12 ng/ml (>5.38); Magnesium 1.5 mg/dl (1.8-2.4); Thyroid Stimulating Hormone 3.77 uIu/ml (0.300-4.500)
[2019-07-06] MEDS ORDERED: NSS + 20MEQ KCL 20 MEQ/1,000 ML BAG IV SCH (00:52)
[2019-07-06] MEDS ORDERED: PROMETHAZINE HCL 12.5 MG in SODIUM CHLORIDE 0.9% 50 ML IV PRN (00:52)
[2019-07-06] MEDS ORDERED: POTASSIUM CHLORIDE 20 MEQ TABCR PO STA (00:52)
[2019-07-06] MEDS ORDERED: MoRPHine SULFATE 4 MG/ML 1 ML CARP\\VIAL IV PRN (00:52)
[2019-07-06] MEDS ORDERED: DOCUSATE SODIUM/SENNA 50/8.6MG TAB PO PRN (00:52)
[2019-07-06] MEDS ORDERED: SODIUM CHLORIDE 0.9% 250 ML IV PRN ×2 (00:52→16:27)
[2019-07-06] MEDS ORDERED: INFLUENZA VACCINE HIGH DOSE 65+ 0.5 ML SYR IM ONE (01:22)
[2019-07-06] MEDS ORDERED: PNEUMOCOCCAL POLYSACCHARIDES 25 MCG/0.5 ML VIAL/SYR IM ONE (01:22)
[2019-07-06] MEDS ORDERED: INFLUENZA ADMINISTRATION CHARGE ONE (01:22)
[2019-07-06] MEDS ORDERED: PNEUMOCOCCAL ADMINISTRATION CHARGE ONE (01:22)
[2019-07-06] MEDS ORDERED: dilTIAZem HCl 5 MG/ML 5 ML VIAL IV STA (01:24)
[2019-07-06] MEDS ORDERED: LIDOCAINE 5% 1 PATCH TD PRN (02:20)
[2019-07-06] MEDS: OXYCODONE HCL IR 5 MG TAB (IMMEDIATE RELEASE) PO PRN ×2 (02:38→12:02)
[2019-07-06] MEDS: carvediloL 6.25 MG TAB PO SCH ×2 (03:45→16:08)
[2019-07-06] MEDS: LEVOTHYROXINE SODIUM 112 MCG TABLET PO SCH (05:24)
[2019-07-06 06:30] LABS: Estimated Average Glucose 105 mg/dl; Hemoglobin A1C 5.3 % (4.5-5.6)
--- NOTE | 2019-07-06 07:02 | XRay Report ---
XR chest 1V portable CLINICAL HISTORY: Tachycardia. COMPARISON STUDY: Chest radiograph November 02, 2018. FINDINGS: Note is made of small bilateral pleural effusions. There is no pneumothorax. Moderate inter stitial pulmonary edema is noted. There is mild cardiomegaly. Mild bibasilar opacities are present. IMPRESSION: 1. Moderate interstitial pulmonary edema with small bilateral pleural effusions. This finding will be called/faxed to the ordering provider at time of dictation. 2. Mild bibasilar opacities which favor atelectasis. ACT 112: Negative or not required by law. Electronically signed by: Arthur Buchanan M.D. 07/06/2019 7:01 AM
--- NOTE | 2019-07-06 07:05 | CT Scan Report ---
CT abd pelvis wo con CT DOSE: 619.22 mGy.cm HISTORY: Trauma. Pain. back pain TECHNIQUE: Multiaxial CT images of the abdomen and pelvis were performed without contrast. A dose lo wering technique was utilized adhering to the principles of ALARA. COMPARISON STUDY: 08/29/2017 FINDINGS: Small bilateral pleural effusions. Superimposed left basilar parenchymal infiltrative higginbotham e. Peribronchial prominence throughout both lung bases. Liver spleen and pancreas appear unremarkable. Prior cholecystectomy. No evidence for renal hydroneph rosis. Abdominal bowel pattern is considered nonobstructive. Chronic sigmoid diverticulosis. Several calcified uterine fibroids. 8 x 5 cm cystic nodule/process or iginating from the left ovary this is slightly increased from the prior exam. The pelvic bowel pattern is considered considered nonobstructive. Bladder is midline. The bony structures demonstrate a compression fracture of L1 progressive from the prior study, with a ccentuation of the posterior vertebral body retropulsion to 6 mm. Additional compression deformities are unchanged. IMPRESSION: 1. 8 x 5 cm cystic mass presumably originating from the left ovary. 2. Calcified uterine fibroids. 3. Moderately progressive compression deformity of L1 1 mild increase in retropulsion. 4. Old compression deformities otherwise unchanged. 5. Bibasilar atelectatic and/or infiltrative change ACT 112: Negative or not required by law. The above report was generated using voice recognition software. It may contain grammatical, syntax or spelling errors. Electronically signed by: Lul Gutierrez M.D. 07/06/2019 7:04 AM
[2019-07-06] MEDS ORDERED: FUROSEMIDE 20 MG in SYRINGE 0 ML IV ONE (07:20)
[2019-07-06] MEDS: CEROVITE ADV FORMULA TAB PO SCH ×2 (07:44→20:49)
[2019-07-06] MEDS: SOTALOL HCL 80 MG TAB PO SCH (07:44)
[2019-07-06] MEDS: ursodioL 300 MG CAP PO SCH ×3 (07:45→20:48)
[2019-07-06] MEDS ORDERED: carvediloL 3.125 MG TAB PO SCH (08:00)
[2019-07-06] MEDS ORDERED: FERROUS SULFATE 325 MG TAB PO SCH (09:00)
--- NOTE | 2019-07-06 13:38 | Magnetic Resonance Report ---
MRI OF THE RIGHT KNEE WITHOUT CONTRAST CLINICAL HISTORY: Right knee pain, Right knee effusion. COMPARISON STUDY: MRI of the right knee October 08, 2010. Right knee radiographs July 05, 2019. TECHNIQUE: Utilizing a 1.5 Jillian magnet and dedicated coil, multiplanar, multiecho imaging of the rig ht knee was performed without intravenous or intraarticular contrast. FINDINGS: Alignment of the right knee is anatomic. Extensor mechanism is intact. Note is made of a la rge complex joint effusion with T2 hypointense material which represents hemorrhage which was shown o n CT of July 05, 2019. Note is made of a 7.4 x 3.2 x 1.9 cm, with popliteal cyst. The cruciate and c ollateral ligaments are intact. There is increased signal within the anterior cruciate ligament. The medial collateral ligament and lateral collateral ligament complex are intact. There is severe chondr osis within the patellofemoral and lateral compartments. There is also severe chondrosis within the m edial compartment. Subchondral signal abnormality is due to arthritis. The lateral meniscus is diminu tive and irregular and partially extruded. This represents a complex tear. There is a subtle free edg e tear of the posterior horn of the medial meniscus. No mass is noted. There is no suspicious marrow replacement. Extensive subcutaneous edema is present. IMPRESSION: 1. Large right knee joint effusion consistent with a hemarthrosis. 7.4 x 3.2 x 1.9 cm complex poplite al cyst which may also contain hemorrhage. 2. Severe tricompartmental osteoarthritis of the right knee with severe chondrosis. 3. Increased signal within the anterior cruciate ligament which suggest mucoid degeneration. 4. Complex tear of the lateral meniscus which is extruded. Free edge tear of the posterior horn of th e medial meniscus. ACT 112: Negative or not required by law. Electronically signed by: Arthur Buchanan M.D. 07/06/2019 1:37 PM
[2019-07-06] MEDS: ACETAMINOPHEN 325 MG TAB PO PRN ×2 (13:44→20:54)
[2019-07-06 14:07] LABS: Hematocrit (blood only) 24.4 % (37-47); Hemoglobin 8.2 g/dL (12.0-16.0); Immature Granulocytes # (auto) 0.02 K/uL (0.00-0.02); Immature Granulocytes % (auto) 0.2 %; Lymphocytes # (auto) 0.41 K/uL (1.2-3.4); Lymphocytes % (auto) 3.2 %; Mean Corpuscular Hemoglobin 31.8 pg (25-34); Mean Corpuscular Hgb Conc 33.6 g/dL (32-36); Mean Corpuscular Volume 94.6 fL (80-100); Mean Platelet Volume 8.6 fL (7.4-10.4); Monocytes # (auto) 1.66 K/uL (0.11-0.59); Monocytes % (auto) 12.8 %; Neutrophils # (auto) 10.88 K/uL (1.4-6.5); Neutrophils % (auto) 83.8 %; Platelet Count 367 K/uL (130-400); RDW Coefficient of Variation 15.4 % (11.5-14.5); RDW Standard Deviation 51.6 fL (36.4-46.3); Red Blood Count 2.58 M/uL (4.2-5.4); White Blood Count 12.97 K/uL (4.8-10.8)
[2019-07-06 14:36] LABS: BUN Creatinine Ratio 24.2 (10-20); Calcium 8.6 mg/dl (8.5-10.1); Creatinine Clr Calc Pharmacy 34.7 ml/min; Est GFR (African American) 50.3; Est GFR (Non-African American) 43.4; Potassium 4.3 mmol/L (3.5-5.1)
--- NOTE | 2019-07-06 14:42 | Orthopedic Consultation ---
Date of Consultation July 06, 2019 Assessment & Plan (1) Hemarthrosis involving knee joint: (2) Anemia: We recommend that Hematology and/or Vascular see her as she is having bleeding into her knee joint with no known cause at this point and normal bleeding studies. (3) Acute pain of right knee: For her knee pain, we did place her in an immobilizer that she is to use while sleeping and while weight bearing. We are going to try to keep her knee straight for 2 weeks to see if her knee pain improves. She should also use a walker while ambulating. She is going to work with PT. (4) Right knee DJD: She has severe DJD of the knee and a likely small abnormality along the superior aspect of her patella that does appear to be somewhat acute, however this does not account for the amount of bleeding into her knee joint that she is having. History of Present Illness Reason for Consultation: Right knee pain and hemarthrosis Attending Physician: Eriberto Thornton MD History of Present Illness 83 year old white female who presented to the the ED yesterday for worsening right knee pain. She was seen in our office several times over the 2 months for this knee pain and has had her knee aspirated and injected with Celestone done 2 weeks ago which did not help much. She was also put on PO Prednisone and Oxycodone to help her pain with minimal relief. She was seen most recently yesterday in our office by Dr. Antonio for her right knee. At that point we recommended some labs and set her up for an MRI of that knee to be done the next day. However, she had worsening pain and increased swelling in her knee along with an inability to bear weight on that knee that brought her the the ED. She was admitted through the hospitalist service and we were consulted to evaluate her. She denies any pain at her hip joint. Allergies Allergy/AdvReac Type Severity Reaction Status Date / Time diphenhydramine Allergy Intermediate spasms to Verified 07/05/19 20:29 bilt legs metoprolol Allergy Intermediate RASH Verified 07/05/19 20:29 pseudoephedrine Allergy Intermediate "MAKES ME Verified 07/05/19 20:29 JUMPY" levofloxacin AdvReac Intermediate TENDON PAIN Verified 07/05/19 20:29 garlic AdvReac Mild GASSY Verified 07/05/19 20:29 Home Medications Home Medications Medication Instructions Recorded Confirmed Type acetaminophen [Tylenol Arthritis 650 mg PO DIRECTED PRN MDD 199911/02/18 07/05/19 History Pain] MG/24 HOURS carvedilol [Coreg] 3.125 mg PO BIDM 11/02/18 07/05/19 History ferrous sulfate [iron] 325 mg PO QAM 11/02/18 07/05/19 History levothyroxine 112 mcg PO QAM 11/02/18 07/05/19 History lidocaine [Lidocaine Pain Relief] 1 patch TOPICAL DAILY PRN 11/02/18 07/05/19 History omeprazole 20 mg PO HS 11/02/18 07/05/19 History pravastatin [Pravachol] 20 mg PO HS 11/02/18 07/05/19 History sotalol 40 mg PO QAM 11/02/18 07/05/19 History tramadol 50 mg PO Q6H PRN 11/02/18 07/05/19 History ursodiol [Actigall] 300 mg PO TID 11/02/18 07/05/19 History PreserVision AREDS-2 1 tab PO BID 11/18/18 07/05/19 History aspirin 81 mg PO QAM 11/18/18 07/05/19 History tramadol 50 mg PO Q6H PRN #14 tab 06/15/19 07/05/19 Rx methylprednisolone [Medrol (Christopher)] 4 mg PO DIRECTED #21 ea 06/28/19 07/05/19 Rx oxycodone 5 mg PO Q6H PRN #10 tab 06/28/19 07/05/19 Rx sennosides-docusate sodium 1 tabcap PO BID PRN #60 tab 06/28/19 07/05/19 Rx [Senokot-S] Patient History Medical History Anemia HX Atrial fibrillation PAROXYSMAL AND SYMPTOMATIC. ON ASA 81MG ONLY, AND HAS HAD BLEEDING ISSUES DESPITE NO OTHER ANTICOAGULATION Autoimmune hepatitis CAD (coronary artery disease) Chondrocalcinosis CKD (chronic kidney disease) stage 3, GFR 30-59 ml/min F/U DR CHRISTIE PRN Degenerative disc disease Diverticular disease GERD (gastroesophageal reflux disease) H/O transfusion of packed red blood cells 3 UNITS S/P MECHANICAL FALL AND R GLUTEAL HEMATOMA 08/2017. Hyperlipidemia Hypertension Hypothyroidism Marginal zone lymphoma DX IN 2013 NA D TX WITH RITUXAN. FOLLOWING WITH HEME/ONC, OBSERVATION ONLY CURRENTLY-F/U [facility] DR MONCADA? Myocardial Infarction STEMI 2011. BMS x 1 to RCA. Osteoarthritis Prolonged QT interval Right knee DJD Surgical History History of cataract extraction with lens replacement left History of cholecystectomy History of colonoscopy History of dilatation and curettage History of esophagogastroduodenoscopy (EGD) History of partial mastectomy LEFT, BENIGN Hx of cardiac cath 1 stent, 2011 Family History Other No family history of adverse response to anesthesia Social History Preferred Language: Spanish Communication Ability: Effective Resaw Tailer Required: No Beliefs That Will Affect Care: None marital status: Current Living Situation: Spouse Feels Safe at Home: Yes Smoking Status: Former smoker Cigarettes Per Day: QUIT AT AGE 49 ; Second Hand Exposure: Yes (PARENTS SMOKED) ; Hx Alcohol Use: Yes Alcohol type: beer, wine and hard liquor Hx Substance Use: No Review of Systems Constitutional: no fever and no chills Musculoskeletal: + joint pain, + swelling, + stiffness, + limited range of motion and + muscle weakness Physical Exam Constitutional: WD/WN, vitals as above cooperative Eyes: PERRL, conjunctivae normal, anicteric sclerae ENMT: external ear and nose normal, oropharynx normal Neck: trachea midline, no thyromegaly normal visual inspection Respiratory: normal respiratory effort; no respiratory distress and no labored breathing Cardiovascular: Rate/Rhythm: regular rate Musculoskeletal: Head/Neck/Chest: normocephalic and head atraumatic Internal and external rotation of the right hip does not elicit hip pain but does elicit some knee pain. Right Knee is tender to light palpation. She does have a large effusion of the right knee. No erythema over the knee. Skin has minimal warmth. She is unable to do a straight leg raise on the right. Right plantar and dorsiflexion strength are 5/5. Skin: normal turgor and + ecchymosis (Right knee and medial right thigh); no erythema Neurologic: PERRL, EOMI, accommodation nl, no face palsy, no dysarthria moves all extremities and awake A&Ox3. Sensation to touch grossly intact bilateral lower extremities. Results & Data ([facility]) Vital Signs (Past 12 Hours) Vital Signs Temp Pulse Pulse Resp BP BP Pulse Ox 07/06/19 12:02 37.0 C 73 18 123/63 95 07/06/19 07:36 93 H 07/06/19 07:19 37.4 C 78 18 126/65 93 07/06/19 06:49 36.6 C 88 16 118/68 94 07/06/19 06:03 36.7 C 88 14 157/86 H 96 07/06/19 05:26 36.6 C 07/06/19 05:09 37.7 C H 91 H 18 152/77 H 98 07/06/19 04:09 36.7 C 94 H 18 159/81 H 99 07/06/19 03:45 37.3 C 94 H 18 164/83 H 98 07/06/19 03:25 37.4 C 96 H 20 154/76 H 99 07/06/19 03:05 36.7 C 93 H 16 160/78 H 99 07/06/19 02:37 92 H 168/84 H Laboratory Results 07/06/19 07/06/19 07/05/19 Range/Units 13:50 13:50 23:40 WBC 12.97 H (4.8-10.8) K/uL RBC 2.58 L (4.2-5.4) M/uL Hgb 8.2 L (12.0-16.0) g/dL Hct 24.4 L (37-47) % MCV 94.6 (80-100) fL MCH 31.8 (25-34) pg MCHC 33.6 (32-36) g/dL RDW Std Deviation 51.6 H (36.4-46.3) fL RDW Coeff of Jennifer 15.4 H (11.5-14.5) % Plt Count 367 (130-400) K/uL MPV 8.6 (7.4-10.4) fL Immature Gran % (Auto) 0.2 % Neut % (Auto) 83.8 % Lymph % (Auto) 3.2 % Laurens % (Auto) 12.8 % Eos % (Auto) 0.0 % Baso % (Auto) 0.0 % Reticulocyte % (Auto) (0.5-2.0) % Immature Gran # (Auto) 0.02 (0.00-0.02) K/uL Neut # (Auto) 10.88 H (1.4-6.5) K/uL Lymph # (Auto) 0.41 L (1.2-3.4) K/uL Laurens # (Auto) 1.66 H (0.11-0.59) K/uL Eos # (Auto) 0.00 (0-0.5) K/uL Baso # (Auto) 0.00 (0-0.2) K/uL Reticulocyte # (0.02-0.10) 10^6/uL Polychromasia ESR (0-21) mm/hr PT (9.0-12.0) Seconds INR (0.9-1.1) APTT (21.0-31.0) Seconds PTT Ratio Sodium 133 L (136-145) mmol/L Potassium 4.3 D (3.5-5.1) mmol/L Chloride 103 (98-107) mmol/L Carbon Dioxide 24 (21-32) mmol/L Anion Gap 6.0 (3-11) BUN 28 H (7-18) mg/dl Creatinine 1.17 (0.6-1.2) mg/dl Est Cr Clr Drug Dosing 34.7 ml/min Est GFR ( Amer) 50.3 Est GFR (Non-Af Amer) 43.4 BUN/Creatinine Ratio 24.2 H (10-20) Glucose 99 (70-99) mg/dl Estimat Average Glucose 105 mg/dl Hemoglobin A1c 5.3 (4.5-5.6) % Lactate (0.4-2.0) mmol/L Calcium 8.6 (8.5-10.1) mg/dl Magnesium (1.8-2.4) mg/dl Iron (35-150) mcg/dl TIBC (250-450) mcg/dl Transferrin (200-360) mg/dl Ferritin (8-388) ng/ml Total Bilirubin (0.2-1) mg/dl AST (15-37) U/L ALT (12-78) U/L Alkaline Phosphatase (45-117) U/L C-Reactive Protein (0-0.29) mg/dl Total Protein (6.4-8.2) gm/dl Albumin (3.4-5.0) gm/dl Globulin (2.5-4.0) gm/dl Albumin/Globulin Ratio (0.9-2) Vitamin B12 (211-911) pg/ml Folate (>5.38) ng/ml Procalcitonin (0-0.5) ng/ml TSH (0.300-4.500) uIu/ml Blood Type Antibody Screen Crossmatch 07/05/19 07/05/19 07/05/19 Range/Units 23:40 23:40 23:40 WBC (4.8-10.8) K/uL RBC (4.2-5.4) M/uL Hgb (12.0-16.0) g/dL Hct (37-47) % MCV (80-100) fL MCH (25-34) pg MCHC (32-36) g/dL RDW Std Deviation (36.4-46.3) fL RDW Coeff of Jennifer (11.5-14.5) % Plt Count (130-400) K/uL MPV (7.4-10.4) fL Immature Gran % (Auto) % Neut % (Auto) % Lymph % (Auto) % Laurens % (Auto) % Eos % (Auto) % Baso % (Auto) % Reticulocyte % (Auto) 4.4 H (0.5-2.0) % Immature Gran # (Auto) (0.00-0.02) K/uL Neut # (Auto) (1.4-6.5) K/uL Lymph # (Auto) (1.2-3.4) K/uL Laurens # (Auto) (0.11-0.59) K/uL Eos # (Auto) (0-0.5) K/uL Baso # (Auto) (0-0.2) K/uL Reticulocyte # 0.10 (0.02-0.10) 10^6/uL Polychromasia ESR (0-21) mm/hr PT (9.0-12.0) Seconds INR (0.9-1.1) APTT (21.0-31.0) Seconds PTT Ratio Sodium (136-145) mmol/L Potassium (3.5-5.1) mmol/L Chloride (98-107) mmol/L Carbon Dioxide (21-32) mmol/L Anion Gap (3-11) BUN (7-18) mg/dl Creatinine (0.6-1.2) mg/dl Est Cr Clr Drug Dosing ml/min Est GFR ( Amer) Est GFR (Non-Af Amer) BUN/Creatinine Ratio (10-20) Glucose (70-99) mg/dl Estimat Average Glucose mg/dl Hemoglobin A1c (4.5-5.6) % Lactate (0.4-2.0) mmol/L Calcium (8.5-10.1) mg/dl Magnesium 1.5 L (1.8-2.4) mg/dl Iron 11 L (35-150) mcg/dl TIBC 236 L (250-450) mcg/dl Transferrin 186 L (200-360) mg/dl Ferritin 377.6 (8-388) ng/ml Total Bilirubin (0.2-1) mg/dl AST (15-37) U/L ALT (12-78) U/L Alkaline Phosphatase (45-117) U/L C-Reactive Protein (0-0.29) mg/dl Total Protein (6.4-8.2) gm/dl Albumin (3.4-5.0) gm/dl Globulin (2.5-4.0) gm/dl Albumin/Globulin Ratio (0.9-2) Vitamin B12 338 (211-911) pg/ml Folate 16.12 (>5.38) ng/ml Procalcitonin (0-0.5) ng/ml TSH 3.770 (0.300-4.500) uIu/ml Blood Type Antibody Screen Crossmatch 07/05/19 07/05/19 07/05/19 Range/Units 23:40 23:40 20:10 WBC (4.8-10.8) K/uL RBC (4.2-5.4) M/uL Hgb (12.0-16.0) g/dL Hct (37-47) % MCV (80-100) fL MCH (25-34) pg MCHC (32-36) g/dL RDW Std Deviation (36.4-46.3) fL RDW Coeff of Jennifer (11.5-14.5) % Plt Count (130-400) K/uL MPV (7.4-10.4) fL Immature Gran % (Auto) % Neut % (Auto) % Lymph % (Auto) % Laurens % (Auto) % Eos % (Auto) % Baso % (Auto) % Reticulocyte % (Auto) (0.5-2.0) % Immature Gran # (Auto) (0.00-0.02) K/uL Neut # (Auto) (1.4-6.5) K/uL Lymph # (Auto) (1.2-3.4) K/uL Laurens # (Auto) (0.11-0.59) K/uL Eos # (Auto) (0-0.5) K/uL Baso # (Auto) (0-0.2) K/uL Reticulocyte # (0.02-0.10) 10^6/uL Polychromasia ESR (0-21) mm/hr PT (9.0-12.0) Seconds INR (0.9-1.1) APTT (21.0-31.0) Seconds PTT Ratio Sodium (136-145) mmol/L Potassium (3.5-5.1) mmol/L Chloride (98-107) mmol/L Carbon Dioxide (21-32) mmol/L Anion Gap (3-11) BUN (7-18) mg/dl Creatinine (0.6-1.2) mg/dl Est Cr Clr Drug Dosing ml/min Est GFR ( Amer) Est GFR (Non-Af Amer) BUN/Creatinine Ratio (10-20) Glucose (70-99) mg/dl Estimat Average Glucose mg/dl Hemoglobin A1c (4.5-5.6) % Lactate 1.1 (0.4-2.0) mmol/L Calcium (8.5-10.1) mg/dl Magnesium (1.8-2.4) mg/dl Iron (35-150) mcg/dl TIBC (250-450) mcg/dl Transferrin (200-360) mg/dl Ferritin (8-388) ng/ml Total Bilirubin (0.2-1) mg/dl AST (15-37) U/L ALT (12-78) U/L Alkaline Phosphatase (45-117) U/L C-Reactive Protein (0-0.29) mg/dl Total Protein (6.4-8.2) gm/dl Albumin (3.4-5.0) gm/dl Globulin (2.5-4.0) gm/dl Albumin/Globulin Ratio (0.9-2) Vitamin B12 (211-911) pg/ml Folate (>5.38) ng/ml Procalcitonin 0.06 (0-0.5) ng/ml TSH (0.300-4.500) uIu/ml Blood Type A Positive Antibody Screen NEGATIVE Crossmatch See Detail 07/05/19 07/05/19 07/05/19 Range/Units 20:10 20:10 20:10 WBC (4.8-10.8) K/uL RBC (4.2-5.4) M/uL Hgb (12.0-16.0) g/dL Hct (37-47) % MCV (80-100) fL MCH (25-34) pg MCHC (32-36) g/dL RDW Std Deviation (36.4-46.3) fL RDW Coeff of Jennifer (11.5-14.5) % Plt Count (130-400) K/uL MPV (7.4-10.4) fL Immature Gran % (Auto) % Neut % (Auto) % Lymph % (Auto) % Laurens % (Auto) % Eos % (Auto) % Baso % (Auto) % Reticulocyte % (Auto) (0.5-2.0) % Immature Gran # (Auto) (0.00-0.02) K/uL Neut # (Auto) (1.4-6.5) K/uL Lymph # (Auto) (1.2-3.4) K/uL Laurens # (Auto) (0.11-0.59) K/uL Eos # (Auto) (0-0.5) K/uL Baso # (Auto) (0-0.2) K/uL Reticulocyte # (0.02-0.10) 10^6/uL Polychromasia ESR 31 H (0-21) mm/hr PT 11.3 (9.0-12.0) Seconds INR 1.1 (0.9-1.1) APTT 31.3 H (21.0-31.0) Seconds PTT Ratio 1.1 Sodium 133 L (136-145) mmol/L Potassium 3.6 (3.5-5.1) mmol/L Chloride 103 (98-107) mmol/L Carbon Dioxide 24 (21-32) mmol/L Anion Gap 6.0 (3-11) BUN 27 H (7-18) mg/dl Creatinine 1.09 (0.6-1.2) mg/dl Est Cr Clr Drug Dosing 37.3 ml/min Est GFR ( Amer) 54.7 Est GFR (Non-Af Amer) 47.2 BUN/Creatinine Ratio 24.8 H (10-20) Glucose 142 H (70-99) mg/dl Estimat Average Glucose mg/dl Hemoglobin A1c (4.5-5.6) % Lactate (0.4-2.0) mmol/L Calcium 8.5 (8.5-10.1) mg/dl Magnesium (1.8-2.4) mg/dl Iron (35-150) mcg/dl TIBC (250-450) mcg/dl Transferrin (200-360) mg/dl Ferritin (8-388) ng/ml Total Bilirubin 0.6 (0.2-1) mg/dl AST 7 L (15-37) U/L ALT 13 (12-78) U/L Alkaline Phosphatase 60 (45-117) U/L C-Reactive Protein 3.60 H (0-0.29) mg/dl Total Protein 6.8 (6.4-8.2) gm/dl Albumin 3.1 L (3.4-5.0) gm/dl Globulin 3.7 (2.5-4.0) gm/dl Albumin/Globulin Ratio 0.8 L (0.9-2) Vitamin B12 (211-911) pg/ml Folate (>5.38) ng/ml Procalcitonin (0-0.5) ng/ml TSH (0.300-4.500) uIu/ml Blood Type Antibody Screen Crossmatch 07/05/19 Range/Units 20:10 WBC 17.66 H (4.8-10.8) K/uL RBC 2.34 L (4.2-5.4) M/uL Hgb 7.5 L (12.0-16.0) g/dL Hct 23.0 L (37-47) % MCV 98.3 (80-100) fL MCH 32.1 (25-34) pg MCHC 32.6 (32-36) g/dL RDW Std Deviation 49.7 H (36.4-46.3) fL RDW Coeff of Jennifer 14.5 (11.5-14.5) % Plt Count 447 H (130-400) K/uL MPV 8.8 (7.4-10.4) fL Immature Gran % (Auto) 0.3 % Neut % (Auto) 87.9 % Lymph % (Auto) 3.7 % Laurens % (Auto) 7.5 % Eos % (Auto) 0.5 % Baso % (Auto) 0.1 % Reticulocyte % (Auto) (0.5-2.0) % Immature Gran # (Auto) 0.06 H (0.00-0.02) K/uL Neut # (Auto) 15.52 H (1.4-6.5) K/uL Lymph # (Auto) 0.65 L (1.2-3.4) K/uL Laurens # (Auto) 1.32 H (0.11-0.59) K/uL Eos # (Auto) 0.09 (0-0.5) K/uL Baso # (Auto) 0.02 (0-0.2) K/uL Reticulocyte # (0.02-0.10) 10^6/uL Polychromasia 1+ ESR (0-21) mm/hr PT (9.0-12.0) Seconds INR (0.9-1.1) APTT (21.0-31.0) Seconds PTT Ratio Sodium (136-145) mmol/L Potassium (3.5-5.1) mmol/L Chloride (98-107) mmol/L Carbon Dioxide (21-32) mmol/L Anion Gap (3-11) BUN (7-18) mg/dl Creatinine (0.6-1.2) mg/dl Est Cr Clr Drug Dosing ml/min Est GFR ( Amer) Est GFR (Non-Af Amer) BUN/Creatinine Ratio (10-20) Glucose (70-99) mg/dl Estimat Average Glucose mg/dl Hemoglobin A1c (4.5-5.6) % Lactate (0.4-2.0) mmol/L Calcium (8.5-10.1) mg/dl Magnesium (1.8-2.4) mg/dl Iron (35-150) mcg/dl TIBC (250-450) mcg/dl Transferrin (200-360) mg/dl Ferritin (8-388) ng/ml Total Bilirubin (0.2-1) mg/dl AST (15-37) U/L ALT (12-78) U/L Alkaline Phosphatase (45-117) U/L C-Reactive Protein (0-0.29) mg/dl Total Protein (6.4-8.2) gm/dl Albumin (3.4-5.0) gm/dl Globulin (2.5-4.0) gm/dl Albumin/Globulin Ratio (0.9-2) Vitamin B12 (211-911) pg/ml Folate (>5.38) ng/ml Procalcitonin (0-0.5) ng/ml TSH (0.300-4.500) uIu/ml Blood Type Antibody Screen Crossmatch Diagnostic Findings Dr. Antonio and I ordered and reviewed the MRI of her right knee without contrast and agree with the radiology findings. She does have have a large effusion and an accumulation of fluid in the posterior knee, along with advanced DJD of the knee and a subchondral tibia cyst. There is also noted to be an osteochondral irregularity along the superior aspect of the patella which was viewed previously on x-rays in our office. PG Care Time/CCT Total # of Minutes Spent Total Time Spent with Patient: Total time spent is greater than 50% in coordination of care (as documented) at patient's floor/unit and/or counseling patient: [place] [address] Inpt Consult Level 3 Patient Type Established History Expanded Problem Focused Exam Detailed Medical Decision Making Moderate Complexity Diagnoses Hemarthrosis involving knee joint M25.061 Laterality: right Anemia D64.9 Anemia type: unspecified type Acute pain of right knee M25.561 Right knee DJD M17.11 Osteoarthritis type: primary (1) Anemia Anemia type: unspecified type Qualified Code(s): D64.9 - Anemia, unspecified (2) Right knee DJD Osteoarthritis type: primary Qualified Code(s): M17.11 - Unilateral primary osteoarthritis, right knee (3) Hemarthrosis involving knee joint Laterality: right Qualified Code(s): M25.061 - Hemarthrosis, right knee
[2019-07-06] MEDS ORDERED: FUROSEMIDE 20 MG in SYRINGE 0 ML IV SCH (16:45)
[2019-07-06] MEDS: FERROUS SULFATE 325 MG TAB PO SCH (16:57)
[2019-07-06 18:04] LABS: Hemoglobin 8.3 g/dL (12.0-16.0)
--- NOTE | 2019-07-06 18:28 | Hospitalist Progress Note ---
Date of Service July 06, 2019 Assessment & Plan (1) Hemarthrosis involving knee joint: 83-year-old female with history of coronary artery disease, paroxysmal atrial fibrillation, hypertension, And other problems noted below resenting with right knee hemarthrosis and right leg hematoma. RIGHT KNEE HEMARTHROSIS, RIGHT LEG HEMATOMA -- CT angio right femur: 1. The visualized arteries of the right lower extremity are patent as detailed above noting atherosclerotic irregularity. 2. There is lipohemarthrosis identified in the right knee. 3. An osteochondral fragment is present within the knee joint effusion, likely arising from the upper pole of the patella. This is likely acute to subacute. 4. Intramuscular hemorrhage is noted within the right vastus medialis and vastus lateralis. --Only on aspirin 81 mg p.o. daily, INR 1.1, platelet count 367 --Discussed with orthopedic service, Dr. Antonio Recommend knee immobilizer x2 weeks Recommend hematology and vascular surgery consultation ACUTE BLOOD LOSS ANEMIA ON CHRONIC ANEMIA, IRON DEFICIENCY --Secondary to hematoma on the right leg --Hemoglobin on admission 7.5, improved to 8.3 after 1 unit of packed RBCs Anemia panel iron level 11, transferrin 186 --1 additional unit of packed RBCs ordered, hemoglobin goal around 9 HYPERTENSIVE URGENCY --secondary to RLE discomfort --Improving --Continue usual carvedilol CAD STATUS POST STENT PLACEMENT --No cardiac symptoms Hold aspirin, carvedilol and pravastatin PAROXYSMAL ATRIAL fibrillation --In sinus rhythm, continue sotalol, carvedilol, pravastatin off anticoagulation because of bleeding propensity HISTORY OF NHL STATUS POST CHEMOTHERAPY -- stable disease as of recent outpatient [facility] [place] oncology follow-up December 2018 AUTOIMMUNE HEPATITIS/PRIMARY BILIARY CIRRHOSIS -- stable on ursodiol Rx PELVIC MASS ON CT ABDOMEN AND PELVIS -- possible malignancy, patient declined additional work-up as per outpatient [employer] oncology notes from last year DVT prophylaxis. --SCDs only in light of hematoma Full code DISPOSITION Lives with family PT OT evaluation for possible transitioning to inpatient rehab Text document was generated using [employer] voice recognition software. It may contain grammatical or spelling errors. Kindly contact undersigned for clarification of any documentation item in question. Admission and Anticipated Discharge Date Admission Date: July 05, 2019 Subjective Follow-up for hemarthrosis, right knee; right leg hematoma Seen resting in bed, comfortable, not in distress Has minimal discomfort on the right lower extremity Denies chest pain, shortness of breath, dizziness, palpitations No other signs of bleeding No other symptoms Review of Systems Review of Systems: All systems reviewed & are unremarkable except as noted in HPI & below Physical Exam Physical Exam: General- oriented x 3, not in distress, speaks in sentences with no effort or accessory muscle use Head- atraumatic Eyes- PERRL, EOMI, anicteric ENT- oropharynx clear Neck- supple, no JVD, no adenopathy, no thyromegaly; carotids +2/2, no bruits appreciated Lungs- clear to auscultation bilaterally, no rales/wheezes Heart- normal rate, regular rhythm; no murmur, no gallop, no rub appreciated Abdomen- normal bowel sounds, nondistended, soft, nontender, no masses or hepatosplenomegaly Extremities- Right lower extremity: Immobilizer in place, mild pedal edema Left lower extremity: No pretibial edema, no calf tenderness; peripheral pulses intact Neuro- alert, oriented x 3; CN 2-12 grossly intact; motor 5/5 bilaterally;sensation 100% on all extremities; no other gross focal neurologic deficits Skin- warm & dry Results & Data ([facility]) Vital Signs (Past 12 Hours) Vital Signs Temp Pulse Pulse Resp BP BP Pulse Ox 07/06/19 16:38 77 07/06/19 15:41 37.5 C 76 18 127/67 91 07/06/19 12:02 37.0 C 73 18 123/63 95 07/06/19 07:36 93 H 07/06/19 07:19 37.4 C 78 18 126/65 93 07/06/19 06:49 36.6 C 88 16 118/68 94 Laboratory Results Laboratory Results - last 24 hr 07/05/19 07/05/19 07/05/19 20:10 20:10 20:10 WBC 17.66 H RBC 2.34 L Hgb 7.5 L Hct 23.0 L MCV 98.3 MCH 32.1 MCHC 32.6 RDW Std Deviation 49.7 H RDW Coeff of Jennifer 14.5 Plt Count 447 H MPV 8.8 Immature Gran % (Auto) 0.3 Neut % (Auto) 87.9 Lymph % (Auto) 3.7 [place] % (Auto) 7.5 Eos % (Auto) 0.5 Baso % (Auto) 0.1 Reticulocyte % (Auto) Immature Gran # (Auto) 0.06 H Neut # (Auto) 15.52 H Lymph # (Auto) 0.65 L [place] # (Auto) 1.32 H Eos # (Auto) 0.09 Baso # (Auto) 0.02 Reticulocyte # Polychromasia 1+ ESR 31 H PT 11.3 INR 1.1 APTT 31.3 H PTT Ratio 1.1 Sodium Potassium Chloride Carbon Dioxide Anion Gap BUN Creatinine Est Cr Clr Drug Dosing Est GFR ( Amer) Est GFR (Non-Af Amer) BUN/Creatinine Ratio Glucose Estimat Average Glucose Hemoglobin A1c Lactate Calcium Magnesium Iron TIBC Transferrin Ferritin Total Bilirubin AST ALT Alkaline Phosphatase C-Reactive Protein Total Protein Albumin Globulin Albumin/Globulin Ratio Vitamin B12 Folate Procalcitonin TSH Blood Type Antibody Screen Crossmatch 07/05/19 07/05/19 07/05/19 20:10 20:10 23:40 WBC RBC Hgb Hct MCV MCH MCHC RDW Std Deviation RDW Coeff of Jennifer Plt Count MPV Immature Gran % (Auto) Neut % (Auto) Lymph % (Auto) [place] % (Auto) Eos % (Auto) Baso % (Auto) Reticulocyte % (Auto) Immature Gran # (Auto) Neut # (Auto) Lymph # (Auto) [place] # (Auto) Eos # (Auto) Baso # (Auto) Reticulocyte # Polychromasia ESR PT INR APTT PTT Ratio Sodium 133 L Potassium 3.6 Chloride 103 Carbon Dioxide 24 Anion Gap 6.0 BUN 27 H Creatinine 1.09 Est Cr Clr Drug Dosing 37.3 Est GFR ( Amer) 54.7 Est GFR (Non-Af Amer) 47.2 BUN/Creatinine Ratio 24.8 H Glucose 142 H Estimat Average Glucose Hemoglobin A1c Lactate Calcium 8.5 Magnesium Iron TIBC Transferrin Ferritin Total Bilirubin 0.6 AST 7 L ALT 13 Alkaline Phosphatase 60 C-Reactive Protein 3.60 H Total Protein 6.8 Albumin 3.1 L Globulin 3.7 Albumin/Globulin Ratio 0.8 L Vitamin B12 Folate Procalcitonin 0.06 TSH Blood Type A Positive Antibody Screen NEGATIVE Crossmatch See Detail 07/05/19 07/05/19 07/05/19 23:40 23:40 23:40 WBC RBC Hgb Hct MCV MCH MCHC RDW Std Deviation RDW Coeff of Jennifer Plt Count MPV Immature Gran % (Auto) Neut % (Auto) Lymph % (Auto) [place] % (Auto) Eos % (Auto) Baso % (Auto) Reticulocyte % (Auto) Immature Gran # (Auto) Neut # (Auto) Lymph # (Auto) [place] # (Auto) Eos # (Auto) Baso # (Auto) Reticulocyte # Polychromasia ESR PT INR APTT PTT Ratio Sodium Potassium Chloride Carbon Dioxide Anion Gap BUN Creatinine Est Cr Clr Drug Dosing Est GFR ( Amer) Est GFR (Non-Af Amer) BUN/Creatinine Ratio Glucose Estimat Average Glucose Hemoglobin A1c Lactate 1.1 Calcium Magnesium 1.5 L Iron 11 L TIBC 236 L Transferrin 186 L Ferritin 377.6 Total Bilirubin AST ALT Alkaline Phosphatase C-Reactive Protein Total Protein Albumin Globulin Albumin/Globulin Ratio Vitamin B12 338 Folate 16.12 Procalcitonin TSH 3.770 Blood Type Antibody Screen Crossmatch 07/05/19 07/05/19 07/06/19 23:40 23:40 13:50 WBC 12.97 H RBC 2.58 L Hgb 8.2 L Hct 24.4 L MCV 94.6 MCH 31.8 MCHC 33.6 RDW Std Deviation 51.6 H RDW Coeff of Jennifer 15.4 H Plt Count 367 MPV 8.6 Immature Gran % (Auto) 0.2 Neut % (Auto) 83.8 Lymph % (Auto) 3.2 [place] % (Auto) 12.8 Eos % (Auto) 0.0 Baso % (Auto) 0.0 Reticulocyte % (Auto) 4.4 H Immature Gran # (Auto) 0.02 Neut # (Auto) 10.88 H Lymph # (Auto) 0.41 L [place] # (Auto) 1.66 H Eos # (Auto) 0.00 Baso # (Auto) 0.00 Reticulocyte # 0.10 Polychromasia ESR PT INR APTT PTT Ratio Sodium Potassium Chloride Carbon Dioxide Anion Gap BUN Creatinine Est Cr Clr Drug Dosing Est GFR ( Amer) Est GFR (Non-Af Amer) BUN/Creatinine Ratio Glucose Estimat Average Glucose 105 Hemoglobin A1c 5.3 Lactate Calcium Magnesium Iron TIBC Transferrin Ferritin Total Bilirubin AST ALT Alkaline Phosphatase C-Reactive Protein Total Protein Albumin Globulin Albumin/Globulin Ratio Vitamin B12 Folate Procalcitonin TSH Blood Type Antibody Screen Crossmatch 07/06/19 07/06/19 13:50 17:59 WBC RBC Hgb 8.3 L Hct 25.0 L MCV MCH MCHC RDW Std Deviation RDW Coeff of Jennifer Plt Count MPV Immature Gran % (Auto) Neut % (Auto) Lymph % (Auto) [place] % (Auto) Eos % (Auto) Baso % (Auto) Reticulocyte % (Auto) Immature Gran # (Auto) Neut # (Auto) Lymph # (Auto) [place] # (Auto) Eos # (Auto) Baso # (Auto) Reticulocyte # Polychromasia ESR PT INR APTT PTT Ratio Sodium 133 L Potassium 4.3 D Chloride 103 Carbon Dioxide 24 Anion Gap 6.0 BUN 28 H Creatinine 1.17 Est Cr Clr Drug Dosing 34.7 Est GFR ( Amer) 50.3 Est GFR (Non-Af Amer) 43.4 BUN/Creatinine Ratio 24.2 H Glucose 99 Estimat Average Glucose Hemoglobin A1c Lactate Calcium 8.6 Magnesium Iron TIBC Transferrin Ferritin Total Bilirubin AST ALT Alkaline Phosphatase C-Reactive Protein Total Protein Albumin Globulin Albumin/Globulin Ratio Vitamin B12 Folate Procalcitonin TSH Blood Type Antibody Screen Crossmatch (1) Hemarthrosis involving knee joint Laterality: right Qualified Code(s): M25.061 - Hemarthrosis, right knee
[2019-07-06] MEDS: MAGNESIUM OXIDE 400 MG TAB PO SCH (20:49)
[2019-07-06] MEDS: PANTOprazole 40 MG TAB PO SCH (20:51)
[2019-07-06] MEDS: PRAVASTATIN SOD 20 MG TAB PO SCH (20:51)
--- NOTE | 2019-07-06 22:19 | Electrocardiogram Report ---
Test Reason : Blood Pressure : / mmHG Vent. Rate : 103 BPM Atrial Rate : 103 BPM P-R Int : 136 ms QRS Dur : 080 ms QT Int : 356 ms P-R-T Axes : 028 070 -66 degrees QTc Int : 466 ms Sinus tachycardia Left ventricular hypertrophy with repolarization abnormality Abnormal ECG When compared with ECG of 02-NOV-2018 20:27, Vent. rate has increased BY 35 BPM Confirmed by Dewayne Mendez ([id number]) on 07/06/2019 10:19:41 PM Referred By: REFERRED SELF Confirmed By:Dewayne Mendez
[2019-07-07] MEDS: OXYCODONE HCL IR 5 MG TAB (IMMEDIATE RELEASE) PO PRN ×3 (03:18→19:37)
[2019-07-07] MEDS: LEVOTHYROXINE SODIUM 112 MCG TABLET PO SCH (06:07)
[2019-07-07 07:09] LABS: Basophils # (auto) 0.01 K/uL (0-0.2); Basophils % (auto) 0.1 %; Eosinophils # (auto) 0.01 K/uL (0-0.5); Eosinophils % (auto) 0.1 %; Hematocrit (blood only) 27.5 % (37-47); Hemoglobin 9.4 g/dL (12.0-16.0); Immature Granulocytes # (auto) 0.03 K/uL (0.00-0.02); Immature Granulocytes % (auto) 0.3 %; Lymphocytes # (auto) 0.33 K/uL (1.2-3.4); Lymphocytes % (auto) 2.8 %; Mean Corpuscular Hemoglobin 30.9 pg (25-34); Mean Corpuscular Hgb Conc 34.2 g/dL (32-36); Mean Corpuscular Volume 90.5 fL (80-100); Mean Platelet Volume 8.9 fL (7.4-10.4); Monocytes # (auto) 1.36 K/uL (0.11-0.59); Monocytes % (auto) 11.5 %; Neutrophils # (auto) 10.07 K/uL (1.4-6.5); Neutrophils % (auto) 85.2 %; Platelet Count 340 K/uL (130-400); RDW Coefficient of Variation 17.9 % (11.5-14.5); RDW Standard Deviation 59.1 fL (36.4-46.3); Red Blood Count 3.04 M/uL (4.2-5.4); White Blood Count 11.81 K/uL (4.8-10.8)
[2019-07-07 07:38] LABS: BUN Creatinine Ratio 24.7 (10-20); Calcium 8.2 mg/dl (8.5-10.1); Creatinine Clr Calc Pharmacy 29.9 ml/min; Est GFR (African American) 41.9; Est GFR (Non-African American) 36.1; Magnesium 1.8 mg/dl (1.8-2.4); Potassium 4.3 mmol/L (3.5-5.1)
[2019-07-07] MEDS: MAGNESIUM OXIDE 400 MG TAB PO SCH ×2 (08:11→20:35)
[2019-07-07] MEDS: CEROVITE ADV FORMULA TAB PO SCH ×2 (08:11→20:35)
[2019-07-07] MEDS: FERROUS SULFATE 325 MG TAB PO SCH ×2 (08:12→16:37)
[2019-07-07] MEDS: carvediloL 6.25 MG TAB PO SCH ×2 (08:12→16:40)
[2019-07-07] MEDS: ursodioL 300 MG CAP PO SCH ×3 (08:13→20:35)
[2019-07-07] MEDS: SOTALOL HCL 80 MG TAB PO SCH (08:13)
--- NOTE | 2019-07-07 08:26 | Progress Notes ---
DATE: 07/07/2019 SUBJECTIVE: An 83-year-old female admitted with right lower extremity swelling and hemarthrosis of unclear etiology. She has no new symptoms this morning. She describes more thigh discomfort today. She has been in a knee immobilizer overnight. OBJECTIVE: VITAL SIGNS: Temperature 37.5. Vital signs stable. GENERAL: She is a pleasant elderly female. Seems a little confused this morning. EXTREMITIES: Examination of the right leg reveals it to be well aligned. She has got some moderate swelling around her knee which is unchanged. She has continued to have some bruising around her thigh proximally. She also has a little bruising around her toe. Her calf is soft and supple. She is neurologically intact. LABORATORY DATA: Hemoglobin is improved at 9.4. Hematocrit 27.5. White cell count 11.81. ASSESSMENT: An 83-year-old female with a 3-week history of right leg pain and swelling and hemarthrosis of unclear etiology. There are no signs of acute fracture in her knee joint. She does have bruising up into her thigh, which is a little difficult to explain. I do not see anything orthopedically as a source of her hemarthrosis. It is certainly possible she could have a leaking aneurysm or something along those lines and we defer that up to the vascular people for evaluation. PLAN: From the orthopedic standpoint, we would recommend a vascular evaluation, maybe a hematology evaluation for the hemarthrosis of unclear etiology. She can begin therapy. She can weightbear as tolerated. We are going to keep her in the knee immobilizer for 2 weeks. I will see her back in 2 weeks. From the orthopedic standpoint, she is okay for discharge any time. Any orthopedic questions can be directed to me at [phone]. We will leave it up to medicine's discretion whether to discontinue the aspirin, which would certainly be a consideration with this unclear bleeding.
--- NOTE | 2019-07-07 12:32 | Consultation ---
Date of Consultation July 07, 2019 Assessment & Plan (1) Hemarthrosis involving knee joint: At this point no vascular invasion is needed. I agree with the hematology work-up to see if there is a bleeding tendency.If she has recurrent episodes of hemarthrosis which were spontaneous then consideration may be given for CTA or arteriography to better define any bleeding sites. Please thank you very much for this consult.Please call us if needed. Laterality: right Qualified Code(s): M25.061 - Hemarthrosis, right knee History of Present Illness Reason for Consultation: Hemarthrosis right knee joint Attending Physician: Jay Kent MD History of Present Illness Is an 83-year-old female who presented emergency room with increasing pain in her right knee. She was found to have hemarthrosis of the right knee joint.She was seen 2 weeks prior to this at which point she had a right knee injection.This was done for pain and discomfort from her Degenerative joint disease.The injections possibly narcotic pain medication did not relieve her discomfort.This worsened yesterday she reported to the emergency department.Of significant note is she did have a gluteal hematoma earlier this year which required embolization of the pelvic artery at a tertiary care center. Allergies Allergy/AdvReac Type Severity Reaction Status Date / Time diphenhydramine Allergy Intermediate spasms to Verified 07/05/19 20:29 bilt legs metoprolol Allergy Intermediate RASH Verified 07/05/19 20:29 pseudoephedrine Allergy Intermediate "MAKES ME Verified 07/05/19 20:29 JUMPY" levofloxacin AdvReac Intermediate TENDON PAIN Verified 07/05/19 20:29 garlic AdvReac Mild GASSY Verified 07/05/19 20:29 Home Medications Home Medications Medication Instructions Recorded Confirmed Type acetaminophen [Tylenol Arthritis 650 mg PO DIRECTED PRN MDD 199911/02/18 07/05/19 History Pain] MG/24 HOURS carvedilol [Coreg] 3.125 mg PO BIDM 11/02/18 07/05/19 History ferrous sulfate [iron] 325 mg PO QAM 11/02/18 07/05/19 History levothyroxine 112 mcg PO QAM 11/02/18 07/05/19 History lidocaine [Lidocaine Pain Relief] 1 patch TOPICAL DAILY PRN 11/02/18 07/05/19 History omeprazole 20 mg PO HS 11/02/18 07/05/19 History pravastatin [Pravachol] 20 mg PO HS 11/02/18 07/05/19 History sotalol 40 mg PO QAM 11/02/18 07/05/19 History tramadol 50 mg PO Q6H PRN 11/02/18 07/05/19 History ursodiol [Actigall] 300 mg PO TID 11/02/18 07/05/19 History PreserVision AREDS-2 1 tab PO BID 11/18/18 07/05/19 History aspirin 81 mg PO QAM 11/18/18 07/05/19 History tramadol 50 mg PO Q6H PRN #14 tab 06/15/19 07/05/19 Rx methylprednisolone [Medrol (Christopher)] 4 mg PO DIRECTED #21 ea 06/28/19 07/05/19 Rx oxycodone 5 mg PO Q6H PRN #10 tab 06/28/19 07/05/19 Rx sennosides-docusate sodium 1 tabcap PO BID PRN #60 tab 06/28/19 07/05/19 Rx [Senokot-S] Patient History Medical History Anemia HX Atrial fibrillation PAROXYSMAL AND SYMPTOMATIC. ON ASA 81MG ONLY, AND HAS HAD BLEEDING ISSUES DESPITE NO OTHER ANTICOAGULATION Autoimmune hepatitis CAD (coronary artery disease) Chondrocalcinosis CKD (chronic kidney disease) stage 3, GFR 30-59 ml/min F/U DR CHRISTIE PRN Degenerative disc disease Diverticular disease GERD (gastroesophageal reflux disease) H/O transfusion of packed red blood cells 3 UNITS S/P MECHANICAL FALL AND R GLUTEAL HEMATOMA 08/2017. Hyperlipidemia Hypertension Hypothyroidism Marginal zone lymphoma DX IN 2013 NA D TX WITH RITUXAN. FOLLOWING WITH HEME/ONC, OBSERVATION ONLY CURRENTLY-F/U [facility] DR MONCADA? Myocardial Infarction STEMI 2011. BMS x 1 to RCA. Osteoarthritis Prolonged QT interval Right knee DJD Surgical History History of cataract extraction with lens replacement left History of cholecystectomy History of colonoscopy History of dilatation and curettage History of esophagogastroduodenoscopy (EGD) History of partial mastectomy LEFT, BENIGN Hx of cardiac cath 1 stent, 2011 Family History Other No family history of adverse response to anesthesia Social History Preferred Language: [place] Communication Ability: Effective Leather Cutter Required: No Beliefs That Will Affect Care: None marital status: Current Living Situation: Spouse Feels Safe at Home: Yes Smoking Status: Former smoker Cigarettes Per Day: QUIT AT AGE 49 ; Second Hand Exposure: Yes (PARENTS SMOKED) ; Hx Alcohol Use: Yes Alcohol type: beer, wine and hard liquor Hx Substance Use: No Review of Systems Review of Systems: Patient was fairly lethargic today was not cooperating for a full review of systems. Physical Exam Constitutional: + thin and + cachectic; no acute distress Respiratory: normal respiratory effort; no respiratory distress Auscultation: + diminished lung sounds Cardiovascular: Rate/Rhythm: regular rate and regular rhythm Gastrointestinal (Abdomen): Inspection/Auscultation: abdomen normal to inspection Percussion/Palpation: abdomen soft; abdomen nontender Musculoskeletal: She has right knee discomfort upon Palpation patient. Psychiatric: Orientation: oriented x 3 Results & Data Vital Signs (Past 12 Hours) Vital Signs Temp Pulse Pulse Resp BP BP Pulse Ox 07/07/19 11:36 36.4 C L 71 18 124/70 96 07/07/19 07:13 37.5 C 80 16 137/70 97 07/07/19 03:09 36.7 C 76 19 117/61 97 07/07/19 00:43 36.5 C 79 18 124/68 92
[2019-07-07] MEDS: ACETAMINOPHEN 325 MG TAB PO PRN (14:05)
[2019-07-07] MEDS: PRAVASTATIN SOD 20 MG TAB PO SCH (20:35)
[2019-07-07] MEDS: PANTOprazole 40 MG TAB PO SCH (20:35)
--- NOTE | 2019-07-07 21:28 | Hospitalist Progress Note ---
Date of Service July 07, 2019 Assessment & Plan (1) Hematoma of right thigh: Spontaneous hematoma right thigh + hemarthrosis right knee. Takes low dose aspirin, no anticoagulants. No trauma. Seen by Ortho. Knee immobilizer recommended. Seen by Vascular Surgery; no need for vascular intervention. Will discuss case with Heme / Onc. (2) Hemarthrosis involving knee joint: As noted above. (3) Anemia: Baseline Hgb around 10. Hgb time of admission was 7.8 and fell as low as 7.5. Acute blood loss anemia secondary to hematoma RLE. Received 2 units pRBC's. Hgb today = 9.5. Follow. (4) CAD (coronary artery disease): No anginal symptoms. Hold ASA because of hematoma RLE. Continue carvedilol and statin. (5) Atrial fibrillation: History paroxysmal atrial fibrillation, now in SR. No anticoagulants because of RLE hematoma. (6) Hypertension: Continue carvedilol. (7) CKD (chronic kidney disease) stage 3, GFR 30-59 ml/min: Creatinine today = 1.36. Follow. (8) Marginal zone lymphoma: Per Heme / Onc. (9) DVT prophylaxis: No anticoagulants because of RLE hematoma. SCD's. Ambulate as able. (10) Discharge planning issues: Anticipated need for skilled care. Family Medicine follow-up with Dr. Lucas. Admission and Anticipated Discharge Date Admission Date: July 05, 2019 Subjective Recheck for hematoma RLE. Patient seen in their room around 1340. Persistent pain right leg. Wearing immobilizer. Review of Systems: Constitutional- no fever. Cardiac- no chest pain. Pulmonary- no cough or SOB. GI- no nausea, vomiting, diarrhea, melena, hematochezia. - no urinary symptoms. Otherwise, as noted above. Physical Exam Constitutional: no acute distress Respiratory: no respiratory distress Auscultation: lungs clear to auscultation bilaterally Cardiovascular: Rate/Rhythm: regular rate and regular rhythm Vessels: no JVD Extremities: no calf tenderness and no edema Gastrointestinal (Abdomen): normal bowel sounds, soft, nontender, no hepatosplenomegaly Musculoskeletal: Extremities: + extremities abnormal to inspection (knee immobilzer applied to RLE) Skin: no rashes, warm and dry Psychiatric: Orientation: alert and oriented x 3 Results & Data ([facility]) Vital Signs (Past 12 Hours) Vital Signs Temp Pulse Pulse Resp BP BP Pulse Ox 07/07/19 18:45 36.3 C L 77 19 126/73 97 07/07/19 16:55 77 07/07/19 15:22 36.5 C 77 17 127/69 95 07/07/19 11:36 36.4 C L 71 18 124/70 96 Laboratory Results 07/07/19 06:40 07/07/19 06:40 (1) Hematoma of right thigh Encounter type: initial encounter Qualified Code(s): S70.11XA - Contusion of right thigh, initial encounter (2) Hemarthrosis involving knee joint Laterality: right Qualified Code(s): M25.061 - Hemarthrosis, right knee (3) Anemia Anemia type: unspecified type Qualified Code(s): D64.9 - Anemia, unspecified
[2019-07-08] MEDS: LEVOTHYROXINE SODIUM 112 MCG TABLET PO SCH (05:07)
[2019-07-08 06:04] LABS: Basophils # (auto) 0.01 K/uL (0-0.2); Basophils % (auto) 0.1 %; Eosinophils # (auto) 0.01 K/uL (0-0.5); Eosinophils % (auto) 0.1 %; Hematocrit (blood only) 28.6 % (37-47); Hemoglobin 9.8 g/dL (12.0-16.0); Immature Granulocytes # (auto) 0.02 K/uL (0.00-0.02); Immature Granulocytes % (auto) 0.2 %; Lymphocytes # (auto) 0.28 K/uL (1.2-3.4); Lymphocytes % (auto) 3.2 %; Mean Corpuscular Hgb Conc 34.3 g/dL (32-36); Mean Corpuscular Volume 90.5 fL (80-100); Mean Platelet Volume 8.8 fL (7.4-10.4); Monocytes # (auto) 0.89 K/uL (0.11-0.59); Monocytes % (auto) 10.2 %; Neutrophils # (auto) 7.55 K/uL (1.4-6.5); Neutrophils % (auto) 86.2 %; Platelet Count 333 K/uL (130-400); RDW Coefficient of Variation 17.3 % (11.5-14.5); RDW Standard Deviation 57.6 fL (36.4-46.3); Red Blood Count 3.16 M/uL (4.2-5.4); White Blood Count 8.76 K/uL (4.8-10.8)
[2019-07-08 06:39] LABS: BUN Creatinine Ratio 33.7 (10-20); Calcium 8.6 mg/dl (8.5-10.1); Creatinine Clr Calc Pharmacy 32.2 ml/min; Est GFR (African American) 45.9; Est GFR (Non-African American) 39.6; Potassium 4.3 mmol/L (3.5-5.1)
[2019-07-08] MEDS: carvediloL 6.25 MG TAB PO SCH ×2 (07:58→17:07)
[2019-07-08] MEDS: FERROUS SULFATE 325 MG TAB PO SCH ×2 (07:58→17:07)
[2019-07-08] MEDS: MAGNESIUM OXIDE 400 MG TAB PO SCH ×2 (07:59→20:00)
[2019-07-08] MEDS: SOTALOL HCL 80 MG TAB PO SCH (07:59)
[2019-07-08] MEDS: ursodioL 300 MG CAP PO SCH ×3 (07:59→20:00)
[2019-07-08] MEDS: CEROVITE ADV FORMULA TAB PO SCH ×2 (07:59→20:00)
[2019-07-08] MEDS: OXYCODONE HCL IR 5 MG TAB (IMMEDIATE RELEASE) PO PRN ×2 (08:08→14:06)
[2019-07-08] MEDS: ACETAMINOPHEN 325 MG TAB PO PRN (19:59)
[2019-07-08] MEDS: PRAVASTATIN SOD 20 MG TAB PO SCH (20:00)
[2019-07-08] MEDS: PANTOprazole 40 MG TAB PO SCH (20:01)
[2019-07-08] MEDS ORDERED: OXYCODONE HCL IR 5 MG TAB (IMMEDIATE RELEASE) PO PRN (20:10)
--- NOTE | 2019-07-08 20:21 | Hospitalist Progress Note ---
Date of Service July 08, 2019 Assessment & Plan (1) Hematoma of right thigh: Spontaneous hematoma right thigh + hemarthrosis right knee. Takes low dose aspirin, no anticoagulants. No trauma. Seen by Ortho. Knee immobilizer recommended. Seen by Vascular Surgery; no need for vascular intervention. Heme / Onc asked for their input. (2) Hemarthrosis involving knee joint: As noted above. (3) Anemia: Baseline Hgb around 10. Hgb time of admission was 7.8 and fell as low as 7.5. Acute blood loss anemia secondary to hematoma RLE. Received 2 units pRBC's. Hgb today = 9.8. Follow. (4) CAD (coronary artery disease): No anginal symptoms. Hold ASA because of hematoma RLE. Continue carvedilol and statin. (5) Atrial fibrillation: History paroxysmal atrial fibrillation, now in SR. No anticoagulants because of RLE hematoma. (6) Hypertension: Continue carvedilol. (7) CKD (chronic kidney disease) stage 3, GFR 30-59 ml/min: Creatinine today = 1.26. Follow. (8) Marginal zone lymphoma: Per Heme / Onc. (9) Fever: Intermittent fevers. Blood cultures negative. No pulm, GI, symptoms to suggest infection. Elevated temps probably secondary to hemarthrosis / hematoma. Re-evaluate as necessary for signs / symptoms of infection. (10) DVT prophylaxis: No anticoagulants because of RLE hematoma. SCD's. Ambulate as able. (11) Discharge planning issues: Anticipated need for skilled care. Arrangements being made for transfer to [facility]. Family Medicine follow-up with Dr. Lucas. given update by phone this evening. Admission and Anticipated Discharge Date Admission Date: July 05, 2019 Subjective Recheck for hematoma RLE. Patient seen in their room around 1440. Persistent pain right leg. Constipated. Wearing immobilizer. Discouraged. Review of Systems: Constitutional- no fever. Cardiac- no chest pain. Pulmonary- no cough or SOB. GI- no nausea, vomiting, diarrhea, melena, hematochezia. - no urinary symptoms. Otherwise, as noted above. Physical Exam Constitutional: no acute distress Respiratory: no respiratory distress Auscultation: lungs clear to auscultation bilaterally Cardiovascular: Rate/Rhythm: regular rate and regular rhythm Vessels: no JVD Extremities: no calf tenderness and no edema Gastrointestinal (Abdomen): normal bowel sounds, soft, nontender, no hepatosplenomegaly Musculoskeletal: Extremities: + extremities abnormal to inspection (knee immobilzer applied to RLE) Skin: no rashes, warm and dry Psychiatric: Orientation: alert and oriented x 3 Results & Data ([facility]) Vital Signs (Past 12 Hours) Vital Signs Temp Pulse Pulse Resp BP BP Pulse Ox 07/08/19 19:56 37.8 C H 07/08/19 19:15 38.2 C H 82 17 130/74 96 07/08/19 18:11 77 07/08/19 15:39 36.7 C 78 14 152/75 H 97 07/08/19 11:41 37.3 C 78 18 123/70 94 Laboratory Results Laboratory Results - last 24 hr 07/08/19 07/08/19 05:44 05:44 WBC 8.76 RBC 3.16 L Hgb 9.8 L Hct 28.6 L MCV 90.5 MCH 31.0 MCHC 34.3 RDW Std Deviation 57.6 H RDW Coeff of Jennifer 17.3 H Plt Count 333 MPV 8.8 Immature Gran % (Auto) 0.2 Neut % (Auto) 86.2 Lymph % (Auto) 3.2 [place] % (Auto) 10.2 Eos % (Auto) 0.1 Baso % (Auto) 0.1 Immature Gran # (Auto) 0.02 Neut # (Auto) 7.55 H Lymph # (Auto) 0.28 L [place] # (Auto) 0.89 H Eos # (Auto) 0.01 Baso # (Auto) 0.01 Sodium 131 L Potassium 4.3 Chloride 100 Carbon Dioxide 23 Anion Gap 8.0 BUN 43 H Creatinine 1.26 H Est Cr Clr Drug Dosing 32.2 Est GFR ( Amer) 45.9 Est GFR (Non-Af Amer) 39.6 BUN/Creatinine Ratio 33.7 H Glucose 97 Calcium 8.6 (1) Hematoma of right thigh Encounter type: initial encounter Qualified Code(s): S70.11XA - Contusion of right thigh, initial encounter (2) Hemarthrosis involving knee joint Laterality: right Qualified Code(s): M25.061 - Hemarthrosis, right knee (3) Anemia Anemia type: unspecified type Qualified Code(s): D64.9 - Anemia, unspecified
[2019-07-08] MEDS: TRAMADOL HCL 50 MG TABLET PO SCH (21:14)
[2019-07-08] MEDS: DOCUSATE SODIUM/SENNA 50/8.6MG TAB PO SCH (21:14)
[2019-07-09] MEDS: LEVOTHYROXINE SODIUM 112 MCG TABLET PO SCH (06:04)
[2019-07-09 07:19] VITALS: TEMP 98.1
[2019-07-09] MEDS: carvediloL 6.25 MG TAB PO SCH (08:42)
[2019-07-09] MEDS: SOTALOL HCL 80 MG TAB PO SCH (08:42)
[2019-07-09] MEDS: ursodioL 300 MG CAP PO SCH ×2 (08:42→13:54)
[2019-07-09] MEDS: CEROVITE ADV FORMULA TAB PO SCH (08:43)
[2019-07-09] MEDS: DOCUSATE SODIUM/SENNA 50/8.6MG TAB PO SCH (08:43)
[2019-07-09] MEDS: MAGNESIUM OXIDE 400 MG TAB PO SCH (08:43)
[2019-07-09] MEDS: TRAMADOL HCL 50 MG TABLET PO SCH ×2 (08:52→12:44)
[2019-07-09 11:27] VITALS: O2SAT 97
--- NOTE | 2019-07-09 11:42 | Hospitalist Progress Note ---
Date of Service July 09, 2019 Assessment & Plan (1) Hematoma of right thigh: Spontaneous hematoma right thigh + hemarthrosis right knee. Takes low dose aspirin, no anticoagulants. No trauma. Seen by Ortho. Knee immobilizer recommended. Seen by Vascular Surgery; no need for vascular intervention. Heme / Onc asked for their input. Old records reviewed. Patient had a large gluteal hematoma after a fall in 2018. Also had a suspected iliopsoas hematoma in 2015. She was only taking low dose aspirin at the time of those occurrences. Taking aspirin for CAD with bare metal stent + PAF. Spoke with Cardiology. Maintenance of patency of coronary stent imperative, so low dose aspirin therapy will be resumed. Analgesics adjusted. Currently receiving tramadol 50 mg TID scheduled + oxycodone 5 mg q 4 hrs PRN severe pain. Taper analgesics as pain improves. Avoid NSAID's (because of CKD + bleeding tendencies). Bowel regimen as ordered. (2) Hemarthrosis involving knee joint: As noted above. (3) Anemia: Baseline Hgb around 10. Hgb time of admission was 7.8 and fell as low as 7.5. Acute blood loss anemia secondary to hematoma RLE. Received 2 units pRBC's. Hgb 07/07 was 9.8. Follow. (4) CAD (coronary artery disease): No anginal symptoms. Held ASA because of hematoma RLE. Spoke with Cardiology. Taking aspirin for CAD with bare metal stent + PAF. Maintenance of patency of coronary stent imperative, so low dose aspirin therapy will be resumed. Continue carvedilol and statin. (5) Atrial fibrillation: History paroxysmal atrial fibrillation, now in SR. No anticoagulants because of RLE hematoma. (6) Hypertension: Continue carvedilol. (7) CKD (chronic kidney disease) stage 3, GFR 30-59 ml/min: Creatinine 07/04 was 1.26. Avoid NSAID's (because of CKD + bleeding tendencies). Follow. (8) Marginal zone lymphoma: Per Heme / Onc. (9) Fever: Intermittent fevers. Blood cultures negative. No pulm, GI, symptoms to suggest infection. Elevated temps probably secondary to hemarthrosis / hematoma. Re-evaluate as necessary for signs / symptoms of infection. (10) DVT prophylaxis: No anticoagulants because of RLE hematoma. SCD's. Ambulate as able. (11) Discharge planning issues: Anticipated need for skilled care. Arrangements being made for transfer to [facility]. Family Medicine follow-up with Dr. Lucas. Heme / Onc follow-up with Dr. Gómez. Ortho follow-up with Dr. Antonio. Admission and Anticipated Discharge Date Admission Date: July 05, 2019 Subjective Recheck for hematoma RLE. Patient seen in their room around 1030. Persistent pain right leg, but improved with adjustments of analgesic regimen. Constipated. Wearing immobilizer. Review of Systems: Constitutional- no fever. Cardiac- no chest pain. Pulmonary- no cough or SOB. GI- no nausea, vomiting, diarrhea, melena, hematochezia. - no urinary symptoms. Otherwise, as noted above. Physical Exam Constitutional: no acute distress sitting in chair Respiratory: no respiratory distress Auscultation: lungs clear to auscultation bilaterally Cardiovascular: Rate/Rhythm: regular rate and regular rhythm Vessels: no JVD Extremities: no calf tenderness and no edema Gastrointestinal (Abdomen): normal bowel sounds, soft, nontender, no hepatosplenomegaly Musculoskeletal: Extremities: + extremities abnormal to inspection (knee immobilzer applied to RLE) Skin: no rashes, warm and dry Psychiatric: Orientation: alert and oriented x 3 Results & Data ([facility]) Vital Signs (Past 12 Hours) Vital Signs Temp Pulse Pulse Resp BP BP Pulse Ox 07/09/19 11:26 36.7 C 70 18 123/73 97 07/09/19 08:00 68 07/09/19 07:18 36.7 C 71 18 147/74 H 95 07/09/19 04:37 36.5 C 71 18 154/73 H 98 07/08/19 23:38 37 C 74 18 108/58 L 95 (1) Hematoma of right thigh Encounter type: initial encounter Qualified Code(s): S70.11XA - Contusion of right thigh, initial encounter (2) Hemarthrosis involving knee joint Laterality: right Qualified Code(s): M25.061 - Hemarthrosis, right knee (3) Anemia Anemia type: unspecified type Qualified Code(s): D64.9 - Anemia, unspecified
[2019-07-09] MEDS ORDERED: FERROUS SULFATE 325 MG TAB PO SCH (12:00)
[2019-07-09 13:22] VITALS: BP 147/74; PULSE 98
--- NOTE | 2019-07-09 13:52 | Discharge Summary ---
Date of Service Date of Admission: 07/05/19 Date of Discharge: 07/09/19 Admission HPI Per Admitting Provider History obtained from patient and records. 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 coli UTI. Recent confinement August 2017 for right gluteal hematoma secondary to mechanical fall, right superior gluteal aneurysm. Patient transferred to [facility] where she underwent IR embolization of pseudoaneurysm. 3 weeks ago patient noted sudden onset right knee, right lower leg swelling without recollection of trauma. No fever no chills. Patient seen at the ER and R knee joint aspirated yielding 3 cc bloody fluid. Patient discharged on prednisone course for right knee joint effusion. Subsequent outpatient follow-up visits with [facility]. Right knee swelling coming and going as per patient after steroid course. Patient also complaining of achy right low back pain without constipation/diarrhea/dysuria symptoms Patient seen on follow-up visit today by aquatics specialist. Marked painful swelling noted of right knee, right leg after manipulation at the office as per patient account. Outpatient MRI recommended as per patient. Patient denies chest pain, S OB, fever, chills. Patient consulted ER for further evaluation. Principal Diagnosis hemarthrosis right knee hematoma right thigh Discharge Data Allergies Allergy/AdvReac Type Severity Reaction Status Date / Time diphenhydramine Allergy Intermediate spasms to Verified 07/05/19 20:29 bilt legs metoprolol Allergy Intermediate RASH Verified 07/05/19 20:29 pseudoephedrine Allergy Intermediate "MAKES ME Verified 07/05/19 20:29 JUMPY" levofloxacin AdvReac Intermediate TENDON PAIN Verified 07/05/19 20:29 garlic AdvReac Mild GASSY Verified 07/05/19 20:29 Consultations 07/05/19 22:43 ED Decision to Admit Stat 07/06/19 00:52 Consult Case Management - Discharge Planning Routine Consult Orthopedic Surgery Routine 07/06/19 16:27 Consult Vascular Surgery Routine Ordered Studies 07/05/19 20:03 US venous doppler LE RT Stat 07/05/19 21:11 CT angio femur RT wo/w con Stat 07/05/19 23:16 CT abd pelvis wo con Urgent 07/06/19 09:57 MR knee RT wo con Stat Hospital Course (1) Hematoma of right thigh: Spontaneous hematoma right thigh + hemarthrosis right knee. Takes low dose aspirin, no anticoagulants. No trauma. Seen by Ortho. Knee immobilizer recommended. Seen by Vascular Surgery; no need for vascular intervention. Heme / Onc asked for their input. Old records reviewed. Patient had a large gluteal hematoma after a fall in 2018. Also had a suspected iliopsoas hematoma in 2014. She was only taking low dose aspirin at the time of those occurrences. Taking aspirin for CAD with bare metal stent + PAF. Spoke with Cardiology. Maintenance of patency of coronary stent imperative, so low dose aspirin therapy will be resumed. Analgesics adjusted. Currently receiving tramadol 50 mg TID scheduled + oxycodone 5 mg q 4 hrs PRN severe pain. Taper analgesics as pain improves. Avoid NSAID's (because of CKD + bleeding tendencies). Bowel regimen as ordered. (2) Hemarthrosis involving knee joint: As noted above. (3) Anemia: Baseline Hgb around 10. Hgb time of admission was 7.8 and fell as low as 7.5. Acute blood loss anemia secondary to hematoma RLE. Received 2 units pRBC's. Hgb 07/07 was 9.8. Follow. (4) CAD (coronary artery disease): No anginal symptoms. Held ASA because of hematoma RLE. Spoke with Cardiology. Taking aspirin for CAD with bare metal stent + PAF. Maintenance of patency of coronary stent imperative, so low dose aspirin therapy will be resumed. Continue carvedilol and statin. (5) Atrial fibrillation: History paroxysmal atrial fibrillation, now in SR. No anticoagulants because of RLE hematoma. Continue carvedilol and sotalol. (6) Hypertension: Continue carvedilol. (7) CKD (chronic kidney disease) stage 3, GFR 30-59 ml/min: Creatinine 07/04 was 1.26. Avoid NSAID's (because of CKD + bleeding tendencies). Follow. (8) Marginal zone lymphoma: Per Heme / Onc. (9) Fever: Intermittent fevers. Blood cultures negative. No pulm, GI, symptoms to suggest infection. Elevated temps probably secondary to hemarthrosis / hematoma. Re-evaluate as necessary for signs / symptoms of infection. (10) Pelvic mass: 8 x 5 cm left pelvic mass noted on CT. Similar findings about 5 years ago with minimal increase in size. Patient did not wish to pursue further evaluation. Slow growth makes malignancy less likely. (11) DVT prophylaxis: No anticoagulants because of RLE hematoma. SCD's. Ambulate as able. (12) Discharge planning issues: Anticipated need for skilled care. Arrangements being made for transfer to [facility]. Family Medicine follow-up with Dr. Lucas. Heme / Onc follow-up with Dr. Gómez. Ortho follow-up with Dr. Antonio. Total Time Total Time Spent Total Time Spent (In Minutes): 50 Discharge Plan Discharge Items Patient Disposition: Transfer Custodial Fac Reason For Visit: hemarthrosis right knee, hematoma right thigh Discharge Diagnosis: hemarthrosis right knee, hematoma right thigh Condition on Discharge: Good Activity: Per Instructions section Activity Comment: with assistance, knee immoblizer, walker Non-emergency contact: Primary Care Provider, Hospitalist, Surgeon and Fixing Machine Operator Call non-emergency contact if: you have any medication questions and your symptoms worsen Follow-up/Referrals: Kelsi Lucas DO [Primary Care Provider] - (Please arrange for appt at time of discharge from your facility.) Juvencio Antonio MD [Physician] - (Please call office for appt in 10-14 days.) Diet: Heart Healthy Addtl Attending Provider Instructions: Please check CBC and BMP in a few days, then as needed. Knee immobilizer right leg until otherwise instructed by Ortho. (may be removed at night) Skin precautions. Fall precautions VTE prophylaxis: SCD's. Thank you for receiving this patient in transfer. Please call if you have any questions. Jay Yoli Pending Studies at Discharge: No Stand-Alone Forms: My [facility] Skilled Items Patient informed of condition?: Yes DNR: No Discharge Level of Care: Skilled Communicable Disease: No Discharge Prognosis: Improving Lines: None Urinary Catheter: No Medications and DC Order Prescriptions: New oxycodone 5 mg Tablet 5 mg PO Q4H PRN (Reason: severe pain (scale score 7-10)) Qty: 18 RF: 0 sennosides-docusate sodium [Senokot-S] 8.6-50 mg Tablet 2 tab PO BID 30 Days Qty: 120 RF: 0 tramadol 50 mg Tablet 50 mg PO QID Qty: 16 RF: 0 magnesium oxide 400 mg (241.3 mg magnesium) Tablet 400 mg PO BID 30 Days Qty: 60 RF: 0 Continued PreserVision AREDS-2 [id number] Capsule 1 tab PO BID RF: 0 aspirin 81 mg Tablet,Delayed Release (Dr/Ec) 81 mg PO QAM RF: 0 lidocaine [Lidocaine Pain Relief] 4 % Adhesive Patch,Medicated 1 patch TOPICAL DAILY PRN (Reason: Pain) RF: 0 sotalol 80 mg Tablet 40 mg PO QAM RF: 0 tramadol 50 mg Tablet 50 mg PO Q6H PRN (Reason: Pain) RF: 0 carvedilol [Coreg] 3.125 mg Tablet 3.125 mg PO BIDM RF: 0 acetaminophen [Tylenol Arthritis Pain] 650 mg Tablet Extended Release 650 mg PO DIRECTED MDD 2000 MG/24 HOURS PRN (Reason: Pain) RF: 0 ferrous sulfate [iron] 325 mg (65 mg iron) Tablet 325 mg PO QAM RF: 0 ursodiol [Actigall] 300 mg Capsule 300 mg PO TID RF: 0 omeprazole 20 mg Capsule,Delayed Release(Dr/Ec) 20 mg PO HS RF: 0 pravastatin [Pravachol] 20 mg Tablet 20 mg PO HS RF: 0 levothyroxine 112 mcg Tablet 112 mcg PO QAM RF: 0 methylprednisolone [Medrol (Christopher)] 4 mg tablets,dose pack 4 mg PO DIRECTED Qty: 21 RF: 0 Discontinued tramadol 50 mg tablet 50 mg PO Q6H PRN (Reason: pain) Qty: 14 RF: 0 oxycodone 5 mg tablet 5 mg PO Q6H PRN (Reason: pain) Qty: 10 RF: 0 sennosides-docusate sodium [Senokot-S] 8.6-50 mg tablet 1 tabcap PO BID PRN (Reason: constipation) Qty: 60 RF: 2 Admission Data Admit Date/Time: 07/05/19 23:22 Attending Provider: Jay Kent Admit Provider: Uche Tabor Primary Care Provider: Kelsi Lucas Other Providers: Eriberto Thornton ; Rubio Cottrell [place] ; Uche Tabor ; Juvencio Antonio ; Cedric Moyer Other Interventions: Discharge Summary Assessment (RN) Last Done: 07/09/19 13:15
--- NOTE | 2019-07-09 14:46 | Communication Note ---
Date of Service: July 09, 2019 Phone report give to Nilson GRANT at [facility].
== END 2019-07-09 14:48 | DRG 554 ==
LOC: ED 19:58 → 2N 23:22 → SUATTDRO 23:22 → 2N 23:56